=== PATIENT | male | born 1970 | race Caucasian/White ===

== ENCOUNTER 2018-04-15 13:49 | Inpatient (IN) | payer MEDICAID ==
[~2018-04-15] VITALS: Ht 175.3 cm; Wt 86.2 kg
[~2018-04-15 13:49] MED LIST: GABA-529 PO; INSU100I26 SQ; INSU100V9 SUBCUT; INSU10VI4 SUBCUT; PRAV20TA PO
[2018-04-15 14:13] VITALS: BP_SYST 142
[2018-04-15 14:40] LABS: BASOPHILS # (AUTO) 0.1 K/uL (0.0-0.2); BASOPHILS % (AUTO) 1.3 % (0.0-2.0); EOSINOPHILS # (AUTO) 0.1 K/uL (0.0-0.4); HEMATOCRIT 42.9 % (36-54); HEMOGLOBIN 13.9 g/dL (14.0-18.0); LYMPHOCYTES # (AUTO) 2.3 K/uL (1.0-5.5); LYMPHOCYTES % (AUTO) 26.6 % (20.5-51.5); MEAN CORPUSCULAR HEMOGLOBIN 29 pg (27-31); MEAN CORPUSCULAR HGB CONC 33 % (32-36); MEAN CORPUSCULAR VOLUME 88 fL (79.0-98.0); MONOCYTES # (AUTO) 0.3 K/uL (0.0-1.0); NEUTROPHILS # (AUTO) 5.7 K/uL (1.8-7.7); NEUTROPHILS % (AUTO) 67.1 % (40.0-70.0); PLATELET COUNT (AUTO) 313 K/uL (130-430); RED BLOOD CELL COUNT(AUTO) 4.88 MIL/uL (4.2-6.2); RED CELL DISTRIBUTION WIDTH 12.2 % (9.0-15.0); WHITE BLOOD COUNT (AUTO) 8.5 K/uL (4.8-10.8)
[2018-04-15 14:57] LABS: CALCIUM 9.1 mg/dL (8.4-11.0); CREATININE 0.86 mg/dL (0.55-1.30); POTASSIUM 4.9 mmol/L (3.5-5.1)
[2018-04-15 15:00] LABS: ALBUMIN 3.1 g/dL (3.4-4.8); TOTAL BILIRUBIN 0.2 mg/dL (0.0-1.0)
--- NOTE | 2018-04-15 15:17 | NUR ---
Patient to ER bed 07 to gown for evaluation. Side rails up. Report received from BASSEM Mauricio
--- NOTE | 2018-04-15 15:20 | NUR ---
Patient brought in by self complaining of wound to the bottom of right foot. 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 Denies any other pain. Will continue to monitor.
--- NOTE | 2018-04-15 15:21 | NUR ---
DELANEY Gustafson examining patient.
--- NOTE | 2018-04-15 15:25 | NUR ---
Patient states he is a full code
[2018-04-15] MEDS ORDERED: INSU100I26 SQ (15:26)
--- NOTE | 2018-04-15 15:26 | NUR ---
Medication reconciliation completed with information provided by Patient. Any prior medication reconciliation on file was reviewed and corrected.
[2018-04-15] MEDS ORDERED: VANCOMYCIN HCL 1,000 MG in NS 250 ML IV ONE (15:30)
[2018-04-15] MEDS ORDERED: INSULIN REGULAR, HUMAN 10 UNITS/0.1 ML INJ IVP ONE ×2 (15:30→16:30)
[2018-04-15] MEDS ORDERED: NACL 0.9% 1,000 ML IV ONE (16:15)
[2018-04-15] MEDS ORDERED: VANCOMYCIN HCL 1000 MG/VIAL IV ONE (16:17)
--- NOTE | 2018-04-15 17:20 | NUR ---
Spoke with Jaylyn LUEVANO with preferred [facility] who states that it is ok to admit authorization to admit [id number]. Jaylyn requests that clinical information be faxed to .
--- NOTE | 2018-04-15 17:27 | NUR ---
Pt A&Ox4, respirations even and unlabored.
--- NOTE | 2018-04-15 18:45 | NUR ---
Pt ambulated to bathroom , pt on stable condition, afebrile.
--- NOTE | 2018-04-15 19:10 | NUR ---
Patient will be admitted to care of Dr Mcmillan. Admitted to Medsurg unit. Will go to room 127B. Belongings list completed. Summary report printed. Report will be given at bedside.
--- NOTE | 2018-04-15 19:20 | NUR ---
Admission Note Received patient from ER with diagnosis of Diabetic right foot ulcer and possible osteomyelitis. Initial Plan of Care discussed-patient verbalized understanding. Family at bedside. Oriented to room, call light, pain management and safety.
[2018-04-15 20:02] VITALS: BP_SYST 128
--- NOTE | 2018-04-15 20:15 | NUR ---
Unable to obtain Aerobic culture Wound assessment and photo documentation done. Unable to obtain aerobic culture at this time since the wound has no drainage.
[2018-04-15] MEDS: INSULIN ASPART 100 UNITS/ML, 10 ML VIAL (NovoLOG) SUBCUT PRN (20:22)
--- NOTE | 2018-04-15 20:30 | NUR ---
BASSEM rounds Blood sugar 181. Gave 2 units of insulin. Patient tolerated well. No signs of allergic reaction. No other needs at this moment. Safety precautions are in place.
[2018-04-15] MEDS ORDERED: ZOLPIDEM TARTRATE 5 MG TABLET PO PRN (21:15)
[2018-04-15] MEDS ORDERED: HYDROcodone/ACETAMIN 5-325 MG TAB (NORCO/ VICODIN) PO PRN (21:15)
[2018-04-15] MEDS ORDERED: ACETAMINOPHEN 325 MG TABLET PO PRN (21:15)
[2018-04-15] MEDS ORDERED: ONDANSETRON HCL 4 MG/2 ML VIAL IVP PRN (21:15)
[2018-04-15] MEDS ORDERED: AMPICILLIN SODIUM/SULBACTAM NA 3 GM VIAL ONE (22:29)
[2018-04-15] MEDS: AMPICILLIN SODIUM/SULBACTAM NA 3 GM in NS 100 ML IV SCH (22:38)
--- NOTE | 2018-04-15 22:50 | NUR ---
RN rounds Patient ambulated to restroom with assist, steady gait noted. Patient ambulated back into bed. No signs of distress noted. Breathing is even and unlabored. No needs at this moment. Safety precautions are in place.
--- NOTE | 2018-04-16 01:00 | NUR ---
RN rounds Patient is asleep in bed. No signs of distress noted. Breathing is even and unlabored. No needs at this moment. Safety precautions are in place.
--- NOTE | 2018-04-16 03:10 | NUR ---
RN rounds Patient is asleep in bed. No signs of distress noted. Breathing is even and unlabored. Safety precautions are in place.
[2018-04-16] MEDS: AMPICILLIN SODIUM/SULBACTAM NA 3 GM in NS 100 ML IV SCH ×2 (04:15→10:12)
--- NOTE | 2018-04-16 05:24 | NUR ---
Consults Spoke with Dr. Mcmillan for order clarification. Dr Mcmillan ordered a consult for Dr Andino, who is not in our records. Dr Mcmillan informed us that she ordered the wrong doctor, and would like to consult to Dr Pichardo.
--- NOTE | 2018-04-16 05:28 | NUR ---
CONSULT CONSULT CALLED FOR DR. MONK I SPOKE WITH RIVKA SIMPSON REASON FOR CONSULT: DIABETIC FOOT ULCER REQUESTING CONSULT: DR. SALCIDO POPULATION HEALTH COACH PHONE NUMBER: [phone]
[2018-04-16] MEDS: INSULIN ASPART 100 UNITS/ML, 10 ML VIAL (NovoLOG) SUBCUT PRN ×4 (06:29→21:49)
[2018-04-16 06:52] LABS: BASOPHILS # (AUTO) 0.2 K/uL (0.0-0.2); BASOPHILS % (AUTO) 2.3 % (0.0-2.0); EOSINOPHILS # (AUTO) 0.2 K/uL (0.0-0.4); EOSINOPHILS % (AUTO) 2.1 % (0.0-4.0); HEMATOCRIT 41.5 % (36-54); HEMOGLOBIN 13.5 g/dL (14.0-18.0); LYMPHOCYTES # (AUTO) 2.8 K/uL (1.0-5.5); LYMPHOCYTES % (AUTO) 38.2 % (20.5-51.5); MEAN CORPUSCULAR HEMOGLOBIN 29 pg (27-31); MEAN CORPUSCULAR HGB CONC 33 % (32-36); MEAN CORPUSCULAR VOLUME 89 fL (79.0-98.0); MONOCYTES # (AUTO) 0.4 K/uL (0.0-1.0); MONOCYTES % (AUTO) 5.8 % (1.7-9.3); NEUTROPHILS # (AUTO) 3.7 K/uL (1.8-7.7); NEUTROPHILS % (AUTO) 51.6 % (40.0-70.0); PLATELET COUNT (AUTO) 285 K/uL (130-430); RED BLOOD CELL COUNT(AUTO) 4.69 MIL/uL (4.2-6.2); RED CELL DISTRIBUTION WIDTH 11.9 % (9.0-15.0); WHITE BLOOD COUNT (AUTO) 7.3 K/uL (4.8-10.8)
[2018-04-16 07:20] LABS: CALCIUM 8.5 mg/dL (8.4-11.0); CREATININE 0.69 mg/dL (0.55-1.30); POTASSIUM 3.4 mmol/L (3.5-5.1); THYROID STIMULATING HORMONE 0.71 uIu/mL (0.34-4.82)
--- NOTE | 2018-04-16 07:52 | NUR ---
Closing notes Patient is asleep in bed. No signs of distress noted. Breathing is even and unlabored on room air. IV is intact, saline locked. Fall and safety precautions maintained. All needs have been met during this shift. Endorsement given to oncoming day shift nurse.
--- NOTE | 2018-04-16 08:10 | NUR ---
Opening note patient received resting in bed, patient is A&Ox4, patient denies any pain or distress at this time, IVF infusing well with no signs of infiltration, breathing is even and unlabored, educated patient on plan of care and call light system, will continue to monitor, safety precautions in place, call light within reach.
[2018-04-16 08:17] VITALS: BP_SYST 140
[2018-04-16] MEDS ORDERED: POTASSIUM CHLORIDE 10 MEQ TAB.PRT.SR PO ONE (09:15)
[2018-04-16] MEDS: GABAPENTIN 100 MG CAPSULE PO SCH ×2 (09:37→21:43)
[2018-04-16] MEDS: FAMOTIDINE 20 MG TABLET PO SCH (09:37)
--- NOTE | 2018-04-16 10:20 | NUR ---
NOTES PATIENT RESTING IN BED, NO ACUTE DISTRESS NOTED, PATIENT DENIES ANY PAIN AT THIS TIME, BREATHING IS EVEN AND UNLABORED, IVF INFUSING WELL WITH NO SIGNS OF INFILTRATION, WILL CONTINUE TO MONITOR, SAFETY PRECAUTIONS IN PLACE, CALL LIGHT WITHIN REACH.
--- NOTE | 2018-04-16 10:30 | NUR ---
Nutrition Update Juan Scale 17 noted. Pt admitted for diabetic R foot ulcer, possible osteomyelitis. Diet: [facility] BMI: 28.1 kg/m2 RD to follow per nutrition care standards.
--- NOTE | 2018-04-16 11:50 | NUR ---
NOTES / BLOOD SUGAR PATIENT IS RESTING IN BED, BLOOD SUGAR IS 201, 4 UNITS OF INSULIN GIVEN PER SLIDING SCALE, PATIENT DENIES ANY PAIN OR ACUTE DISTRESS AT THIS TIME, BREATHING IS EVEN AND UNLABORED, WILL CONTINUE TO MONITOR, SAFETY PRECAUTIONS IN PLACE CALL LIGHT WITHIN REACH.
[2018-04-16 12:37] VITALS: BP_SYST 148
--- NOTE | 2018-04-16 14:12 | NUR ---
Surgical consult called: for Dr. Conroy, regarding diabetic foot ulcer/debridement, ordered by Dr. Mcmillan, spoke with Deirdre.
[2018-04-16] MEDS: PIPERACILLIN/TAZO 4.5GM/DEX-IS 100 ML IV SCH ×2 (14:13→21:43)
[2018-04-16] MEDS ORDERED: LISINOPRIL 10 MG TABLET (PRINIVIL) PO ONE (14:15)
--- NOTE | 2018-04-16 14:37 | NUR ---
Notes patient is resting in bed, IVF infusing well with no signs of infiltration, patient denies any pain or distress at this time, breathing is even and unlabored, will continue to monitor, safety precautions in place, call light within reach.
[2018-04-16] MEDS: VANCOMYCIN HCL 1,000 MG in NS 250 ML IV SCH ×2 (15:03→23:29)
--- NOTE | 2018-04-16 16:00 | NUR ---
Patient off floor for CT. Addendum: 04/16/18 at 1820 by Calli Stanley RN wrong patient, disregard note.
[2018-04-16 16:25] VITALS: BP_SYST 150
--- NOTE | 2018-04-16 16:30 | NUR ---
NOTES PATIENT IS RESTING IN BED, IVF INFUSING WELL WITH NO SIGNS OF INFILTRATION, PATIENT DENIES ANY ACUTE DISTRESS OR PAIN AT THIS TIME, WILL CONTINUE TO MONITOR, SAFETY PRECAUTIONS IN PLACE, CALL LIGHT WITHIN REACH.
--- NOTE | 2018-04-16 16:30 | NUR ---
Patient back from CT resting in bed, IVF infusing well, breathing even and unlabored, will continue to monitor, safety precautions in place, call light within reach. Addendum: 04/16/18 at 1818 by Calli Stanley RN wrong patient
--- NOTE | 2018-04-16 18:41 | NUR ---
CLOSING NOTE PATIENT IS RESTING IN BED, A&OX4, PATIENT DENIES ANY ACUTE DISTRESS OR PAIN AT THIS TIME, BREATHING IS EVEN AND UNLABORED, IVF INFUSING WELL WITH NO SIGNS OF INFILTRATION, WILL ENDORSE REPORT TO ONCOMING NURSE, ALL NEEDS WERE MET THROUGHOUT SHIFT, SAFETY PRECAUTIONS IN PLACE, CALL LIGHT WITHIN REACH.
--- NOTE | 2018-04-16 19:54 | NUR ---
Initial notes Received handoff report from offgoing nurse at the bedside. Patient is awake and alert, resting comfortably in bed. No SOB, no acute distress, no complaints of pain at this time. Bed is locked, in the lowest position, 2x side rails up, bed alarm is on. Call light is within reach. Explained plan of care to the patient. Patient verbalized understanding. Will continue with plan of care. Spouse is at the bedside.
[2018-04-16 20:00] VITALS: BP_SYST 131
--- NOTE | 2018-04-16 21:30 | NUR ---
Patient is resting comfortably in bed. NO SOB, no acute distress, no complaints of pain at this time. Bed is locked, in the lowest position, 2x side rails up. Call light within reach. Patient does not want his wound dressed at this time, he stated "its fine. it's not draining or anything."
--- NOTE | 2018-04-16 23:51 | NUR ---
Patient is resting comfortably in bed, awake and alert. No SOB, no acute distress, no complaints of pain at this time. Call light is within reach. Encouraged patient to call for assistance.
[2018-04-17] VITALS: BP_SYST 145
--- NOTE | 2018-04-17 00:21 | NUR ---
SHANNON GARCIA / Dr MCMILLAN Paged Dr Mcmillan regarding patient's HS accucheck per Dr Mcmillan's order. Spoke with exchange, and transferred directly to Dr Mcmillan. Informed Dr Mcmillan that the patient's last blood sugar is 363, and that 10 units of NovoLog has been given per the sliding scale. Dr Mcmillan ordered for 15 units Levemir ONE time dose.
--- NOTE | 2018-04-17 02:00 | NUR ---
Informed ANESTHESIOLOGY MEDICAL DOCTOR regarding patient's midnight vital signs not being done yet. ANESTHESIOLOGY MEDICAL DOCTOR stated she will take the vital signs after coming back from break. Addendum: 04/17/18 at 0316 by Deirdre Aguilar RN ERROR* wrong time
--- NOTE | 2018-04-17 02:15 | NUR ---
Informed CHEMICAL ETCHING PROCESSOR regarding patient's midnight vital signs not being done yet. CHEMICAL ETCHING PROCESSOR stated she will take the vital signs after coming back from break.
--- NOTE | 2018-04-17 02:36 | NUR ---
Patient is resting comfortably in bed sleeping. No SOB, no acute distress, no signs of pain or facial grimacing. Breathing is even and unlabored with visible chest rise and fall noted. Call light within reach.
--- NOTE | 2018-04-17 04:00 | NUR ---
Patient is resting comfortably in bed with eyes closed. No SOB, no acute distress, no signs of pain or facial grimacing noted. Breathing is even and unlabored with visible chest rise and fall noted. Stable. Call light within reach.
[2018-04-17] MEDS: PIPERACILLIN/TAZO 4.5GM/DEX-IS 100 ML IV SCH ×3 (05:03→22:20)
--- NOTE | 2018-04-17 05:15 | NUR ---
MRI questionnaire has been completed by the patient and placed in the charts.
[2018-04-17] MEDS: VANCOMYCIN HCL 1,000 MG in NS 250 ML IV SCH (06:22)
[2018-04-17] MEDS: INSULIN ASPART 100 UNITS/ML, 10 ML VIAL (NovoLOG) SUBCUT PRN ×3 (06:30→17:28)
--- NOTE | 2018-04-17 07:42 | NUR ---
Closing notes Patient is awake and alert, resting comfortably in bed. No SOB, no acute distress, no complaints of pain at this time. Bed is locked, in the lowest position, 2x side rails up. Call light is within reach. Fall and safety precautions maintained. All needs have been met during this shift. Handoff report given to oncoming dayshift nurse at the bedside.
[2018-04-17 07:43] LABS: CALCIUM 8.8 mg/dL (8.4-11.0); CREATININE 0.9 mg/dL (0.55-1.30); POTASSIUM 4.1 mmol/L (3.5-5.1)
[2018-04-17 08:00] VITALS: BP_SYST 143
--- NOTE | 2018-04-17 08:00 | NUR ---
Note Pt sitting up in bed eating his breakfast. No SOB/resp distress or pain/discomfort noted at this time. IV in left forearm intact and patent at this time. Pt ambulates in room and restroom with steady gait. No weakness or dizziness noted at this time. No needs noted. Call light within reach.
[2018-04-17] MEDS: GABAPENTIN 100 MG CAPSULE PO SCH ×2 (08:48→22:17)
[2018-04-17] MEDS: FAMOTIDINE 20 MG TABLET PO SCH (08:48)
[2018-04-17] MEDS: LISINOPRIL 10 MG TABLET (PRINIVIL) PO SCH (08:49)
--- NOTE | 2018-04-17 11:30 | NUR ---
Note Pt resting in bed. Denies any needs at this time. Call light within reach.
--- NOTE | 2018-04-17 11:55 | NUR ---
Note Pt off the floor via wheelchair to Radiology for MRI of lower extremity. Dr Mcmillan on the floor doing rounds and assessment completed.
--- NOTE | 2018-04-17 12:05 | NUR ---
Note Dr Conroy on the floor - was informed that pt is in Radiology for MRI at this time.
[2018-04-17 12:10] VITALS: BP_SYST 137
--- NOTE | 2018-04-17 14:20 | NUR ---
Note Pt has been back to room from MRI of lower extremity. Dr Conroy came back to see pt and consent pt for surgery. Dr Conroy saw the results of the MRI of lower extremity at this time. Pt has his IVPB antibiotic running at this time. No needs noted. Call light within reach.
--- NOTE | 2018-04-17 14:55 | NUR ---
Note Pt off the floor via wheelchair to Radiology dept for 2 view CXR at this time.
[2018-04-17] MEDS: VANCOMYCIN HCL 1,250 MG in NS 250 ML IV SCH ×2 (15:29→23:56)
[2018-04-17 17:33] VITALS: BP_SYST 153
--- NOTE | 2018-04-17 17:45 | NUR ---
NOTE Pt resting in bed. Pt's girlfriend and son are at bedside at this time. Pt denies any needs. Pt signed consent for surgery tomorrow and blood consent. Pt was instructed that he will be NPO after midnight for surgery tomorrow. Pt verbalize understanding. No needs noted. Call light within reach.
--- NOTE | 2018-04-17 18:25 | NUR ---
Note Pt sitting up in bed eating his dinner with his girlfriend and son at bedside at this time. No needs noted. Left forearm IV intact and patent at this time. No SOB/resp distress or pain/discomfort noted all shift. Pt was checked on q1' and PRN all shift. Call light within reach.
[2018-04-17 18:48] LABS: BILIRUBIN,URINE NEGATIVE (NEGATIVE); BLOOD, URINE 1+ (NEGATIVE); CLARITY/URINE CLEAR (CLEAR); COLOR,URINE YELLOW (YELLOW); GLUCOSE,URINE 2+ (NEGATIVE); KETONES,URINE NEGATIVE (NEGATIVE); LEUKOCYTE ESTERASE ,URINE NEGATIVE (NEGATIVE); NITRITE, URINE NEGATIVE (NEGATIVE); PROTEIN URINE 2+ (NEGATIVE); UROBILINOGEN,URINE 0.2 (0.2-1.0)
[2018-04-17 18:53] LABS: BACTERIA,URINE RARE /HPF (None Seen); RBC,URINE 0-3 /HPF (0-3); WBC,URINE 0-3 /HPF (0-3)
--- NOTE | 2018-04-17 19:31 | NUR ---
OPENING NOTE Received patient AAOx4, resting in bed in no sign of distress. VSS and denies pain at this time. 22G IV to LFA. Instructed on use of call light. Bed locked to lowest position and call light w/in reach.
[2018-04-17 20:00] VITALS: BP_SYST 102
--- NOTE | 2018-04-17 22:35 | NUR ---
S/W Dr. Mcmillan Spoke with Dr. Mcmillan to notify accucheck result was 350; patient will be NPO at midnight and he is not on fluids. She provided order to go ahead and administer insulin novolog as ordered per sliding scale and provided an order for levemir insulin to change to 8units this time instead of 15. She did not provided an order for fluids.
--- NOTE | 2018-04-18 | NUR ---
ROUNDS Patient was administered insulin per Dr. Mcmillan's ordere. Patient was provided with a half sandwich just before midnight and was instructed and reminded that he was not going to have any food or drink after midnight. He verbalized understanding. The water pitcher was removed from the bedside table and the NPO cone was place. Bed is locked to lowest position and call light w/in reach. will monitor.
[2018-04-18] MEDS: INSULIN ASPART 100 UNITS/ML, 10 ML VIAL (NovoLOG) SUBCUT PRN ×4 (00:02→22:53)
[2018-04-18 00:24] VITALS: BP_SYST 131
[2018-04-18] MEDS: VANCOMYCIN HCL 1,250 MG in NS 250 ML IV SCH ×3 (00:25→17:36)
--- NOTE | 2018-04-18 02:40 | NUR ---
ROUNDS Patient sleeping, symmetrical rise and fall of chest. Patient no further needs at this time. Safety precautions in place and call light near. Will monitor.
--- NOTE | 2018-04-18 05:10 | NUR ---
ROUNDS Patient resting w/ eyes closed. No sign of distress noted. IV antibiotic was administered as ordered and patient was educated on side effects and he verbalized understanding. Will monitor.
[2018-04-18] MEDS: PIPERACILLIN/TAZO 4.5GM/DEX-IS 100 ML IV SCH ×3 (05:34→22:51)
--- NOTE | 2018-04-18 06:55 | NUR ---
CLOSING NOTE Patient resting in bed, awake and denies pain. Patient remains NPO. Needs met throughout shift. Saftey precautions in place and call light near. Will administer next due antibiotic and endorse care to oncoming nurse.
[2018-04-18 07:22] LABS: INR 0.9 (0.80-1.20); PROTHROMBIN TIME 9.5 SECS (9.5-12.5)
[2018-04-18 08:00] VITALS: BP_SYST 134
--- NOTE | 2018-04-18 08:00 | NUR ---
initial notes rec patient awake alert with hob slightly elevated. resp easy and unlabored. no acute distress noted. bed to the lowest position and side rails up and locked. call light within reached and knows when to call for assistance. npo maintained for sx at [address] su who was at the bedside. will continue to monitor patient.
[2018-04-18] MEDS: GABAPENTIN 100 MG CAPSULE PO SCH ×2 (09:00→22:15)
[2018-04-18] MEDS: FAMOTIDINE 20 MG TABLET PO SCH (09:00)
[2018-04-18] MEDS: LISINOPRIL 10 MG TABLET (PRINIVIL) PO SCH (09:00)
--- NOTE | 2018-04-18 10:00 | NUR ---
rounds watching tv. denies pain. no sob noted. call light within reached.
--- NOTE | 2018-04-18 12:38 | NUR ---
rounds npo maintianed sx . no hypo hyperglycemic reaction noted. call light within reached.
[2018-04-18 12:40] VITALS: BP_SYST 134
[2018-04-18] MEDS ORDERED: ONDANSETRON HCL 4 MG/2 ML VIAL IVP PRN (13:15)
[2018-04-18] MEDS ORDERED: fentaNYL CITRATE/PF 100 MCG/2 ML AMP IVP PRN ×2 (13:15)
--- NOTE | 2018-04-18 13:15 | NUR ---
rounds was picked up for sx via bed. no sob noted.
[2018-04-18] MEDS ORDERED: BUPIVACAINE /PF 0.75% 10 ML VIAL INJ ONE (14:35)
[2018-04-18] MEDS ORDERED: MIDAZOLAM HCL 5 MG/ML VIAL (VERSED) IV ONE (14:35)
[2018-04-18] MEDS ORDERED: NS IRRIG SOLN 1000 ML IR ONE (14:35)
[2018-04-18] MEDS ORDERED: NS 1000 ML IV.SOLN IV ONE (14:35)
--- NOTE | 2018-04-18 15:20 | NUR ---
rounds pt back from sx with debridement of the rt foot ulcer. with ac bandage dressing wrapped on the rt foot and elevated in a pillow. pt stated no sensationon the rt foot when touched. denies pain at this time.
[2018-04-18 16:45] VITALS: BP_SYST 128
--- NOTE | 2018-04-18 20:00 | NUR ---
Opening note: Received handoff report from dayshift RN. Patient watching TV, no acute distress noted. IV antibiotics infusing to left forearm, no infiltration noted. Safety, fall precautions in place. Call light with patient. Will continue monitoring.
[2018-04-18 20:10] VITALS: BP_SYST 131
--- NOTE | 2018-04-18 22:00 | NUR ---
Rounds: Patient resting in bed, no acute distress noted. Call light is with patient. Will continue monitoring.
[2018-04-19 00:23] VITALS: BP_SYST 132
[2018-04-19] MEDS: VANCOMYCIN HCL 1,250 MG in NS 250 ML IV SCH ×4 (00:25→23:43)
--- NOTE | 2018-04-19 02:00 | NUR ---
Rounds: Patient is asleep, no signs or symptoms of acute distress noted. Call light is with patient. Will continue to monitor.
[2018-04-19] MEDS: PIPERACILLIN/TAZO 4.5GM/DEX-IS 100 ML IV SCH ×3 (05:37→21:20)
[2018-04-19 06:06] LABS: BASOPHILS % (AUTO) 0.4 % (0.0-2.0); EOSINOPHILS # (AUTO) 0.2 K/uL (0.0-0.4); EOSINOPHILS % (AUTO) 2.5 % (0.0-4.0); HEMATOCRIT 39.7 % (36-54); HEMOGLOBIN 13.6 g/dL (14.0-18.0); LYMPHOCYTES # (AUTO) 2.1 K/uL (1.0-5.5); LYMPHOCYTES % (AUTO) 30.6 % (20.5-51.5); MEAN CORPUSCULAR HEMOGLOBIN 30 pg (27-31); MEAN CORPUSCULAR HGB CONC 34 % (32-36); MEAN CORPUSCULAR VOLUME 87 fL (79.0-98.0); MONOCYTES # (AUTO) 0.5 K/uL (0.0-1.0); MONOCYTES % (AUTO) 6.8 % (1.7-9.3); NEUTROPHILS # (AUTO) 4.1 K/uL (1.8-7.7); NEUTROPHILS % (AUTO) 59.7 % (40.0-70.0); PLATELET COUNT (AUTO) 285 K/uL (130-430); RED BLOOD CELL COUNT(AUTO) 4.55 MIL/uL (4.2-6.2); RED CELL DISTRIBUTION WIDTH 12.4 % (9.0-15.0); WHITE BLOOD COUNT (AUTO) 6.9 K/uL (4.8-10.8)
--- NOTE | 2018-04-19 06:30 | NUR ---
Closing note: Patient is watching TV, no acute distress noted. Most recent blood sugar 263, 6 units of novolog provided per sliding scale. All needs met and attended to. Will endorse care to dayshift RN.
[2018-04-19 06:43] LABS: CALCIUM 8.7 mg/dL (8.4-11.0); CREATININE 0.88 mg/dL (0.55-1.30); POTASSIUM 3.5 mmol/L (3.5-5.1)
[2018-04-19] MEDS: INSULIN ASPART 100 UNITS/ML, 10 ML VIAL (NovoLOG) SUBCUT PRN ×4 (06:46→21:19)
[2018-04-19 08:00] VITALS: BP_SYST 138
--- NOTE | 2018-04-19 08:00 | NUR ---
initial notes rec patient awake alert with ivl on the l forearm intact. no infiltration noted. dressing on the rt foot intact. no bleeding noted. denies pain. resp easy and unlabored. no acute distress noted. bed to the lowest position and side rails up and locked. call light within reached and knows when to call for assistance.
[2018-04-19] MEDS: FAMOTIDINE 20 MG TABLET PO SCH (09:30)
[2018-04-19] MEDS: GABAPENTIN 100 MG CAPSULE PO SCH ×2 (09:31→21:10)
[2018-04-19] MEDS: LISINOPRIL 10 MG TABLET (PRINIVIL) PO SCH (09:31)
--- NOTE | 2018-04-19 10:00 | NUR ---
rounds seen by dr su , due meds given and mynor well. denies pain.
--- NOTE | 2018-04-19 12:00 | NUR ---
rounds no hypo/ hyperglycemic reaction noted. no sob noted.
[2018-04-19 15:00] VITALS: BP_SYST 120
--- NOTE | 2018-04-19 16:00 | NUR ---
rounds pt was moved to the west side. spoke with ani the family preservation caseworker re home health follow up when d/c.
--- NOTE | 2018-04-19 17:34 | NUR ---
Case mgt: I s/w Dr. Mcmillan re: orders for home IV abx orders and PICC line order-ie I need orders to fax to home health-she indicated she would enter orders..Orders not received..Per , pt has had home health nurse Jozef at [phone] in the past--I called that number and left message to call us back with name of Home Health agency. Nurse Kim aware I did not receive orders yet from Dr. Mcmillan. FRITZ RN
--- NOTE | 2018-04-19 18:40 | NUR ---
closing notes in bed with hob elevated. at bedside. no hypo hyperglycemic reaction noted. call light wihtn reached and no sob noted. home health inquiry from [facility] but told them that no order for dr taylor is written at this time.
[2018-04-19 19:05] VITALS: BP_SYST 124
--- NOTE | 2018-04-19 19:05 | NUR ---
Initial Notes Received patient in bed resting in bed with at bedside. Patient is awake alert oriented x4. No c/o pain and no s/s of any distress noted. IV noted to L f/a g 22 no infiltrate and with good blood return. Dressing noted to L foot, no bleeding noted. All extremities are strong ambulate with assist. Discuss plan of care with patient and verbalize understanding. Call light in reach, will cont to monitor.
--- NOTE | 2018-04-19 21:05 | NUR ---
Rounds Patient is resting in bed with at bedside . No c/o pain and no s/s of any distress noted. Call light in reach, will cont to monitor.
--- NOTE | 2018-04-19 23:05 | NUR ---
Rounds Patient is comfortably resting with eyes close at this time. No s/s of any distress noted. Call light in reach, will cont to monitor.
[2018-04-20 00:18] VITALS: BP_SYST 117
--- NOTE | 2018-04-20 01:05 | NUR ---
Rounds Patient is comfortably resting in bed . No c/o pain and no s/s of any distress noted. Call light in reach, will cont to monitor.
--- NOTE | 2018-04-20 03:05 | NUR ---
Rounds Patient is comfortably resting at this time .No c/o pain and no s/s of any distress noted. Denies any assistance at this time. Call light in reach, will cont to monitor.
[2018-04-20] MEDS: PIPERACILLIN/TAZO 4.5GM/DEX-IS 100 ML IV SCH ×2 (05:42→14:14)
[2018-04-20] MEDS: VANCOMYCIN HCL 1,250 MG in NS 250 ML IV SCH (05:43)
[2018-04-20] MEDS: INSULIN ASPART 100 UNITS/ML, 10 ML VIAL (NovoLOG) SUBCUT PRN ×2 (06:02→12:18)
--- NOTE | 2018-04-20 06:57 | NUR ---
End of shift notes Patient is awake on his cell phone at this time. No s/s of any distress noted. All needs met and anticipated by noc nurses. Will endorse care to incoming nurse.
[2018-04-20 07:20] VITALS: BP_SYST 118
--- NOTE | 2018-04-20 07:30 | NUR ---
RN OPENING NOTE SBAR REPORT RECEIVED BY ENDORSING RN AT BEDSIDE. PT AMBULATORY W/O ASSIST AND IS NOT ON FALL PRECAUTIONS. EDUCATED ON UNIT SAFETY AND USE OF CALL LIGHT, BED IN LOWEST POSITION AND CALL LIGHT IS WITHIN REACH OF PT. SEE VS FLOW SHEET
[2018-04-20] MEDS: FAMOTIDINE 20 MG TABLET PO SCH (09:12)
[2018-04-20] MEDS: GABAPENTIN 100 MG CAPSULE PO SCH (09:13)
[2018-04-20] MEDS: LISINOPRIL 10 MG TABLET (PRINIVIL) PO SCH (09:13)
--- NOTE | 2018-04-20 10:25 | NUR ---
ENDORSEMENT REPORT ENDORSED TO RECEIVING RN AT BEDSIDE.
--- NOTE | 2018-04-20 10:30 | NUR ---
Transfer of care: Received patient from BASSEM Vargas. Patient not in the room, went for a walk with family. Dr. Conroy came and missed to see the patient.
--- NOTE | 2018-04-20 12:57 | NUR ---
Dietitian Recommendations *Recommend [facility] diet w/ Edy BID. Oral supplement will provide additional 160 kcal and 5 gm protein daily. *Provide snacks BID. Please see Nutritional Assessment for details. AD, RD
[2018-04-20] MEDS ORDERED: NEOMY SULF/BACITRAC ZN/POLY 28 GM OINT..GM. TP SCH (13:00)
--- NOTE | 2018-04-20 13:00 | NUR ---
Sheree ROUNDS: Seen by Dr. Conroy. Changed the dressing. Wound dry and clean. No active bleeding. Applied antibiotic ointment, foam dressing and wrap with kerlex.
--- NOTE | 2018-04-20 15:28 | NUR ---
Education: Educational provided on wound care dressing and to take antibiotic for 6 weeks per M.D. order. To follow up Primary Care Provider tomorrow.
[2018-04-20 15:43] VITALS: BP_SYST 132
[2018-04-20] MEDS ORDERED: DOXY100T2 PO (15:48)
[2018-04-20 15:54] VITALS: BP_SYST 132
--- NOTE | 2018-04-20 15:59 | NUR ---
DC Planning: per dr. Mcmillan, pt. is to dc home with PO abx per dr. Moreno and to f/u with PCP /surgeon for wound management.
--- NOTE | 2018-04-20 16:51 | NUR ---
D/C Patient Patient given medication reconciliation form and D/C instructions. Exit Care provided. Patient verbalized understanding. MD discussed with patient the results and treatment provided. Ambulatory with steady gait for discharge to home. Patient in stable condition, ID band removed. IV catheter removed, intact and dressing applied, no active bleeding. Rx of Doxycycline given. Patient educated on pain management. All belongings sent with patient.
[2018-04-20] MEDS ORDERED: VANCOMYCIN HCL 1,000 MG in NS 250 ML IV SCH (22:00)
== END 2018-04-20 16:40 | disposition home or self-care (01) | DRG 344 ==
LOC: SED 13:49 → SMU 17:34
PROVIDERS: ADMIT Internal Medicine; ATTEND Internal Medicine
PROC: 0JBQ0ZZ Excision of Right Foot Subcutaneous Tissue and Fascia, Open Approach (ICD-10-PCS; principal; 2018-04-18 13:30)
DX: E11.621 Type 2 diabetes mellitus with foot ulcer (principal); M86.9 Osteomyelitis, unspecified; I96 Gangrene, not elsewhere classified; E11.40 Type 2 diabetes mellitus with diabetic neuropathy, unspecified; E11.65 Type 2 diabetes mellitus with hyperglycemia; E11.51 Type 2 diabetes mellitus with diabetic peripheral angiopathy without gangrene; L03.115 Cellulitis of right lower limb; E11.69 Type 2 diabetes mellitus with other specified complication; L97.519 Non-pressure chronic ulcer of other part of right foot with unspecified severity; R03.0 Elevated blood-pressure reading, without diagnosis of hypertension; E78.5 Hyperlipidemia, unspecified; Z79.4 Long term (current) use of insulin; Z87.891 Personal history of nicotine dependence; Z89.411 Acquired absence of right great toe; Z89.421 Acquired absence of other right toe(s); Z87.81 Personal history of (healed) traumatic fracture
CPT/HCPCS: 36415; 71046-TC; 73721; 80048; 80053; 80202-TC; 81000-TC; 82962; 83605; 83735-TC; 84443-TC; 85025; 85610-TC; 85651-TC; 85730-TC; 86140; 87040-TC; 87070; 87070-TC; 87075-TC; 87081; 88304; 93005; 93923; 94010; 96365; 96366; 96375; 99285; J0295; J1815; J2250; J2543; J3370; J3490; J7030; J7050

== ENCOUNTER 2018-08-16 14:44 | Inpatient (IN) | payer MEDICAID ==
[~2018-08-16] VITALS: Ht 175.3 cm; Wt 90.7 kg
[~2018-08-16 14:44] MED LIST changes: +DOXY100T2 PO; -GABA-529 PO; -INSU100V9 SUBCUT; -INSU10VI4 SUBCUT; -PRAV20TA PO
[2018-08-16 14:56] VITALS: BP_SYST 144
[2018-08-16] MEDS ORDERED: NACL 0.9% 1,000 ML IV ONE (15:06)
[2018-08-16] MEDS ORDERED: MORPHINE 4 MG/ML INJ. SYRINGE IVP ONE ×2 (15:15→15:30)
[2018-08-16] MEDS ORDERED: AMPICILLIN SODIUM/SULBACTAM NA 3 GM in NS 100 ML IV ONE (15:30)
[2018-08-16] MEDS ORDERED: AMPICILLIN SODIUM/SULBACTAM NA 3 GM VIAL ONE (15:39)
[2018-08-16 16:00] LABS: HEMOGLOBIN 12.7 g/dL (14.0-18.0); MEAN CORPUSCULAR HEMOGLOBIN 29 pg (27-31); MEAN CORPUSCULAR VOLUME 88 fL (79.0-98.0); RED BLOOD CELL COUNT(AUTO) 4.32 MIL/uL (4.2-6.2); WHITE BLOOD COUNT (AUTO) 8.8 K/uL (4.8-10.8)
[2018-08-16 16:01] LABS: BASOPHILS % (AUTO) 0.6 % (0.0-2.0); EOSINOPHILS # (AUTO) 0.2 K/uL (0.0-0.4); EOSINOPHILS % (AUTO) 2.2 % (0.0-4.0); LYMPHOCYTES # (AUTO) 1.5 K/uL (1.0-5.5); LYMPHOCYTES % (AUTO) 16.9 % (20.5-51.5); MEAN CORPUSCULAR HGB CONC 33 % (32-36); NEUTROPHILS # (AUTO) 6.1 K/uL (1.8-7.7); NEUTROPHILS % (AUTO) 69.3 % (40.0-70.0); PLATELET COUNT (AUTO) 291 K/uL (130-430); RED CELL DISTRIBUTION WIDTH 12.9 % (9.0-15.0)
[2018-08-16 16:06] LABS: INR 0.9 (0.80-1.20); PROTHROMBIN TIME 9.5 SECS (9.5-12.5)
[2018-08-16 16:11] LABS: ALBUMIN 2.2 g/dL (3.4-4.8); CALCIUM 8.5 mg/dL (8.4-11.0); CREATININE 1.2 mg/dL (0.55-1.30); POTASSIUM 3.7 mmol/L (3.5-5.1); TOTAL BILIRUBIN 0.5 mg/dL (0.0-1.0)
[2018-08-16] MEDS ORDERED: PROPOFOL 200MG/ 20ML VIAL (DIPRIVAN) IV ONE (16:15)
[2018-08-16] MEDS ORDERED: MIDAZOLAM HCL 5 MG/5 ML VIAL IVP ONE (16:15)
[2018-08-16] MEDS ORDERED: NS IRRIG SOLN 1000 ML IR ONE (16:15)
[2018-08-16] MEDS ORDERED: LR 1,000 ML IV.SOLN IV ONE (16:15)
[2018-08-16] MEDS ORDERED: fentaNYL CITRATE/PF 100 MCG/2 ML AMP IVP ONE (16:15)
[2018-08-16] MEDS ORDERED: SEVOFLURANE 15 MIN GAS INH ONE (16:15)
[2018-08-16] MEDS ORDERED: INSULIN REGULAR, HUMAN 10 UNITS/0.1 ML INJ IVP ONE (16:30)
[2018-08-16 17:13] LABS: BILIRUBIN,URINE NEGATIVE (NEGATIVE); BLOOD, URINE 1+ (NEGATIVE); CLARITY/URINE CLEAR (CLEAR); COLOR,URINE YELLOW (YELLOW); GLUCOSE,URINE 3+ (NEGATIVE); KETONES,URINE NEGATIVE (NEGATIVE); LEUKOCYTE ESTERASE ,URINE NEGATIVE (NEGATIVE); NITRITE, URINE NEGATIVE (NEGATIVE); PROTEIN URINE 1+ (NEGATIVE); UROBILINOGEN,URINE 0.2 (0.2-1.0)
[2018-08-16 17:22] LABS: BACTERIA,URINE FEW /HPF (None Seen); WBC,URINE 0-3 /HPF (0-3)
[2018-08-16] MEDS ORDERED: D5/0.45 NS 1,000 ML IV SCH (17:35)
[2018-08-16] MEDS ORDERED: D5W 1,000 ML IV PRN (17:35)
[2018-08-16] MEDS ORDERED: GLUCOSE 15 GM GEL (in 37.5 GM TUBE) PO PRN (17:45)
[2018-08-16] MEDS ORDERED: ONDANSETRON HCL 4 MG/2 ML VIAL IVP PRN (17:45)
[2018-08-16] MEDS ORDERED: MAGNESIUM SULFATE 50 ML IV PRN (17:45)
[2018-08-16] MEDS ORDERED: DEXTROSE 50% JECT 50 ML DISP.SYRIN IVP PRN (17:45)
[2018-08-16] MEDS ORDERED: DOCUSATE SODIUM 100 MG CAPSULE PO PRN (17:45)
[2018-08-16] MEDS ORDERED: MUPIROCIN 2% TOPICAL OINTMENT 22 GM NS PRN (17:45)
[2018-08-16 19:41] VITALS: BP_SYST 157
[2018-08-16] MEDS ORDERED: PIPERACILLIN/TAZOBACTAM 3.375 GM/VIAL (ZOSYN) IV ONE (20:45)
[2018-08-16] MEDS: PIPERACILLIN/TAZO 3.375/DEX-IS 50 ML IV SCH (20:55)
[2018-08-16] MEDS: GABAPENTIN 100 MG CAPSULE PO SCH (22:05)
[2018-08-16] MEDS: LOPERAMIDE HCL 2 MG CAPSULE PO PRN (22:05)
[2018-08-16] MEDS: MORPHINE 4 MG/ML INJ. SYRINGE IVP PRN (22:06)
[2018-08-16] MEDS: INSULIN REGULAR, HUMAN 100 UNITS/ML, 10 ML VIAL (novoLIN R) SUBCUT PRN (22:08)
[2018-08-17 00:54] VITALS: BP_SYST 142
[2018-08-17] MEDS: PIPERACILLIN/TAZO 3.375/DEX-IS 50 ML IV SCH ×5 (02:04→23:50)
[2018-08-17 02:19] VITALS: BP_SYST 135
[2018-08-17] MEDS: INSULIN REGULAR, HUMAN 100 UNITS/ML, 10 ML VIAL (novoLIN R) SUBCUT PRN ×3 (05:59→21:00)
[2018-08-17] MEDS: NACL 0.9% 1,000 ML IV SCH (06:06)
[2018-08-17 07:08] LABS: HEMATOCRIT 33.3 % (36-54); HEMOGLOBIN 11.4 g/dL (14.0-18.0); MEAN CORPUSCULAR HEMOGLOBIN 30 pg (27-31); MEAN CORPUSCULAR VOLUME 87 fL (79.0-98.0); RED BLOOD CELL COUNT(AUTO) 3.84 MIL/uL (4.2-6.2); WHITE BLOOD COUNT (AUTO) 7.9 K/uL (4.8-10.8)
[2018-08-17 07:09] LABS: EOSINOPHILS # (AUTO) 0.3 K/uL (0.0-0.4); LYMPHOCYTES # (AUTO) 1.9 K/uL (1.0-5.5); MEAN CORPUSCULAR HGB CONC 34 % (32-36); MONOCYTES # (AUTO) 0.8 K/uL (0.0-1.0); NEUTROPHILS # (AUTO) 4.8 K/uL (1.8-7.7); PLATELET COUNT (AUTO) 303 K/uL (130-430); RED CELL DISTRIBUTION WIDTH 12.7 % (9.0-15.0)
[2018-08-17 07:10] LABS: BASOPHILS % (AUTO) 0.5 % (0.0-2.0); CALCIUM 8.4 mg/dL (8.4-11.0); CREATININE 0.84 mg/dL (0.55-1.30); EOSINOPHILS % (AUTO) 3.9 % (0.0-4.0); LYMPHOCYTES % (AUTO) 24.6 % (20.5-51.5); MONOCYTES % (AUTO) 9.7 % (1.7-9.3); NEUTROPHILS % (AUTO) 61.3 % (40.0-70.0); POTASSIUM 3.4 mmol/L (3.5-5.1)
[2018-08-17 08:00] VITALS: BP_SYST 133
[2018-08-17] MEDS: GABAPENTIN 100 MG CAPSULE PO SCH ×2 (08:36→20:56)
[2018-08-17] MEDS: LISINOPRIL 5 MG TABLET PO SCH (08:37)
[2018-08-17] MEDS: MORPHINE 4 MG/ML INJ. SYRINGE IVP PRN ×3 (08:41→21:02)
[2018-08-17] MEDS: HEPARIN SODIUM,PORCINE 5000 UNITS/ML VIAL SUBCUT SCH ×2 (08:47→20:59)
[2018-08-17] MEDS: INSULIN GLARGINE 100 UNITS/ML 10 ML VIAL SUBCUT SCH ×2 (08:50→21:00)
[2018-08-17] MEDS ORDERED: INSU100I26 SQ (11:07)
[2018-08-17] MEDS ORDERED: GABA-529 PO (11:07)
[2018-08-17] MEDS: LOPERAMIDE HCL 2 MG CAPSULE PO PRN ×2 (11:20→19:59)
[2018-08-17] MEDS: POTASSIUM CHLORIDE 20 MEQ TAB.PRT.SR PO PRN (11:26)
[2018-08-17 11:29] VITALS: BP_SYST 128
[2018-08-17 15:11] VITALS: BP_SYST 134
[2018-08-17] MEDS: ACETAMINOPHEN 325 MG TABLET PO PRN (19:59)
[2018-08-17 20:00] VITALS: BP_SYST 126; BP_SYST 148
[2018-08-18 00:51] VITALS: BP_SYST 130
[2018-08-18] MEDS: LOPERAMIDE HCL 2 MG CAPSULE PO PRN (04:03)
[2018-08-18] MEDS: NACL 0.9% 1,000 ML IV SCH ×2 (05:57→18:04)
[2018-08-18] MEDS: PIPERACILLIN/TAZO 3.375/DEX-IS 50 ML IV SCH (06:10)
[2018-08-18] MEDS: INSULIN REGULAR, HUMAN 100 UNITS/ML, 10 ML VIAL (novoLIN R) SUBCUT PRN ×4 (06:14→21:25)
[2018-08-18 07:26] LABS: CALCIUM 8.8 mg/dL (8.4-11.0); CREATININE 0.74 mg/dL (0.55-1.30); POTASSIUM 3.5 mmol/L (3.5-5.1)
[2018-08-18 08:00] VITALS: BP_SYST 144
[2018-08-18 09:27] LABS: HEMATOCRIT 33.8 % (36-54); HEMOGLOBIN 11.8 g/dL (14.0-18.0); LYMPHOCYTES % (AUTO) 25.4 % (20.5-51.5); MEAN CORPUSCULAR HEMOGLOBIN 30 pg (27-31); MEAN CORPUSCULAR HGB CONC 35 % (32-36); MEAN CORPUSCULAR VOLUME 86 fL (79.0-98.0); NEUTROPHILS % (AUTO) 59.5 % (40.0-70.0); PLATELET COUNT (AUTO) 331 K/uL (130-430); RED BLOOD CELL COUNT(AUTO) 3.94 MIL/uL (4.2-6.2); RED CELL DISTRIBUTION WIDTH 12.7 % (9.0-15.0); WHITE BLOOD COUNT (AUTO) 7.1 K/uL (4.8-10.8)
[2018-08-18 09:28] LABS: BASOPHILS % (AUTO) 0.2 % (0.0-2.0); EOSINOPHILS # (AUTO) 0.4 K/uL (0.0-0.4); EOSINOPHILS % (AUTO) 5.4 % (0.0-4.0); LYMPHOCYTES # (AUTO) 1.8 K/uL (1.0-5.5); MONOCYTES # (AUTO) 0.7 K/uL (0.0-1.0); MONOCYTES % (AUTO) 9.5 % (1.7-9.3); NEUTROPHILS # (AUTO) 4.2 K/uL (1.8-7.7)
[2018-08-18] MEDS: LISINOPRIL 5 MG TABLET PO SCH (09:41)
[2018-08-18] MEDS: GABAPENTIN 100 MG CAPSULE PO SCH ×2 (09:42→21:20)
[2018-08-18] MEDS: INSULIN GLARGINE 100 UNITS/ML 10 ML VIAL SUBCUT SCH ×2 (09:44→21:23)
[2018-08-18] MEDS: HYDROcodone/ACETAMIN 5-325 MG TAB (NORCO/ VICODIN) PO PRN (11:34)
[2018-08-18 12:30] VITALS: BP_SYST 136
[2018-08-18] MEDS ORDERED: VANCOMYCIN HCL 1,750 MG in NS 250 ML IV SCH (13:00)
[2018-08-18] MEDS: VANCOMYCIN HCL 1,750 MG in NS 500 ML IV SCH (14:06)
[2018-08-18] MEDS: HEPARIN SODIUM,PORCINE 5000 UNITS/ML VIAL SUBCUT SCH ×2 (14:07→21:23)
[2018-08-18] MEDS: MORPHINE 4 MG/ML INJ. SYRINGE IVP PRN (16:41)
[2018-08-18 16:46] VITALS: BP_SYST 128
[2018-08-18 20:14] VITALS: BP_SYST 147
[2018-08-18] MEDS: CEFEPIME 1 GM in D5W 50 ML IV SCH (21:22)
[2018-08-19 01:09] VITALS: BP_SYST 143
[2018-08-19] MEDS: VANCOMYCIN HCL 1,750 MG in NS 500 ML IV SCH ×2 (01:21→12:09)
[2018-08-19] MEDS: NACL 0.9% 1,000 ML IV SCH ×2 (03:39→14:35)
[2018-08-19] MEDS: HEPARIN SODIUM,PORCINE 5000 UNITS/ML VIAL SUBCUT SCH ×3 (06:32→21:07)
[2018-08-19 06:41] LABS: CALCIUM 8.6 mg/dL (8.4-11.0); CREATININE 0.77 mg/dL (0.55-1.30); POTASSIUM 3.5 mmol/L (3.5-5.1)
[2018-08-19 06:49] LABS: BASOPHILS % (AUTO) 0.6 % (0.0-2.0); EOSINOPHILS # (AUTO) 0.5 K/uL (0.0-0.4); EOSINOPHILS % (AUTO) 6.2 % (0.0-4.0); HEMOGLOBIN 12.1 g/dL (14.0-18.0); LYMPHOCYTES # (AUTO) 2.4 K/uL (1.0-5.5); LYMPHOCYTES % (AUTO) 31.5 % (20.5-51.5); MEAN CORPUSCULAR HEMOGLOBIN 29 pg (27-31); MEAN CORPUSCULAR HGB CONC 34 % (32-36); MEAN CORPUSCULAR VOLUME 88 fL (79.0-98.0); MONOCYTES # (AUTO) 0.7 K/uL (0.0-1.0); MONOCYTES % (AUTO) 8.5 % (1.7-9.3); NEUTROPHILS # (AUTO) 4.1 K/uL (1.8-7.7); NEUTROPHILS % (AUTO) 53.2 % (40.0-70.0); PLATELET COUNT (AUTO) 385 K/uL (130-430); RED BLOOD CELL COUNT(AUTO) 4.11 MIL/uL (4.2-6.2); RED CELL DISTRIBUTION WIDTH 12.8 % (9.0-15.0); WHITE BLOOD COUNT (AUTO) 7.8 K/uL (4.8-10.8)
[2018-08-19 07:45] VITALS: BP_SYST 154
[2018-08-19] MEDS: GABAPENTIN 100 MG CAPSULE PO SCH ×2 (08:54→20:16)
[2018-08-19] MEDS: LISINOPRIL 5 MG TABLET PO SCH (08:55)
[2018-08-19] MEDS: INSULIN GLARGINE 100 UNITS/ML 10 ML VIAL SUBCUT SCH ×2 (08:58→20:20)
[2018-08-19] MEDS: CEFEPIME 1 GM in D5W 50 ML IV SCH ×2 (09:00→20:18)
[2018-08-19] MEDS: LOPERAMIDE HCL 2 MG CAPSULE PO PRN ×2 (09:02→20:30)
[2018-08-19] MEDS ORDERED: METOCLOPRAMIDE HCL 10 MG/2 ML VIAL IVP ONE (09:30)
[2018-08-19 12:02] VITALS: BP_SYST 141
[2018-08-19 16:03] VITALS: BP_SYST 135
[2018-08-19] MEDS ORDERED: KETOROLAC TROMETHAMINE 30 MG VIAL IVP PRN (16:45)
[2018-08-19] MEDS ORDERED: fentaNYL CITRATE/PF 100 MCG/2 ML AMP IVP PRN ×2 (16:45)
[2018-08-19] MEDS ORDERED: ONDANSETRON HCL 4 MG/2 ML VIAL IVP PRN (16:45)
[2018-08-19] MEDS ORDERED: POLYMYXIN 500,000/BACIT.10,000 UNITS in NS IRR 1 L IR ONE (17:05)
[2018-08-19 20:00] VITALS: BP_SYST 154
[2018-08-19] MEDS: INSULIN REGULAR, HUMAN 100 UNITS/ML, 10 ML VIAL (novoLIN R) SUBCUT PRN (20:29)
[2018-08-19] MEDS: HYDROcodone/ACETAMIN 5-325 MG TAB (NORCO/ VICODIN) PO PRN (20:30)
[2018-08-19] MEDS: D5NS 1,000 ML IV SCH (21:06)
[2018-08-19 23:38] VITALS: BP_SYST 140
[2018-08-20] MEDS: VANCOMYCIN HCL 1,750 MG in NS 500 ML IV SCH ×2 (00:01→15:54)
[2018-08-20] MEDS: HEPARIN SODIUM,PORCINE 5000 UNITS/ML VIAL SUBCUT SCH ×3 (05:07→21:36)
[2018-08-20] MEDS: D5NS 1,000 ML IV SCH ×2 (05:08→16:24)
[2018-08-20] MEDS: INSULIN REGULAR, HUMAN 100 UNITS/ML, 10 ML VIAL (novoLIN R) SUBCUT PRN ×2 (06:06→21:39)
[2018-08-20 06:52] LABS: CALCIUM 8.1 mg/dL (8.4-11.0); CREATININE 0.85 mg/dL (0.55-1.30); POTASSIUM 3.4 mmol/L (3.5-5.1)
[2018-08-20 07:06] LABS: BASOPHILS # (AUTO) 0.1 K/uL (0.0-0.2); BASOPHILS % (AUTO) 0.7 % (0.0-2.0); EOSINOPHILS # (AUTO) 0.4 K/uL (0.0-0.4); EOSINOPHILS % (AUTO) 4.3 % (0.0-4.0); HEMATOCRIT 33.6 % (36-54); HEMOGLOBIN 11.4 g/dL (14.0-18.0); LYMPHOCYTES # (AUTO) 2.1 K/uL (1.0-5.5); LYMPHOCYTES % (AUTO) 21.6 % (20.5-51.5); MEAN CORPUSCULAR HEMOGLOBIN 29 pg (27-31); MEAN CORPUSCULAR HGB CONC 34 % (32-36); MEAN CORPUSCULAR VOLUME 87 fL (79.0-98.0); MONOCYTES # (AUTO) 0.6 K/uL (0.0-1.0); MONOCYTES % (AUTO) 6.1 % (1.7-9.3); NEUTROPHILS # (AUTO) 6.5 K/uL (1.8-7.7); NEUTROPHILS % (AUTO) 67.3 % (40.0-70.0); PLATELET COUNT (AUTO) 395 K/uL (130-430); RED BLOOD CELL COUNT(AUTO) 3.87 MIL/uL (4.2-6.2); RED CELL DISTRIBUTION WIDTH 12.9 % (9.0-15.0); WHITE BLOOD COUNT (AUTO) 9.7 K/uL (4.8-10.8)
[2018-08-20 07:57] VITALS: BP_SYST 160
[2018-08-20] MEDS: LOPERAMIDE HCL 2 MG CAPSULE PO PRN ×2 (08:22→21:31)
[2018-08-20] MEDS: GABAPENTIN 100 MG CAPSULE PO SCH ×2 (08:22→21:31)
[2018-08-20] MEDS: LISINOPRIL 5 MG TABLET PO SCH (08:22)
[2018-08-20] MEDS: MORPHINE 4 MG/ML INJ. SYRINGE IVP PRN ×2 (08:24→16:20)
[2018-08-20] MEDS: CEFEPIME 1 GM in D5W 50 ML IV SCH ×2 (08:24→21:32)
[2018-08-20] MEDS: INSULIN GLARGINE 100 UNITS/ML 10 ML VIAL SUBCUT SCH ×2 (09:00→21:38)
[2018-08-20 11:58] LABS: INR 0.9 (0.80-1.20); PROTHROMBIN TIME 9.6 SECS (9.5-12.5)
[2018-08-20 12:00] VITALS: BP_SYST 138
[2018-08-20 17:19] VITALS: BP_SYST 155
[2018-08-21 00:54] VITALS: BP_SYST 153
[2018-08-21] MEDS: VANCOMYCIN HCL 1,750 MG in NS 500 ML IV SCH (01:25)
[2018-08-21] MEDS: D5NS 1,000 ML IV SCH ×2 (01:28→12:49)
[2018-08-21] MEDS: HEPARIN SODIUM,PORCINE 5000 UNITS/ML VIAL SUBCUT SCH ×2 (05:41→21:42)
[2018-08-21] MEDS: LOPERAMIDE HCL 2 MG CAPSULE PO PRN ×2 (05:44→17:39)
[2018-08-21] MEDS: MORPHINE 4 MG/ML INJ. SYRINGE IVP PRN ×2 (05:45→09:51)
[2018-08-21 06:53] LABS: CREATININE 0.8 mg/dL (0.55-1.30); POTASSIUM 3.6 mmol/L (3.5-5.1)
[2018-08-21 07:05] LABS: BASOPHILS # (AUTO) 0.1 K/uL (0.0-0.2); BASOPHILS % (AUTO) 0.8 % (0.0-2.0); EOSINOPHILS # (AUTO) 0.4 K/uL (0.0-0.4); EOSINOPHILS % (AUTO) 4.2 % (0.0-4.0); HEMATOCRIT 37.8 % (36-54); HEMOGLOBIN 12.8 g/dL (14.0-18.0); LYMPHOCYTES # (AUTO) 2.5 K/uL (1.0-5.5); LYMPHOCYTES % (AUTO) 25.8 % (20.5-51.5); MEAN CORPUSCULAR HEMOGLOBIN 30 pg (27-31); MEAN CORPUSCULAR HGB CONC 34 % (32-36); MEAN CORPUSCULAR VOLUME 87 fL (79.0-98.0); MONOCYTES # (AUTO) 0.6 K/uL (0.0-1.0); MONOCYTES % (AUTO) 6.5 % (1.7-9.3); NEUTROPHILS # (AUTO) 6.1 K/uL (1.8-7.7); NEUTROPHILS % (AUTO) 62.7 % (40.0-70.0); PLATELET COUNT (AUTO) 486 K/uL (130-430); RED BLOOD CELL COUNT(AUTO) 4.34 MIL/uL (4.2-6.2); WHITE BLOOD COUNT (AUTO) 9.8 K/uL (4.8-10.8)
[2018-08-21 07:16] VITALS: BP_SYST 158
[2018-08-21] MEDS: LISINOPRIL 5 MG TABLET PO SCH (08:54)
[2018-08-21] MEDS: GABAPENTIN 100 MG CAPSULE PO SCH ×2 (08:55→21:42)
[2018-08-21] MEDS: CEFEPIME 1 GM in D5W 50 ML IV SCH (09:49)
[2018-08-21] MEDS: POTASSIUM CHLORIDE 20 MEQ TAB.PRT.SR PO PRN (09:50)
[2018-08-21] MEDS: INSULIN GLARGINE 100 UNITS/ML 10 ML VIAL SUBCUT SCH ×2 (09:53→21:38)
[2018-08-21 11:39] VITALS: BP_SYST 151
[2018-08-21] MEDS: INSULIN REGULAR, HUMAN 100 UNITS/ML, 10 ML VIAL (novoLIN R) SUBCUT PRN (21:39)
[2018-08-22 00:03] VITALS: BP_SYST 152
[2018-08-22] MEDS: D5NS 1,000 ML IV SCH ×3 (05:36→15:30)
[2018-08-22] MEDS: HEPARIN SODIUM,PORCINE 5000 UNITS/ML VIAL SUBCUT SCH ×3 (05:37→21:48)
[2018-08-22 08:00] VITALS: BP_SYST 146
[2018-08-22] MEDS: LISINOPRIL 5 MG TABLET PO SCH (08:55)
[2018-08-22] MEDS: GABAPENTIN 100 MG CAPSULE PO SCH ×2 (08:56→21:04)
[2018-08-22] MEDS: INSULIN GLARGINE 100 UNITS/ML 10 ML VIAL SUBCUT SCH ×2 (08:58→21:07)
[2018-08-22] MEDS: LOPERAMIDE HCL 2 MG CAPSULE PO PRN ×2 (09:02→17:31)
[2018-08-22] MEDS: HYDROcodone/ACETAMIN 5-325 MG TAB (NORCO/ VICODIN) PO PRN (09:03)
[2018-08-22] MEDS: INSULIN REGULAR, HUMAN 100 UNITS/ML, 10 ML VIAL (novoLIN R) SUBCUT PRN ×2 (11:13→21:49)
[2018-08-22 12:42] VITALS: BP_SYST 157
[2018-08-22] MEDS: MORPHINE 4 MG/ML INJ. SYRINGE IVP PRN ×2 (14:01→21:12)
[2018-08-22] MEDS: MINERAL OIL/PETROLATUM,WHITE 113 GM CREAM.GM. TP SCH (15:30)
[2018-08-22 16:19] VITALS: BP_SYST 158
[2018-08-22 20:00] VITALS: BP_SYST 148
[2018-08-23 00:10] VITALS: BP_SYST 149
[2018-08-23] MEDS: D5NS 1,000 ML IV SCH ×3 (02:13→23:18)
[2018-08-23] MEDS: LOPERAMIDE HCL 2 MG CAPSULE PO PRN ×3 (02:17→23:21)
[2018-08-23] MEDS: ACETAMINOPHEN 325 MG TABLET PO PRN (02:18)
[2018-08-23] MEDS: HEPARIN SODIUM,PORCINE 5000 UNITS/ML VIAL SUBCUT SCH ×3 (06:19→21:31)
[2018-08-23 08:50] VITALS: BP_SYST 141
[2018-08-23] MEDS: GABAPENTIN 100 MG CAPSULE PO SCH ×2 (09:11→21:23)
[2018-08-23] MEDS: LISINOPRIL 5 MG TABLET PO SCH (09:12)
[2018-08-23] MEDS: INSULIN GLARGINE 100 UNITS/ML 10 ML VIAL SUBCUT SCH ×2 (09:19→21:29)
[2018-08-23] MEDS: MINERAL OIL/PETROLATUM,WHITE 113 GM CREAM.GM. TP SCH (09:21)
[2018-08-23 12:05] VITALS: BP_SYST 141
[2018-08-23] MEDS: MORPHINE 4 MG/ML INJ. SYRINGE IVP PRN ×2 (15:54→21:24)
[2018-08-23 17:23] VITALS: BP_SYST 150
[2018-08-23 20:00] VITALS: BP_SYST 122
[2018-08-24] MEDS: HEPARIN SODIUM,PORCINE 5000 UNITS/ML VIAL SUBCUT SCH ×2 (06:17→21:20)
[2018-08-24] MEDS: GABAPENTIN 100 MG CAPSULE PO SCH ×2 (08:05→21:25)
[2018-08-24] MEDS: LISINOPRIL 5 MG TABLET PO SCH (08:05)
[2018-08-24] MEDS: MINERAL OIL/PETROLATUM,WHITE 113 GM CREAM.GM. TP SCH (08:12)
[2018-08-24] MEDS: LOPERAMIDE HCL 2 MG CAPSULE PO PRN ×2 (08:12→21:24)
[2018-08-24 08:14] VITALS: BP_SYST 148
[2018-08-24] MEDS: D5NS 1,000 ML IV SCH (08:30)
[2018-08-24] MEDS ORDERED: LISINOPRIL 10 MG TABLET (PRINIVIL) PO ONE (09:00)
[2018-08-24] MEDS: INSULIN GLARGINE 100 UNITS/ML 10 ML VIAL SUBCUT SCH ×2 (09:21→21:21)
[2018-08-24 11:47] VITALS: BP_SYST 152
[2018-08-24 16:30] VITALS: BP_SYST 148
[2018-08-24 19:45] VITALS: BP_SYST 150
[2018-08-24] MEDS: HYDROcodone/ACETAMIN 5-325 MG TAB (NORCO/ VICODIN) PO PRN (21:24)
[2018-08-25 00:19] VITALS: BP_SYST 158
[2018-08-25] MEDS: MORPHINE 4 MG/ML INJ. SYRINGE IVP PRN ×3 (01:12→23:46)
[2018-08-25] MEDS: LOPERAMIDE HCL 2 MG CAPSULE PO PRN ×3 (06:21→23:45)
[2018-08-25] MEDS: ACETAMINOPHEN 325 MG TABLET PO PRN (06:26)
[2018-08-25] MEDS: LISINOPRIL 20 MG TABLET PO SCH (08:46)
[2018-08-25] MEDS: GABAPENTIN 100 MG CAPSULE PO SCH ×2 (08:46→21:34)
[2018-08-25] MEDS: HEPARIN SODIUM,PORCINE 5000 UNITS/ML VIAL SUBCUT SCH ×2 (08:50→21:40)
[2018-08-25] MEDS: INSULIN GLARGINE 100 UNITS/ML 10 ML VIAL SUBCUT SCH ×2 (08:50→21:43)
[2018-08-25] MEDS: MINERAL OIL/PETROLATUM,WHITE 113 GM CREAM.GM. TP SCH (08:53)
[2018-08-25 09:21] VITALS: BP_SYST 156
[2018-08-25] MEDS ORDERED: VANCOMYCIN HCL 2,000 MG in NS 500 ML IV ONE (11:30)
[2018-08-25 11:54] LABS: CREATININE 0.79 mg/dL (0.55-1.30); POTASSIUM 4.1 mmol/L (3.5-5.1)
[2018-08-25 12:00] LABS: ALBUMIN 2.5 g/dL (3.4-4.8); TOTAL BILIRUBIN 0.1 mg/dL (0.0-1.0)
[2018-08-25 12:03] VITALS: BP_SYST 146
[2018-08-25 16:24] VITALS: BP_SYST 132
[2018-08-25 21:29] VITALS: BP_SYST 143
[2018-08-25] MEDS: VANCOMYCIN HCL 1.25 GM/NS 250 ML IV SCH (21:34)
[2018-08-26] VITALS: BP_SYST 125
[2018-08-26] MEDS: VANCOMYCIN HCL 1.25 GM/NS 250 ML IV SCH ×3 (06:30→22:05)
[2018-08-26 07:45] VITALS: BP_SYST 136
[2018-08-26] MEDS: GABAPENTIN 100 MG CAPSULE PO SCH ×2 (08:48→22:05)
[2018-08-26] MEDS: LISINOPRIL 20 MG TABLET PO SCH (08:49)
[2018-08-26] MEDS: HEPARIN SODIUM,PORCINE 5000 UNITS/ML VIAL SUBCUT SCH ×2 (08:54→22:15)
[2018-08-26] MEDS: INSULIN GLARGINE 100 UNITS/ML 10 ML VIAL SUBCUT SCH ×2 (08:55→22:13)
[2018-08-26] MEDS: LOPERAMIDE HCL 2 MG CAPSULE PO PRN (08:56)
[2018-08-26] MEDS: MINERAL OIL/PETROLATUM,WHITE 113 GM CREAM.GM. TP SCH (09:00)
[2018-08-26 11:42] VITALS: BP_SYST 154
[2018-08-26 16:39] VITALS: BP_SYST 146
[2018-08-26 20:00] VITALS: BP_SYST 130
[2018-08-26] MEDS: ACETAMINOPHEN 325 MG TABLET PO PRN (22:05)
[2018-08-26] MEDS: INSULIN REGULAR, HUMAN 100 UNITS/ML, 10 ML VIAL (novoLIN R) SUBCUT PRN (22:14)
[2018-08-26 23:53] VITALS: BP_SYST 116
[2018-08-27] MEDS: VANCOMYCIN HCL 1.25 GM/NS 250 ML IV SCH ×3 (05:58→21:35)
[2018-08-27 08:00] VITALS: BP_SYST 140
[2018-08-27] MEDS: HYDROcodone/ACETAMIN 5-325 MG TAB (NORCO/ VICODIN) PO PRN ×2 (09:10→17:33)
[2018-08-27] MEDS: GABAPENTIN 100 MG CAPSULE PO SCH ×2 (09:12→21:23)
[2018-08-27] MEDS: LISINOPRIL 20 MG TABLET PO SCH (09:12)
[2018-08-27] MEDS: LOPERAMIDE HCL 2 MG CAPSULE PO PRN ×2 (09:20→17:32)
[2018-08-27] MEDS: INSULIN GLARGINE 100 UNITS/ML 10 ML VIAL SUBCUT SCH ×2 (09:24→21:00)
[2018-08-27] MEDS: HEPARIN SODIUM,PORCINE 5000 UNITS/ML VIAL SUBCUT SCH ×2 (09:25→21:32)
[2018-08-27 10:55] VITALS: BP_SYST 137
[2018-08-27 16:11] VITALS: BP_SYST 145
[2018-08-27] MEDS: MINERAL OIL/PETROLATUM,WHITE 113 GM CREAM.GM. TP SCH (17:19)
[2018-08-27 20:00] VITALS: BP_SYST 131
[2018-08-28 00:12] VITALS: BP_SYST 124
[2018-08-28] MEDS: HYDROcodone/ACETAMIN 5-325 MG TAB (NORCO/ VICODIN) PO PRN ×3 (00:36→15:28)
[2018-08-28] MEDS: VANCOMYCIN HCL 1.25 GM/NS 250 ML IV SCH ×2 (06:19→15:13)
[2018-08-28 07:42] VITALS: BP_SYST 114
[2018-08-28] MEDS: GABAPENTIN 100 MG CAPSULE PO SCH (08:35)
[2018-08-28] MEDS: LISINOPRIL 20 MG TABLET PO SCH (08:36)
[2018-08-28] MEDS: MINERAL OIL/PETROLATUM,WHITE 113 GM CREAM.GM. TP SCH (08:38)
[2018-08-28] MEDS: HEPARIN SODIUM,PORCINE 5000 UNITS/ML VIAL SUBCUT SCH (08:45)
[2018-08-28] MEDS: LOPERAMIDE HCL 2 MG CAPSULE PO PRN ×2 (08:47→15:28)
[2018-08-28] MEDS: INSULIN GLARGINE 100 UNITS/ML 10 ML VIAL SUBCUT SCH (08:47)
[2018-08-28 12:02] VITALS: BP_SYST 161
[2018-08-28] MEDS ORDERED: AMOX-520 PO (15:11)
[2018-08-28 16:07] VITALS: BP_SYST 149
[2018-08-28 16:11] VITALS: BP_SYST 149
== END 2018-08-28 17:18 | disposition home health service (06) | DRG 344 ==
LOC: SED 14:44 → SMU 17:35
PROVIDERS: ADMIT Family Medicine; ATTEND Family Medicine
PROC: 0JBQ0ZZ Excision of Right Foot Subcutaneous Tissue and Fascia, Open Approach (ICD-10-PCS; principal; 2018-08-20)
PROC: 02HV33Z Insertion of Infusion Device into Superior Vena Cava, Percutaneous Approach (ICD-10-PCS; 2018-08-20)
PROC: B548ZZA Ultrasonography of Superior Vena Cava, Guidance (ICD-10-PCS; 2018-08-20)
DX: E11.69 Type 2 diabetes mellitus with other specified complication (principal); M86.8X6 Other osteomyelitis, lower leg; E43 Unspecified severe protein-calorie malnutrition; N17.9 Acute kidney failure, unspecified; E11.621 Type 2 diabetes mellitus with foot ulcer; E11.42 Type 2 diabetes mellitus with diabetic polyneuropathy; E66.01 Morbid (severe) obesity due to excess calories; L03.115 Cellulitis of right lower limb; E11.52 Type 2 diabetes mellitus with diabetic peripheral angiopathy with gangrene; B96.20 Unspecified Escherichia coli [E. coli] as the cause of diseases classified elsewhere; E87.1 Hypo-osmolality and hyponatremia; E11.65 Type 2 diabetes mellitus with hyperglycemia; E78.5 Hyperlipidemia, unspecified; E87.6 Hypokalemia; I10 Essential (primary) hypertension; J45.909 Unspecified asthma, uncomplicated; L02.611 Cutaneous abscess of right foot; L84 Corns and callosities; L97.519 Non-pressure chronic ulcer of other part of right foot with unspecified severity; Z60.2 Problems related to living alone; F17.210 Nicotine dependence, cigarettes, uncomplicated; D64.9 Anemia, unspecified; Z89.411 Acquired absence of right great toe; Z68.29 Body mass index [BMI] 29.0-29.9, adult; Z89.421 Acquired absence of other right toe(s)
CPT/HCPCS: 36415; 71045; 73720; 80048; 80053; 80202-TC; 81000-TC; 82150-TC; 82948; 82962; 83036; 83605; 83690-TC; 83735-TC; 85025; 85610-TC; 85730-TC; 87040-TC; 87070; 87070-TC; 87075-TC; 87081; 87186-TC; 88304; 93923; 96365; 96375; 97110-GP; 97116-GP; 97530-GP; 99285; C1751; J0295; J0692; J0696; J1644; J1815; J2250; J2270; J2543; J2704; J3010; J3370; J7030; J7040; J7042; J7050; J7060; J7120

== ENCOUNTER 2018-09-27 13:41 | Emergency (ER) | payer MEDICAID ==
[~2018-09-27] VITALS: Ht 175.3 cm; Wt 90.7 kg
[~2018-09-27 13:41] MED LIST changes: +AMOX-520 PO; -DOXY100T2 PO; +GABA-529 PO
[2018-09-27 13:54] VITALS: BP_SYST 112
[2018-09-27] MEDS ORDERED: GLU850 PO (14:16)
[2018-09-27] MEDS ORDERED: HYDR-4272 PO (14:16)
[2018-09-27] MEDS ORDERED: [UNRECOGNIZED DRUG - CODE] IV (14:16)
[2018-09-27 14:53] LABS: BASOPHILS # (AUTO) 0.1 K/uL (0.0-0.2); BASOPHILS % (AUTO) 0.9 % (0.0-2.0); EOSINOPHILS # (AUTO) 0.1 K/uL (0.0-0.4); EOSINOPHILS % (AUTO) 1.8 % (0.0-4.0); HEMATOCRIT 32.2 % (36-54); LYMPHOCYTES # (AUTO) 2.3 K/uL (1.0-5.5); LYMPHOCYTES % (AUTO) 28.1 % (20.5-51.5); MEAN CORPUSCULAR HEMOGLOBIN 29 pg (27-31); MEAN CORPUSCULAR HGB CONC 34 % (32-36); MEAN CORPUSCULAR VOLUME 86 fL (79.0-98.0); MONOCYTES # (AUTO) 0.4 K/uL (0.0-1.0); MONOCYTES % (AUTO) 5.1 % (1.7-9.3); NEUTROPHILS # (AUTO) 5.2 K/uL (1.8-7.7); NEUTROPHILS % (AUTO) 64.1 % (40.0-70.0); PLATELET COUNT (AUTO) 374 K/uL (130-430); RED BLOOD CELL COUNT(AUTO) 3.75 MIL/uL (4.2-6.2); RED CELL DISTRIBUTION WIDTH 13.8 % (9.0-15.0); WHITE BLOOD COUNT (AUTO) 8.1 K/uL (4.8-10.8)
[2018-09-27 15:00] LABS: CALCIUM 8.5 mg/dL (8.4-11.0); CREATININE 1.14 mg/dL (0.55-1.30); POTASSIUM 3.5 mmol/L (3.5-5.1)
[2018-09-27] MEDS ORDERED: HYDROcodone/ACETAMIN 10-325 MG TAB PO ONE (15:00)
[2018-09-27 15:04] LABS: ALBUMIN 2.7 g/dL (3.4-4.8); C-REACTIVE PROTEIN QUANT 0.4 mg/dL (0-0.5); TOTAL BILIRUBIN 0.2 mg/dL (0.0-1.0)
[2018-09-27 15:40] VITALS: BP_SYST 110
== END 2018-09-27 15:40 | disposition home or self-care (01) ==
LOC: SED 13:41
DX: E11.621 Type 2 diabetes mellitus with foot ulcer (principal); E78.5 Hyperlipidemia, unspecified; Z79.899 Other long term (current) drug therapy
CPT/HCPCS: 36415; 80053; 83605; 85025; 86140; 87040-TC; 99284

== ENCOUNTER 2018-11-13 14:37 | Emergency (ER) | payer MEDICAID ==
[~2018-11-13] VITALS: Ht 175.3 cm; Wt 86.2 kg
[~2018-11-13 14:37] MED LIST changes: -AMOX-520 PO; -GABA-529 PO; +GLU850 PO; +HYDR-4272 PO; +[UNRECOGNIZED DRUG - CODE] IV
[2018-11-13 14:49] VITALS: BP_SYST 134
--- NOTE | 2018-11-13 14:54 | NUR ---
Patient to ER bed 02 to gown for evaluation. Side rails up.
--- NOTE | 2018-11-13 14:56 | NUR ---
Patient is awake, alert, and oriented x4. Patient states he was working in the garage, PICC line got caught on something and pulled. Patient presents with uncovered PICC line and pain in right arm.
--- NOTE | 2018-11-13 15:00 | NUR ---
ER Dr. Muller at bedside examining patient.
--- NOTE | 2018-11-13 15:24 | NUR ---
PICC line dressing changed using sterile technique. Biopatch is in place. Patient tolerated well.
[2018-11-13] MEDS ORDERED: ACETAMINOPHEN 500 MG TABLET PO ONE (15:30)
[2018-11-13 15:34] VITALS: BP_SYST 128
--- NOTE | 2018-11-13 15:34 | NUR ---
Patient given written and verbal discharge instructions and verbalizes understanding. ER MD discussed with patient the results and treatment provided. Patient in stable condition. ID arm band removed.Patient educated on pain management and to follow up with PMD. Pain Scale []. Opportunity for questions provided and answered. Medication side effect fact sheet provided. Addendum: 11/13/18 at 1535 by [email or web address] Pain scale 8, Dr. Muller aware, patient medicated prior to discharge.
== END 2018-11-13 15:34 | disposition home or self-care (01) ==
LOC: SED 14:37
DX: M79.601 Pain in right arm (principal); E11.9 Type 2 diabetes mellitus without complications; I10 Essential (primary) hypertension; E78.5 Hyperlipidemia, unspecified; Z79.899 Other long term (current) drug therapy
CPT/HCPCS: 99283

== ENCOUNTER 2018-11-21 12:46 | Inpatient (IN) | payer MEDICAID ==
[~2018-11-21] VITALS: Ht 175.3 cm; Wt 84.8 kg
[2018-11-21 12:54] VITALS: BP_SYST 117
[2018-11-21] MEDS ORDERED: NACL 0.9% 1,000 ML IV ONE (13:15)
[2018-11-21 13:31] LABS: BASOPHILS % (AUTO) 0.5 % (0.0-2.0); EOSINOPHILS # (AUTO) 0.1 K/uL (0.0-0.4); EOSINOPHILS % (AUTO) 1.1 % (0.0-4.0); HEMATOCRIT 35.3 % (36-54); HEMOGLOBIN 11.9 g/dL (14.0-18.0); LYMPHOCYTES # (AUTO) 1.7 K/uL (1.0-5.5); LYMPHOCYTES % (AUTO) 17.7 % (20.5-51.5); MEAN CORPUSCULAR HEMOGLOBIN 28 pg (27-31); MEAN CORPUSCULAR HGB CONC 34 % (32-36); MEAN CORPUSCULAR VOLUME 85 fL (79.0-98.0); MONOCYTES # (AUTO) 0.6 K/uL (0.0-1.0); MONOCYTES % (AUTO) 6.2 % (1.7-9.3); NEUTROPHILS # (AUTO) 7.2 K/uL (1.8-7.7); NEUTROPHILS % (AUTO) 74.5 % (40.0-70.0); PLATELET COUNT (AUTO) 346 K/uL (130-430); RED BLOOD CELL COUNT(AUTO) 4.17 MIL/uL (4.2-6.2); RED CELL DISTRIBUTION WIDTH 13.8 % (9.0-15.0); WHITE BLOOD COUNT (AUTO) 9.6 K/uL (4.8-10.8)
[2018-11-21 13:55] LABS: CALCIUM 9.1 mg/dL (8.4-11.0); CREATININE 1.39 mg/dL (0.55-1.30); POTASSIUM 5.4 mmol/L (3.5-5.1)
[2018-11-21 13:57] LABS: PROTHROMBIN TIME 9.8 SECS (9.5-12.5)
[2018-11-21 14:11] LABS: TOTAL BILIRUBIN 0.3 mg/dL (0.0-1.0)
[2018-11-21 14:12] LABS: ALBUMIN 2.7 g/dL (3.4-4.8)
[2018-11-21] MEDS ORDERED: NACL 0.9% 2,000 ML IV ONE (14:15)
[2018-11-21] MEDS ORDERED: VANCOMYCIN HCL 1,000 MG in NS 250 ML IV ONE (14:15)
[2018-11-21 14:29] LABS: BILIRUBIN,URINE NEGATIVE (NEGATIVE); CLARITY/URINE CLEAR (CLEAR); COLOR,URINE YELLOW (YELLOW); GLUCOSE,URINE 3+ (NEGATIVE); KETONES,URINE NEGATIVE (NEGATIVE); LEUKOCYTE ESTERASE ,URINE NEGATIVE (NEGATIVE); NITRITE, URINE NEGATIVE (NEGATIVE); PROTEIN URINE TRACE (NEGATIVE); UROBILINOGEN,URINE 0.2 (0.2-1.0)
[2018-11-21] MEDS ORDERED: INSULIN REGULAR, HUMAN 10 UNITS/0.1 ML INJ IVP ONE (14:30)
[2018-11-21] MEDS ORDERED: MORPHINE 4 MG/ML INJ. SYRINGE IVP ONE (14:30)
[2018-11-21] MEDS ORDERED: SODIUM POLYSTYRENE SULFONATE 15 GM/60 ML UDBTL PO ONE (14:30)
[2018-11-21 14:32] LABS: BLOOD, URINE TRACE (NEGATIVE)
[2018-11-21] MEDS ORDERED: VANCOMYCIN HCL 1000 MG/VIAL IV ONE (14:34)
[2018-11-21 14:52] LABS: BACTERIA,URINE FEW /HPF (None Seen); WBC,URINE 0-3 /HPF (0-3)
[2018-11-21] MEDS ORDERED: ACET-73 PO (15:10)
[2018-11-21] MEDS ORDERED: LISI-600 PO (15:10)
[2018-11-21] MEDS ORDERED: INSU100I26 SQ (15:10)
[2018-11-21] MEDS ORDERED: MAGNESIUM SULFATE 50 ML IV PRN (16:15)
[2018-11-21] MEDS ORDERED: LORazepam 2 MG/ML VIAL IVP PRN (16:15)
[2018-11-21] MEDS ORDERED: MORPHINE 2 MG/ML INJ. SYRINGE IVP PRN (16:15)
[2018-11-21] MEDS ORDERED: ONDANSETRON HCL 4 MG/2 ML VIAL IVP PRN (16:15)
[2018-11-21] MEDS ORDERED: ACETAMINOPHEN 325 MG TABLET PO PRN (16:15)
[2018-11-21] MEDS ORDERED: MUPIROCIN 2% TOPICAL OINTMENT 22 GM NS PRN (16:15)
[2018-11-21] MEDS ORDERED: DOCUSATE SODIUM 100 MG CAPSULE PO PRN (16:15)
[2018-11-21] MEDS ORDERED: ZOLPIDEM TARTRATE 5 MG TABLET PO PRN (16:15)
[2018-11-21] MEDS ORDERED: POTASSIUM CHLORIDE 20 MEQ TAB.PRT.SR PO PRN (16:15)
[2018-11-21 16:38] VITALS: BP_SYST 131
[2018-11-21] MEDS: BALSAM PERU/CASTOR OIL 60 GM OINT...G. TP SCH (17:00)
[2018-11-21] MEDS: INSULIN LISPRO SLIDING SCALE 100 UNITS/ML VIAL (humaLOG) SUBCUT PRN (18:04)
[2018-11-21 18:34] LABS: CALCIUM 8.5 mg/dL (8.4-11.0); CREATININE 0.93 mg/dL (0.55-1.30); POTASSIUM 3.8 mmol/L (3.5-5.1)
[2018-11-21 20:00] VITALS: BP_SYST 131
[2018-11-21] MEDS: NACL 0.9% 1,000 ML IV SCH (21:01)
[2018-11-21] MEDS: HEPARIN SODIUM,PORCINE 5000 UNITS/ML VIAL SUBCUT SCH (21:02)
[2018-11-21] MEDS: MORPHINE 2 MG/ML INJ. SYRINGE IVP PRN (22:28)
[2018-11-21 23:30] VITALS: BP_SYST 106
[2018-11-22] MEDS: NACL 0.9% 1,000 ML IV SCH ×2 (01:11→11:09)
[2018-11-22] MEDS: VANCOMYCIN HCL 1,000 MG in NS 250 ML IV SCH ×2 (01:42→14:31)
[2018-11-22 06:04] LABS: BASOPHILS % (AUTO) 0.5 % (0.0-2.0); EOSINOPHILS # (AUTO) 0.2 K/uL (0.0-0.4); EOSINOPHILS % (AUTO) 2.8 % (0.0-4.0); HEMATOCRIT 31.5 % (36-54); HEMOGLOBIN 10.8 g/dL (14.0-18.0); LYMPHOCYTES # (AUTO) 3.3 K/uL (1.0-5.5); MEAN CORPUSCULAR HEMOGLOBIN 29 pg (27-31); MEAN CORPUSCULAR HGB CONC 34 % (32-36); MEAN CORPUSCULAR VOLUME 84 fL (79.0-98.0); MONOCYTES # (AUTO) 0.5 K/uL (0.0-1.0); MONOCYTES % (AUTO) 6.4 % (1.7-9.3); NEUTROPHILS # (AUTO) 3.9 K/uL (1.8-7.7); NEUTROPHILS % (AUTO) 49.3 % (40.0-70.0); PLATELET COUNT (AUTO) 350 K/uL (130-430); RED BLOOD CELL COUNT(AUTO) 3.77 MIL/uL (4.2-6.2); RED CELL DISTRIBUTION WIDTH 13.9 % (9.0-15.0)
[2018-11-22 06:19] LABS: CALCIUM 8.6 mg/dL (8.4-11.0); CREATININE 0.68 mg/dL (0.55-1.30); POTASSIUM 3.2 mmol/L (3.5-5.1)
[2018-11-22] MEDS: BALSAM PERU/CASTOR OIL 60 GM OINT...G. TP SCH (08:53)
[2018-11-22] MEDS: LISINOPRIL 20 MG TABLET PO SCH (08:53)
[2018-11-22] MEDS: HEPARIN SODIUM,PORCINE 5000 UNITS/ML VIAL SUBCUT SCH ×2 (08:54→21:21)
[2018-11-22] MEDS: MORPHINE 2 MG/ML INJ. SYRINGE IVP PRN ×2 (09:26→16:17)
[2018-11-22 12:15] VITALS: BP_SYST 144
[2018-11-22] MEDS: LOPERAMIDE HCL 2 MG CAPSULE PO PRN (14:31)
[2018-11-22 16:56] VITALS: BP_SYST 149
[2018-11-22] MEDS: INSULIN LISPRO SLIDING SCALE 100 UNITS/ML VIAL (humaLOG) SUBCUT PRN (16:56)
[2018-11-22 19:54] VITALS: BP_SYST 150
[2018-11-22 23:53] VITALS: BP_SYST 135
[2018-11-23] MEDS: NACL 0.9% 1,000 ML IV SCH ×3 (00:11→17:11)
[2018-11-23] MEDS: VANCOMYCIN HCL 1,000 MG in NS 250 ML IV SCH ×3 (01:33→21:13)
[2018-11-23] MEDS: MORPHINE 2 MG/ML INJ. SYRINGE IVP PRN ×3 (01:38→20:58)
[2018-11-23] MEDS: INSULIN LISPRO SLIDING SCALE 100 UNITS/ML VIAL (humaLOG) SUBCUT PRN ×2 (06:04→21:09)
[2018-11-23 07:31] LABS: BASOPHILS % (AUTO) 0.9 % (0.0-2.0); EOSINOPHILS # (AUTO) 0.2 K/uL (0.0-0.4); EOSINOPHILS % (AUTO) 3.6 % (0.0-4.0); HEMATOCRIT 34.7 % (36-54); HEMOGLOBIN 11.9 g/dL (14.0-18.0); LYMPHOCYTES # (AUTO) 2.1 K/uL (1.0-5.5); LYMPHOCYTES % (AUTO) 38.6 % (20.5-51.5); MEAN CORPUSCULAR HEMOGLOBIN 29 pg (27-31); MEAN CORPUSCULAR HGB CONC 34 % (32-36); MEAN CORPUSCULAR VOLUME 85 fL (79.0-98.0); MONOCYTES # (AUTO) 0.3 K/uL (0.0-1.0); MONOCYTES % (AUTO) 5.4 % (1.7-9.3); NEUTROPHILS # (AUTO) 2.9 K/uL (1.8-7.7); NEUTROPHILS % (AUTO) 51.5 % (40.0-70.0); PLATELET COUNT (AUTO) 354 K/uL (130-430); RED CELL DISTRIBUTION WIDTH 13.7 % (9.0-15.0)
[2018-11-23 07:33] LABS: WHITE BLOOD COUNT (AUTO) 5.6 K/uL (4.8-10.8)
[2018-11-23 07:50] LABS: CALCIUM 8.9 mg/dL (8.4-11.0); CREATININE 0.91 mg/dL (0.55-1.30); POTASSIUM 4.3 mmol/L (3.5-5.1)
[2018-11-23 07:55] VITALS: BP_SYST 152
[2018-11-23] MEDS: LISINOPRIL 20 MG TABLET PO SCH (08:38)
[2018-11-23] MEDS: BALSAM PERU/CASTOR OIL 60 GM OINT...G. TP SCH (08:39)
[2018-11-23] MEDS: INSULIN GLARGINE 100 UNITS/ML 10 ML VIAL SUBCUT SCH (08:41)
[2018-11-23] MEDS: HEPARIN SODIUM,PORCINE 5000 UNITS/ML VIAL SUBCUT SCH ×2 (08:43→21:08)
[2018-11-23 14:57] VITALS: BP_SYST 166
[2018-11-23 17:12] VITALS: BP_SYST 157
[2018-11-23 19:00] VITALS: BP_SYST 156
[2018-11-23 20:00] VITALS: BP_SYST 156
[2018-11-23] MEDS: LOPERAMIDE HCL 2 MG CAPSULE PO PRN (20:56)
[2018-11-24] VITALS (7 sets, daily range): BP systolic 146–160
[2018-11-24] MEDS: NACL 0.9% 1,000 ML IV SCH ×3 (06:03→20:48)
[2018-11-24] MEDS: VANCOMYCIN HCL 1,000 MG in NS 250 ML IV SCH ×3 (06:05→22:42)
[2018-11-24] MEDS: LOPERAMIDE HCL 2 MG CAPSULE PO PRN ×3 (06:09→22:43)
[2018-11-24] MEDS: MORPHINE 2 MG/ML INJ. SYRINGE IVP PRN ×3 (06:11→22:47)
[2018-11-24 06:12] LABS: CREATININE 0.91 mg/dL (0.55-1.30); POTASSIUM 3.5 mmol/L (3.5-5.1)
[2018-11-24 06:17] LABS: BASOPHILS % (AUTO) 0.7 % (0.0-2.0); EOSINOPHILS # (AUTO) 0.3 K/uL (0.0-0.4); EOSINOPHILS % (AUTO) 4.1 % (0.0-4.0); HEMOGLOBIN 11.1 g/dL (14.0-18.0); LYMPHOCYTES # (AUTO) 3.1 K/uL (1.0-5.5); LYMPHOCYTES % (AUTO) 47.6 % (20.5-51.5); MEAN CORPUSCULAR HEMOGLOBIN 29 pg (27-31); MEAN CORPUSCULAR HGB CONC 35 % (32-36); MEAN CORPUSCULAR VOLUME 84 fL (79.0-98.0); MONOCYTES # (AUTO) 0.4 K/uL (0.0-1.0); MONOCYTES % (AUTO) 6.1 % (1.7-9.3); NEUTROPHILS # (AUTO) 2.7 K/uL (1.8-7.7); NEUTROPHILS % (AUTO) 41.5 % (40.0-70.0); PLATELET COUNT (AUTO) 367 K/uL (130-430); RED BLOOD CELL COUNT(AUTO) 3.81 MIL/uL (4.2-6.2); RED CELL DISTRIBUTION WIDTH 13.8 % (9.0-15.0); WHITE BLOOD COUNT (AUTO) 6.5 K/uL (4.8-10.8)
[2018-11-24] MEDS: INSULIN GLARGINE 100 UNITS/ML 10 ML VIAL SUBCUT SCH (08:31)
[2018-11-24] MEDS: HEPARIN SODIUM,PORCINE 5000 UNITS/ML VIAL SUBCUT SCH ×2 (08:32→20:52)
[2018-11-24] MEDS: LISINOPRIL 20 MG TABLET PO SCH (08:33)
[2018-11-24] MEDS: BALSAM PERU/CASTOR OIL 60 GM OINT...G. TP SCH (09:10)
[2018-11-24] MEDS ORDERED: CEFEPIME 1 GM in D5W 50 ML IV ONE (11:30)
[2018-11-24] MEDS: DEXTROSE 50% JECT 50 ML DISP.SYRIN IVP PRN (12:26)
[2018-11-24] MEDS: CEFEPIME 1 GM in D5W 50 ML IV SCH (20:54)
[2018-11-24] MEDS: INSULIN LISPRO SLIDING SCALE 100 UNITS/ML VIAL (humaLOG) SUBCUT PRN (20:55)
[2018-11-24] MEDS: METOPROLOL TARTRATE 50 MG TABLET PO SCH (23:23)
[2018-11-25] MEDS: VANCOMYCIN HCL 1,000 MG in NS 250 ML IV SCH ×3 (05:40→22:14)
[2018-11-25] MEDS: MORPHINE 2 MG/ML INJ. SYRINGE IVP PRN ×3 (05:42→22:14)
[2018-11-25] MEDS: LOPERAMIDE HCL 2 MG CAPSULE PO PRN ×3 (05:42→22:13)
[2018-11-25] MEDS: INSULIN LISPRO SLIDING SCALE 100 UNITS/ML VIAL (humaLOG) SUBCUT PRN ×2 (05:59→20:46)
[2018-11-25 07:27] LABS: CREATININE 0.79 mg/dL (0.55-1.30)
[2018-11-25 07:31] LABS: BASOPHILS % (AUTO) 0.5 % (0.0-2.0); EOSINOPHILS # (AUTO) 0.2 K/uL (0.0-0.4); EOSINOPHILS % (AUTO) 3.3 % (0.0-4.0); HEMATOCRIT 33.9 % (36-54); HEMOGLOBIN 11.5 g/dL (14.0-18.0); LYMPHOCYTES # (AUTO) 2.4 K/uL (1.0-5.5); LYMPHOCYTES % (AUTO) 37.4 % (20.5-51.5); MEAN CORPUSCULAR HEMOGLOBIN 29 pg (27-31); MEAN CORPUSCULAR HGB CONC 34 % (32-36); MEAN CORPUSCULAR VOLUME 84 fL (79.0-98.0); MONOCYTES # (AUTO) 0.4 K/uL (0.0-1.0); MONOCYTES % (AUTO) 6.3 % (1.7-9.3); NEUTROPHILS # (AUTO) 3.4 K/uL (1.8-7.7); NEUTROPHILS % (AUTO) 52.5 % (40.0-70.0); PLATELET COUNT (AUTO) 389 K/uL (130-430); RED BLOOD CELL COUNT(AUTO) 4.01 MIL/uL (4.2-6.2); RED CELL DISTRIBUTION WIDTH 13.7 % (9.0-15.0); WHITE BLOOD COUNT (AUTO) 6.5 K/uL (4.8-10.8)
[2018-11-25 08:06] VITALS: BP_SYST 130
[2018-11-25] MEDS: HEPARIN SODIUM,PORCINE 5000 UNITS/ML VIAL SUBCUT SCH ×2 (08:39→20:44)
[2018-11-25] MEDS: INSULIN GLARGINE 100 UNITS/ML 10 ML VIAL SUBCUT SCH (08:40)
[2018-11-25] MEDS: CEFEPIME 1 GM in D5W 50 ML IV SCH ×2 (08:41→20:41)
[2018-11-25] MEDS: METOPROLOL TARTRATE 50 MG TABLET PO SCH (08:43)
[2018-11-25] MEDS: LISINOPRIL 20 MG TABLET PO SCH (08:43)
[2018-11-25] MEDS: BALSAM PERU/CASTOR OIL 60 GM OINT...G. TP SCH (08:44)
[2018-11-25] MEDS: NACL 0.9% 1,000 ML IV SCH ×2 (09:11→20:47)
[2018-11-25 12:02] VITALS: BP_SYST 145
[2018-11-25] MEDS ORDERED: LIDOCAINE 2%, 20 ML MDV INJ ONE (15:15)
[2018-11-25] MEDS ORDERED: LIDOCAINE 2%, 20 ML MDV ONE (15:19)
[2018-11-25 16:05] VITALS: BP_SYST 149
[2018-11-25 20:00] VITALS: BP_SYST 159
[2018-11-26 00:51] VITALS: BP_SYST 133
[2018-11-26 06:04] LABS: BASOPHILS # (AUTO) 0.1 K/uL (0.0-0.2); BASOPHILS % (AUTO) 0.8 % (0.0-2.0); EOSINOPHILS # (AUTO) 0.3 K/uL (0.0-0.4); EOSINOPHILS % (AUTO) 4.6 % (0.0-4.0); HEMATOCRIT 32.6 % (36-54); HEMOGLOBIN 11.1 g/dL (14.0-18.0); LYMPHOCYTES % (AUTO) 28.5 % (20.5-51.5); MEAN CORPUSCULAR HEMOGLOBIN 29 pg (27-31); MEAN CORPUSCULAR HGB CONC 34 % (32-36); MEAN CORPUSCULAR VOLUME 85 fL (79.0-98.0); MONOCYTES # (AUTO) 0.5 K/uL (0.0-1.0); MONOCYTES % (AUTO) 7.4 % (1.7-9.3); NEUTROPHILS # (AUTO) 4.2 K/uL (1.8-7.7); NEUTROPHILS % (AUTO) 58.7 % (40.0-70.0); PLATELET COUNT (AUTO) 363 K/uL (130-430); RED BLOOD CELL COUNT(AUTO) 3.86 MIL/uL (4.2-6.2); RED CELL DISTRIBUTION WIDTH 13.6 % (9.0-15.0); WHITE BLOOD COUNT (AUTO) 7.2 K/uL (4.8-10.8)
[2018-11-26] MEDS: INSULIN LISPRO SLIDING SCALE 100 UNITS/ML VIAL (humaLOG) SUBCUT PRN ×3 (06:05→20:31)
[2018-11-26] MEDS: VANCOMYCIN HCL 1,000 MG in NS 250 ML IV SCH ×3 (06:06→22:03)
[2018-11-26] MEDS: MORPHINE 2 MG/ML INJ. SYRINGE IVP PRN ×2 (06:07→22:04)
[2018-11-26] MEDS: LOPERAMIDE HCL 2 MG CAPSULE PO PRN ×2 (06:11→22:03)
[2018-11-26] MEDS: NACL 0.9% 1,000 ML IV SCH ×2 (06:15→17:48)
[2018-11-26 06:31] LABS: CALCIUM 8.7 mg/dL (8.4-11.0); CREATININE 0.9 mg/dL (0.55-1.30); POTASSIUM 3.9 mmol/L (3.5-5.1)
[2018-11-26 08:00] VITALS: BP_SYST 115
[2018-11-26] MEDS: CEFEPIME 1 GM in D5W 50 ML IV SCH ×2 (09:22→20:30)
[2018-11-26] MEDS: METOPROLOL TARTRATE 50 MG TABLET PO SCH (09:22)
[2018-11-26] MEDS: LISINOPRIL 20 MG TABLET PO SCH (09:23)
[2018-11-26] MEDS: HEPARIN SODIUM,PORCINE 5000 UNITS/ML VIAL SUBCUT SCH ×2 (09:24→20:30)
[2018-11-26] MEDS: INSULIN GLARGINE 100 UNITS/ML 10 ML VIAL SUBCUT SCH (09:25)
[2018-11-26] MEDS: BALSAM PERU/CASTOR OIL 60 GM OINT...G. TP SCH (09:37)
[2018-11-26 20:00] VITALS: BP_SYST 148
[2018-11-27] VITALS: BP_SYST 123
[2018-11-27] MEDS: VANCOMYCIN HCL 1,000 MG in NS 250 ML IV SCH ×3 (06:26→22:55)
[2018-11-27] MEDS: LOPERAMIDE HCL 2 MG CAPSULE PO PRN ×3 (06:26→22:56)
[2018-11-27] MEDS: MORPHINE 2 MG/ML INJ. SYRINGE IVP PRN ×3 (06:27→22:57)
[2018-11-27] MEDS: INSULIN LISPRO SLIDING SCALE 100 UNITS/ML VIAL (humaLOG) SUBCUT PRN ×2 (06:28→21:44)
[2018-11-27] MEDS: NACL 0.9% 1,000 ML IV SCH ×2 (06:33→21:34)
[2018-11-27 08:00] VITALS: BP_SYST 130
[2018-11-27] MEDS: HEPARIN SODIUM,PORCINE 5000 UNITS/ML VIAL SUBCUT SCH ×2 (09:59→21:41)
[2018-11-27] MEDS: INSULIN GLARGINE 100 UNITS/ML 10 ML VIAL SUBCUT SCH (10:00)
[2018-11-27] MEDS: METOPROLOL TARTRATE 50 MG TABLET PO SCH (10:02)
[2018-11-27] MEDS: CEFEPIME 1 GM in D5W 50 ML IV SCH ×2 (10:02→21:36)
[2018-11-27] MEDS: LISINOPRIL 20 MG TABLET PO SCH (10:03)
[2018-11-27] MEDS: BALSAM PERU/CASTOR OIL 60 GM OINT...G. TP SCH (10:03)
[2018-11-27] MEDS: DEXTROSE 50% JECT 50 ML DISP.SYRIN IVP PRN (17:22)
[2018-11-27 20:20] VITALS: BP_SYST 141
[2018-11-28 01:25] VITALS: BP_SYST 128
[2018-11-28] MEDS: VANCOMYCIN HCL 1,000 MG in NS 250 ML IV SCH ×2 (06:23→13:47)
[2018-11-28] MEDS: NACL 0.9% 1,000 ML IV SCH (06:28)
[2018-11-28] MEDS: LOPERAMIDE HCL 2 MG CAPSULE PO PRN (07:45)
[2018-11-28] MEDS: METOPROLOL TARTRATE 50 MG TABLET PO SCH (07:46)
[2018-11-28] MEDS: MORPHINE 2 MG/ML INJ. SYRINGE IVP PRN (07:47)
[2018-11-28] MEDS: HEPARIN SODIUM,PORCINE 5000 UNITS/ML VIAL SUBCUT SCH (07:53)
[2018-11-28 08:00] VITALS: BP_SYST 114
[2018-11-28] MEDS: BALSAM PERU/CASTOR OIL 60 GM OINT...G. TP SCH (09:00)
[2018-11-28] MEDS: CEFEPIME 1 GM in D5W 50 ML IV SCH (09:47)
[2018-11-28] MEDS: INSULIN GLARGINE 100 UNITS/ML 10 ML VIAL SUBCUT SCH (10:30)
[2018-11-28] MEDS: INSULIN LISPRO SLIDING SCALE 100 UNITS/ML VIAL (humaLOG) SUBCUT PRN (11:53)
[2018-11-28] MEDS: LISINOPRIL 20 MG TABLET PO SCH (11:54)
[2018-11-28 12:30] VITALS: BP_SYST 144
[2018-11-28 14:40] VITALS: BP_SYST 132
== END 2018-11-28 17:10 | disposition home health service (06) | DRG 720 ==
LOC: SED 12:46 → SMU 15:11
PROVIDERS: ADMIT General Practice; ATTEND General Practice
PROC: 0HBMXZZ Excision of Right Foot Skin, External Approach (ICD-10-PCS; principal; 2018-11-25)
DX: A41.9 Sepsis, unspecified organism (principal); E11.00 Type 2 diabetes mellitus with hyperosmolarity without nonketotic hyperglycemic-hyperosmolar coma (NKHHC); N17.0 Acute kidney failure with tubular necrosis; E43 Unspecified severe protein-calorie malnutrition; E11.621 Type 2 diabetes mellitus with foot ulcer; M86.9 Osteomyelitis, unspecified; E87.0 Hyperosmolality and hypernatremia; I10 Essential (primary) hypertension; E78.00 Pure hypercholesterolemia, unspecified; E78.5 Hyperlipidemia, unspecified; E11.52 Type 2 diabetes mellitus with diabetic peripheral angiopathy with gangrene; E87.1 Hypo-osmolality and hyponatremia; E87.5 Hyperkalemia; L97.519 Non-pressure chronic ulcer of other part of right foot with unspecified severity; E11.69 Type 2 diabetes mellitus with other specified complication; E11.21 Type 2 diabetes mellitus with diabetic nephropathy; Z79.899 Other long term (current) drug therapy; Z87.891 Personal history of nicotine dependence; Z83.3 Family history of diabetes mellitus; Z68.27 Body mass index [BMI] 27.0-27.9, adult; Z89.421 Acquired absence of other right toe(s)
CPT/HCPCS: 36415; 71045; 73720; 80048; 80053; 80202-TC; 81000-TC; 82962; 83036; 83605; 83735-TC; 84484; 85025; 85610-TC; 85730-TC; 87040-TC; 87070-TC; 87086; 87186-TC; 93005; 93923; 96361; 96365; 96366; 96375; 99285; J0692; J1644; J1815; J2001; J2060; J2270; J3370; J3475; J7030; J7050; J7060

== ENCOUNTER 2019-02-05 11:30 | Emergency (ER) | payer MEDICAID ==
[~2019-02-05] VITALS: Ht 175.3 cm; Wt 86.2 kg
[2019-02-05 11:30] VITALS: BP_SYST 152
[~2019-02-05 11:30] MED LIST changes: +ACET-73 PO; +LISI-600 PO; -[UNRECOGNIZED DRUG - CODE] IV
[2019-02-05 12:14] VITALS: BP_SYST 146
== END 2019-02-05 12:13 | disposition home or self-care (01) ==
LOC: SED 11:30
DX: E11.621 Type 2 diabetes mellitus with foot ulcer (principal); I10 Essential (primary) hypertension; E78.5 Hyperlipidemia, unspecified; Z79.899 Other long term (current) drug therapy
CPT/HCPCS: 99283; J7030

== ENCOUNTER 2019-04-13 17:17 | Inpatient (IN) | payer MEDICAID ==
[~2019-04-13] VITALS: Ht 154.3 cm; Wt 85.7 kg
[2019-04-13 18:11] VITALS: BP_SYST 116
[2019-04-13 19:42] LABS: BASOPHILS # (AUTO) 0.1 K/uL (0.0-0.2); BASOPHILS % (AUTO) 0.6 % (0.0-2.0); EOSINOPHILS # (AUTO) 0.1 K/uL (0.0-0.4); EOSINOPHILS % (AUTO) 0.9 % (0.0-4.0); HEMATOCRIT 31.6 % (36-54); HEMOGLOBIN 11.2 g/dL (14.0-18.0); LYMPHOCYTES # (AUTO) 1.9 K/uL (1.0-5.5); LYMPHOCYTES % (AUTO) 18.3 % (20.5-51.5); MEAN CORPUSCULAR HEMOGLOBIN 30 pg (27-31); MEAN CORPUSCULAR HGB CONC 36 % (32-36); MEAN CORPUSCULAR VOLUME 85 fL (79.0-98.0); MONOCYTES # (AUTO) 0.6 K/uL (0.0-1.0); MONOCYTES % (AUTO) 5.8 % (1.7-9.3); NEUTROPHILS # (AUTO) 7.8 K/uL (1.8-7.7); NEUTROPHILS % (AUTO) 74.4 % (40.0-70.0); PLATELET COUNT (AUTO) 458 K/uL (130-430); RED BLOOD CELL COUNT(AUTO) 3.73 MIL/uL (4.2-6.2); RED CELL DISTRIBUTION WIDTH 13.4 % (9.0-15.0); WHITE BLOOD COUNT (AUTO) 10.5 K/uL (4.8-10.8)
[2019-04-13 20:43] LABS: CALCIUM 8.9 mg/dL (8.4-11.0); POTASSIUM 4.6 mmol/L (3.5-5.1); TOTAL BILIRUBIN 0.4 mg/dL (0.0-1.0)
[2019-04-13 20:57] LABS: ALBUMIN 2.8 g/dL (3.4-4.8); CREATININE 1.11 mg/dL (0.55-1.30)
[2019-04-13] MEDS ORDERED: VANCOMYCIN HCL 1,000 MG in NS 250 ML IV ONE (21:00)
[2019-04-13] MEDS ORDERED: KETOROLAC TROMETHAMINE 30 MG VIAL IVP ONE (21:00)
[2019-04-13] MEDS ORDERED: NACL 0.9% 1,000 ML IV ONE (21:00)
[2019-04-13] MEDS ORDERED: VANCOMYCIN HCL 1000 MG/VIAL IV ONE (21:14)
[2019-04-13] MEDS ORDERED: LOPERAMIDE HCL 2 MG CAPSULE PO ONE (21:30)
[2019-04-13] MEDS ORDERED: TYC3 PO ×2 (21:36)
[2019-04-13] MEDS ORDERED: HYDROmorphone 2 MG/ML VIAL IVP PRN (23:00)
[2019-04-14 00:50] VITALS: BP_SYST 98
[2019-04-14] MEDS ORDERED: PIPERACILLIN/TAZOBACTAM 3.375 GM/VIAL (ZOSYN) IV ONE (01:38)
[2019-04-14] MEDS ORDERED: KCL 20 mEq in NS 1000 mL 1,000 ML IV ONE (01:38)
[2019-04-14] MEDS: KCL 20 mEq in NS 1000 mL 1,000 ML IV SCH ×3 (01:59→21:28)
[2019-04-14] MEDS: PIPERACILLIN/TAZO 3.375 GM in NS 50 ML IV SCH ×4 (02:00→18:13)
[2019-04-14 08:05] VITALS: BP_SYST 152
[2019-04-14] MEDS: INSULIN REGULAR, HUMAN 100 UNITS/ML, 10 ML VIAL (humuLIN R) SUBCUT PRN ×3 (11:48→22:07)
[2019-04-14 12:05] VITALS: BP_SYST 140
[2019-04-14] MEDS: LOPERAMIDE HCL 2 MG CAPSULE PO PRN (12:24)
[2019-04-14] MEDS: VANCOMYCIN HCL 750 MG in NS 250 ML IV SCH (14:08)
[2019-04-14] MEDS ORDERED: LOSARTAN POTASSIUM 50 MG TABLET (COZAAR) PO ONE (14:15)
[2019-04-14 16:10] VITALS: BP_SYST 118
[2019-04-14] MEDS: ACETAMINOPHEN/CODEINE 300 MG-30 MG TABLET PO PRN (22:06)
[2019-04-15] VITALS: BP_SYST 115
[2019-04-15] MEDS: VANCOMYCIN HCL 750 MG in NS 250 ML IV SCH ×2 (01:00→14:07)
[2019-04-15] MEDS: PIPERACILLIN/TAZO 3.375 GM in NS 50 ML IV SCH ×6 (07:05→22:56)
[2019-04-15 07:45] VITALS: BP_SYST 121
[2019-04-15 07:53] LABS: BASOPHILS % (AUTO) 0.6 % (0.0-2.0); EOSINOPHILS # (AUTO) 0.2 K/uL (0.0-0.4); EOSINOPHILS % (AUTO) 3.5 % (0.0-4.0); HEMATOCRIT 29.8 % (36-54); HEMOGLOBIN 10.1 g/dL (14.0-18.0); LYMPHOCYTES # (AUTO) 1.9 K/uL (1.0-5.5); LYMPHOCYTES % (AUTO) 33.1 % (20.5-51.5); MEAN CORPUSCULAR HEMOGLOBIN 29 pg (27-31); MEAN CORPUSCULAR HGB CONC 34 % (32-36); MEAN CORPUSCULAR VOLUME 86 fL (79.0-98.0); MONOCYTES # (AUTO) 0.3 K/uL (0.0-1.0); MONOCYTES % (AUTO) 5.9 % (1.7-9.3); NEUTROPHILS # (AUTO) 3.3 K/uL (1.8-7.7); NEUTROPHILS % (AUTO) 56.9 % (40.0-70.0); PLATELET COUNT (AUTO) 443 K/uL (130-430); RED BLOOD CELL COUNT(AUTO) 3.44 MIL/uL (4.2-6.2); RED CELL DISTRIBUTION WIDTH 13.2 % (9.0-15.0); WHITE BLOOD COUNT (AUTO) 5.8 K/uL (4.8-10.8)
[2019-04-15 08:08] LABS: CALCIUM 8.1 mg/dL (8.4-11.0); CREATININE 0.84 mg/dL (0.55-1.30); POTASSIUM 4.5 mmol/L (3.5-5.1)
[2019-04-15] MEDS: ACETAMINOPHEN/CODEINE 300 MG-30 MG TABLET PO PRN (08:39)
[2019-04-15] MEDS: LOPERAMIDE HCL 2 MG CAPSULE PO PRN ×2 (08:39→22:35)
[2019-04-15] MEDS: LOSARTAN POTASSIUM 50 MG TABLET (COZAAR) PO SCH (08:40)
[2019-04-15] MEDS: INSULIN GLARGINE 100 UNITS/ML 10 ML VIAL SUBCUT SCH (08:44)
[2019-04-15 12:04] VITALS: BP_SYST 129
[2019-04-15] MEDS: INSULIN REGULAR, HUMAN 100 UNITS/ML, 10 ML VIAL (humuLIN R) SUBCUT PRN ×2 (12:05→22:47)
[2019-04-15] MEDS: KCL 20 mEq in NS 1000 mL 1,000 ML IV SCH (12:40)
[2019-04-15 16:36] VITALS: BP_SYST 129
[2019-04-15 20:00] VITALS: BP_SYST 115
[2019-04-16] MEDS: VANCOMYCIN HCL 750 MG in NS 250 ML IV SCH (00:53)
[2019-04-17] MEDS ORDERED: NS IRRIG SOLN 1000 ML IR ONE (10:15)
[2019-04-17] MEDS ORDERED: ONDANSETRON HCL 4 MG/2 ML VIAL IVP ONE (10:15)
[2019-04-17] MEDS ORDERED: fentaNYL CITRATE/PF 100 MCG/2 ML AMP IVP ONE (10:15)
[2019-04-17] MEDS ORDERED: MIDAZOLAM HCL 5 MG/5 ML VIAL IVP ONE (10:15)
[2019-04-17] MEDS ORDERED: PROPOFOL 200MG/ 20ML VIAL (DIPRIVAN) IV ONE (10:15)
[2019-04-17] MEDS ORDERED: SEVOFLURANE 15 MIN GAS INH ONE (10:15)
[2019-04-17] MEDS ORDERED: LR 1,000 ML IV.SOLN IV ONE (10:15)
[2019-04-18 02:18] VITALS: BP_SYST 135
[2019-04-18] MEDS: PIPERACILLIN/TAZO 3.375 GM in NS 50 ML IV SCH ×2 (06:45→12:47)
[2019-04-18] MEDS: INSULIN REGULAR, HUMAN 100 UNITS/ML, 10 ML VIAL (humuLIN R) SUBCUT PRN ×2 (07:33→18:00)
[2019-04-18] MEDS: LOPERAMIDE HCL 2 MG CAPSULE PO PRN ×2 (07:34→12:51)
[2019-04-18] MEDS: LOSARTAN POTASSIUM 50 MG TABLET (COZAAR) PO SCH (09:17)
[2019-04-18] MEDS: INSULIN GLARGINE 100 UNITS/ML 10 ML VIAL SUBCUT SCH (09:21)
[2019-04-18 11:59] VITALS: BP_SYST 143
[2019-04-18] MEDS: VANCOMYCIN HCL 1,000 MG in NS 250 ML IV SCH (14:54)
[2019-04-18 17:23] VITALS: BP_SYST 141
[2019-04-18 20:00] VITALS: BP_SYST 141
[2019-04-19] MEDS: LOPERAMIDE HCL 2 MG CAPSULE PO PRN ×3 (00:47→15:06)
[2019-04-19] MEDS: ACETAMINOPHEN/CODEINE 300 MG-30 MG TABLET PO PRN ×2 (00:48→15:03)
[2019-04-19] MEDS: VANCOMYCIN HCL 1,000 MG in NS 250 ML IV SCH ×2 (01:00→15:06)
[2019-04-19 06:17] LABS: BASOPHILS # (AUTO) 0.1 K/uL (0.0-0.2); BASOPHILS % (AUTO) 0.7 % (0.0-2.0); EOSINOPHILS # (AUTO) 0.2 K/uL (0.0-0.4); EOSINOPHILS % (AUTO) 2.9 % (0.0-4.0); HEMATOCRIT 31.6 % (36-54); HEMOGLOBIN 10.9 g/dL (14.0-18.0); LYMPHOCYTES # (AUTO) 2.8 K/uL (1.0-5.5); LYMPHOCYTES % (AUTO) 39.1 % (20.5-51.5); MEAN CORPUSCULAR HEMOGLOBIN 30 pg (27-31); MEAN CORPUSCULAR HGB CONC 35 % (32-36); MEAN CORPUSCULAR VOLUME 87 fL (79.0-98.0); MONOCYTES # (AUTO) 0.4 K/uL (0.0-1.0); MONOCYTES % (AUTO) 5.2 % (1.7-9.3); NEUTROPHILS # (AUTO) 3.7 K/uL (1.8-7.7); NEUTROPHILS % (AUTO) 52.1 % (40.0-70.0); PLATELET COUNT (AUTO) 556 K/uL (130-430); RED BLOOD CELL COUNT(AUTO) 3.64 MIL/uL (4.2-6.2); RED CELL DISTRIBUTION WIDTH 13.3 % (9.0-15.0); WHITE BLOOD COUNT (AUTO) 7.2 K/uL (4.8-10.8)
[2019-04-19 06:29] LABS: CALCIUM 8.6 mg/dL (8.4-11.0); CREATININE 0.72 mg/dL (0.55-1.30)
[2019-04-19 08:00] VITALS: BP_SYST 143
[2019-04-19] MEDS: LOSARTAN POTASSIUM 50 MG TABLET (COZAAR) PO SCH (08:27)
[2019-04-19] MEDS: INSULIN GLARGINE 100 UNITS/ML 10 ML VIAL SUBCUT SCH (08:30)
[2019-04-19] MEDS: KCL 20 mEq in NS 1000 mL 1,000 ML IV SCH ×2 (08:59→14:20)
[2019-04-19] MEDS: INSULIN REGULAR, HUMAN 100 UNITS/ML, 10 ML VIAL (humuLIN R) SUBCUT PRN ×2 (11:26→18:22)
[2019-04-19 12:00] VITALS: BP_SYST 135
[2019-04-19 16:00] VITALS: BP_SYST 130
[2019-04-19 20:00] VITALS: BP_SYST 135
[2019-04-20] MEDS: VANCOMYCIN HCL 1,000 MG in NS 250 ML IV SCH ×2 (01:23→15:01)
[2019-04-20] MEDS: ACETAMINOPHEN/CODEINE 300 MG-30 MG TABLET PO PRN ×2 (01:49→08:11)
[2019-04-20] MEDS: LOPERAMIDE HCL 2 MG CAPSULE PO PRN ×3 (01:50→15:06)
[2019-04-20] MEDS: KCL 20 mEq in NS 1000 mL 1,000 ML IV SCH ×2 (06:00→18:27)
[2019-04-20] MEDS: INSULIN REGULAR, HUMAN 100 UNITS/ML, 10 ML VIAL (humuLIN R) SUBCUT PRN ×2 (06:40→23:33)
[2019-04-20 08:00] VITALS: BP_SYST 144
[2019-04-20] MEDS: LOSARTAN POTASSIUM 50 MG TABLET (COZAAR) PO SCH (08:12)
[2019-04-20] MEDS: INSULIN GLARGINE 100 UNITS/ML 10 ML VIAL SUBCUT SCH (08:18)
[2019-04-20 12:07] VITALS: BP_SYST 134
[2019-04-20 16:06] VITALS: BP_SYST 123
[2019-04-20 20:00] VITALS: BP_SYST 123
[2019-04-21] MEDS: VANCOMYCIN HCL 1,000 MG in NS 250 ML IV SCH ×2 (01:20→12:48)
[2019-04-21] MEDS: ACETAMINOPHEN/CODEINE 300 MG-30 MG TABLET PO PRN ×5 (01:24→09:58)
[2019-04-21] MEDS: LOPERAMIDE HCL 2 MG CAPSULE PO PRN ×3 (01:25→10:10)
[2019-04-21] MEDS: KCL 20 mEq in NS 1000 mL 1,000 ML IV SCH (06:40)
[2019-04-21 08:00] VITALS: BP_SYST 130
[2019-04-21] MEDS: LOSARTAN POTASSIUM 50 MG TABLET (COZAAR) PO SCH (09:59)
[2019-04-21] MEDS: INSULIN GLARGINE 100 UNITS/ML 10 ML VIAL SUBCUT SCH (10:03)
[2019-04-21] MEDS: INSULIN REGULAR, HUMAN 100 UNITS/ML, 10 ML VIAL (humuLIN R) SUBCUT PRN (12:55)
[2019-04-21 13:32] VITALS: BP_SYST 130
== END 2019-04-21 16:00 | disposition home health service (06) | DRG 349 ==
LOC: SED 17:17 → SMU 22:51
PROVIDERS: ADMIT Family Medicine; ATTEND Family Medicine
PROC: 0JBQ0ZZ Excision of Right Foot Subcutaneous Tissue and Fascia, Open Approach (ICD-10-PCS; 2019-04-17)
PROC: 02HV33Z Insertion of Infusion Device into Superior Vena Cava, Percutaneous Approach (ICD-10-PCS; principal; 2019-04-19)
PROC: B548ZZA Ultrasonography of Superior Vena Cava, Guidance (ICD-10-PCS; 2019-04-19)
DX: T87.89 Other complications of amputation stump (principal); E11.40 Type 2 diabetes mellitus with diabetic neuropathy, unspecified; E11.51 Type 2 diabetes mellitus with diabetic peripheral angiopathy without gangrene; M86.171 Other acute osteomyelitis, right ankle and foot; L03.115 Cellulitis of right lower limb; E87.1 Hypo-osmolality and hyponatremia; M86.671 Other chronic osteomyelitis, right ankle and foot; E11.69 Type 2 diabetes mellitus with other specified complication; E11.621 Type 2 diabetes mellitus with foot ulcer; Y83.8 Other surgical procedures as the cause of abnormal reaction of the patient, or of later complication, without mention of misadventure at the time of the procedure; E78.5 Hyperlipidemia, unspecified; Y92.89 Other specified places as the place of occurrence of the external cause; L97.519 Non-pressure chronic ulcer of other part of right foot with unspecified severity; I10 Essential (primary) hypertension; L02.611 Cutaneous abscess of right foot; Z79.4 Long term (current) use of insulin; Z89.411 Acquired absence of right great toe; Z89.421 Acquired absence of other right toe(s); E11.52 Type 2 diabetes mellitus with diabetic peripheral angiopathy with gangrene
CPT/HCPCS: 36415; 71045; 73721; 80048; 80053; 80202-TC; 82962; 83605; 85025; 85610-TC; 85651-TC; 85730-TC; 87040-TC; 87070; 87070-TC; 87086; 87186-TC; 88304; 96361; 96365; 96375; 99285; C1751; J1170; J1815; J1885; J2250; J2405; J2543; J2704; J3010; J3370; J3480; J7030; J7050; J7120

== ENCOUNTER 2019-06-07 11:30 | Emergency (ER) | payer MEDICAID ==
[~2019-06-07] VITALS: Ht 175.3 cm; Wt 81.6 kg
[~2019-06-07 11:30] MED LIST changes: -ACET-73 PO; -HYDR-4272 PO; -LISI-600 PO; +TYC3 PO
[2019-06-07 11:42] VITALS: BP_SYST 116
--- NOTE | 2019-06-07 11:55 | NUR ---
Patient to ER bed 08 for evaluation. Side rails up.
[2019-06-07 12:08] VITALS: BP_SYST 116
--- NOTE | 2019-06-07 12:36 | NUR ---
Patient AAO x 4 ambulates to ER bed 08 with a referral from PCP to come to the ER for [facility]. Reports completing course of IV vancomycin s/p surgical debridement followed by PICC line placement x 5 months ago. PICC dressing is slightly displaced. Very minimal edema and redness noted immediately surrounding insertion site. Patient reports 3/10 pain to E. He is prescribed PO Tylenol for pain management and reports last dose to be 0300 this AM. Even chest rise and fall with respirations. Will continue to monitor.
--- NOTE | 2019-06-07 13:05 | NUR ---
ER Dr. Pringle at bedside examining patient.
--- NOTE | 2019-06-07 13:07 | NUR ---
Confirmed with MD Pringle, patients PICC to be removed. No need for collection of PICC line tip for culture. Patients HR 124. MD aware. States he is here because it needs to be removed after completing ABX therapy.
--- NOTE | 2019-06-07 13:08 | NUR ---
Patient given written and verbal discharge instructions and verbalizes understanding. ER MD discussed with patient the results and treatment provided. Patient in stable condition. ID arm band removed. IV catheter removed intact and dressing applied, no active bleeding. Rx not given. Patient educated on pain management and to follow up with PMD. Pain Scale 0/10. Bleeding from PICC line site is controlled. Gauze and tape are applied for further control until patient gets home. Opportunity for questions provided and answered. Medication side effect fact sheet provided. Patient discharged by Dr. Pringle. PICC line removal performed by Dr. Pringle.
== END 2019-06-07 12:08 | disposition home or self-care (01) ==
LOC: SED 11:30
DX: Z45.2 Encounter for adjustment and management of vascular access device (principal); E11.9 Type 2 diabetes mellitus without complications; I10 Essential (primary) hypertension; Z79.84 Long term (current) use of oral hypoglycemic drugs; Z79.899 Other long term (current) drug therapy
CPT/HCPCS: 99281

== ENCOUNTER 2019-07-02 13:48 | Emergency (ER) | payer MEDICAID ==
[~2019-07-02] VITALS: Ht 175.3 cm; Wt 81.6 kg
[2019-07-02 14:08] VITALS: BP_SYST 120
--- NOTE | 2019-07-02 14:10 | NUR ---
PT CAME TO ER AFTER R TOE AMPUTATION ONE MONTH AGO. HE RECEIVED VANCOMYCIN BUT HAS BEEN EXPERIENCING REDNESS AND SWELLING X1WEEK. AWAITING MD.
--- NOTE | 2019-07-02 14:10 | NUR ---
Patient to ER bed 8 to gown for evaluation. Side rails up.
--- NOTE | 2019-07-02 14:15 | NUR ---
ER at bedside examining patient.
--- NOTE | 2019-07-02 15:40 | NUR ---
Patient given written and verbal discharge instructions and verbalizes understanding. ER MD discussed with patient the results and treatment provided. Patient in stable condition. ID arm band removed. Patient educated on pain management and to follow up with PMD. Pain Scale 3. Opportunity for questions provided and answered. Medication side effect fact sheet provided.
[2019-07-02 15:43] VITALS: BP_SYST 120
== END 2019-07-02 15:40 | disposition home or self-care (01) ==
LOC: SED 13:48
DX: M79.671 Pain in right foot (principal); E78.5 Hyperlipidemia, unspecified; E11.9 Type 2 diabetes mellitus without complications; I10 Essential (primary) hypertension
CPT/HCPCS: 93971; 99284

== ENCOUNTER 2019-07-14 13:04 | Emergency (ER) | payer MEDICAID ==
[~2019-07-14] VITALS: Ht 175.3 cm; Wt 81.6 kg
[2019-07-14 13:33] VITALS: BP_SYST 129
--- NOTE | 2019-07-14 16:17 | NUR ---
Called from waiting room, no answer
[2019-07-15] MEDS ORDERED: LISI20TA PO (09:33)
== END 2019-07-14 16:17 | disposition left against medical advice (07) ==
LOC: SED 13:04
DX: M79.674 Pain in right toe(s) (principal); Z53.21 Procedure and treatment not carried out due to patient leaving prior to being seen by health care provider

== ENCOUNTER 2019-07-15 09:04 | Emergency (ER) | payer MEDICAID ==
[~2019-07-15] VITALS: Ht 175.3 cm; Wt 81.6 kg
--- NOTE | 2019-07-15 09:08 | NUR ---
Patient to ER bed 5 to gown for evaluation. Side rails up.
--- NOTE | 2019-07-15 09:11 | NUR ---
pt arrives from home w/ c/o right fourth toe pain and swelling. No other c/o at the moment.
--- NOTE | 2019-07-15 09:18 | NUR ---
ER at bedside examining patient.
--- NOTE | 2019-07-15 09:22 | NUR ---
Patient given written and verbal discharge instructions and verbalizes understanding. ER MD discussed with patient the results and treatment provided. Patient in stable condition. ID arm band removed. Rx of Keflex given. Patient educated on pain management and to follow up with PMD. Pain Scale 0/10. Opportunity for questions provided and answered. Medication side effect fact sheet provided.
--- NOTE | 2019-07-15 09:23 | NUR ---
dressing applied to the right fourth toe. Pt tolerated well
[2019-07-15] MEDS ORDERED: LISI20TA PO (09:33)
[2019-07-15 09:34] VITALS: BP_SYST 156
== END 2019-07-15 09:22 | disposition home or self-care (01) ==
LOC: SED 09:04
DX: E11.621 Type 2 diabetes mellitus with foot ulcer (principal); L97.519 Non-pressure chronic ulcer of other part of right foot with unspecified severity; I10 Essential (primary) hypertension; E11.9 Type 2 diabetes mellitus without complications; Z79.84 Long term (current) use of oral hypoglycemic drugs
CPT/HCPCS: 99283

== ENCOUNTER 2020-04-28 01:51 | Emergency (ER) | payer MEDICAID ==
[~2020-04-28] VITALS: Ht 175.3 cm; Wt 81.6 kg
[~2020-04-28 01:51] MED LIST changes: +LISI20TA PO
[2020-04-28 03:18] VITALS: BP_SYST 155
[2020-04-28 04:13] LABS: CALCIUM 7.9 mg/dL (8.4-11.0); CREATININE 1.17 mg/dL (0.55-1.30); POTASSIUM 4.1 mmol/L (3.5-5.1)
[2020-04-28 04:17] LABS: BASOPHILS # (AUTO) 0.2 K/uL (0.0-0.2); BASOPHILS % (AUTO) 3.1 % (0.0-2.0); EOSINOPHILS # (AUTO) 0.2 K/uL (0.0-0.4); EOSINOPHILS % (AUTO) 3.1 % (0.0-4.0); HEMATOCRIT 39.4 % (36-54); HEMOGLOBIN 13.4 g/dL (14.0-18.0); LYMPHOCYTES # (AUTO) 2.2 K/uL (1.0-5.5); LYMPHOCYTES % (AUTO) 27.6 % (20.5-51.5); MEAN CORPUSCULAR HEMOGLOBIN 30 pg (27-31); MEAN CORPUSCULAR HGB CONC 34 % (32-36); MEAN CORPUSCULAR VOLUME 88 fL (79.0-98.0); MONOCYTES # (AUTO) 0.4 K/uL (0.0-1.0); MONOCYTES % (AUTO) 5.2 % (1.7-9.3); NEUTROPHILS # (AUTO) 4.8 K/uL (1.8-7.7); PLATELET COUNT (AUTO) 208 K/uL (130-430); RED BLOOD CELL COUNT(AUTO) 4.49 MIL/uL (4.2-6.2); RED CELL DISTRIBUTION WIDTH 14.3 % (9.0-15.0); WHITE BLOOD COUNT (AUTO) 7.9 K/uL (4.8-10.8)
[2020-04-28 04:19] LABS: TOTAL BILIRUBIN 0.2 mg/dL (0.0-1.0)
[2020-04-28 05:27] LABS: ERYTHROCYTE SEDIMENTATION RATE 13 MM/HR (0-15)
[2020-04-28 05:56] VITALS: BP_SYST 136
== END 2020-04-28 05:56 | disposition home or self-care (01) ==
LOC: SED 01:51
DX: S90.32XA Contusion of left foot, initial encounter (principal); S90.31XA Contusion of right foot, initial encounter; I10 Essential (primary) hypertension; E11.9 Type 2 diabetes mellitus without complications; E78.5 Hyperlipidemia, unspecified; Z79.899 Other long term (current) drug therapy; X58.XXXA Exposure to other specified factors, initial encounter; Y93.89 Activity, other specified; Y92.89 Other specified places as the place of occurrence of the external cause; Y99.8 Other external cause status
CPT/HCPCS: 36415; 80053; 82962; 85025; 85651-TC; 99284

== ENCOUNTER 2020-05-20 11:54 | Emergency (ER) | payer MEDICAID ==
[~2020-05-20] VITALS: Ht 172.7 cm; Wt 59.9 kg
[2020-05-20 12:01] VITALS: BP_SYST 104
--- NOTE | 2020-05-20 12:01 | NUR ---
Patient triaged and placed in waiting room. VSS and patient appears in no acute distress at this time. Accompanied by self, awaiting available bed, and MD notified of need for MSE.
--- NOTE | 2020-05-20 12:02 | NUR ---
Pt brought by self, A&Ox4, pt presents to ER with one episode of low blood sugar, pt states he ate something, skin pink and warm, cap refill <3, VSS.
--- NOTE | 2020-05-20 12:25 | NUR ---
Pt's BS 197
--- NOTE | 2020-05-20 12:45 | NUR ---
Dr Ruiz evaluating patient in the tent
--- NOTE | 2020-05-20 13:36 | NUR ---
Patient given written and verbal discharge instructions and verbalizes understanding. ER MD discussed with patient the results and treatment provided. Patient in stable condition. ID arm band removed. No Rx given. Patient educated on pain management and to follow up with PMD. Pain Scale 0/10. Opportunity for questions provided and answered. Medication side effect fact sheet provided.
[2020-05-20 13:37] VITALS: BP_SYST 104
== END 2020-05-20 13:36 | disposition home or self-care (01) ==
LOC: SED 11:54
DX: E11.65 Type 2 diabetes mellitus with hyperglycemia (principal); E78.5 Hyperlipidemia, unspecified; I10 Essential (primary) hypertension; Z79.899 Other long term (current) drug therapy
CPT/HCPCS: 82962; 99282

== ENCOUNTER 2020-12-30 08:08 | Emergency (ER) | payer MEDICAID ==
[~2020-12-30] VITALS: Ht 175.3 cm; Wt 86.2 kg
[2020-12-30 08:08] VITALS: BP_SYST 147
[~2020-12-30 08:08] MED LIST changes: +AMOX-423 PO; +IBUP-1971 PO; +LOSA25TA3 PO
[2020-12-30] MEDS ORDERED: NACL 0.9% 1,000 ML IV ONE (08:15)
[2020-12-30 08:49] LABS: BASOPHILS % (AUTO) 0.2 % (0.0-2.0); EOSINOPHILS % (AUTO) 8.6 % (0.0-4.0); HEMATOCRIT 34.9 % (36-54); HEMOGLOBIN 11.8 g/dL (14.0-18.0); LYMPHOCYTES # (AUTO) 2.2 K/uL (1.0-5.5); LYMPHOCYTES % (AUTO) 19.5 % (20.5-51.5); MEAN CORPUSCULAR HEMOGLOBIN 29 pg (27-31); MEAN CORPUSCULAR HGB CONC 34 % (32-36); MEAN CORPUSCULAR VOLUME 86 fL (79.0-98.0); MONOCYTES # (AUTO) 0.8 K/uL (0.0-1.0); MONOCYTES % (AUTO) 7.3 % (1.7-9.3); NEUTROPHILS # (AUTO) 7.2 K/uL (1.8-7.7); NEUTROPHILS % (AUTO) 64.4 % (40.0-70.0); PLATELET COUNT (AUTO) 329 K/uL (130-430); RED BLOOD CELL COUNT(AUTO) 4.05 MIL/uL (4.2-6.2); RED CELL DISTRIBUTION WIDTH 14.5 % (9.0-15.0); WHITE BLOOD COUNT (AUTO) 11.1 K/uL (4.8-10.8)
[2020-12-30 09:07] LABS: CALCIUM 8.2 mg/dL (8.4-11.0); CREATININE 0.92 mg/dL (0.55-1.30); POTASSIUM 3.6 mmol/L (3.5-5.1)
[2020-12-30 09:12] LABS: ALBUMIN 2.5 g/dL (3.4-4.8)
[2020-12-30 09:27] LABS: TOTAL BILIRUBIN 0.2 mg/dL (0.0-1.0)
[2020-12-30 11:01] LABS: BILIRUBIN,URINE NEGATIVE (NEGATIVE); BLOOD, URINE NEGATIVE (NEGATIVE); CLARITY/URINE CLEAR (CLEAR); COLOR,URINE YELLOW (YELLOW); GLUCOSE,URINE NEGATIVE (NEGATIVE); KETONES,URINE NEGATIVE (NEGATIVE); LEUKOCYTE ESTERASE ,URINE NEGATIVE (NEGATIVE); NITRITE, URINE NEGATIVE (NEGATIVE); PH,URINE 5.5 (5.0-8.0); PROTEIN URINE 2+ (NEGATIVE); UROBILINOGEN,URINE 0.2 (0.2-1.0)
[2020-12-30 11:21] VITALS: BP_SYST 147
== END 2020-12-30 11:20 | disposition home or self-care (01) ==
LOC: SED 08:08
DX: K52.9 Noninfective gastroenteritis and colitis, unspecified (principal); I10 Essential (primary) hypertension; E11.9 Type 2 diabetes mellitus without complications; Z79.899 Other long term (current) drug therapy; Z79.84 Long term (current) use of oral hypoglycemic drugs; Z20.822 Contact with and (suspected) exposure to COVID-19
CPT/HCPCS: 36415; 74177; 76376; 80053; 81003; 83605; 83690; 83735; 85025; 87040; 87426; 96360; 99284; J7030; Q9967

== ENCOUNTER 2021-01-14 05:53 | Emergency (ER) | payer MEDICAID ==
[~2021-01-14] VITALS: Ht 175.3 cm; Wt 83.9 kg
[2021-01-14 05:53] VITALS: BP_SYST 126
--- NOTE | 2021-01-14 06:00 | NUR ---
Patient to ER bed 7 to gown for evaluation. Side rails up. Report given to Justine.
--- NOTE | 2021-01-14 06:01 | NUR ---
Came in ER ambulatory from home this 50 year old male, AAOX4, breathing spontaneously at room air, not in distress noted. 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 Vital signs stable, bilateral DM foot noted.
--- NOTE | 2021-01-14 06:08 | NUR ---
bg 96
--- NOTE | 2021-01-14 06:25 | NUR ---
Seen and examined by Dr. Posey
[2021-01-14] MEDS ORDERED: VANCOMYCIN HCL 1,000 MG in D5W 250 ML IV ONE (06:45)
[2021-01-14] MEDS ORDERED: PIPERACILLIN/TAZO 3.38 GM in D5W 50 ML IV ONE (06:45)
--- NOTE | 2021-01-14 06:50 | NUR ---
# 20 gauge angiocath placed to LEFT FOREARM. Use of asceptic technique. Opsite placed over site. Blood return noted. Blood for lab drawn from site. Flushed with 10 cc of normal saline. No evidence of infiltration noted. Patient tolerated well.
[2021-01-14] MEDS ORDERED: OXYCODONE/ACETAMINOPHEN 5-325 TABLET PO ONE (07:00)
[2021-01-14] MEDS ORDERED: IBUPROFEN 600 MG TABLET PO ONE (07:00)
--- NOTE | 2021-01-14 07:00 | NUR ---
mEDICATIONS GIVEN ORDERED, HEALTH TEACHING PROVIDED AND VERBALIZED UNDERSTANDING
[2021-01-14] MEDS ORDERED: PIPERACILLIN/TAZOBACTAM 3.375 GM/VIAL (ZOSYN) IV ONE (07:02)
[2021-01-14] MEDS ORDERED: IBUPROFEN 600 MG TABLET ONE (07:04)
--- NOTE | 2021-01-14 07:10 | NUR ---
Endorsed to day shift RN in stable condition for continuity of care.
[2021-01-14 07:26] LABS: BASOPHILS # (AUTO) 0.1 K/uL (0.0-0.2); BASOPHILS % (AUTO) 0.4 % (0.0-2.0); EOSINOPHILS # (AUTO) 0.7 K/uL (0.0-0.4); EOSINOPHILS % (AUTO) 5.4 % (0.0-4.0); HEMATOCRIT 31.7 % (36-54); HEMOGLOBIN 10.6 g/dL (14.0-18.0); LYMPHOCYTES # (AUTO) 1.7 K/uL (1.0-5.5); LYMPHOCYTES % (AUTO) 13.9 % (20.5-51.5); MEAN CORPUSCULAR HEMOGLOBIN 28 pg (27-31); MEAN CORPUSCULAR HGB CONC 34 % (32-36); MEAN CORPUSCULAR VOLUME 85 fL (79.0-98.0); MONOCYTES # (AUTO) 0.8 K/uL (0.0-1.0); MONOCYTES % (AUTO) 6.4 % (1.7-9.3); NEUTROPHILS % (AUTO) 73.9 % (40.0-70.0); PLATELET COUNT (AUTO) 451 K/uL (130-430); RED BLOOD CELL COUNT(AUTO) 3.74 MIL/uL (4.2-6.2); WHITE BLOOD COUNT (AUTO) 12.2 K/uL (4.8-10.8)
--- NOTE | 2021-01-14 07:26 | NUR ---
REPORT RECEIVED, PT LAYING IN BED, IN NAD. RESP EVEN AND UNLABORED, ON RA @99%. REPORTS MILD RELIEF FROM PAIN AFTER TAKING MOTRIN PAIN 6 AT THIS TIME, UNDERSTANDS HE CAN'T TAKE PERCOCET BECAUSE HE IS DRIVING HOME. ALSO REFUSING ADMISSION. LEFT FOOT RED, SWOLLEN, TENDER TO TOUCH. ZOSYN NOTED TO BE INFUSED, VANCO UNAVAILABLE IN ER PYXIS, PHARM WAS CALLED TO [facility]. VSS, AFEBRILE. PT IN GOOD SPIRITS, STATES HE CAN'T STAY BECAUSE HE HAS HIS SON TO TAKE CARE OF. WILL CONT TO MONITOR.
[2021-01-14 07:39] LABS: INR 0.9 (0.80-1.20); PROTHROMBIN TIME 10.1 SECS (9.5-12.5)
[2021-01-14] MEDS ORDERED: LEVO750T45 PO (07:44)
[2021-01-14] MEDS ORDERED: IBUP-1969 PO (07:44)
[2021-01-14 08:11] LABS: ERYTHROCYTE SEDIMENTATION RATE 99 MM/HR (0-15)
[2021-01-14 08:32] LABS: CALCIUM 8.1 mg/dL (8.4-11.0); CREATININE 0.8 mg/dL (0.55-1.30); POTASSIUM 3.8 mmol/L (3.5-5.1)
[2021-01-14 08:38] LABS: ALBUMIN 2.1 g/dL (3.4-4.8); TOTAL BILIRUBIN 0.4 mg/dL (0.0-1.0)
[2021-01-14 08:48] LABS: C-REACTIVE PROTEIN QUANT 17.3 mg/dL (0-0.5)
--- NOTE | 2021-01-14 09:13 | NUR ---
VANCO INFUSING WELL VIA PUMP, WILL CONT TO MONITOR. VSS.
--- NOTE | 2021-01-14 10:29 | NUR ---
WET TO DRY DRESSING DONE ON LEFT FOOT, IV HL DC'D, PT DECIDING TO GO AMA DUE TO PERSONAL SITUATION, WILL RETURN ON SATURDAY WHEN HIS AFFAIRS ARE IN PLACE. PT INSTRUCTED ON POSSIBLE SEPSIS, . PT ADVISED TO MOITOR TEMPERTURE AND TAKE MEDS PRESCRIBED. VSS, PT REPORTS MILD PULSATING PAIN ONLY WITH MOVEMENT. IN NAD, SKIN W/D/I. CN INFORMED.
[2021-01-14 10:51] VITALS: BP_SYST 159
== END 2021-01-14 10:31 | disposition left against medical advice (07) ==
LOC: SED 05:53
DX: L03.032 Cellulitis of left toe (principal); I10 Essential (primary) hypertension; E11.9 Type 2 diabetes mellitus without complications; I73.9 Peripheral vascular disease, unspecified; Z79.84 Long term (current) use of oral hypoglycemic drugs
CPT/HCPCS: 36415; 73620; 80053; 82962; 83605; 85025; 85610; 85651; 85730; 86140; 87040; 87070; 96365; 96367; 99284; J2543; J3370; J7060; 87186-TC

== ENCOUNTER 2021-01-28 02:15 | Inpatient (IN) | payer MEDICAID, SELFPAY ==
[~2021-01-28] VITALS: Ht 175.3 cm; Wt 86.2 kg
[~2021-01-28 02:15] MED LIST changes: +IBUP-1969 PO; +LEVO750T45 PO
[2021-01-28 02:25] VITALS: BP_SYST 145
[2021-01-28] MEDS ORDERED: VANCOMYCIN HCL 1,000 MG in NS 250 ML IV ONE (03:15)
[2021-01-28] MEDS ORDERED: MORPHINE 4 MG INJ. 4 MG/ML VIAL IVP ONE ×2 (03:15→05:15)
[2021-01-28] MEDS ORDERED: PIPERACILLIN/TAZO 3.375 GM in NS 50 ML IV ONE (03:15)
[2021-01-28] MEDS ORDERED: ONDANSETRON HCL 4 MG/2 ML VIAL IVP ONE (03:15)
[2021-01-28] MEDS ORDERED: PIPERACILLIN/TAZOBACTAM 3.375 GM/VIAL (ZOSYN) IV ONE (03:37)
[2021-01-28 03:58] LABS: BASOPHILS # (AUTO) 0.1 K/uL (0.0-0.2); EOSINOPHILS % (AUTO) 0.1 % (0.0-4.0)
[2021-01-28 04:05] LABS: BASOPHILS % (AUTO) 0.3 % (0.0-2.0); HEMATOCRIT 27.9 % (36-54); HEMOGLOBIN 9.2 g/dL (14.0-18.0); LYMPHOCYTES # (AUTO) 1.3 K/uL (1.0-5.5); LYMPHOCYTES % (AUTO) 7.2 % (20.5-51.5); MEAN CORPUSCULAR HEMOGLOBIN 28 pg (27-31); MEAN CORPUSCULAR HGB CONC 33 % (32-36); MEAN CORPUSCULAR VOLUME 84 fL (79.0-98.0); MONOCYTES # (AUTO) 0.6 K/uL (0.0-1.0); MONOCYTES % (AUTO) 3.3 % (1.7-9.3); NEUTROPHILS # (AUTO) 16.8 K/uL (1.8-7.7); NEUTROPHILS % (AUTO) 89.1 % (40.0-70.0); PLATELET COUNT (AUTO) 529 K/uL (130-430); RED BLOOD CELL COUNT(AUTO) 3.34 MIL/uL (4.2-6.2); RED CELL DISTRIBUTION WIDTH 14.5 % (9.0-15.0); WHITE BLOOD COUNT (AUTO) 18.8 K/uL (4.8-10.8)
[2021-01-28 04:08] LABS: ALBUMIN 1.9 g/dL (3.4-4.8); CALCIUM 7.8 mg/dL (8.4-11.0); CREATININE 1.61 mg/dL (0.55-1.30); POTASSIUM 3.9 mmol/L (3.5-5.1); TOTAL BILIRUBIN 0.2 mg/dL (0.0-1.0)
[2021-01-28] MEDS ORDERED: VANCOMYCIN HCL 1000 MG/VIAL IV ONE (04:22)
[2021-01-28] MEDS ORDERED: POTASSIUM CHLORIDE 20 MEQ TAB.PRT.SR PO ONE (04:30)
[2021-01-28] MEDS ORDERED: INSULIN REGULAR, HUMAN 10 UNITS/0.1 ML INJ IVP ONE (04:30)
[2021-01-28] MEDS ORDERED: NACL 0.9% 2,000 ML IV ONE (04:30)
[2021-01-28] MEDS ORDERED: NACL 0.9% 1,000 ML IV ONE (04:30)
[2021-01-28] MEDS ORDERED: INSU100I26 SQ ×2 (04:49)
[2021-01-28] MEDS ORDERED: MORPHINE 4 MG INJ. 4 MG/ML VIAL ONE (05:13)
[2021-01-28] MEDS: NACL 0.9% 1,000 ML IV SCH ×3 (06:25→20:35)
[2021-01-28] MEDS ORDERED: INSULIN REGULAR, HUMAN 100 UNITS/ML, 10 ML VIAL (humuLIN R) SUBCUT PRN (07:00)
[2021-01-28] MEDS ORDERED: ONDANSETRON HCL 4 MG/2 ML VIAL IVP PRN (08:15)
[2021-01-28] MEDS ORDERED: PROMETHAZINE HCL/CODEINE 6.25-10 mg/5 mL UDC PO PRN (08:15)
[2021-01-28] MEDS ORDERED: DOCUSATE SODIUM 100 MG/10 ML UDC PO PRN (08:15)
[2021-01-28] MEDS ORDERED: ZOLPIDEM TARTRATE 5 MG TABLET PO PRN (08:15)
[2021-01-28] MEDS ORDERED: NALOXONE HCL 0.4 MG/ML AMP (NARCAN) IVP PRN (08:15)
[2021-01-28] MEDS: LOSARTAN POTASSIUM 25 MG TABLET PO SCH (09:00)
[2021-01-28] MEDS ORDERED: PIPERACILLIN/TAZO 3.375/DEX-IS 50 ML IV SCH (09:00)
[2021-01-28] MEDS: PANTOPRAZOLE SODIUM 40 MG TAB PO SCH (09:17)
[2021-01-28 09:26] LABS: BASOPHILS # (AUTO) 0.1 K/uL (0.0-0.2); BASOPHILS % (AUTO) 0.3 % (0.0-2.0); EOSINOPHILS # (AUTO) 0.5 K/uL (0.0-0.4); EOSINOPHILS % (AUTO) 2.7 % (0.0-4.0); HEMATOCRIT 24.5 % (36-54); HEMOGLOBIN 8.3 g/dL (14.0-18.0); LYMPHOCYTES # (AUTO) 2.3 K/uL (1.0-5.5); LYMPHOCYTES % (AUTO) 11.6 % (20.5-51.5); MEAN CORPUSCULAR HEMOGLOBIN 28 pg (27-31); MEAN CORPUSCULAR HGB CONC 34 % (32-36); MEAN CORPUSCULAR VOLUME 83 fL (79.0-98.0); MONOCYTES # (AUTO) 1.2 K/uL (0.0-1.0); MONOCYTES % (AUTO) 6.2 % (1.7-9.3); NEUTROPHILS # (AUTO) 15.9 K/uL (1.8-7.7); NEUTROPHILS % (AUTO) 79.2 % (40.0-70.0); PLATELET COUNT (AUTO) 533 K/uL (130-430); RED BLOOD CELL COUNT(AUTO) 2.97 MIL/uL (4.2-6.2); RED CELL DISTRIBUTION WIDTH 14.7 % (9.0-15.0)
[2021-01-28 09:47] LABS: INR 1.1 (0.80-1.20); PROTHROMBIN TIME 11.4 SECS (9.5-12.5)
[2021-01-28] MEDS: INSULIN GLARGINE 100 UNITS/ML 10 ML VIAL SUBCUT SCH (10:05)
[2021-01-28 10:14] LABS: CREATININE 1.3 mg/dL (0.55-1.30); FREE T4 (FREE THYROXINE) 1.5 ng/dl (0.8-1.5); PHOSPHORUS 3.2 mg/dL (2.7-4.5); POTASSIUM 3.7 mmol/L (3.5-5.1); THYROID STIMULATING HORMONE 1.77 uIu/mL (0.36-3.74)
[2021-01-28] MEDS: AMPICILLIN SODIUM/SULBACTAM NA 1.5 GM in NS 50 ML IV SCH ×3 (13:59→23:42)
[2021-01-28 14:06] VITALS: BP_SYST 137
[2021-01-28 16:38] VITALS: BP_SYST 141
[2021-01-28] MEDS: VANCOMYCIN HCL 1,000 MG in NS 250 ML IV SCH (17:40)
[2021-01-28] MEDS: MORPHINE 2 MG/ML INJ. SYRINGE IVP PRN ×2 (17:47→22:03)
[2021-01-28 20:00] VITALS: BP_SYST 133
[2021-01-28 20:06] LABS: BILIRUBIN,URINE NEGATIVE (NEGATIVE); BLOOD, URINE 1+ (NEGATIVE); CLARITY/URINE CLEAR (CLEAR); COLOR,URINE YELLOW (YELLOW); GLUCOSE,URINE 2+ (NEGATIVE); KETONES,URINE NEGATIVE (NEGATIVE); LEUKOCYTE ESTERASE ,URINE NEGATIVE (NEGATIVE); NITRITE, URINE NEGATIVE (NEGATIVE); PH,URINE 5.5 (5.0-8.0); PROTEIN URINE 1+ (NEGATIVE); UROBILINOGEN,URINE 0.2 (0.2-1.0)
[2021-01-28 20:22] LABS: BACTERIA,URINE None Seen /HPF (None Seen); BARBITURATE, URINE NEGATIVE (NEG <=200); BENZODIAZEPINE, URINE NEGATIVE (NEG <=150); METHAMPHETAMINES SCREEN,URINE NEGATIVE (NEG <=500); MUCUS,URINE None Seen /LPF (None Seen); RBC,URINE 0-3 /HPF (0-3); URINE AMPHETAMINE NEGATIVE (NEG <=500); URINE METHADONE NEGATIVE (NEG <=200); WBC,URINE NONE SEEN /HPF (0-3)
[2021-01-28 20:23] LABS: CANNABINOID, URINE NEGATIVE (NEG <=50); COCAINE, URINE POSITIVE (NEG <=150); OPIATE, URINE POSITIVE (NEG <=100); PHENCYCLIDINE SCREEN,URINE NEGATIVE (NEG <=25); UR TRICYCLIC ANTIDEPRESSANTS NEGATIVE (NEG <=300); URINE OXYCODONE SCREEN NEGATIVE (NEG <=100); URINE PROPOXYPHENE SCREEN NEGATIVE (NEG <=300)
[2021-01-28] MEDS: LOPERAMIDE HCL 2 MG CAPSULE PO PRN (22:03)
[2021-01-29] VITALS: BP_SYST 131
[2021-01-29] MEDS: VANCOMYCIN HCL 1,000 MG in NS 250 ML IV SCH ×2 (04:30→17:02)
[2021-01-29] MEDS: NACL 0.9% 1,000 ML IV SCH ×3 (04:30→21:26)
[2021-01-29] MEDS: HYDROcodone/ACETAMIN 7.5-325 MG TAB PO PRN ×4 (04:47→21:26)
[2021-01-29 06:44] LABS: BASOPHILS % (AUTO) 0.3 % (0.0-2.0); EOSINOPHILS # (AUTO) 0.1 K/uL (0.0-0.4); EOSINOPHILS % (AUTO) 0.8 % (0.0-4.0); HEMATOCRIT 25.4 % (36-54); HEMOGLOBIN 8.6 g/dL (14.0-18.0); LYMPHOCYTES # (AUTO) 1.6 K/uL (1.0-5.5); LYMPHOCYTES % (AUTO) 10.4 % (20.5-51.5); MEAN CORPUSCULAR HEMOGLOBIN 28 pg (27-31); MEAN CORPUSCULAR HGB CONC 34 % (32-36); MEAN CORPUSCULAR VOLUME 83 fL (79.0-98.0); MONOCYTES % (AUTO) 6.6 % (1.7-9.3); NEUTROPHILS # (AUTO) 12.7 K/uL (1.8-7.7); NEUTROPHILS % (AUTO) 81.9 % (40.0-70.0); PLATELET COUNT (AUTO) 497 K/uL (130-430); RED BLOOD CELL COUNT(AUTO) 3.06 MIL/uL (4.2-6.2); RED CELL DISTRIBUTION WIDTH 14.6 % (9.0-15.0); WHITE BLOOD COUNT (AUTO) 15.5 K/uL (4.8-10.8)
[2021-01-29 06:52] LABS: CALCIUM 7.5 mg/dL (8.4-11.0); CREATININE 0.81 mg/dL (0.55-1.30); POTASSIUM 3.8 mmol/L (3.5-5.1)
[2021-01-29] MEDS: AMPICILLIN SODIUM/SULBACTAM NA 1.5 GM in NS 50 ML IV SCH ×4 (07:04→23:19)
[2021-01-29 08:00] VITALS: BP_SYST 145
[2021-01-29] MEDS: PANTOPRAZOLE SODIUM 40 MG TAB PO SCH (08:09)
[2021-01-29] MEDS: LOSARTAN POTASSIUM 25 MG TABLET PO SCH (08:10)
[2021-01-29] MEDS: INSULIN GLARGINE 100 UNITS/ML 10 ML VIAL SUBCUT SCH (08:12)
[2021-01-29] MEDS ORDERED: POTASSIUM CHLORIDE 20 MEQ TAB.PRT.SR PO PRN (09:00)
[2021-01-29] MEDS: LOPERAMIDE HCL 2 MG CAPSULE PO PRN ×3 (11:40→21:26)
[2021-01-29] MEDS: ACETAMINOPHEN 500 MG TABLET PO PRN (14:57)
[2021-01-29 16:00] VITALS: BP_SYST 143
[2021-01-29 20:00] VITALS: BP_SYST 128
[2021-01-30] VITALS: BP_SYST 133
[2021-01-30] MEDS: AMPICILLIN SODIUM/SULBACTAM NA 1.5 GM in NS 50 ML IV SCH ×4 (05:06→23:47)
[2021-01-30] MEDS: NACL 0.9% 1,000 ML IV SCH ×2 (05:06→16:48)
[2021-01-30 06:22] LABS: BASOPHILS # (AUTO) 0.1 K/uL (0.0-0.2); BASOPHILS % (AUTO) 0.5 % (0.0-2.0); EOSINOPHILS # (AUTO) 0.3 K/uL (0.0-0.4); HEMATOCRIT 23.7 % (36-54); HEMOGLOBIN 8.1 g/dL (14.0-18.0); LYMPHOCYTES # (AUTO) 2.3 K/uL (1.0-5.5); LYMPHOCYTES % (AUTO) 16.9 % (20.5-51.5); MEAN CORPUSCULAR HEMOGLOBIN 28 pg (27-31); MEAN CORPUSCULAR HGB CONC 34 % (32-36); MEAN CORPUSCULAR VOLUME 82 fL (79.0-98.0); MONOCYTES # (AUTO) 1.1 K/uL (0.0-1.0); MONOCYTES % (AUTO) 8.2 % (1.7-9.3); NEUTROPHILS # (AUTO) 9.9 K/uL (1.8-7.7); NEUTROPHILS % (AUTO) 72.4 % (40.0-70.0); PLATELET COUNT (AUTO) 491 K/uL (130-430); RED BLOOD CELL COUNT(AUTO) 2.89 MIL/uL (4.2-6.2); RED CELL DISTRIBUTION WIDTH 14.5 % (9.0-15.0); WHITE BLOOD COUNT (AUTO) 13.7 K/uL (4.8-10.8)
[2021-01-30] MEDS: VANCOMYCIN HCL 1,000 MG in NS 250 ML IV SCH ×2 (06:39→16:48)
[2021-01-30 06:41] LABS: CALCIUM 7.7 mg/dL (8.4-11.0); CREATININE 0.78 mg/dL (0.55-1.30); POTASSIUM 3.3 mmol/L (3.5-5.1)
[2021-01-30] MEDS: ACETAMINOPHEN 500 MG TABLET PO PRN ×2 (06:48→16:47)
[2021-01-30 08:00] VITALS: BP_SYST 129
[2021-01-30] MEDS: PANTOPRAZOLE SODIUM 40 MG TAB PO SCH (08:35)
[2021-01-30] MEDS: LOSARTAN POTASSIUM 25 MG TABLET PO SCH (08:36)
[2021-01-30] MEDS: LOPERAMIDE HCL 2 MG CAPSULE PO PRN ×3 (08:36→21:07)
[2021-01-30 10:36] LABS: TPROTEIN U,24HR 2730.5 mg/24HR (0-130)
[2021-01-30] MEDS: INSULIN GLARGINE 100 UNITS/ML 10 ML VIAL SUBCUT SCH (10:36)
[2021-01-30 12:00] VITALS: BP_SYST 142
[2021-01-30] MEDS: HYDROcodone/ACETAMIN 7.5-325 MG TAB PO PRN ×2 (12:42→21:07)
[2021-01-30 16:00] VITALS: BP_SYST 151
[2021-01-30] MEDS: VANCOMYCIN HCL 1,250 MG in NS 250 ML IV SCH (17:34)
[2021-01-30 20:00] VITALS: BP_SYST 145
[2021-01-30] MEDS: D5NS 1,000 ML IV SCH (23:47)
[2021-01-31] VITALS (8 sets, daily range): BP systolic 139–162
[2021-01-31] MEDS: VANCOMYCIN HCL 1,250 MG in NS 250 ML IV SCH ×2 (04:14→18:25)
[2021-01-31] MEDS: AMPICILLIN SODIUM/SULBACTAM NA 1.5 GM in NS 50 ML IV SCH ×3 (05:58→21:57)
[2021-01-31] MEDS: MORPHINE 2 MG/ML INJ. SYRINGE IVP PRN (06:01)
[2021-01-31] MEDS: NACL 0.9% 1,000 ML IV SCH ×2 (06:02→21:56)
[2021-01-31 06:37] LABS: BASOPHILS # (AUTO) 0.1 K/uL (0.0-0.2); BASOPHILS % (AUTO) 0.5 % (0.0-2.0); EOSINOPHILS # (AUTO) 0.5 K/uL (0.0-0.4); EOSINOPHILS % (AUTO) 3.9 % (0.0-4.0); HEMOGLOBIN 7.9 g/dL (14.0-18.0); LYMPHOCYTES # (AUTO) 2.3 K/uL (1.0-5.5); LYMPHOCYTES % (AUTO) 19.8 % (20.5-51.5); MEAN CORPUSCULAR HEMOGLOBIN 28 pg (27-31); MEAN CORPUSCULAR HGB CONC 34 % (32-36); MEAN CORPUSCULAR VOLUME 82 fL (79.0-98.0); MONOCYTES # (AUTO) 0.8 K/uL (0.0-1.0); MONOCYTES % (AUTO) 6.9 % (1.7-9.3); NEUTROPHILS % (AUTO) 68.9 % (40.0-70.0); PLATELET COUNT (AUTO) 484 K/uL (130-430); RED CELL DISTRIBUTION WIDTH 14.7 % (9.0-15.0); WHITE BLOOD COUNT (AUTO) 11.7 K/uL (4.8-10.8)
[2021-01-31 06:43] LABS: CALCIUM 7.8 mg/dL (8.4-11.0); CREATININE 0.81 mg/dL (0.55-1.30); POTASSIUM 3.7 mmol/L (3.5-5.1)
[2021-01-31] MEDS: PANTOPRAZOLE SODIUM 40 MG TAB PO SCH (08:17)
[2021-01-31] MEDS: LOSARTAN POTASSIUM 25 MG TABLET PO SCH (08:17)
[2021-01-31] MEDS: INSULIN GLARGINE 100 UNITS/ML 10 ML VIAL SUBCUT SCH (08:51)
[2021-01-31] MEDS ORDERED: KETOROLAC TROMETHAMINE 15 MG VIAL IVP PRN (09:00)
[2021-01-31] MEDS ORDERED: NEOSTIGMINE METHYLSULFATE 1 MG/ML, 10 ML VIAL IVP ONE (15:43)
[2021-01-31] MEDS ORDERED: BUPIVACAINE /PF 0.5% 30 ML VIAL INJ ONE (15:43)
[2021-01-31] MEDS ORDERED: fentaNYL CITRATE/PF 100 MCG/2 ML AMP IVP ONE (15:43)
[2021-01-31] MEDS ORDERED: SEVOFLURANE 15 MIN GAS INH ONE (15:43)
[2021-01-31] MEDS ORDERED: D5NS 1,000 ML IV.SOLN IV ONE (15:43)
[2021-01-31] MEDS ORDERED: MIDAZOLAM HCL 5 MG/5 ML VIAL IVP ONE (15:43)
[2021-01-31] MEDS ORDERED: CEFAZOLIN 2 GM IVPB PREMIX 50 ML IV ONE (15:43)
[2021-01-31] MEDS ORDERED: GLYCOPYRROLATE 0.2 MG/ML VIAL IJ ONE (15:43)
[2021-01-31] MEDS ORDERED: PROPOFOL 200MG/ 20ML VIAL (DIPRIVAN) IV ONE (15:43)
[2021-01-31] MEDS ORDERED: ONDANSETRON HCL 4 MG/2 ML VIAL IVP ONE (15:43)
[2021-01-31] MEDS ORDERED: LIDOCAINE 1% 10 MG/ML, 20 ML MDV INJ ONE (15:43)
[2021-01-31] MEDS ORDERED: METOCLOPRAMIDE HCL 10 MG/2 ML VIAL IVP ONE (15:43)
[2021-01-31] MEDS ORDERED: POLYMYXIN 500,000/BACIT.10,000 UNITS in NS IRR 1 L IR ONE (16:12)
[2021-01-31] MEDS ORDERED: KETOROLAC TROMETHAMINE 30 MG VIAL IVP PRN ×2 (16:45→20:30)
[2021-01-31] MEDS ORDERED: MORPHINE 4 MG INJ. 4 MG/ML VIAL IVP PRN (16:45)
[2021-01-31] MEDS ORDERED: HYDROmorphone 1 MG/ML INJ. CARTRIDGE IVP PRN ×2 (16:45)
[2021-01-31] MEDS ORDERED: ONDANSETRON HCL 4 MG/2 ML VIAL IVP PRN (16:45)
[2021-01-31] MEDS ORDERED: NACL 0.9% 1,000 ML IV SCH (16:45)
[2021-01-31] MEDS ORDERED: HYDROcodone/ACETAMIN 7.5-325 MG TAB PO PRN (16:45)
[2021-01-31] MEDS ORDERED: HYDROmorphone 2 MG/ML VIAL IVP PRN ×2 (16:45)
[2021-01-31] MEDS: D5NS 1,000 ML IV SCH (18:31)
[2021-01-31] MEDS ORDERED: cloNIDine HCL 0.2 MG TABLET PO ONE (20:30)
[2021-01-31] MEDS: LOPERAMIDE HCL 2 MG CAPSULE PO PRN (21:57)
[2021-01-31] MEDS: INSULIN REGULAR, HUMAN 100 UNITS/ML, 10 ML VIAL (humuLIN R) SUBCUT PRN (22:04)
[2021-02-01] VITALS: BP_SYST 140
[2021-02-01] MEDS: AMPICILLIN SODIUM/SULBACTAM NA 1.5 GM in NS 50 ML IV SCH ×4 (00:38→20:36)
[2021-02-01] MEDS: VANCOMYCIN HCL 1,250 MG in NS 250 ML IV SCH ×3 (04:31→17:36)
[2021-02-01] MEDS: HYDROcodone/ACETAMIN 7.5-325 MG TAB PO PRN (04:33)
[2021-02-01] MEDS: INSULIN REGULAR, HUMAN 100 UNITS/ML, 10 ML VIAL (humuLIN R) SUBCUT PRN ×2 (06:02→12:45)
[2021-02-01 06:05] LABS: CALCIUM 7.8 mg/dL (8.4-11.0); CREATININE 0.79 mg/dL (0.55-1.30); POTASSIUM 4.2 mmol/L (3.5-5.1)
[2021-02-01 06:28] LABS: BASOPHILS # (AUTO) 0.1 K/uL (0.0-0.2); BASOPHILS % (AUTO) 0.4 % (0.0-2.0); EOSINOPHILS # (AUTO) 0.3 K/uL (0.0-0.4); EOSINOPHILS % (AUTO) 2.3 % (0.0-4.0); HEMATOCRIT 23.4 % (36-54); LYMPHOCYTES # (AUTO) 1.8 K/uL (1.0-5.5); LYMPHOCYTES % (AUTO) 14.9 % (20.5-51.5); MEAN CORPUSCULAR HEMOGLOBIN 28 pg (27-31); MEAN CORPUSCULAR HGB CONC 34 % (32-36); MEAN CORPUSCULAR VOLUME 82 fL (79.0-98.0); MONOCYTES # (AUTO) 0.9 K/uL (0.0-1.0); MONOCYTES % (AUTO) 7.1 % (1.7-9.3); NEUTROPHILS # (AUTO) 9.3 K/uL (1.8-7.7); NEUTROPHILS % (AUTO) 75.3 % (40.0-70.0); PLATELET COUNT (AUTO) 502 K/uL (130-430); RED BLOOD CELL COUNT(AUTO) 2.84 MIL/uL (4.2-6.2); RED CELL DISTRIBUTION WIDTH 14.5 % (9.0-15.0); WHITE BLOOD COUNT (AUTO) 12.3 K/uL (4.8-10.8)
[2021-02-01 07:46] VITALS: BP_SYST 154
[2021-02-01] MEDS: INSULIN GLARGINE 100 UNITS/ML 10 ML VIAL SUBCUT SCH (08:44)
[2021-02-01] MEDS: PANTOPRAZOLE SODIUM 40 MG TAB PO SCH (08:45)
[2021-02-01] MEDS ORDERED: LOSARTAN POTASSIUM 25 MG TABLET PO ONE (09:00)
[2021-02-01 10:21] LABS: TOTAL IRON BIND. CAPACITY 134 ug/dL (250-450)
[2021-02-01 12:35] VITALS: BP_SYST 150
[2021-02-01] MEDS: NACL 0.9% 1,000 ML IV SCH (14:10)
[2021-02-01 16:12] VITALS: BP_SYST 148
[2021-02-01] MEDS: LOPERAMIDE HCL 2 MG CAPSULE PO PRN (16:42)
[2021-02-01 20:00] VITALS: BP_SYST 146
[2021-02-01] MEDS: ACETAMINOPHEN 500 MG TABLET PO PRN (20:37)
[2021-02-02 00:20] VITALS: BP_SYST 147
[2021-02-02] MEDS: LOPERAMIDE HCL 2 MG CAPSULE PO PRN (00:21)
[2021-02-02] MEDS: HYDROcodone/ACETAMIN 7.5-325 MG TAB PO PRN ×3 (00:22→12:06)
[2021-02-02] MEDS: AMPICILLIN SODIUM/SULBACTAM NA 1.5 GM in NS 50 ML IV SCH ×3 (01:58→11:10)
[2021-02-02 05:08] LABS: FERRITIN 182 ng/mL (30-400)
[2021-02-02 06:24] LABS: CREATININE 0.87 mg/dL (0.55-1.30); POTASSIUM 4.1 mmol/L (3.5-5.1)
[2021-02-02 06:32] LABS: BASOPHILS # (AUTO) 0.1 K/uL (0.0-0.2); BASOPHILS % (AUTO) 0.6 % (0.0-2.0); EOSINOPHILS # (AUTO) 0.5 K/uL (0.0-0.4); EOSINOPHILS % (AUTO) 5.5 % (0.0-4.0); HEMATOCRIT 22.9 % (36-54); HEMOGLOBIN 7.7 g/dL (14.0-18.0); LYMPHOCYTES # (AUTO) 2.2 K/uL (1.0-5.5); LYMPHOCYTES % (AUTO) 22.3 % (20.5-51.5); MEAN CORPUSCULAR HEMOGLOBIN 28 pg (27-31); MEAN CORPUSCULAR HGB CONC 34 % (32-36); MEAN CORPUSCULAR VOLUME 83 fL (79.0-98.0); MONOCYTES # (AUTO) 0.8 K/uL (0.0-1.0); MONOCYTES % (AUTO) 7.5 % (1.7-9.3); NEUTROPHILS # (AUTO) 6.4 K/uL (1.8-7.7); NEUTROPHILS % (AUTO) 64.1 % (40.0-70.0); PLATELET COUNT (AUTO) 503 K/uL (130-430); RED BLOOD CELL COUNT(AUTO) 2.77 MIL/uL (4.2-6.2); RED CELL DISTRIBUTION WIDTH 14.5 % (9.0-15.0)
[2021-02-02] MEDS: NACL 0.9% 1,000 ML IV SCH (06:45)
[2021-02-02] MEDS: VANCOMYCIN HCL 1,750 MG in NS 500 ML IV SCH ×2 (07:00→16:36)
[2021-02-02 08:00] VITALS: BP_SYST 167
[2021-02-02] MEDS: PANTOPRAZOLE SODIUM 40 MG TAB PO SCH (08:09)
[2021-02-02] MEDS: INSULIN GLARGINE 100 UNITS/ML 10 ML VIAL SUBCUT SCH (08:12)
[2021-02-02] MEDS ORDERED: LOSA50TA3 PO ×2 (08:34)
[2021-02-02] MEDS ORDERED: DOXY100T2 PO (08:34)
[2021-02-02] MEDS ORDERED: TRAM50TA2 PO (08:34)
[2021-02-02] MEDS ORDERED: LACT1CAP62 PO (08:47)
[2021-02-02] MEDS ORDERED: LOSA100T3 PO (08:47)
[2021-02-02] MEDS ORDERED: LOSARTAN POTASSIUM 25 MG TABLET PO SCH (09:00)
[2021-02-02 09:50] LABS: PROTHROMBIN TIME 10.8 SECS (9.5-12.5)
[2021-02-02] MEDS: INSULIN REGULAR, HUMAN 100 UNITS/ML, 10 ML VIAL (humuLIN R) SUBCUT PRN (11:07)
[2021-02-02 12:19] VITALS: BP_SYST 151
[2021-02-02 16:00] VITALS: BP_SYST 145
[2021-02-02 16:40] VITALS: BP_SYST 145
== END 2021-02-02 18:30 | disposition home health service (06) | DRG 710 ==
LOC: SED 02:15 → STU 05:40
PROVIDERS: ADMIT Family Medicine; ATTEND Family Medicine
PROC: 0QBN0ZZ Excision of Right Metatarsal, Open Approach (ICD-10-PCS; 2021-01-31)
PROC: 0Y6N0Z9 Detachment at Left Foot, Partial 1st Ray, Open Approach (ICD-10-PCS; principal; 2021-01-31 13:45)
DX: A41.9 Sepsis, unspecified organism (principal); N17.0 Acute kidney failure with tubular necrosis; M72.6 Necrotizing fasciitis; G93.41 Metabolic encephalopathy; E43 Unspecified severe protein-calorie malnutrition; E87.1 Hypo-osmolality and hyponatremia; D63.8 Anemia in other chronic diseases classified elsewhere; M86.172 Other acute osteomyelitis, left ankle and foot; L97.519 Non-pressure chronic ulcer of other part of right foot with unspecified severity; E78.5 Hyperlipidemia, unspecified; F17.200 Nicotine dependence, unspecified, uncomplicated; E11.621 Type 2 diabetes mellitus with foot ulcer; E11.42 Type 2 diabetes mellitus with diabetic polyneuropathy; Z20.822 Contact with and (suspected) exposure to COVID-19; I12.9 Hypertensive chronic kidney disease with stage 1 through stage 4 chronic kidney disease, or unspecified chronic kidney disease; E11.22 Type 2 diabetes mellitus with diabetic chronic kidney disease; N18.9 Chronic kidney disease, unspecified; E11.69 Type 2 diabetes mellitus with other specified complication; M86.672 Other chronic osteomyelitis, left ankle and foot; I49.3 Ventricular premature depolarization; L84 Corns and callosities; L97.529 Non-pressure chronic ulcer of other part of left foot with unspecified severity; Z91.19 Patient's noncompliance with other medical treatment and regimen; Z79.4 Long term (current) use of insulin; Z83.3 Family history of diabetes mellitus; Z89.421 Acquired absence of other right toe(s)
CPT/HCPCS: 36415; 71045; 76770; 80048; 80053; 80061; 80202; 80307; 81000; 82150; 82607; 82728; 82962; 83036; 83540; 83550; 83605; 83690; 83735; 83880; 84100; 84156; 84439; 84443; 84484; 85025; 85610-TC; 85730-TC; 86886; 86900; 86901; 86920; 87040-TC; 87070-TC; 87075-TC; 87081; 87086; 87186-TC; 88305; 88311; 93005; 93923; 93970; 94010; 94760; 96365; 96367; 96375; 99285; G0378; J0295; J0690; J1170; J1815; J1885; J2001; J2250; J2270; J2405; J2543; J2704; J2710; J2765; J3010; J3370; J3490; J7040; J7042; J7050

== ENCOUNTER 2021-03-07 11:30 | Inpatient (IN) | payer MEDICAID, SELFPAY ==
[~2021-03-07] VITALS: Ht 175.3 cm; Wt 79.8 kg
[~2021-03-07 11:30] MED LIST changes: -AMOX-423 PO; +DOXY100T2 PO; -GLU850 PO; -IBUP-1971 PO; +LACT1CAP62 PO; -LEVO750T45 PO; -LISI20TA PO; +LOSA100T3 PO; -LOSA25TA3 PO; +TRAM50TA2 PO; -TYC3 PO
[2021-03-07 14:20] VITALS: BP_SYST 160
[2021-03-07 16:01] LABS: HEMATOCRIT 27.4 % (36-54); MEAN CORPUSCULAR HEMOGLOBIN 27 pg (27-31); MEAN CORPUSCULAR HGB CONC 33 % (32-36); MEAN CORPUSCULAR VOLUME 81 fL (79.0-98.0); PLATELET COUNT (AUTO) 580 K/uL (130-430); RED BLOOD CELL COUNT(AUTO) 3.38 MIL/uL (4.2-6.2); WHITE BLOOD COUNT (AUTO) 18.2 K/uL (4.8-10.8)
[2021-03-07 16:35] LABS: CALCIUM 8.2 mg/dL (8.4-11.0); CREATININE 0.99 mg/dL (0.55-1.30); POTASSIUM 3.5 mmol/L (3.5-5.1)
[2021-03-07 16:37] LABS: INR 1.1 (0.80-1.20); PROTHROMBIN TIME 11.6 SECS (9.5-12.5)
[2021-03-07 16:46] LABS: ALBUMIN 2.1 g/dL (3.4-4.8); TOTAL BILIRUBIN 0.4 mg/dL (0.0-1.0)
[2021-03-07 17:04] LABS: ERYTHROCYTE SEDIMENTATION RATE 111 MM/HR (0-15)
[2021-03-07] MEDS ORDERED: VANCOMYCIN HCL 1,000 MG in NS 250 ML IV ONE (17:45)
[2021-03-07 17:59] LABS: BAND % (MANUAL) 1 % (0-6); BASOPHILS % (MANUAL) 0 % (0-2); EOSINOPHILS % (MANUAL) 0 % (0-7); LYMPHOCYTES % (MANUAL) 8 % (20-46); MONOCYTES % (MANUAL) 5 % (0-11)
[2021-03-07] MEDS ORDERED: HYDROcodone/ACETAMIN 10-325 MG TAB PO ONE (18:15)
[2021-03-07] MEDS ORDERED: VANCOMYCIN HCL 1000 MG/VIAL IV ONE (18:18)
[2021-03-07 18:33] LABS: C-REACTIVE PROTEIN QUANT 16.7 mg/dL (0-0.5)
[2021-03-08] VITALS: BP_SYST 147
[2021-03-08] MEDS ORDERED: PIPERACILLIN/TAZOBACTAM 3.375 GM/VIAL (ZOSYN) IV ONE (00:57)
[2021-03-08] MEDS: LOSARTAN POTASSIUM 50 MG TABLET (COZAAR) PO SCH ×2 (01:18→08:16)
[2021-03-08] MEDS: traMADol HCL HCL 50 MG TABLET (ULTRAM) PO PRN (01:19)
[2021-03-08] MEDS: PIPERACILLIN/TAZO 3.375/DEX-IS 50 ML IV SCH ×5 (01:20→23:54)
[2021-03-08 01:35] VITALS: BP_SYST 147
[2021-03-08] MEDS ORDERED: VANCOMYCIN HCL 1,250 MG in NS 250 ML IV SCH (06:00)
[2021-03-08 07:46] LABS: BASOPHILS # (AUTO) 0.1 K/uL (0.0-0.2); BASOPHILS % (AUTO) 0.5 % (0.0-2.0); EOSINOPHILS # (AUTO) 0.1 K/uL (0.0-0.4); EOSINOPHILS % (AUTO) 0.7 % (0.0-4.0); HEMATOCRIT 24.5 % (36-54); LYMPHOCYTES # (AUTO) 1.1 K/uL (1.0-5.5); MEAN CORPUSCULAR HEMOGLOBIN 26 pg (27-31); MEAN CORPUSCULAR HGB CONC 33 % (32-36); MEAN CORPUSCULAR VOLUME 81 fL (79.0-98.0); MONOCYTES # (AUTO) 0.5 K/uL (0.0-1.0); NEUTROPHILS # (AUTO) 11.5 K/uL (1.8-7.7); NEUTROPHILS % (AUTO) 86.8 % (40.0-70.0); PLATELET COUNT (AUTO) 534 K/uL (130-430); RED BLOOD CELL COUNT(AUTO) 3.04 MIL/uL (4.2-6.2); RED CELL DISTRIBUTION WIDTH 18.1 % (9.0-15.0); WHITE BLOOD COUNT (AUTO) 13.3 K/uL (4.8-10.8)
[2021-03-08 08:00] VITALS: BP_SYST 153
[2021-03-08 08:26] LABS: CREATININE 0.83 mg/dL (0.55-1.30); POTASSIUM 3.3 mmol/L (3.5-5.1)
[2021-03-08] MEDS ORDERED: LACTOBACILLUS RHAMNOSUS GG 1 CAP CAPSULE PO ONE (09:30)
[2021-03-08] MEDS: LINEZOLID 300 ML IV SCH ×2 (11:02→22:03)
[2021-03-08] MEDS ORDERED: POTASSIUM CHLORIDE 20 MEQ TAB.PRT.SR PO ONE (19:45)
[2021-03-08 22:00] VITALS: BP_SYST 138
[2021-03-08] MEDS: ENOXAPARIN SODIUM 40 MG/0.4 ML SYRINGE SUBCUT SCH (22:01)
[2021-03-08 22:36] LABS: INR 1.1 (0.80-1.20); PROTHROMBIN TIME 11.4 SECS (9.5-12.5)
[2021-03-09] VITALS: BP_SYST 138; BP_SYST 139
[2021-03-09] MEDS: PIPERACILLIN/TAZO 3.375/DEX-IS 50 ML IV SCH (06:17)
[2021-03-09] MEDS: INSULIN REGULAR, HUMAN 100 UNITS/ML, 10 ML VIAL (humuLIN R) SUBCUT PRN ×3 (06:24→17:15)
[2021-03-09 07:45] VITALS: BP_SYST 145
[2021-03-09] MEDS: LACTOBACILLUS RHAMNOSUS GG 1 CAP CAPSULE PO SCH (08:14)
[2021-03-09] MEDS: LOSARTAN POTASSIUM 50 MG TABLET (COZAAR) PO SCH (08:14)
[2021-03-09] MEDS: LINEZOLID 300 ML IV SCH (08:15)
[2021-03-09] MEDS ORDERED: GADOTERATE MEGLUMINE 7.5 MMOL/15 ML VIAL IV ONE (10:44)
[2021-03-09] MEDS: traMADol HCL HCL 50 MG TABLET (ULTRAM) PO PRN (10:47)
[2021-03-09 13:02] VITALS: BP_SYST 142
[2021-03-09 16:43] VITALS: BP_SYST 144
[2021-03-09] MEDS: INSULIN GLARGINE 100 UNITS/ML 10 ML VIAL SUBCUT SCH (17:14)
[2021-03-09 20:00] VITALS: BP_SYST 138
[2021-03-09] MEDS: ENOXAPARIN SODIUM 40 MG/0.4 ML SYRINGE SUBCUT SCH (22:43)
[2021-03-09] MEDS: CEFTAROLINE FOSAMIL ACETATE 600 MG in NS 250 ML IV SCH (22:45)
[2021-03-10] VITALS: BP_SYST 139
[2021-03-10 08:01] VITALS: BP_SYST 112
[2021-03-10] MEDS: BALSAM PERU/CASTOR OIL 60 GM OINT...G. TP SCH (09:00)
[2021-03-10] MEDS: LACTOBACILLUS RHAMNOSUS GG 1 CAP CAPSULE PO SCH (11:12)
[2021-03-10] MEDS: traMADol HCL HCL 50 MG TABLET (ULTRAM) PO PRN ×2 (11:13→17:56)
[2021-03-10] MEDS: LOSARTAN POTASSIUM 50 MG TABLET (COZAAR) PO SCH (11:13)
[2021-03-10] MEDS: CEFTAROLINE FOSAMIL ACETATE 600 MG in NS 250 ML IV SCH ×2 (11:14→22:46)
[2021-03-10] MEDS: INSULIN GLARGINE 100 UNITS/ML 10 ML VIAL SUBCUT SCH ×2 (11:17→17:45)
[2021-03-10 11:28] VITALS: BP_SYST 117
[2021-03-10 16:00] VITALS: BP_SYST 122
[2021-03-10 20:00] VITALS: BP_SYST 128
[2021-03-10] MEDS: ENOXAPARIN SODIUM 40 MG/0.4 ML SYRINGE SUBCUT SCH (22:59)
[2021-03-11] VITALS: BP_SYST 111
[2021-03-11 08:00] VITALS: BP_SYST 133
[2021-03-11] MEDS: LACTOBACILLUS RHAMNOSUS GG 1 CAP CAPSULE PO SCH (09:14)
[2021-03-11] MEDS: BALSAM PERU/CASTOR OIL 60 GM OINT...G. TP SCH (09:16)
[2021-03-11] MEDS: INSULIN GLARGINE 100 UNITS/ML 10 ML VIAL SUBCUT SCH ×2 (09:20→18:00)
[2021-03-11] MEDS: traMADol HCL HCL 50 MG TABLET (ULTRAM) PO PRN (09:25)
[2021-03-11] MEDS: LOSARTAN POTASSIUM 50 MG TABLET (COZAAR) PO SCH (09:49)
[2021-03-11] MEDS: CEFTAROLINE FOSAMIL ACETATE 600 MG in NS 250 ML IV SCH ×2 (09:50→21:45)
[2021-03-11 12:00] VITALS: BP_SYST 135
[2021-03-11] MEDS: INSULIN REGULAR, HUMAN 100 UNITS/ML, 10 ML VIAL (humuLIN R) SUBCUT PRN ×2 (12:22→21:51)
[2021-03-11] MEDS: AMIKACIN SULFATE 1,000 MG in D5W 100 ML IV SCH (14:22)
[2021-03-11 16:00] VITALS: BP_SYST 125
[2021-03-11 20:35] VITALS: BP_SYST 116
[2021-03-11] MEDS: ENOXAPARIN SODIUM 40 MG/0.4 ML SYRINGE SUBCUT SCH (21:45)
[2021-03-11 23:35] VITALS: BP_SYST 111
[2021-03-12] MEDS: INSULIN GLARGINE 100 UNITS/ML 10 ML VIAL SUBCUT SCH ×2 (07:36→18:00)
[2021-03-12 08:00] VITALS: BP_SYST 118
[2021-03-12] MEDS: LOSARTAN POTASSIUM 50 MG TABLET (COZAAR) PO SCH (08:00)
[2021-03-12] MEDS: LACTOBACILLUS RHAMNOSUS GG 1 CAP CAPSULE PO SCH (08:00)
[2021-03-12] MEDS: CEFTAROLINE FOSAMIL ACETATE 600 MG in NS 250 ML IV SCH ×2 (08:01→21:35)
[2021-03-12] MEDS: BALSAM PERU/CASTOR OIL 60 GM OINT...G. TP SCH (08:01)
[2021-03-12] MEDS: AMIKACIN SULFATE 1,000 MG in D5W 100 ML IV SCH (12:32)
[2021-03-12] MEDS: INSULIN REGULAR, HUMAN 100 UNITS/ML, 10 ML VIAL (humuLIN R) SUBCUT PRN ×2 (12:32→17:57)
[2021-03-12] MEDS: traMADol HCL HCL 50 MG TABLET (ULTRAM) PO PRN ×2 (14:47→23:46)
[2021-03-12 15:00] VITALS: BP_SYST 110
[2021-03-12 19:25] VITALS: BP_SYST 111
[2021-03-12] MEDS: ENOXAPARIN SODIUM 40 MG/0.4 ML SYRINGE SUBCUT SCH (21:48)
[2021-03-13] VITALS: BP_SYST 109
[2021-03-13] MEDS: traMADol HCL HCL 50 MG TABLET (ULTRAM) PO PRN (06:22)
[2021-03-13 08:00] VITALS: BP_SYST 102
[2021-03-13] MEDS: LACTOBACILLUS RHAMNOSUS GG 1 CAP CAPSULE PO SCH (08:42)
[2021-03-13] MEDS: LOSARTAN POTASSIUM 50 MG TABLET (COZAAR) PO SCH (08:42)
[2021-03-13] MEDS: CEFTAROLINE FOSAMIL ACETATE 600 MG in NS 250 ML IV SCH ×2 (08:43→20:58)
[2021-03-13] MEDS: BALSAM PERU/CASTOR OIL 60 GM OINT...G. TP SCH (08:44)
[2021-03-13] MEDS: INSULIN GLARGINE 100 UNITS/ML 10 ML VIAL SUBCUT SCH ×2 (08:46→17:32)
[2021-03-13] MEDS: INSULIN REGULAR, HUMAN 100 UNITS/ML, 10 ML VIAL (humuLIN R) SUBCUT PRN (11:52)
[2021-03-13] MEDS: AMIKACIN SULFATE 1,000 MG in D5W 100 ML IV SCH (12:16)
[2021-03-13 12:30] VITALS: BP_SYST 112
[2021-03-13 16:50] VITALS: BP_SYST 104
[2021-03-13 20:00] VITALS: BP_SYST 118
[2021-03-13] MEDS: ENOXAPARIN SODIUM 40 MG/0.4 ML SYRINGE SUBCUT SCH (21:00)
[2021-03-14] VITALS: BP_SYST 108
[2021-03-14 01:15] LABS: BILIRUBIN,URINE NEGATIVE (NEGATIVE); BLOOD, URINE NEGATIVE (NEGATIVE); CLARITY/URINE CLEAR (CLEAR); COLOR,URINE YELLOW (YELLOW); GLUCOSE,URINE NEGATIVE (NEGATIVE); KETONES,URINE NEGATIVE (NEGATIVE); LEUKOCYTE ESTERASE ,URINE NEGATIVE (NEGATIVE); NITRITE, URINE NEGATIVE (NEGATIVE); PROTEIN URINE 1+ (NEGATIVE); UROBILINOGEN,URINE 0.2 (0.2-1.0)
[2021-03-14 02:13] LABS: BACTERIA,URINE FEW /HPF (None Seen); RBC,URINE 0-3 /HPF (0-3); WBC,URINE 0-3 /HPF (0-3)
[2021-03-14 06:27] LABS: BASOPHILS # (AUTO) 0.1 K/uL (0.0-0.2); BASOPHILS % (AUTO) 0.7 % (0.0-2.0); EOSINOPHILS # (AUTO) 0.5 K/uL (0.0-0.4); EOSINOPHILS % (AUTO) 6.2 % (0.0-4.0); HEMATOCRIT 29.1 % (36-54); HEMOGLOBIN 9.8 g/dL (14.0-18.0); LYMPHOCYTES # (AUTO) 1.5 K/uL (1.0-5.5); LYMPHOCYTES % (AUTO) 17.5 % (20.5-51.5); MEAN CORPUSCULAR HEMOGLOBIN 27 pg (27-31); MEAN CORPUSCULAR HGB CONC 34 % (32-36); MEAN CORPUSCULAR VOLUME 80 fL (79.0-98.0); MONOCYTES # (AUTO) 0.8 K/uL (0.0-1.0); MONOCYTES % (AUTO) 9.5 % (1.7-9.3); NEUTROPHILS # (AUTO) 5.5 K/uL (1.8-7.7); NEUTROPHILS % (AUTO) 66.1 % (40.0-70.0); PLATELET COUNT (AUTO) 668 K/uL (130-430); RED BLOOD CELL COUNT(AUTO) 3.62 MIL/uL (4.2-6.2); RED CELL DISTRIBUTION WIDTH 18.2 % (9.0-15.0); WHITE BLOOD COUNT (AUTO) 8.3 K/uL (4.8-10.8)
[2021-03-14] MEDS ORDERED: GLUCOSE (DEXTROSE) ORAL GEL -Adults PO PRN (06:30)
[2021-03-14] MEDS ORDERED: DEXTROSE 50% JECT 50 ML DISP.SYRIN ONE (06:30)
[2021-03-14] MEDS: DEXTROSE 50% JECT 50 ML DISP.SYRIN IVP PRN (06:37)
[2021-03-14 07:30] VITALS: BP_SYST 130
[2021-03-14 07:47] LABS: CALCIUM 8.6 mg/dL (8.4-11.0); CREATININE 1.24 mg/dL (0.55-1.30); POTASSIUM 4.3 mmol/L (3.5-5.1); TOTAL BILIRUBIN 0.1 mg/dL (0.0-1.0)
[2021-03-14 08:07] LABS: PROTHROMBIN TIME 10.8 SECS (9.5-12.5)
[2021-03-14] MEDS: CEFTAROLINE FOSAMIL ACETATE 600 MG in NS 250 ML IV SCH ×2 (08:25→21:00)
[2021-03-14] MEDS: D5/0.45 NS 1,000 ML IV SCH ×2 (08:30→21:50)
[2021-03-14] MEDS: LOSARTAN POTASSIUM 50 MG TABLET (COZAAR) PO SCH (09:00)
[2021-03-14] MEDS: LACTOBACILLUS RHAMNOSUS GG 1 CAP CAPSULE PO SCH (09:00)
[2021-03-14] MEDS: BALSAM PERU/CASTOR OIL 60 GM OINT...G. TP SCH (09:00)
[2021-03-14] MEDS: INSULIN GLARGINE 100 UNITS/ML 10 ML VIAL SUBCUT SCH ×2 (09:00→17:45)
[2021-03-14] MEDS ORDERED: POLYMYXIN 500,000/BACIT.10,000 UNITS in NS IRR 1 L IR ONE (09:36)
[2021-03-14] MEDS ORDERED: HYDROmorphone 1 MG/ML INJ. CARTRIDGE IVP PRN (10:15)
[2021-03-14] MEDS ORDERED: NACL 0.9% 1,000 ML IV SCH (10:15)
[2021-03-14] MEDS ORDERED: ONDANSETRON HCL 4 MG/2 ML VIAL IVP PRN (10:15)
[2021-03-14] MEDS ORDERED: MEPERIDINE HCL/PF 25 MG/ML DISP.SYRIN IVP PRN (10:15)
[2021-03-14] MEDS ORDERED: METOCLOPRAMIDE HCL 10 MG/2 ML VIAL IVP PRN (10:15)
[2021-03-14] MEDS ORDERED: ONDANSETRON HCL 4 MG/2 ML VIAL ONE ×2 (11:25)
[2021-03-14] MEDS ORDERED: NS IRRIG SOLN 1000 ML IR ONE ×2 (11:25)
[2021-03-14] MEDS ORDERED: DEXAMETHASONE SOD PHOSPHATE 4 MG/ML VIAL ONE ×2 (11:25)
[2021-03-14] MEDS ORDERED: fentaNYL CITRATE/PF 100 MCG/2 ML AMP ONE ×2 (11:25)
[2021-03-14] MEDS ORDERED: NS 1000 ML IV.SOLN IV ONE ×2 (11:25)
[2021-03-14] MEDS ORDERED: PROPOFOL 200MG/ 20ML VIAL (DIPRIVAN) IV ONE ×2 (11:25)
[2021-03-14] MEDS ORDERED: BUPIVACAINE /PF 0.5% 30 ML VIAL ONE ×2 (11:25)
[2021-03-14] MEDS ORDERED: MIDAZOLAM HCL 5 MG/ML VIAL (VERSED) IV ONE ×2 (11:25)
[2021-03-14] MEDS ORDERED: SEVOFLURANE 15 MIN GAS INH ONE ×2 (11:25)
[2021-03-14] MEDS: AMIKACIN SULFATE 1,000 MG in D5W 100 ML IV SCH (13:33)
[2021-03-14 16:45] VITALS: BP_SYST 130
[2021-03-14] MEDS: INSULIN REGULAR, HUMAN 100 UNITS/ML, 10 ML VIAL (humuLIN R) SUBCUT PRN ×2 (17:04→23:18)
[2021-03-14] MEDS: traMADol HCL HCL 50 MG TABLET (ULTRAM) PO PRN (17:07)
[2021-03-14] MEDS: ENOXAPARIN SODIUM 40 MG/0.4 ML SYRINGE SUBCUT SCH (21:00)
[2021-03-15 02:38] VITALS: BP_SYST 129
[2021-03-15 07:06] LABS: BASOPHILS # (AUTO) 0.1 K/uL (0.0-0.2); BASOPHILS % (AUTO) 0.7 % (0.0-2.0); EOSINOPHILS # (AUTO) 0.1 K/uL (0.0-0.4); EOSINOPHILS % (AUTO) 1.4 % (0.0-4.0); HEMATOCRIT 26.1 % (36-54); HEMOGLOBIN 8.7 g/dL (14.0-18.0); LYMPHOCYTES # (AUTO) 1.4 K/uL (1.0-5.5); LYMPHOCYTES % (AUTO) 13.7 % (20.5-51.5); MEAN CORPUSCULAR HEMOGLOBIN 27 pg (27-31); MEAN CORPUSCULAR HGB CONC 33 % (32-36); MEAN CORPUSCULAR VOLUME 80 fL (79.0-98.0); MONOCYTES # (AUTO) 0.8 K/uL (0.0-1.0); MONOCYTES % (AUTO) 7.5 % (1.7-9.3); NEUTROPHILS # (AUTO) 8.1 K/uL (1.8-7.7); NEUTROPHILS % (AUTO) 76.7 % (40.0-70.0); PLATELET COUNT (AUTO) 555 K/uL (130-430); RED BLOOD CELL COUNT(AUTO) 3.28 MIL/uL (4.2-6.2); RED CELL DISTRIBUTION WIDTH 18.2 % (9.0-15.0); WHITE BLOOD COUNT (AUTO) 10.5 K/uL (4.8-10.8)
[2021-03-15] MEDS: INSULIN REGULAR, HUMAN 100 UNITS/ML, 10 ML VIAL (humuLIN R) SUBCUT PRN ×3 (07:19→23:16)
[2021-03-15 07:30] VITALS: BP_SYST 135
[2021-03-15 08:00] VITALS: BP_SYST 139
[2021-03-15 08:31] LABS: CALCIUM 7.8 mg/dL (8.4-11.0); CREATININE 1.1 mg/dL (0.55-1.30); POTASSIUM 3.8 mmol/L (3.5-5.1)
[2021-03-15] MEDS: CEFTAROLINE FOSAMIL ACETATE 600 MG in NS 250 ML IV SCH ×2 (08:59→21:00)
[2021-03-15] MEDS: LOSARTAN POTASSIUM 50 MG TABLET (COZAAR) PO SCH (09:03)
[2021-03-15] MEDS: LACTOBACILLUS RHAMNOSUS GG 1 CAP CAPSULE PO SCH (09:04)
[2021-03-15] MEDS: INSULIN GLARGINE 100 UNITS/ML 10 ML VIAL SUBCUT SCH ×2 (09:05→18:06)
[2021-03-15] MEDS: BALSAM PERU/CASTOR OIL 60 GM OINT...G. TP SCH (09:06)
[2021-03-15] MEDS: D5/0.45 NS 1,000 ML IV SCH (09:38)
[2021-03-15] MEDS: traMADol HCL HCL 50 MG TABLET (ULTRAM) PO PRN (09:38)
[2021-03-15] MEDS: AMIKACIN SULFATE 1,000 MG in D5W 100 ML IV SCH (12:30)
[2021-03-15 12:40] VITALS: BP_SYST 138
[2021-03-15 16:00] VITALS: BP_SYST 121
[2021-03-15] MEDS: ENOXAPARIN SODIUM 40 MG/0.4 ML SYRINGE SUBCUT SCH (21:00)
[2021-03-15 21:13] VITALS: BP_SYST 124
[2021-03-16 01:29] VITALS: BP_SYST 114
[2021-03-16 04:20] VITALS: BP_SYST 124
[2021-03-16 08:00] VITALS: BP_SYST 132
[2021-03-16] MEDS: BALSAM PERU/CASTOR OIL 60 GM OINT...G. TP SCH (09:00)
[2021-03-16] MEDS: INSULIN GLARGINE 100 UNITS/ML 10 ML VIAL SUBCUT SCH ×2 (09:00→18:00)
[2021-03-16] MEDS: LOSARTAN POTASSIUM 50 MG TABLET (COZAAR) PO SCH (11:51)
[2021-03-16] MEDS: LACTOBACILLUS RHAMNOSUS GG 1 CAP CAPSULE PO SCH (11:52)
[2021-03-16 12:00] VITALS: BP_SYST 158
[2021-03-16] MEDS: traMADol HCL HCL 50 MG TABLET (ULTRAM) PO PRN ×2 (13:56→21:04)
[2021-03-16] MEDS: PIPERACILLIN/TAZO 4.5GM/DEX-IS 100 ML IV SCH ×2 (14:00→21:04)
[2021-03-16 16:00] VITALS: BP_SYST 156
[2021-03-16] MEDS: AMIKACIN SULFATE 1,000 MG in D5W 100 ML IV SCH (17:27)
[2021-03-16 20:00] VITALS: BP_SYST 119
[2021-03-16] MEDS: ENOXAPARIN SODIUM 40 MG/0.4 ML SYRINGE SUBCUT SCH (21:01)
[2021-03-16] MEDS: INSULIN REGULAR, HUMAN 100 UNITS/ML, 10 ML VIAL (humuLIN R) SUBCUT PRN (21:27)
[2021-03-17] VITALS: BP_SYST 131
[2021-03-17 04:00] VITALS: BP_SYST 116
[2021-03-17] MEDS: PIPERACILLIN/TAZO 4.5GM/DEX-IS 100 ML IV SCH ×3 (06:24→22:37)
[2021-03-17 08:36] VITALS: BP_SYST 142
[2021-03-17] MEDS: D5/0.45 NS 1,000 ML IV SCH (08:39)
[2021-03-17] MEDS: traMADol HCL HCL 50 MG TABLET (ULTRAM) PO PRN ×2 (08:44→18:53)
[2021-03-17 08:59] LABS: PROTHROMBIN TIME 10.4 SECS (9.5-12.5)
[2021-03-17] MEDS: INSULIN GLARGINE 100 UNITS/ML 10 ML VIAL SUBCUT SCH ×2 (09:00→18:52)
[2021-03-17] MEDS: LACTOBACILLUS RHAMNOSUS GG 1 CAP CAPSULE PO SCH (09:00)
[2021-03-17] MEDS: LOSARTAN POTASSIUM 50 MG TABLET (COZAAR) PO SCH (09:00)
[2021-03-17] MEDS: BALSAM PERU/CASTOR OIL 60 GM OINT...G. TP SCH (09:00)
[2021-03-17] MEDS ORDERED: fentaNYL CITRATE/PF 100 MCG/2 ML AMP IVP ONE (11:01)
[2021-03-17] MEDS ORDERED: PROPOFOL 200MG/ 20ML VIAL (DIPRIVAN) IV ONE (11:01)
[2021-03-17] MEDS ORDERED: NS IRRIG SOLN 1000 ML IR ONE (11:01)
[2021-03-17] MEDS ORDERED: NS 1000 ML IV.SOLN IV ONE (11:01)
[2021-03-17] MEDS ORDERED: ONDANSETRON HCL 4 MG/2 ML VIAL IVP ONE (11:01)
[2021-03-17] MEDS ORDERED: DEXAMETHASONE SOD PHOSPHATE 4 MG/ML VIAL IVP ONE (11:01)
[2021-03-17] MEDS ORDERED: SEVOFLURANE 15 MIN GAS INH ONE (11:01)
[2021-03-17] MEDS ORDERED: CEFAZOLIN 1 GM IVPB PREMIX 50 ML IV ONE (11:01)
[2021-03-17] MEDS ORDERED: BUPIVACAINE /PF 0.5% 30 ML VIAL INJ ONE (11:01)
[2021-03-17] MEDS ORDERED: METOCLOPRAMIDE HCL 10 MG/2 ML VIAL IVP ONE (11:01)
[2021-03-17] MEDS ORDERED: MIDAZOLAM HCL 5 MG/5 ML VIAL IVP ONE (11:01)
[2021-03-17] MEDS ORDERED: MEPERIDINE HCL/PF 25 MG/ML DISP.SYRIN IVP PRN (12:45)
[2021-03-17] MEDS ORDERED: NALOXONE HCL 0.4 MG/ML AMP (NARCAN) IVP PRN (12:45)
[2021-03-17] MEDS ORDERED: HYDROmorphone 1 MG/ML INJ. CARTRIDGE IVP PRN (12:45)
[2021-03-17] MEDS ORDERED: KETOROLAC TROMETHAMINE 30 MG VIAL IVP PRN (12:45)
[2021-03-17] MEDS ORDERED: NACL 0.9% 1,000 ML IV SCH (12:45)
[2021-03-17] MEDS: AMIKACIN SULFATE 1,000 MG in D5W 100 ML IV SCH (14:05)
[2021-03-17 16:55] VITALS: BP_SYST 124
[2021-03-17] MEDS: INSULIN REGULAR, HUMAN 100 UNITS/ML, 10 ML VIAL (humuLIN R) SUBCUT PRN ×2 (17:28→20:18)
[2021-03-17 20:00] VITALS: BP_SYST 120
[2021-03-17] MEDS: ENOXAPARIN SODIUM 40 MG/0.4 ML SYRINGE SUBCUT SCH (20:34)
[2021-03-18] VITALS: BP_SYST 119
[2021-03-18 04:00] VITALS: BP_SYST 130
[2021-03-18] MEDS: D5/0.45 NS 1,000 ML IV SCH ×3 (04:32→22:37)
[2021-03-18] MEDS: PIPERACILLIN/TAZO 4.5GM/DEX-IS 100 ML IV SCH ×3 (06:50→22:36)
[2021-03-18] MEDS: INSULIN REGULAR, HUMAN 100 UNITS/ML, 10 ML VIAL (humuLIN R) SUBCUT PRN ×2 (07:00→22:42)
[2021-03-18 07:25] LABS: BASOPHILS # (AUTO) 0.1 K/uL (0.0-0.2); BASOPHILS % (AUTO) 0.7 % (0.0-2.0); EOSINOPHILS # (AUTO) 0.2 K/uL (0.0-0.4); EOSINOPHILS % (AUTO) 1.8 % (0.0-4.0); HEMATOCRIT 24.9 % (36-54); HEMOGLOBIN 8.5 g/dL (14.0-18.0); LYMPHOCYTES # (AUTO) 2.3 K/uL (1.0-5.5); LYMPHOCYTES % (AUTO) 28.4 % (20.5-51.5); MEAN CORPUSCULAR HEMOGLOBIN 27 pg (27-31); MEAN CORPUSCULAR HGB CONC 34 % (32-36); MEAN CORPUSCULAR VOLUME 79 fL (79.0-98.0); MONOCYTES # (AUTO) 0.5 K/uL (0.0-1.0); MONOCYTES % (AUTO) 5.7 % (1.7-9.3); NEUTROPHILS # (AUTO) 5.2 K/uL (1.8-7.7); NEUTROPHILS % (AUTO) 63.4 % (40.0-70.0); PLATELET COUNT (AUTO) 555 K/uL (130-430); RED BLOOD CELL COUNT(AUTO) 3.15 MIL/uL (4.2-6.2); RED CELL DISTRIBUTION WIDTH 18.2 % (9.0-15.0); WHITE BLOOD COUNT (AUTO) 8.2 K/uL (4.8-10.8)
[2021-03-18] MEDS: LOSARTAN POTASSIUM 50 MG TABLET (COZAAR) PO SCH (08:41)
[2021-03-18] MEDS: INSULIN GLARGINE 100 UNITS/ML 10 ML VIAL SUBCUT SCH ×2 (08:43→18:28)
[2021-03-18] MEDS: LACTOBACILLUS RHAMNOSUS GG 1 CAP CAPSULE PO SCH (08:43)
[2021-03-18] MEDS: BALSAM PERU/CASTOR OIL 60 GM OINT...G. TP SCH (08:47)
[2021-03-18 08:58] VITALS: BP_SYST 134
[2021-03-18] MEDS ORDERED: ENOXAPARIN SODIUM 40 MG/0.4 ML SYRINGE SUBCUT SCH (09:00)
[2021-03-18 09:39] LABS: CALCIUM 8.2 mg/dL (8.4-11.0); CREATININE 1.02 mg/dL (0.55-1.30); POTASSIUM 3.7 mmol/L (3.5-5.1); TOTAL BILIRUBIN 0.1 mg/dL (0.0-1.0)
[2021-03-18] MEDS: DEXTROSE 50% JECT 50 ML DISP.SYRIN IVP PRN (11:47)
[2021-03-18 12:00] VITALS: BP_SYST 160
[2021-03-18] MEDS: AMIKACIN SULFATE 1,000 MG in D5W 100 ML IV SCH (15:38)
[2021-03-18 15:47] VITALS: BP_SYST 114
[2021-03-18 20:00] VITALS: BP_SYST 139
[2021-03-18] MEDS: ENOXAPARIN SODIUM 40 MG/0.4 ML SYRINGE SUBCUT SCH (22:40)
[2021-03-18] MEDS: traMADol HCL HCL 50 MG TABLET (ULTRAM) PO PRN (22:49)
[2021-03-19 01:00] VITALS: BP_SYST 141
[2021-03-19] MEDS: PIPERACILLIN/TAZO 4.5GM/DEX-IS 100 ML IV SCH ×3 (05:16→22:28)
[2021-03-19 08:00] VITALS: BP_SYST 138
[2021-03-19] MEDS: LACTOBACILLUS RHAMNOSUS GG 1 CAP CAPSULE PO SCH (08:54)
[2021-03-19] MEDS: LOSARTAN POTASSIUM 50 MG TABLET (COZAAR) PO SCH (08:56)
[2021-03-19] MEDS: D5/0.45 NS 1,000 ML IV SCH ×2 (08:57→22:28)
[2021-03-19] MEDS: INSULIN GLARGINE 100 UNITS/ML 10 ML VIAL SUBCUT SCH ×2 (08:58→17:16)
[2021-03-19] MEDS: BALSAM PERU/CASTOR OIL 60 GM OINT...G. TP SCH (08:59)
[2021-03-19 11:27] VITALS: BP_SYST 138
[2021-03-19] MEDS: AMIKACIN SULFATE 1,000 MG in D5W 100 ML IV SCH (11:51)
[2021-03-19] MEDS: INSULIN REGULAR, HUMAN 100 UNITS/ML, 10 ML VIAL (humuLIN R) SUBCUT PRN ×2 (11:53→22:30)
[2021-03-19 16:00] VITALS: BP_SYST 133
[2021-03-19 21:00] VITALS: BP_SYST 141
[2021-03-19] MEDS: traMADol HCL HCL 50 MG TABLET (ULTRAM) PO PRN (22:29)
[2021-03-19] MEDS: ENOXAPARIN SODIUM 40 MG/0.4 ML SYRINGE SUBCUT SCH (22:29)
[2021-03-20 01:00] VITALS: BP_SYST 135
[2021-03-20 06:36] LABS: BASOPHILS # (AUTO) 0.1 K/uL (0.0-0.2); BASOPHILS % (AUTO) 1.6 % (0.0-2.0); EOSINOPHILS # (AUTO) 0.3 K/uL (0.0-0.4); EOSINOPHILS % (AUTO) 4.6 % (0.0-4.0); HEMATOCRIT 25.9 % (36-54); HEMOGLOBIN 8.4 g/dL (14.0-18.0); LYMPHOCYTES # (AUTO) 2.7 K/uL (1.0-5.5); LYMPHOCYTES % (AUTO) 36.3 % (20.5-51.5); MEAN CORPUSCULAR HEMOGLOBIN 26 pg (27-31); MEAN CORPUSCULAR HGB CONC 33 % (32-36); MEAN CORPUSCULAR VOLUME 81 fL (79.0-98.0); MONOCYTES # (AUTO) 0.5 K/uL (0.0-1.0); MONOCYTES % (AUTO) 6.8 % (1.7-9.3); NEUTROPHILS # (AUTO) 3.8 K/uL (1.8-7.7); NEUTROPHILS % (AUTO) 50.7 % (40.0-70.0); PLATELET COUNT (AUTO) 555 K/uL (130-430); RED CELL DISTRIBUTION WIDTH 18.4 % (9.0-15.0); WHITE BLOOD COUNT (AUTO) 7.5 K/uL (4.8-10.8)
[2021-03-20] MEDS: PIPERACILLIN/TAZO 4.5GM/DEX-IS 100 ML IV SCH ×3 (06:40→23:33)
[2021-03-20] MEDS: INSULIN REGULAR, HUMAN 100 UNITS/ML, 10 ML VIAL (humuLIN R) SUBCUT PRN (06:42)
[2021-03-20 06:58] LABS: CALCIUM 7.7 mg/dL (8.4-11.0); CREATININE 1.12 mg/dL (0.55-1.30); POTASSIUM 3.8 mmol/L (3.5-5.1)
[2021-03-20 08:00] VITALS: BP_SYST 127
[2021-03-20] MEDS: BALSAM PERU/CASTOR OIL 60 GM OINT...G. TP SCH (09:00)
[2021-03-20 12:00] VITALS: BP_SYST 126
[2021-03-20] MEDS: INSULIN GLARGINE 100 UNITS/ML 10 ML VIAL SUBCUT SCH (18:15)
[2021-03-20 21:30] VITALS: BP_SYST 104
[2021-03-20] MEDS: ENOXAPARIN SODIUM 40 MG/0.4 ML SYRINGE SUBCUT SCH (23:33)
[2021-03-20] MEDS: ACETAMINOPHEN 325 MG TABLET PO PRN (23:34)
[2021-03-21] MEDS: PIPERACILLIN/TAZO 4.5GM/DEX-IS 100 ML IV SCH ×3 (07:05→22:41)
[2021-03-21] MEDS: D5/0.45 NS 1,000 ML IV SCH ×3 (07:08→22:48)
[2021-03-21] MEDS: LOSARTAN POTASSIUM 50 MG TABLET (COZAAR) PO SCH ×2 (10:07→10:20)
[2021-03-21] MEDS: LACTOBACILLUS RHAMNOSUS GG 1 CAP CAPSULE PO SCH ×2 (10:07→10:20)
[2021-03-21] MEDS: INSULIN GLARGINE 100 UNITS/ML 10 ML VIAL SUBCUT SCH ×3 (10:14→17:02)
[2021-03-21] MEDS: BALSAM PERU/CASTOR OIL 60 GM OINT...G. TP SCH (10:20)
[2021-03-21 12:00] VITALS: BP_SYST 139
[2021-03-21] MEDS: AMIKACIN SULFATE 1,000 MG in D5W 100 ML IV SCH ×2 (12:09→13:07)
[2021-03-21 16:00] VITALS: BP_SYST 131
[2021-03-21] MEDS: INSULIN REGULAR, HUMAN 100 UNITS/ML, 10 ML VIAL (humuLIN R) SUBCUT PRN (17:03)
[2021-03-21 20:00] VITALS: BP_SYST 120
[2021-03-21] MEDS: ENOXAPARIN SODIUM 40 MG/0.4 ML SYRINGE SUBCUT SCH (22:52)
[2021-03-22] VITALS: BP_SYST 123
[2021-03-22] MEDS: D5/0.45 NS 1,000 ML IV SCH ×2 (03:10→17:56)
[2021-03-22] MEDS: PIPERACILLIN/TAZO 4.5GM/DEX-IS 100 ML IV SCH ×3 (06:22→21:26)
[2021-03-22] MEDS: INSULIN GLARGINE 100 UNITS/ML 10 ML VIAL SUBCUT SCH ×2 (09:00→18:54)
[2021-03-22] MEDS: LACTOBACILLUS RHAMNOSUS GG 1 CAP CAPSULE PO SCH (10:00)
[2021-03-22] MEDS: ACETAMINOPHEN 325 MG TABLET PO PRN (10:00)
[2021-03-22] MEDS: LOSARTAN POTASSIUM 50 MG TABLET (COZAAR) PO SCH (10:00)
[2021-03-22] MEDS: BALSAM PERU/CASTOR OIL 60 GM OINT...G. TP SCH (10:01)
[2021-03-22] MEDS: INSULIN REGULAR, HUMAN 100 UNITS/ML, 10 ML VIAL (humuLIN R) SUBCUT PRN ×2 (14:28→18:53)
[2021-03-22] MEDS: AMIKACIN SULFATE 1,000 MG in D5W 100 ML IV SCH (14:30)
[2021-03-22 16:03] VITALS: BP_SYST 127
[2021-03-22 20:00] VITALS: BP_SYST 104
[2021-03-22] MEDS: ENOXAPARIN SODIUM 40 MG/0.4 ML SYRINGE SUBCUT SCH (21:24)
[2021-03-23 00:30] VITALS: BP_SYST 104
[2021-03-23] MEDS: D5/0.45 NS 1,000 ML IV SCH (06:18)
[2021-03-23] MEDS: PIPERACILLIN/TAZO 4.5GM/DEX-IS 100 ML IV SCH (06:18)
[2021-03-23 06:29] LABS: CALCIUM 8.1 mg/dL (8.4-11.0); CREATININE 1.22 mg/dL (0.55-1.30); POTASSIUM 3.8 mmol/L (3.5-5.1)
[2021-03-23 06:37] LABS: BASOPHILS # (AUTO) 0.1 K/uL (0.0-0.2); BASOPHILS % (AUTO) 0.9 % (0.0-2.0); EOSINOPHILS # (AUTO) 0.3 K/uL (0.0-0.4); EOSINOPHILS % (AUTO) 2.9 % (0.0-4.0); HEMATOCRIT 25.8 % (36-54); HEMOGLOBIN 8.5 g/dL (14.0-18.0); LYMPHOCYTES # (AUTO) 2.7 K/uL (1.0-5.5); LYMPHOCYTES % (AUTO) 31.4 % (20.5-51.5); MEAN CORPUSCULAR HEMOGLOBIN 26 pg (27-31); MEAN CORPUSCULAR HGB CONC 33 % (32-36); MEAN CORPUSCULAR VOLUME 79 fL (79.0-98.0); MONOCYTES # (AUTO) 0.6 K/uL (0.0-1.0); MONOCYTES % (AUTO) 6.5 % (1.7-9.3); NEUTROPHILS # (AUTO) 5.1 K/uL (1.8-7.7); NEUTROPHILS % (AUTO) 58.3 % (40.0-70.0); PLATELET COUNT (AUTO) 547 K/uL (130-430); RED BLOOD CELL COUNT(AUTO) 3.25 MIL/uL (4.2-6.2); RED CELL DISTRIBUTION WIDTH 18.4 % (9.0-15.0); WHITE BLOOD COUNT (AUTO) 8.7 K/uL (4.8-10.8)
[2021-03-23] MEDS: BALSAM PERU/CASTOR OIL 60 GM OINT...G. TP SCH (09:00)
[2021-03-23] MEDS: INSULIN GLARGINE 100 UNITS/ML 10 ML VIAL SUBCUT SCH (09:00)
[2021-03-23] MEDS: LACTOBACILLUS RHAMNOSUS GG 1 CAP CAPSULE PO SCH (11:41)
[2021-03-23] MEDS: LOSARTAN POTASSIUM 50 MG TABLET (COZAAR) PO SCH (11:42)
[2021-03-23 11:51] VITALS: BP_SYST 137
[2021-03-23 16:23] VITALS: BP_SYST 130
== END 2021-03-23 17:06 | disposition left against medical advice (07) | DRG 711 ==
LOC: SED 11:30 → SMU 20:32
PROVIDERS: ADMIT Family Medicine; ATTEND Family Medicine
PROC: 02HV33Z Insertion of Infusion Device into Superior Vena Cava, Percutaneous Approach (ICD-10-PCS; principal; 2021-03-09)
PROC: B548ZZA Ultrasonography of Superior Vena Cava, Guidance (ICD-10-PCS; 2021-03-09)
PROC: 0Y6N0Z9 Detachment at Left Foot, Partial 1st Ray, Open Approach (ICD-10-PCS; 2021-03-14)
PROC: 02HV33Z Insertion of Infusion Device into Superior Vena Cava, Percutaneous Approach (ICD-10-PCS; 2021-03-16)
PROC: B548ZZA Ultrasonography of Superior Vena Cava, Guidance (ICD-10-PCS; 2021-03-16)
PROC: 0JBR0ZZ Excision of Left Foot Subcutaneous Tissue and Fascia, Open Approach (ICD-10-PCS; 2021-03-17)
DX: T81.41XA Infection following a procedure, superficial incisional surgical site, initial encounter (principal); E43 Unspecified severe protein-calorie malnutrition; E11.40 Type 2 diabetes mellitus with diabetic neuropathy, unspecified; R78.81 Bacteremia; M86.8X7 Other osteomyelitis, ankle and foot; B95.62 Methicillin resistant Staphylococcus aureus infection as the cause of diseases classified elsewhere; B95.1 Streptococcus, group B, as the cause of diseases classified elsewhere; E11.51 Type 2 diabetes mellitus with diabetic peripheral angiopathy without gangrene; B96.20 Unspecified Escherichia coli [E. coli] as the cause of diseases classified elsewhere; B96.5 Pseudomonas (aeruginosa) (mallei) (pseudomallei) as the cause of diseases classified elsewhere; Z16.12 Extended spectrum beta lactamase (ESBL) resistance; B96.4 Proteus (mirabilis) (morganii) as the cause of diseases classified elsewhere; Z20.822 Contact with and (suspected) exposure to COVID-19; D64.9 Anemia, unspecified; E78.5 Hyperlipidemia, unspecified; E11.65 Type 2 diabetes mellitus with hyperglycemia; I10 Essential (primary) hypertension; E11.69 Type 2 diabetes mellitus with other specified complication; Y83.5 Amputation of limb(s) as the cause of abnormal reaction of the patient, or of later complication, without mention of misadventure at the time of the procedure; Y92.89 Other specified places as the place of occurrence of the external cause; Z79.899 Other long term (current) drug therapy; Z79.4 Long term (current) use of insulin; Z68.26 Body mass index [BMI] 26.0-26.9, adult
CPT/HCPCS: 36415; 71045; 73721; 80048; 80053; 80150; 81000; 82962; 85007; 85025; 85027; 85610-TC; 85651-TC; 85730-TC; 86140; 86886; 86900; 86901; 87040-TC; 87070-TC; 87075-TC; 87081; 87186-TC; 88305; 88311; 93971; 96365; 96366; 99285; A9575; J0278; J0690; J0712; J1100; J1650; J1815; J2020; J2250; J2405; J2543; J2704; J2765; J3010; J3370; J3490; J7030; J7050; J7060

== ENCOUNTER 2021-09-20 10:16 | Observation (INO) | payer MEDICAID ==
[~2021-09-20] VITALS: Ht 175.3 cm; Wt 83.9 kg
[2021-09-20 10:20] VITALS: BP_SYST 174
--- NOTE | 2021-09-20 10:20 | NUR ---
Patient to ER bed 4 for evaluation. Side rails up. Report given to Jimbo.
--- NOTE | 2021-09-20 10:25 | NUR ---
ED MD GUZMAN AT BEDSIDE
[2021-09-20] MEDS ORDERED: NACL 0.9% 1,000 ML IV ONE ×2 (10:30→11:00)
--- NOTE | 2021-09-20 10:30 | NUR ---
RECEIVED PT IN BED #4, NAD, VSS, AAOx4, BIBA FROM [facility] FOR CC OF PICC LINE REPLACEMENT. PT HAD RECENT TOES AMPUTATED AND HAS BEEN ON IV MEDICATIONS. PT TO BE FURTHER ASSESSED BY ED MD FOR PLAN OF CARE WITH DISPOSITION.
--- NOTE | 2021-09-20 11:00 | NUR ---
Admit bed requested Patient will be admitted to care of . Admitted to MED/SURG unit. Diagnosis PICC LINE REPLACEMENT Inpatient (Yes or No) Y Observation (Yes or No) N Orientation concerns or request close to nursing station (Yes or No) N Covid Status On vent or bipap N Isolation requirements N Needs a sitter N From Home (Yes or if No enter name of facility) NO. [facility] Requires Dialysis (Yes or No) N Med Rec Completed (Yes of No) Y
[2021-09-20 11:08] LABS: BASOPHILS # (AUTO) 0.1 K/uL (0.0-0.2); BASOPHILS % (AUTO) 1.3 % (0.0-2.0); EOSINOPHILS # (AUTO) 0.2 K/uL (0.0-0.4); EOSINOPHILS % (AUTO) 2.9 % (0.0-4.0); HEMATOCRIT 35.8 % (36-54); HEMOGLOBIN 11.7 g/dL (14.0-18.0); LYMPHOCYTES % (AUTO) 29.2 % (20.5-51.5); MEAN CORPUSCULAR HEMOGLOBIN 26 pg (27-31); MEAN CORPUSCULAR HGB CONC 33 % (32-36); MEAN CORPUSCULAR VOLUME 80 fL (79.0-98.0); MONOCYTES # (AUTO) 0.4 K/uL (0.0-1.0); MONOCYTES % (AUTO) 5.5 % (1.7-9.3); NEUTROPHILS # (AUTO) 4.1 K/uL (1.8-7.7); NEUTROPHILS % (AUTO) 61.1 % (40.0-70.0); PLATELET COUNT (AUTO) 333 K/uL (130-430); RED CELL DISTRIBUTION WIDTH 18.1 % (9.0-15.0); WHITE BLOOD COUNT (AUTO) 6.7 K/uL (4.8-10.8)
[2021-09-20 11:12] LABS: ANION GAP 4 (5-15); CALCIUM 9.1 mg/dL (8.4-11.0); CHLORIDE 99 mmol/L (98-107); CREATININE 1.13 mg/dL (0.55-1.30); GLUCOSE 356 mg/dL (70-99); POTASSIUM 4.5 mmol/L (3.5-5.1); SODIUM SERUM 129 mmol/L (136-145); UREA NITROGEN, BLOOD 20 mg/dL (8-21)
[2021-09-20 11:18] LABS: ALANINE AMINOTRANSFERASE 25 U/L (12-78); ALBUMIN 3.2 g/dL (3.4-4.8); ASPARTATE AMINOTRANSFERASE 16 U/L (10-37); TOTAL BILIRUBIN < 0.1 mg/dL (0.0-1.0)
[2021-09-20 11:22] LABS: GFR AFRICAN AMERICAN 88 mL/min (>90)
[2021-09-20] MEDS ORDERED: INSU100I68 SQ (11:22)
[2021-09-20] MEDS ORDERED: LOVI40 SQ (11:22)
[2021-09-20] MEDS ORDERED: COLL30OI2 TP (11:22)
[2021-09-20] MEDS ORDERED: MULT-1117 PO (11:22)
[2021-09-20] MEDS ORDERED: LISI20TA30 PO (11:22)
[2021-09-20] MEDS ORDERED: VANC125C10 IV (11:22)
[2021-09-20] MEDS ORDERED: INSU100V7 SUBCUT (11:22)
[2021-09-20] MEDS ORDERED: TRAM50TA PO (11:22)
[2021-09-20] MEDS ORDERED: ASCO500T20 PO (11:22)
[2021-09-20] MEDS ORDERED: IBUP-1969 PO (11:22)
--- NOTE | 2021-09-20 11:23 | NUR ---
Specimen collection Nasal secretions collected and submitted to lab for MRSA and covid antigen testing. vss. pt aaox4. bed down rails up. Pt has no complaints at this time. Pt noted Carol (sons mom) is aware of presence at [facility].
--- NOTE | 2021-09-20 11:23 | NUR ---
Medication reconciliation completed with information provided by [facility]. Any prior medication reconciliation on file was reviewed and corrected.
--- NOTE | 2021-09-20 12:44 | NUR ---
Patient will be admitted to care of Dr. Venegas. Admitted to MED/SURG unit. Will go to room 110B. Belongings list completed. Complete and up to date summary report printed. SBAR report to be given at bedside with opportunity for questions.
--- NOTE | 2021-09-20 12:50 | NUR ---
REPORT GIVEN TO BASSEM ERAZO. PT IS STABLE, NAD, VSS, AAOx3, TO TRANSFER TO 110B WITH EMT.
[2021-09-20 12:52] LABS: BILIRUBIN,URINE NEGATIVE (NEGATIVE); BLOOD, URINE NEGATIVE (NEGATIVE); CLARITY/URINE CLEAR (CLEAR); COLOR,URINE YELLOW (YELLOW); GLUCOSE,URINE 3+ (NEGATIVE); KETONES,URINE NEGATIVE (NEGATIVE); LEUKOCYTE ESTERASE ,URINE NEGATIVE (NEGATIVE); NITRITE, URINE NEGATIVE (NEGATIVE); PH,URINE 5.5 (5.0-8.0); PROTEIN URINE 2+ (NEGATIVE); UROBILINOGEN,URINE 0.2 (0.2-1.0)
[2021-09-20] MEDS ORDERED: HYDR-3917 PO ×2 (13:17)
[2021-09-20] MEDS ORDERED: IBUPROFEN 600 MG TABLET PO PRN (13:30)
[2021-09-20] MEDS ORDERED: traMADol HCL HCL 50 MG TABLET (ULTRAM) PO PRN (13:30)
[2021-09-20 13:35] VITALS: BP_SYST 148
[2021-09-20 13:36] VITALS: BP_SYST 148
[2021-09-20 13:40] LABS: RBC,URINE 0-3 /HPF (0-3); WBC,URINE 0-3 /HPF (0-3)
[2021-09-20 13:41] LABS: BACTERIA,URINE RARE /HPF (None Seen); MUCUS,URINE 1+ /LPF (None Seen)
--- NOTE | 2021-09-20 13:42 | NUR ---
CONSULTATION PAGED REASON FOR CONSULTATION:OSTEOMYELITIS WAS CONSULT CALLED?Y PERSON WHO WAS NOTIFIED:IGLESIA CONSULTING PHYSICIAN:ANGELA RIBEIRO MOTOR AND GENERATOR BRUSH CUTTER SPECIALTY:INFECTIOUS DISEASE MOTOR AND GENERATOR BRUSH CUTTER PHONE NUMBER:[phone] REQUESTING PHYSICIAN:RUBI BROUSSARD FACESHEET FAXED OVER.
[2021-09-20] MEDS ORDERED: ASCORBIC ACID 500 MG TABLET PO ONE (14:00)
[2021-09-20 14:03] LABS: PROTHROMBIN TIME 9.7 SECS (9.5-12.5)
[2021-09-20] MEDS: VANCOMYCIN HCL 1,000 MG in NS 250 ML IV SCH (14:36)
[2021-09-20] MEDS: HYDROmorphone 1 MG/ML INJ. CARTRIDGE IVP PRN ×2 (15:15→19:49)
[2021-09-20 15:24] VITALS: BP_SYST 156
[2021-09-20] MEDS: INSULIN REGULAR, HUMAN 100 UNITS/ML, 10 ML VIAL SUBCUT SCH ×2 (17:39→20:33)
--- NOTE | 2021-09-20 20:37 | NUR ---
Glucose 85 mg/dl. Notified Dr. Venegas- scheduled regular insulin held this pm. Pt remains awake, alert, and coherent. Remains on IV antibiotic therapy. Pain managed with prn pain medications. Will continue to monitor.
[2021-09-20 20:40] VITALS: BP_SYST 157
[2021-09-20] MEDS ORDERED: VANCOMYCIN HCL Non-Formulary 125 MG CAPSULE PO SCH (21:00)
[2021-09-21] MEDS: BALSAM PERU/CASTOR OIL 56.7 GM OINT...G. TP SCH ×2 (00:04→08:54)
[2021-09-21] MEDS: HYDROmorphone 1 MG/ML INJ. CARTRIDGE IVP PRN ×4 (00:06→13:18)
[2021-09-21 00:25] VITALS: BP_SYST 152
[2021-09-21] MEDS: VANCOMYCIN HCL 1,000 MG in NS 250 ML IV SCH ×2 (02:53→15:22)
--- NOTE | 2021-09-21 06:42 | NUR ---
Patient continues to rest quietly. Respirations even et unlabored. No s/s acute distress noted. Pt has required frequent prn pain meds to manage pain. Dressing to left foot changed this shift. Wound with noted yellowish drainage noted. Addendum: 09/21/21 at 0648 by [employer] climatology professor Pt continues on IV Vancomycin as per ordered, Will continue to monitor.
[2021-09-21] MEDS: INSULIN REGULAR, HUMAN 100 UNITS/ML, 10 ML VIAL SUBCUT SCH ×2 (07:10→10:33)
[2021-09-21 08:09] VITALS: BP_SYST 139
[2021-09-21] MEDS ORDERED: MULTIVITAMINS TAB 1 TABLET PO SCH (09:00)
[2021-09-21] MEDS ORDERED: ASCORBIC ACID 500 MG TABLET PO SCH (09:00)
[2021-09-21] MEDS ORDERED: lisinopriL 20 MG TABLET PO SCH (09:00)
[2021-09-21] MEDS ORDERED: ENOXAPARIN SODIUM 40 MG/0.4 ML SYRINGE SQ SCH (09:00)
--- NOTE | 2021-09-21 11:59 | NUR ---
Discharge Planning: RIAN faxed pt referral to [facility] P#[phone] per [place] pt will go to Rm 10A, RIAN arranged transport with [facility] [phone] time request 2:00pm Wheelchair. RIAN made nurse aware, patient packet taken to nurse station.
[2021-09-21 12:08] VITALS: BP_SYST 139
--- NOTE | 2021-09-21 14:53 | NUR ---
CALLED [facility], [facility] ([facility]PATCH). INQUIRED REGARDING STATUS OF TRANSPORTATION. SHE STATED THEY ARE STILL WORKING ON IT AND TO GIVE THEM TIME.
[2021-09-21 15:40] VITALS: BP_SYST 135
--- NOTE | 2021-09-21 15:58 | NUR ---
PT DISCHARGED VIA LIFT SERVICE, PT IS GOING TO [facility]. PT IS A/A/O X4, NO DISTRESS NOTED. PT STILL WITH HIS PICC LINE AND SALINE LOCK, PATENT AND INTACT. REPORT GIVEN TO BASSEM HAILE. UPDATED THAT PT HAS NEW ORDER OF LEVAQUIN 500 MG IVPB DAILY AND THAT VANCOMYCIN WAS NOT INFUSED PRIOR TO DISCHARGE. SHE VERBALIZED UNDERSTANDING. ALL PT'S BELONGING TAKEN. PT PROVIDED WITH DISCHARGE INSTRUCTIONS. ALL QUESTIONS AND CONCERNS ADDRESSED.
--- NOTE | 2021-10-05 17:59 | NUR ---
Late Entry for 09/20/21 IV ADMINISTRATION END TIME (Observation Patients ONLY): IV infusion of Vancomycin started at 1436 on 09/20/21 and ended at 1636 on 09/20/21.
--- NOTE | 2021-10-05 18:02 | NUR ---
Late entry for 09/21/21 IV ADMINISTRATION END TIME (Observation Patients ONLY): IV infusion of Vancomycin started at 0253 on 09/21/21 and ended at 0453 on 09/21/21.
--- NOTE | 2021-10-05 18:03 | NUR ---
Late Entry for 09/21/21 IV ADMINISTRATION END TIME (Observation Patients ONLY): IV infusion of Levofloxacin started at 1510 on 09/21/21 and ended at 1610 on 09/21/21.
== END 2021-09-21 16:00 ==
LOC: SED 10:16 → INTOOBSV 10:58 → SMU 10:58
PROVIDERS: ADMIT Internal Medicine; ATTEND Internal Medicine
DX: M86.9 Osteomyelitis, unspecified (principal); Z20.822 Contact with and (suspected) exposure to COVID-19; E11.65 Type 2 diabetes mellitus with hyperglycemia; E87.1 Hypo-osmolality and hyponatremia; I10 Essential (primary) hypertension; Z89.432 Acquired absence of left foot; Z79.899 Other long term (current) drug therapy
CPT/HCPCS: 36415; 71045; 80053; 81000; 82962 ×2; 85025; 85610; 85730; 87081; 87426; 96361; 96365; 96366 ×2; 96367; 96372 ×2; 96375; 96376 ×2; 99285; G0378; J1170 ×2; J1650; J1815; J1956; J3370 ×2; J7050 ×2

== ENCOUNTER 2021-10-05 23:42 | Inpatient (IN) | payer MEDICAID ==
[~2021-10-05] VITALS: Ht 175.3 cm; Wt 88.0 kg
[~2021-10-05 23:42] MED LIST changes: +ASCO500T20 PO; +COLL30OI2 TP; -DOXY100T2 PO; -INSU100I26 SQ; +INSU100I68 SQ; +INSU100V7 SUBCUT; -LACT1CAP62 PO; +LISI20TA30 PO; -LOSA100T3 PO; +LOVI40 SQ; +MULT-1117 PO; +TRAM50TA PO; -TRAM50TA2 PO; +VANC125C10 IV
[2021-10-06] VITALS (9 sets, daily range): BP systolic 138–149
--- NOTE | 2021-10-06 | NUR ---
51 YR OLD AOX4, AMBULATORY PT WITH A COMPLAINT OF LEFT BIG TOE PAIN 8/10 AND PICC LINE REPLACEMENT. PERPT HIS SNF STAFF WERE UNABLE TO FLUSH THE PICC LINE LOCATED IN THE TOP LEFT SUBCLAVIMD JUANA AJ AT THE BEDSIDE. PT HAS HX OF DM, LEFT BIG TOE AMPUTATION.
[2021-10-06] MEDS ORDERED: HYDROmorphone 1 MG/ML INJ. CARTRIDGE IVP ONE (00:15)
[2021-10-06] MEDS ORDERED: VANCOMYCIN HCL 1,000 MG in NS 250 ML IV ONE (01:00)
--- NOTE | 2021-10-06 01:00 | NUR ---
DELANEY Almonte at bedside examining patient.
[2021-10-06 01:35] LABS: HEMATOCRIT 29.6 % (36-54); HEMOGLOBIN 9.7 g/dL (14.0-18.0); MEAN CORPUSCULAR HEMOGLOBIN 26 pg (27-31); MEAN CORPUSCULAR HGB CONC 33 % (32-36)
[2021-10-06 01:39] LABS: CALCIUM 8.4 mg/dL (8.4-11.0); CREATININE 1.17 mg/dL (0.55-1.30); POTASSIUM 3.7 mmol/L (3.5-5.1)
[2021-10-06 01:45] LABS: ALBUMIN 2.7 g/dL (3.4-4.8)
[2021-10-06 01:55] LABS: BASOPHILS # (AUTO) 0.1 K/uL (0.0-0.2); BASOPHILS % (AUTO) 0.9 % (0.0-2.0); EOSINOPHILS # (AUTO) 0.4 K/uL (0.0-0.4); EOSINOPHILS % (AUTO) 4.3 % (0.0-4.0); LYMPHOCYTES # (AUTO) 2.4 K/uL (1.0-5.5); MEAN CORPUSCULAR VOLUME 79 fL (79.0-98.0); MONOCYTES # (AUTO) 0.6 K/uL (0.0-1.0); MONOCYTES % (AUTO) 7.3 % (1.7-9.3); NEUTROPHILS # (AUTO) 5.1 K/uL (1.8-7.7); NEUTROPHILS % (AUTO) 59.5 % (40.0-70.0); PLATELET COUNT (AUTO) 332 K/uL (130-430); RED BLOOD CELL COUNT(AUTO) 3.74 MIL/uL (4.2-6.2); RED CELL DISTRIBUTION WIDTH 16.7 % (9.0-15.0); WHITE BLOOD COUNT (AUTO) 8.6 K/uL (4.8-10.8)
--- NOTE | 2021-10-06 02:02 | NUR ---
Admit bed requested Patient will be admitted to care of Admitted to MS unit. Diagnosis Chronic Osteomyelitis Inpatient (Yes or No) yes Observation (Yes or No) no Orientation concerns or request close to nursing station (Yes or No) no Covid Status negative On vent or bipap no Isolation requirements no Needs a sitter no From Home (Yes or if No enter name of facility) yes Requires Dialysis (Yes or No) no Med Rec Completed (Yes of No)
[2021-10-06] MEDS ORDERED: VANCOMYCIN HCL 1000 MG/VIAL IV ONE (02:03)
[2021-10-06 02:30] LABS: TOTAL BILIRUBIN 0.1 mg/dL (0.0-1.0)
--- NOTE | 2021-10-06 02:35 | NUR ---
# 20 gauge angiocath placed to Left AC. Use of asceptic technique. Opsite placed over site. Blood return noted. Blood for lab drawn from site. Flushed with 10 cc of normal saline. No evidence of infiltration noted. Patient tolerated well.
--- NOTE | 2021-10-06 03:00 | NUR ---
ADMIT NOTE Received pt from ER to the floor with a diagnosis of CHRONIC OSTEOMYELITIS. Admission process initiated. patient oriented to pain management, safety and call light-teach back done.
--- NOTE | 2021-10-06 03:05 | NUR ---
Patient will be admitted to [address] Belongings list completed. Complete and up to date summary report printed. SBAR report to be given at bedside with opportunity for questions.
--- NOTE | 2021-10-06 03:45 | NUR ---
Patient refused picture of his left big toe amputation. He said he just wanted to rest. Explained the risks and benefits. Verbalized understanding.
--- NOTE | 2021-10-06 04:30 | NUR ---
HIGH ALERT NOTE: Called Dr. Venegas back at [phone] identified within the medical roster to verify physician authenticity.
[2021-10-06] MEDS: HYDROmorphone 1 MG/ML INJ. CARTRIDGE IVP PRN ×4 (04:49→18:49)
--- NOTE | 2021-10-06 05:17 | NUR ---
CONSULTATION PAGED/CALLED Reason for Consultation: [OPEN WOUND LEFT FOOT] Person Who was Notified: [GLORY] Consulting Physician: [DR. RAMIREZ] Gas Flow Regulator Specialty: [ID] Ordering Physician: [DR. PRABHAKAR]
--- NOTE | 2021-10-06 06:00 | NUR ---
Patient asleep at this time. Was admitted at around 3AM. Patient is stable. No distress. AAOx4. Dressing to left foot intact and clean. Received 1 dose of Dilauded IVP for pain. Slept well after that. No distress noted. Kept warm and comfortable. Monitored closely. Spoke to Dr. Venegas with new orders noted and carried. All needs attended. Call light placed within reach. Monitored closely.
--- NOTE | 2021-10-06 08:00 | NUR ---
OPENING NOTES: PATIENT RESTING IN BED. BREATHING EVEN AND NON LABORED TO RA. FALL AND SAFETY MEASURES REINFORCED. CALL LIGHT WITHIN REACH.
--- NOTE | 2021-10-06 15:18 | NUR ---
CM: [facility] P#[phone] per Khadijah pt will go to Rm # [id number]. CM arranged wheelchair /non medical transport with [facility] tel # [phone] , reservation # [phone] , roll picker time at 9 pm. BASSEM Cueto made aware. The pt is discharged after PICC placement. If unable to discharge pt tonight please cancel the transportation accordingly, [facility] tel # [phone]. Addendum: 10/06/21 at 1531 by Rubin Gracia RN Per [facility], the assigned transportation planning technician will be calling nursing unit with the arrival time around 9pm. __ BASSEM Cueto made aware, dc package placed in nursing unit.
--- NOTE | 2021-10-06 15:35 | NUR ---
Wound Evaluation Attempted: Wound Evaluation attempted but patient refused secondary to complaint of pain. Will try again at another time.
--- NOTE | 2021-10-06 17:00 | NUR ---
WOUND DRESSING AND PHOTO TAKEN: WOUND DRESSING DONE AND PHOTO TAKEN.
--- NOTE | 2021-10-06 17:54 | NUR ---
PT GOING BACK TO [facility]: AMBULANCE ---WITH [facility]; REF # [id number] (TO FOLLOW UP TRANSPORT , DIAL [phone], OPTION 4, THEN OPTION 20) hot die picker time is 2100 tonite. Spoke to Jennifer from [facility] [employer] [facility].
--- NOTE | 2021-10-06 18:15 | NUR ---
PICC LINE AND XRAY DONE: OKAY TO USE PICC LINE. BLOOD RETURN NOTED. PICC LINE PATENT.
--- NOTE | 2021-10-06 19:03 | NUR ---
SPOKE TO BASSEM VELÁSQUEZ [facility]: REPORT GIVEN TO BASSEM VELÁSQUEZ OF [facility].
--- NOTE | 2021-10-06 19:30 | NUR ---
CLOSING NOTES: PATIENT RESTING IN BED. NO S/S OF ACUTE DISTRESS NOTED. DISCHARGE PACKET DONE. PATIENT WILL BE PICKED UP AT 2300. ENDORSED TO SUPERVISOR FABRICATION RN.
--- NOTE | 2021-10-06 22:35 | NUR ---
PT D/C TO [facility], PIV LINE D/C'D , ALL BELONGINGS AND VALUABLE WENT WITH PATIENT, PICC IN PLACE FOR CONTINUOUS ANTIBIOTICS, PT LEFT THE FACILITY IN STABLE CONDITION.
== END 2021-10-06 22:30 | DRG 721 ==
LOC: SED 23:42 → SMU 10-06 01:58
PROVIDERS: ADMIT Internal Medicine; ATTEND Internal Medicine
PROC: 05PY33Z Removal of Infusion Device from Upper Vein, Percutaneous Approach (ICD-10-PCS; principal; 2021-10-06)
PROC: 05HY33Z Insertion of Infusion Device into Upper Vein, Percutaneous Approach (ICD-10-PCS; 2021-10-06)
PROC: 3E03329 Introduction of Other Anti-infective into Peripheral Vein, Percutaneous Approach (ICD-10-PCS; 2021-10-06)
DX: T80.211A Bloodstream infection due to central venous catheter, initial encounter (principal); E43 Unspecified severe protein-calorie malnutrition; E11.51 Type 2 diabetes mellitus with diabetic peripheral angiopathy without gangrene; E78.5 Hyperlipidemia, unspecified; I10 Essential (primary) hypertension; Z20.822 Contact with and (suspected) exposure to COVID-19; Y83.8 Other surgical procedures as the cause of abnormal reaction of the patient, or of later complication, without mention of misadventure at the time of the procedure; Y92.89 Other specified places as the place of occurrence of the external cause; E87.1 Hypo-osmolality and hyponatremia
CPT/HCPCS: 36415; 71045; 80053; 83605; 85025; 85610-TC; 85651-TC; 85730-TC; 86140; 87040; 87081; 96365; 96366; 96375; 99285; J1170; J3370

== ENCOUNTER 2022-06-17 11:22 | Inpatient (IN) | payer MEDICAID ==
[~2022-06-17] VITALS: Ht 175.3 cm; Wt 89.4 kg
[2022-06-17 11:32] VITALS: BP_SYST 146
--- NOTE | 2022-06-17 12:00 | NUR ---
Pt presents to the ER from home. Chief complaint bilateral foot ulcers. Pt has toe amputation and dark brown thick leathery tissue at the plantar and lateral sides of feet with odiferous smell. Pt states history of HTN, Hyperlipidemia, type 1 diabetes. Pain is 10/10 with pulsating sharpness. Pt states has suffered for 2 weeks with self care and no relief.
--- NOTE | 2022-06-17 12:02 | NUR ---
ER at bedside examining patient.
[2022-06-17] MEDS ORDERED: PIPERACILLIN/TAZO 4.5GM/DEX-IS 100 ML IV SCH (12:15)
[2022-06-17] MEDS ORDERED: VANCOMYCIN HCL 1,000 MG in NS 250 ML IV ONE (12:15)
--- NOTE | 2022-06-17 12:15 | NUR ---
# 20 gauge angiocath placed to RAC. Use of asceptic technique. Opsite placed over site. Blood return noted. Blood for lab drawn from site. Flushed with 10 cc of normal saline. No evidence of infiltration noted. Patient tolerated well.
[2022-06-17] MEDS ORDERED: MORPHINE 4 MG INJ. 4 MG/ML VIAL IVP ONE (12:45)
--- NOTE | 2022-06-17 12:45 | NUR ---
COVID AND MRSA SWABS COLLECTED AND SENT TO LAB.
[2022-06-17 12:58] LABS: BASOPHILS % (AUTO) 0.2 % (0.0-2.0); EOSINOPHILS # (AUTO) 0.1 K/uL (0.0-0.4); EOSINOPHILS % (AUTO) 0.4 % (0.0-4.0); HEMATOCRIT 25.5 % (36-54); HEMOGLOBIN 8.4 g/dL (14.0-18.0); LYMPHOCYTES # (AUTO) 1.6 K/uL (1.0-5.5); LYMPHOCYTES % (AUTO) 8.9 % (20.5-51.5); MEAN CORPUSCULAR HEMOGLOBIN 26 pg (27-31); MEAN CORPUSCULAR HGB CONC 33 % (32-36); MEAN CORPUSCULAR VOLUME 79 fL (79.0-98.0); MONOCYTES # (AUTO) 0.6 K/uL (0.0-1.0); MONOCYTES % (AUTO) 3.4 % (1.7-9.3); NEUTROPHILS # (AUTO) 15.8 K/uL (1.8-7.7); NEUTROPHILS % (AUTO) 87.1 % (40.0-70.0); PLATELET COUNT (AUTO) 559 K/uL (130-430); RED BLOOD CELL COUNT(AUTO) 3.24 MIL/uL (4.2-6.2); RED CELL DISTRIBUTION WIDTH 16.2 % (9.0-15.0); WHITE BLOOD COUNT (AUTO) 18.1 K/uL (4.8-10.8)
[2022-06-17 13:15] LABS: INR 1.1 (0.80-1.20); PROTHROMBIN TIME 11.1 SECS (9.5-12.5)
[2022-06-17 13:20] LABS: CALCIUM 7.8 mg/dL (8.4-11.0); CREATININE 0.88 mg/dL (0.55-1.30)
--- NOTE | 2022-06-17 13:31 | NUR ---
accucheck blood sugar 171 per EMT
[2022-06-17 13:35] LABS: ALBUMIN 1.7 g/dL (3.4-4.8); C-REACTIVE PROTEIN QUANT 11.1 mg/dL (0-0.5); TOTAL BILIRUBIN 0.3 mg/dL (0.0-1.0)
--- NOTE | 2022-06-17 15:00 | NUR ---
Admit bed requested Patient will be admitted to care of . Admitted to MS unit. Diagnosis CELLULITIS Inpatient (Yes or No) YES Observation (Yes or No) NO Orientation concerns or request close to nursing station (Yes or No) NO Covid Status NEGATIVE On vent or bipap NO Isolation requirements NO Needs a sitter NO From Home (Yes or if No enter name of facility) HOME Requires Dialysis (Yes or No) NO Med Rec Completed (Yes of No) YES
--- NOTE | 2022-06-17 18:18 | NUR ---
[facility] DINNER TRAY PROVIDED TO PT
[2022-06-17] MEDS: PIPERACILLIN/TAZO 3.375 GM in NS 50 ML IV SCH (18:25)
--- NOTE | 2022-06-17 19:25 | NUR ---
Pt stable. Report given to BASSEM Sainz.
--- NOTE | 2022-06-17 20:19 | NUR ---
PATIENT USED THE BEDSIDE COMMODE
--- NOTE | 2022-06-17 20:54 | NUR ---
Patient will be admitted to care of Dr. Montesinos. Admitted to Med Surg unit. Will go to room 114A. Belongings list completed. Complete and up to date summary report printed. SBAR report to be given at bedside with opportunity for questions.
[2022-06-17] MEDS: VANCOMYCIN HCL 750 MG in NS 250 ML IV SCH (21:19)
[2022-06-17 21:25] VITALS: BP_SYST 142
[2022-06-17] MEDS: HYDROcodone/ACETAMIN 5-325 MG TAB (NORCO/ VICODIN) PO PRN (22:21)
[2022-06-17] MEDS ORDERED: VANCOMYCIN HCL ORAL SOLUTION 125 MG/5 ML, 150 ML PO SCH (23:15)
[2022-06-17] MEDS ORDERED: PIPERACILLIN/TAZOBACTAM 3.375 GM/VIAL (ZOSYN) IV ONE (23:31)
[2022-06-18] MEDS: PIPERACILLIN/TAZO 3.375 GM in NS 50 ML IV SCH ×3 (00:22→13:40)
[2022-06-18] MEDS ORDERED: VANCOMYCIN HCL 500 MG/VIAL IV ONE (04:49)
[2022-06-18] MEDS: VANCOMYCIN HCL 750 MG in NS 250 ML IV SCH ×3 (05:09→19:54)
[2022-06-18] MEDS: INSULIN REGULAR, HUMAN 100 UNITS/ML, 3 ML VIAL (humuLIN R) SUBCUT PRN ×2 (05:33→17:26)
[2022-06-18] MEDS ORDERED: VANCOMYCIN HCL ORAL SOLUTION 125 MG/5 ML, 150 ML PO SCH (06:58)
[2022-06-18 07:02] LABS: BASOPHILS % (AUTO) 0.3 % (0.0-2.0); EOSINOPHILS # (AUTO) 0.3 K/uL (0.0-0.4); EOSINOPHILS % (AUTO) 3.2 % (0.0-4.0); HEMOGLOBIN 7.3 g/dL (14.0-18.0); MEAN CORPUSCULAR HEMOGLOBIN 27 pg (27-31); MEAN CORPUSCULAR HGB CONC 34 % (32-36); MEAN CORPUSCULAR VOLUME 78 fL (79.0-98.0); MONOCYTES # (AUTO) 0.6 K/uL (0.0-1.0); MONOCYTES % (AUTO) 6.1 % (1.7-9.3); NEUTROPHILS # (AUTO) 6.9 K/uL (1.8-7.7); NEUTROPHILS % (AUTO) 70.4 % (40.0-70.0); PLATELET COUNT (AUTO) 507 K/uL (130-430); RED BLOOD CELL COUNT(AUTO) 2.72 MIL/uL (4.2-6.2); WHITE BLOOD COUNT (AUTO) 9.8 K/uL (4.8-10.8)
[2022-06-18 07:31] LABS: HEMATOCRIT 21.2 % (36-54)
--- NOTE | 2022-06-18 07:33 | NUR ---
CRITICAL LAB: HEMATCRIT 21.2 REPORTED AT 7:31AM 06/18/22. CALLING DR WILCOX NOW TO REPORT. LEFT A MESSAGE ON ANSWERING SERVICE. Addendum: 06/18/22 at 0814 by Susy Barr LVN PAGED DR WILCOX AT 7:46AM AND AT 8:13AM TO REPORT CRITICAL LAB.
[2022-06-18 07:37] LABS: ALBUMIN 1.4 g/dL (3.4-4.8); CALCIUM 7.8 mg/dL (8.4-11.0); CREATININE 0.91 mg/dL (0.55-1.30); TOTAL BILIRUBIN 0.2 mg/dL (0.0-1.0); TOTAL IRON BIND. CAPACITY 169 ug/dL (250-450)
[2022-06-18 08:00] VITALS: BP_SYST 148
--- NOTE | 2022-06-18 08:15 | NUR ---
OPENING NOTES: PT IN BED A/O X4 EATING BREAKFAST. NO S/S OF DISTRESS. PAIN REPORTED. BREATHING IS EVEN AND UNLABORED ON RA. ALL NEEDS MET AT THIS TIME, SAFETY CHECKS MADE AND CALL LIGHT WITHIN REACH.
--- NOTE | 2022-06-18 08:20 | NUR ---
: DR WILCOX CALLED BACK. UPDATED HIM ON CRITICAL LAB OF 21.2 FOR HEMATCRIT AND 7.3 FOR HEMOGLOBIN. ORDERED 2 UNITS PRB.
[2022-06-18] MEDS ORDERED: COLLAGENASE 30 GM OINT Non-Formulary 30 GM OINT..GM. TP SCH (09:00)
[2022-06-18] MEDS ORDERED: INSULIN GLARGINE 100 UNITS/ML, 10 ML VIAL SUBCUT SCH (09:00)
[2022-06-18] MEDS: ENOXAPARIN SODIUM 40 MG/0.4 ML SYRINGE SQ SCH (10:20)
[2022-06-18] MEDS: VANCOMYCIN HCL ORAL SOLUTION 125 MG/5 ML, 150 ML PO SCH ×2 (10:21→19:55)
[2022-06-18] MEDS: MULTIVITAMINS TAB 1 TABLET PO SCH (10:21)
[2022-06-18] MEDS: ASCORBIC ACID 500 MG TABLET PO SCH (10:21)
[2022-06-18] MEDS: lisinopriL 20 MG TABLET PO SCH (10:22)
[2022-06-18] MEDS: HYDROcodone/ACETAMIN 5-325 MG TAB (NORCO/ VICODIN) PO PRN ×2 (10:23→20:13)
[2022-06-18 12:00] VITALS: BP_SYST 142
--- NOTE | 2022-06-18 13:06 | NUR ---
: NOTIFIED DR. WILCOX OF THE PT'S BLLOD SUGAR BEING 23. I TRIPLED CHECKED IT AND GOT 20 AND 17 RESULTS FOR HIS BLOOD SUGAR. DR WILCOX SAID TO GIVE HIM OJ WHICH I DID. DR WILCOX IS BEDSIDE NOW.RECHECKED WITH JOSÉ AT BEDSIDE. ORDERED D50 STAT. Addendum: 06/18/22 at 1329 by Susy Barr LVN WITH DR WILCOX AT BEDSIDE RECHECKED BLOOD SUGAR FOR THE 5TH TIME AND IT IS NOW 139. ORDER TO HOLD SHELLIE
[2022-06-18] MEDS ORDERED: DEXTROSE 50% JECT 50 ML DISP.SYRIN ONE (13:18)
[2022-06-18] MEDS: BALSAM PERU/CASTOR OIL 56.7 GM OINT...G. TP SCH ×2 (14:12→21:14)
--- NOTE | 2022-06-18 14:50 | NUR ---
WOUND EVALUATION: Wound Consult received from Dr. Montesinos. Thank you, Dr. Montesinos, for the consult. Patient received in a [place] Bed with an Isoflex JOAN mattress, awake, alert, and oriented. Patient is able to turn in bed and ambulate independently. Juan Score is a 17. Past Medical History: Hypertension, Insulin-Dependent Diabetes Mellitus, Peripheral Vascular Disease of the lower extremities, Peripheral Arterial Disease, Diabetic Neuropathy of lower extremities, Osteomyelitis of the left foot, status post Left Great Toe amputation in March,, recurrent infection of the right foot, Hyperlipidemia, Right Third Toe Amputation in May,, recent Right Great Toe amputation, debridement of the right foot in April,, and excisional debridement of right foot ulcer and abscess on 08/19/18, Diabetic wound on the left lower extremity, cocaine abuse, history of poorly controlled Diabetes Mellitus with Vasculopathy, and Anemia. Recent Labs: WBC 9.8, RBC 2.72, hemoglobin 7.3, hematocrit 21.2, potassium 3.4, glucose 192, calcium 7.8, iron 20, TIBC 169, percent saturation 11, albumin 1.4. Microbiology: Blood culture results x 2 in progress. MRSA screen results in progress. Intrinsic factors that delay wound healing: Insulin Dependent Diabetes Mellitus, Diabetic Neuropathy, Diabetic Peripheral Vascular Disease of lower extremities, Hypoalbuminemia. Extrinsic factors that delay wound healing: Decreased mobility. Patient was supposed to receive a PODUS boot from last admission, but it was not apparently received (patient said that his feet were getting worse from his current foot wear. Encouraged patient to get diabetic shoes and he said he has to get these wounds taken care of first). Recommend future application of total contact casts to offload wounds and facilitate wound healing. Wound Assessment: 1. Left Plantar Lateral Foot (from Metatarsal Head to Arch): Diabetic/Neuropathic ulcer, present on admission. Wound has 15% black slough, 30% pink tissue, 55% yellow slough. Foul odor, scant yellow drainage. Anna-wound intact, callused. Foot has Charcot changes. Moderate edema present on foot and extremity. Extremity has calor. Wound measures 12.3 cm x 6.0 cm x 0.3 cm. 2. Left Foot, Fourth Toe: Diabetic/Neuropathic ulcer, present on admission. Toe has black gangrene, loose, and does not appear to move with AROM of toes. Wound bed at base of toe has 100% yellow slough, and extends medially to third toe and laterally to fifth toe. Foul odor, scant yellow drainage. Periwound intact. Wound measures 5.0 cm x 3.5 cm x 3.1 cm. Recommend: Cleanse wounds with normal saline. Apply Sureprep to periwounds. Apply Venelex ointment to wound beds. [place] gangrene sites with Betadine. Allow Betadine to air dry. Cover site with nonadhesive foam dressings. Wrap with Amy wrap and secure with tape. Perform wound care daily, and as needed for dressing soiling or dislodgment. 3. Right Plantar near Fourth Metatarsal Head: Diabetic/Neuropathic ulcer, present on admission. Wound has 10% pink tissue, 90% yellow slough. Foul odor, scant yellow drainage. Anna-wound intact, callused. Foot has Charcot changes. Moderate edema present on foot and extremity. Extremity is cool to touch. Wound measures 1.2 cm x 1.9 cm x 0.3 cm. 4. Right Fifth Toe, Dorsal Lateral aspect: Diabetic/Neuropathic ulcer, present on admission. Wound has 70% pink tissue, 30% yellow slough. Foul odor, scant yellow drainage. Anna-wound intact. Foot has Charcot changes. Moderate edema present on foot and extremity. Extremity is cool to touch. Wound measures 1.4 cm x 1.9 cm x 0.2 cm. Recommend: Cleanse wound with normal saline. Apply Sureprep to periwound. Apply Venelex ointment to wound bed. Cover site with 4x4 foam dressing. Wrap sites with Amy wrap and secure with tape. Perform wound care daily, and as needed for dressing soiling or dislodgment. 5. Right Dorsal Second Toe, Proximal to Toenail bed: Diabetic/Neuropathic ulcer, present on admission. Wound has 100% black eschar. No odor, no drainage. Anna-wound intact. Dry, stable. Foot has Charcot changes. Moderate edema present on foot and extremity. Extremity is cool to touch. Wound measures 0.8 cm x 1.0 cm. 6. Right Medial First Metatarsal Head: Diabetic/Neuropathic ulcer, present on admission. Wound has 100% black eschar. No odor, no drainage. Anna-wound intact. Dry, stable. Foot has Charcot changes. Moderate edema present on foot and extremity. Extremity has calor. Wound measures 3.5 cm x 2.0 cm. Recommend: [place] eschar with Betadine. Allow Betadine to air dry. Cover sites with 4x4 foam dressings. Wrap sites with Amy wrap and secure with tape. Perform wound care daily, and as needed for dressing soiling or dislodgment. Also recommend: Encourage and assist patient as needed with repositioning every 2 hours with pillow support, and off-load pressure areas with pillows for pressure re-distribution. Offload, elevate and float bilateral heels with pillows, elevate lower extremities every shift as tolerated. Perform skin care and monitor skin integrity Q shift. Recommend surgical consult.
--- NOTE | 2022-06-18 14:52 | NUR ---
ROUNDS: RECHECKED BLOOD SUGAR. IT IS 197. PT IS AWAKE AND ALERT IN BED. SPINNING SUPERVISOR JEWELL IS AT BEDSIDE. MEASURED AND REDRESSED PT'S WOUNDS. NO S/S OF DISTRESS OR PAIN REPORTED. BREATHING BIS EVEN AND UNLABORED ON RA. ALL NEED MET AT THIS TIME ,SAFETY CHECKS MADE AND CALL LIGHT WITHIN REACH.
[2022-06-18 16:00] VITALS: BP_SYST 150
[2022-06-18] MEDS: SOD FERRIC GLUC COMPLEX/SUC 125 MG in NS 100 ML IV SCH (17:00)
--- NOTE | 2022-06-18 18:05 | NUR ---
NOTES: DID NOT HANG FELLECRIT DUE TO ONLY 1 IV ACCESS FOR ANTIBIOTICS AND WAITING FOR MIDLINE INSERTION. STARTING PRBC'S ON ONLY IV SITE NOW. RN IS HERE TO DO THE MIDLINE INSERTION.
--- NOTE | 2022-06-18 18:11 | NUR ---
CLOSING NOTES: PT IN BED EATING DINNER. NO S/S OF DISTRESS OR PAIN REPORTED. BREATHING IS EVEN AND UNLABORED ON RA. ALL NEEDS MET AT THIS TIME, SAFETY CHECKS MADE AND CALL LIGHT WITHIN REACH.
[2022-06-18 20:00] VITALS: BP_SYST 152
--- NOTE | 2022-06-18 21:41 | NUR ---
Patient in bed. No acute distress noted. C/O pain prn given. Will continue to monitor.
--- NOTE | 2022-06-18 23:02 | NUR ---
5525 First unit of blood complete. No reactions noted.
--- NOTE | 2022-06-18 23:46 | NUR ---
2335 Second unit of blood started.
[2022-06-19] VITALS: BP_SYST 116
[2022-06-19] MEDS: PIPERACILLIN/TAZO 3.375 GM in NS 50 ML IV SCH ×4 (00:02→21:36)
--- NOTE | 2022-06-19 02:30 | NUR ---
0225 Second unit of blood complete.
[2022-06-19] MEDS: VANCOMYCIN HCL 750 MG in NS 250 ML IV SCH ×3 (04:58→23:09)
[2022-06-19] MEDS ORDERED: DEXTROSE 50% JECT 50 ML DISP.SYRIN ONE (05:57)
[2022-06-19] MEDS ORDERED: D5W 1,000 ML IV PRN (06:00)
[2022-06-19] MEDS ORDERED: GLUCOSE (DEXTROSE) ORAL GEL -Adults PO PRN (06:00)
[2022-06-19] MEDS ORDERED: DEXTROSE 50% JECT 50 ML DISP.SYRIN IVP PRN (06:00)
--- NOTE | 2022-06-19 06:09 | NUR ---
Blood sugar 32. OJ and mohini adamson given. Patient alert. Recheck 67. Protocol started. D5 started at 30. Recheck 197.
[2022-06-19 06:45] LABS: BASOPHILS % (AUTO) 0.5 % (0.0-2.0); EOSINOPHILS # (AUTO) 0.2 K/uL (0.0-0.4); EOSINOPHILS % (AUTO) 2.8 % (0.0-4.0); HEMATOCRIT 26.8 % (36-54); HEMOGLOBIN 9.2 g/dL (14.0-18.0); LYMPHOCYTES # (AUTO) 1.4 K/uL (1.0-5.5); MEAN CORPUSCULAR HEMOGLOBIN 27 pg (27-31); MEAN CORPUSCULAR HGB CONC 34 % (32-36); MEAN CORPUSCULAR VOLUME 79 fL (79.0-98.0); MONOCYTES # (AUTO) 0.4 K/uL (0.0-1.0); MONOCYTES % (AUTO) 4.8 % (1.7-9.3); NEUTROPHILS % (AUTO) 74.9 % (40.0-70.0); PLATELET COUNT (AUTO) 532 K/uL (130-430); RED CELL DISTRIBUTION WIDTH 16.3 % (9.0-15.0)
[2022-06-19 06:51] LABS: CREATININE 0.77 mg/dL (0.55-1.30)
[2022-06-19 08:06] LABS: FOLATE (FOLIC ACID) 7.6 ng/mL (>3.0)
[2022-06-19] MEDS: MULTIVITAMINS TAB 1 TABLET PO SCH (09:53)
[2022-06-19] MEDS: lisinopriL 20 MG TABLET PO SCH (09:53)
[2022-06-19] MEDS: ASCORBIC ACID 500 MG TABLET PO SCH (09:53)
[2022-06-19] MEDS: ENOXAPARIN SODIUM 40 MG/0.4 ML SYRINGE SQ SCH (09:54)
[2022-06-19] MEDS: BALSAM PERU/CASTOR OIL 56.7 GM OINT...G. TP SCH ×2 (09:56→21:00)
[2022-06-19] MEDS: VANCOMYCIN HCL ORAL SOLUTION 125 MG/5 ML, 150 ML PO SCH ×2 (09:56→21:34)
[2022-06-19] MEDS: HYDROcodone/ACETAMIN 5-325 MG TAB (NORCO/ VICODIN) PO PRN ×3 (10:23→21:55)
[2022-06-19 12:00] VITALS: BP_SYST 160
[2022-06-19] MEDS: INSULIN REGULAR, HUMAN 100 UNITS/ML, 3 ML VIAL (humuLIN R) SUBCUT PRN ×3 (12:26→21:56)
[2022-06-19 16:00] VITALS: BP_SYST 149
[2022-06-19] MEDS: SOD FERRIC GLUC COMPLEX/SUC 125 MG in NS 100 ML IV SCH (17:33)
--- NOTE | 2022-06-19 18:29 | NUR ---
CHANGED PATIENT BILATERAL FOOT DRESSING PER ORDER.
[2022-06-19 20:00] VITALS: BP_SYST 138
--- NOTE | 2022-06-19 20:27 | NUR ---
RECEIVED PT AMBULATING TO BATHROOM, USING WALKER. AAOX4, O2 SAT 98% RA. DOUBLE LUMEN PICC TO LUE, PERIPHERAL TO RT AC SITES CDI DRSG TO BLE CDI. DENIES PAIN AT THIS TIME. Addendum: 06/20/22 at 0605 by [facility] [employer] [facility], BASSEM LUEVANO ZOSYN IS OFF SCHEDULE, THEREFORE DID NOT INFUSE 0600 DOSE. LAST DOSE WAS GIVEN AT 0345.
[2022-06-20 00:10] VITALS: BP_SYST 156
--- NOTE | 2022-06-20 00:18 | NUR ---
CONSULTATION CALLED FOR DR. WEBB FOR CONSULT OF FOOT INFECTION ORDER BY DR. DUARTEIUM SPOKE WITH RIVKA
[2022-06-20] MEDS: PIPERACILLIN/TAZO 3.375 GM in NS 50 ML IV SCH ×4 (03:45→17:28)
[2022-06-20] MEDS ORDERED: VANCOMYCIN HCL 1000 MG/VIAL IV ONE (03:50)
[2022-06-20] MEDS: INSULIN REGULAR, HUMAN 100 UNITS/ML, 3 ML VIAL (humuLIN R) SUBCUT PRN ×3 (06:08→17:33)
[2022-06-20] MEDS: VANCOMYCIN HCL 750 MG in NS 250 ML IV SCH ×3 (06:15→20:51)
--- NOTE | 2022-06-20 07:30 | NUR ---
RECEIVED REPORT, PT RESTING IN BED, AAO x4, NO COMPLAINTS AT THIS TIME. DRESSING TO BOTH FEET CDI. ALL NEEDS MET, CALL LIGHT IN REACH.
[2022-06-20] MEDS: BALSAM PERU/CASTOR OIL 56.7 GM OINT...G. TP SCH (09:00)
[2022-06-20] MEDS: MULTIVITAMINS TAB 1 TABLET PO SCH (10:48)
[2022-06-20] MEDS: ASCORBIC ACID 500 MG TABLET PO SCH (10:48)
[2022-06-20] MEDS: lisinopriL 20 MG TABLET PO SCH (10:53)
[2022-06-20] MEDS: VANCOMYCIN HCL ORAL SOLUTION 125 MG/5 ML, 150 ML PO SCH (10:53)
[2022-06-20] MEDS: ENOXAPARIN SODIUM 40 MG/0.4 ML SYRINGE SQ SCH (10:54)
[2022-06-20] MEDS: HYDROcodone/ACETAMIN 5-325 MG TAB (NORCO/ VICODIN) PO PRN ×2 (10:56→17:30)
[2022-06-20 11:14] VITALS: BP_SYST 145
--- NOTE | 2022-06-20 15:31 | NUR ---
Dietitian Recommendations * Continue [facility] diet * Ordered: double portions of PRO & veggies * Ordered: Edy BID Submitted for Sherrell Urias by Reema Mendenhall, MPH, RD Please see Nutrition Assessment for further details Addendum: 06/20/22 at [address] Amended: Links added.
[2022-06-20 16:05] VITALS: BP_SYST 148
[2022-06-20] MEDS: SOD FERRIC GLUC COMPLEX/SUC 125 MG in NS 100 ML IV SCH (17:19)
--- NOTE | 2022-06-20 18:50 | NUR ---
PATIENT RESTING IN BED, AAO x4, DENIES PAIN/DISCOMFORT. RESPIRATIONS EVEN AND UL ON RA. DRESSINGS TO FEET BILAT CDI. ALL NEEDS MET. BED IN LOW, SIDE RAILS x2, CALL LIGHT IN REACH. NO SIGNIFICANT CHANGES NOTED THROUGHOUT SHIFT.
[2022-06-20] MEDS: metroNIDAZOLE 500 MG TABLET PO SCH (21:12)
[2022-06-21] MEDS: PIPERACILLIN/TAZO 3.375 GM in NS 50 ML IV SCH ×5 (00:04→23:20)
[2022-06-21 00:17] VITALS: BP_SYST 154
[2022-06-21] MEDS: VANCOMYCIN HCL 750 MG in NS 250 ML IV SCH ×3 (04:26→21:04)
[2022-06-21] MEDS: metroNIDAZOLE 500 MG TABLET PO SCH ×3 (05:31→21:03)
[2022-06-21] MEDS: INSULIN REGULAR, HUMAN 100 UNITS/ML, 3 ML VIAL (humuLIN R) SUBCUT PRN ×3 (05:36→21:13)
[2022-06-21 08:00] VITALS: BP_SYST 163
[2022-06-21] MEDS: MULTIVITAMINS TAB 1 TABLET PO SCH (10:06)
[2022-06-21] MEDS: ASCORBIC ACID 500 MG TABLET PO SCH (10:07)
[2022-06-21] MEDS: ENOXAPARIN SODIUM 40 MG/0.4 ML SYRINGE SQ SCH (10:07)
[2022-06-21] MEDS: HYDROcodone/ACETAMIN 5-325 MG TAB (NORCO/ VICODIN) PO PRN ×2 (10:08→16:37)
[2022-06-21] MEDS: BALSAM PERU/CASTOR OIL 56.7 GM OINT...G. TP SCH (10:09)
[2022-06-21] MEDS: lisinopriL 20 MG TABLET PO SCH (10:14)
[2022-06-21 11:48] VITALS: BP_SYST 150
[2022-06-21 16:30] VITALS: BP_SYST 158
[2022-06-21] MEDS: SOD FERRIC GLUC COMPLEX/SUC 125 MG in NS 100 ML IV SCH (16:36)
--- NOTE | 2022-06-21 18:30 | NUR ---
PATIENT RESTING IN BED EATING DINNER, DENIES PAIN/DISCOMFORT, RESPIRATIONS EVEN AND UL ON RA. DRESSINGS TO FEEL BILAT CDI. NO SIGNIFICANT CHANGES NOTED THROUGHOUT SHIFT. ALL NEEDS MET. BED IN LOW, SIDE RAILS x2, CALL LIGHT IN REACH. WILL CONT TO MONITOR AND ENDORSE TO PM NURSE FOR CONTINUITY OF CARE.
[2022-06-22] VITALS: BP_SYST 140
[2022-06-22] MEDS: metroNIDAZOLE 500 MG TABLET PO SCH ×3 (06:04→21:36)
[2022-06-22] MEDS: PIPERACILLIN/TAZO 3.375 GM in NS 50 ML IV SCH ×3 (06:08→18:43)
[2022-06-22] MEDS: VANCOMYCIN HCL 750 MG in NS 250 ML IV SCH ×3 (06:24→21:58)
--- NOTE | 2022-06-22 07:30 | NUR ---
RN OPENING NOTE REPORT WAS ENDORSED BY NIGHT NURSE. PATIENT IS AWAKE AND ALERT NO COMPLAINTS AT THIS TIME. CALL LIGHT IS WITH HIM EDUCATED TO USE FOR ASSISTANCE. NO OTHER NEEDS AT THIS TIME.
[2022-06-22 08:00] VITALS: BP_SYST 145
[2022-06-22] MEDS: MULTIVITAMINS TAB 1 TABLET PO SCH (09:45)
[2022-06-22] MEDS: lisinopriL 20 MG TABLET PO SCH (09:46)
[2022-06-22] MEDS: ENOXAPARIN SODIUM 40 MG/0.4 ML SYRINGE SQ SCH (09:46)
[2022-06-22] MEDS: ASCORBIC ACID 500 MG TABLET PO SCH (09:46)
[2022-06-22] MEDS: BALSAM PERU/CASTOR OIL 56.7 GM OINT...G. TP SCH ×2 (09:48→21:59)
[2022-06-22] MEDS: HYDROcodone/ACETAMIN 5-325 MG TAB (NORCO/ VICODIN) PO PRN (09:56)
--- NOTE | 2022-06-22 09:57 | NUR ---
medication/ pain patients scheduled medication given per order. patient also complains of ramey medicated per order. patient provided with jello as requested. patient has no other needs at this time.urinal emptied. patient is close to nurses station. educated to use call light for assistance. call light is with him.
[2022-06-22] MEDS: INSULIN REGULAR, HUMAN 100 UNITS/ML, 3 ML VIAL (humuLIN R) SUBCUT PRN ×3 (11:54→21:40)
[2022-06-22 12:00] VITALS: BP_SYST 150
--- NOTE | 2022-06-22 13:51 | NUR ---
MEDICATION PATIENTS SCHEDULED MEDICATION GIVEN PER ORDER. PATIENT PROVIDED WITH A SNACK REQUESTED ALONG WITH A CUP OF ICE. PATIENT EDUCATED HYDRAULIC BLOCKER LIGHT FOR ASSISTANCE. CALL LIGHT IS WITH HIM. NO OTHER NEEDS AT THIS TIME.
[2022-06-22 15:39] VITALS: BP_SYST 149
--- NOTE | 2022-06-22 16:08 | NUR ---
ORTHO Colin CUEVAS DR IS N CALL FOR DR SUE CARVAJAL . CONSULT IS REGARDING GANGRENE ON THE LEFT FOOT. SPOKE TO JANIYA.
[2022-06-22] MEDS: SOD FERRIC GLUC COMPLEX/SUC 125 MG in NS 100 ML IV SCH (16:29)
--- NOTE | 2022-06-22 16:39 | NUR ---
PATIENTS ACCU CHECK DONE COVERAGE GIVEN PER ORDER. PATIENT IS CURRENTLY EATING FOOD THAT THE FAMILY BROUGHT IN. PATIENTS SCHEDULED MEDICATION ALSO GIVEN PER ORDER. PATIENT IS VISITING WITH FAMILY. PATIENT HAS NO OTHER NEEDS AT THIS TIME. CALL LIGHT IS WITH HIM . EDUCATED TO USE FOR ASSISTANCE.
--- NOTE | 2022-06-22 18:48 | NUR ---
RN CLOSING NOTE PATIENTS MEDICATION GIVEN PER ORDER. PATIENTS URINAL EMPTIED. PATIENT HAS NO COMPLAINTS AT THIS TIME. CALL LIGHT IS WITH HIM EDUCATED TO USE CALL LIGHT FOR ASSISTANCE. PATIENT ALREADY HAS EATEN ALL HIS DINNER. NO OTHER NEEDS AT THIS TIME.
[2022-06-22 22:00] VITALS: BP_SYST 140
[2022-06-23] MEDS: PIPERACILLIN/TAZO 3.375 GM in NS 50 ML IV SCH ×4 (00:08→19:23)
[2022-06-23 00:59] VITALS: BP_SYST 158
--- NOTE | 2022-06-23 04:22 | NUR ---
PT RESTING IN BED, BS AT 2100 [id number], Dr Masters notified, 15 units of insulin R administered. IV antibiotics infusing as ordered
[2022-06-23 04:41] VITALS: BP_SYST 140
[2022-06-23] MEDS: VANCOMYCIN HCL 750 MG in NS 250 ML IV SCH ×3 (05:13→20:14)
[2022-06-23] MEDS: metroNIDAZOLE 500 MG TABLET PO SCH ×3 (06:21→21:46)
[2022-06-23] MEDS: INSULIN REGULAR, HUMAN 100 UNITS/ML, 3 ML VIAL (humuLIN R) SUBCUT PRN ×4 (06:37→21:48)
[2022-06-23 07:20] LABS: CALCIUM 8.5 mg/dL (8.4-11.0); CREATININE 0.86 mg/dL (0.55-1.30)
--- NOTE | 2022-06-23 07:45 | NUR ---
OPENING NOTE Patient resting in bed. A/O x 4, Lithuanian speaking. Patient Breathing even and unlabored on RA saturations at 98%. NO pain, no distress, no SOB. Patient on CCHO Diet. Patient has Midline, patent. Bed is locked in lowest position. Call light within reach, all needs met, will continue to monitor.
[2022-06-23 08:00] VITALS: BP_SYST 160
[2022-06-23] MEDS: ASCORBIC ACID 500 MG TABLET PO SCH (09:30)
[2022-06-23] MEDS: lisinopriL 20 MG TABLET PO SCH (09:31)
[2022-06-23] MEDS: MULTIVITAMINS TAB 1 TABLET PO SCH (09:31)
[2022-06-23] MEDS: HYDROcodone/ACETAMIN 5-325 MG TAB (NORCO/ VICODIN) PO PRN ×2 (09:32→17:00)
[2022-06-23] MEDS: BALSAM PERU/CASTOR OIL 56.7 GM OINT...G. TP SCH ×2 (09:32→21:00)
[2022-06-23] MEDS: ENOXAPARIN SODIUM 40 MG/0.4 ML SYRINGE SQ SCH (09:33)
--- NOTE | 2022-06-23 09:48 | NUR ---
MD Gerald Duarte ordered STAT Bilateral feet xray. Orders carried out.
[2022-06-23 12:15] VITALS: BP_SYST 159
--- NOTE | 2022-06-23 12:15 | NUR ---
ROUNDS: Patient resting in bed. Patient Breathing even and unlabored on RA saturations at 98%. NO pain, no distress, no SOB. Bed is locked in lowest position. Call light within reach, all needs met, will continue to monitor.
[2022-06-23 16:15] VITALS: BP_SYST 146
--- NOTE | 2022-06-23 16:15 | NUR ---
ROUNDS: Patient resting in bed. Patient Breathing even and unlabored on RA saturations at 98%. NO pain, no distress, no SOB. Wound Care done to bilateral feet and MD Duarte evaluated prior to wound care. Bed is locked in lowest position. Call light within reach, all needs met, will continue to monitor.
--- NOTE | 2022-06-23 19:05 | NUR ---
CLOSING NOTE Patient resting in bed. A/O x 4, Croatian speaking. Patient Breathing even and unlabored on RA saturations at 98%. NO pain, no distress, no SOB. Patient on CCHO Diet. Patient has Midline, patent. Bed is locked in lowest position. Call light within reach, all needs met, will endorse to nightshift nurse.
[2022-06-23] MEDS: SOD FERRIC GLUC COMPLEX/SUC 125 MG in NS 100 ML IV SCH (19:23)
[2022-06-23 20:11] VITALS: BP_SYST 118
[2022-06-24 00:51] VITALS: BP_SYST 140
[2022-06-24] MEDS: VANCOMYCIN HCL 750 MG in NS 250 ML IV SCH ×3 (03:40→21:48)
[2022-06-24] MEDS: BALSAM PERU/CASTOR OIL 56.7 GM OINT...G. TP SCH ×3 (03:45→21:50)
--- NOTE | 2022-06-24 04:55 | NUR ---
pt resting in bed, no acute distress noted. pt had one episode of loose brown stool.
[2022-06-24] MEDS: PIPERACILLIN/TAZO 3.375 GM in NS 50 ML IV SCH ×7 (06:06→23:29)
[2022-06-24] MEDS: metroNIDAZOLE 500 MG TABLET PO SCH ×3 (06:07→21:46)
[2022-06-24] MEDS: INSULIN REGULAR, HUMAN 100 UNITS/ML, 3 ML VIAL (humuLIN R) SUBCUT PRN ×4 (06:14→21:49)
[2022-06-24 06:51] LABS: BASOPHILS # (AUTO) 0.1 K/uL (0.0-0.2); BASOPHILS % (AUTO) 0.8 % (0.0-2.0); EOSINOPHILS # (AUTO) 0.3 K/uL (0.0-0.4); HEMATOCRIT 31.1 % (36-54); HEMOGLOBIN 10.6 g/dL (14.0-18.0); LYMPHOCYTES # (AUTO) 1.4 K/uL (1.0-5.5); LYMPHOCYTES % (AUTO) 21.5 % (20.5-51.5); MEAN CORPUSCULAR HEMOGLOBIN 27 pg (27-31); MEAN CORPUSCULAR HGB CONC 34 % (32-36); MEAN CORPUSCULAR VOLUME 80 fL (79.0-98.0); MONOCYTES # (AUTO) 0.5 K/uL (0.0-1.0); MONOCYTES % (AUTO) 7.4 % (1.7-9.3); NEUTROPHILS # (AUTO) 4.3 K/uL (1.8-7.7); NEUTROPHILS % (AUTO) 66.3 % (40.0-70.0); PLATELET COUNT (AUTO) 561 K/uL (130-430); RED BLOOD CELL COUNT(AUTO) 3.89 MIL/uL (4.2-6.2); RED CELL DISTRIBUTION WIDTH 16.3 % (9.0-15.0); WHITE BLOOD COUNT (AUTO) 6.5 K/uL (4.8-10.8)
[2022-06-24 07:30] LABS: ALBUMIN 1.9 g/dL (3.4-4.8); CALCIUM 8.6 mg/dL (8.4-11.0); CREATININE 0.84 mg/dL (0.55-1.30); TOTAL BILIRUBIN 0.2 mg/dL (0.0-1.0)
--- NOTE | 2022-06-24 07:54 | NUR ---
no acute distress overnight endorse care to am nurse
[2022-06-24] MEDS: ENOXAPARIN SODIUM 40 MG/0.4 ML SYRINGE SQ SCH (09:05)
[2022-06-24] MEDS: lisinopriL 20 MG TABLET PO SCH (09:05)
[2022-06-24] MEDS: ASCORBIC ACID 500 MG TABLET PO SCH (09:06)
[2022-06-24] MEDS: MULTIVITAMINS TAB 1 TABLET PO SCH (09:06)
[2022-06-24] MEDS: HYDROcodone/ACETAMIN 5-325 MG TAB (NORCO/ VICODIN) PO PRN ×2 (09:13→17:55)
[2022-06-24 12:00] VITALS: BP_SYST 142
[2022-06-24 16:37] VITALS: BP_SYST 141
[2022-06-24] MEDS: SOD FERRIC GLUC COMPLEX/SUC 125 MG in NS 100 ML IV SCH (17:43)
--- NOTE | 2022-06-24 19:20 | NUR ---
Handoff has been given to Chris
[2022-06-24 20:00] VITALS: BP_SYST 138
--- NOTE | 2022-06-24 22:30 | NUR ---
2229- Assumed care of patient at this time from BASSEM Perez. Patient asleep but easily arousable. Respirations even and unlabored. No SOB noted. Patient denies pain at this time. No acute distress noted. Will continue to monitor for safety. Shanthi Hartmann RN.
[2022-06-25] VITALS: BP_SYST 136
[2022-06-25 04:00] VITALS: BP_SYST 134
[2022-06-25] MEDS: VANCOMYCIN HCL 750 MG in NS 250 ML IV SCH ×3 (04:33→20:49)
[2022-06-25] MEDS: PIPERACILLIN/TAZO 3.375 GM in NS 50 ML IV SCH (06:00)
[2022-06-25] MEDS: metroNIDAZOLE 500 MG TABLET PO SCH ×3 (06:00→21:33)
[2022-06-25] MEDS: INSULIN REGULAR, HUMAN 100 UNITS/ML, 3 ML VIAL (humuLIN R) SUBCUT PRN ×4 (06:31→20:35)
[2022-06-25] MEDS: ASCORBIC ACID 500 MG TABLET PO SCH (08:53)
[2022-06-25] MEDS: ENOXAPARIN SODIUM 40 MG/0.4 ML SYRINGE SQ SCH (08:54)
[2022-06-25] MEDS: lisinopriL 20 MG TABLET PO SCH (08:54)
[2022-06-25] MEDS: MULTIVITAMINS TAB 1 TABLET PO SCH (08:54)
[2022-06-25] MEDS: BALSAM PERU/CASTOR OIL 56.7 GM OINT...G. TP SCH ×2 (08:55→20:49)
[2022-06-25] MEDS: HYDROcodone/ACETAMIN 5-325 MG TAB (NORCO/ VICODIN) PO PRN (09:00)
[2022-06-25] MEDS ORDERED: HYDROmorphone 1 MG/ML INJ. CARTRIDGE IVP PRN ×3 (11:00)
[2022-06-25] MEDS ORDERED: LORATADINE 10 MG TABLET PO PRN (11:00)
[2022-06-25] MEDS ORDERED: traMADol HCL HCL 50 MG TABLET (ULTRAM) PO PRN (11:00)
[2022-06-25] MEDS ORDERED: oxyCODONE HCL 5 MG TABLET PO PRN ×2 (11:00)
[2022-06-25] MEDS ORDERED: ceFAZolin SODIUM 2 GM in D5W 50 ML IV SCH (11:15)
[2022-06-25] MEDS ORDERED: NALOXONE HCL 0.4 MG/ML AMP (NARCAN) IVP PRN ×2 (11:30)
[2022-06-25] MEDS ORDERED: BISACODYL 10 MG/SUPPOSITORY RC PRN (11:30)
[2022-06-25] MEDS ORDERED: LACTULOSE 20 GM/30 ML UDC PO PRN (11:30)
[2022-06-25] MEDS ORDERED: DIPHENHYDRAMINE HCL 25 MG CAPSULE PO PRN (11:30)
[2022-06-25] MEDS ORDERED: METOCLOPRAMIDE HCL 10 MG/2 ML VIAL IVP PRN (11:30)
--- NOTE | 2022-06-25 11:31 | NUR ---
CONSULT ORTHO FOOT INFECTION DR BROWNLEE [phone] DR LOMBARDO SPOKE TO DR BROWNLEE HE IS AWARE OF CONSULT
[2022-06-25 11:37] VITALS: BP_SYST 145
[2022-06-25] MEDS ORDERED: ONDANSETRON HCL 4 MG/2 ML VIAL IVP PRN (11:45)
[2022-06-25] MEDS ORDERED: CLINDAMYCIN 600 MG in D5W 50 ML IV SCH (12:00)
[2022-06-25] MEDS: CLINDAMYCIN 600 mg/50mL D5W 50 ML IV SCH ×2 (12:23→18:56)
--- NOTE | 2022-06-25 12:44 | NUR ---
CONSULTATION: REASON FOR CONSULT: L FOOT INFECTION CONSULTING PHYSICIAN: NICHELLE DELUNA ORDERED BY: ZENA SPOKE WITH CHAYITO [phone]
[2022-06-25] MEDS ORDERED: ACETAMINOPHEN 500 MG TABLET PO SCH (14:00)
[2022-06-25] MEDS ORDERED: KETOROLAC TROMETHAMINE 10 MG TABLET (TORADOL) PO SCH (14:00)
--- NOTE | 2022-06-25 15:49 | NUR ---
CM: faxed HH/PT/wound care and iv meds referral to [facility] wilbert Bennett tel # [phone] fax # [phone]
[2022-06-25 16:12] VITALS: BP_SYST 152
--- NOTE | 2022-06-25 16:56 | NUR ---
P.T. NOTES P.T. EVAL COMPLETED; REFER TO EVAL FOR DETAILS.
[2022-06-25] MEDS: SOD FERRIC GLUC COMPLEX/SUC 125 MG in NS 100 ML IV SCH (17:48)
[2022-06-25 20:00] VITALS: BP_SYST 156
[2022-06-25] MEDS ORDERED: SENNOSIDES/DOCUSATE SODIUM 1 TAB TABLET(SENOKOT-S) PO SCH (21:00)
[2022-06-26] VITALS: BP_SYST 142
[2022-06-26] MEDS: CLINDAMYCIN 600 mg/50mL D5W 50 ML IV SCH ×4 (00:53→18:55)
[2022-06-26] MEDS: VANCOMYCIN HCL 750 MG in NS 250 ML IV SCH ×3 (04:19→23:00)
[2022-06-26] MEDS: metroNIDAZOLE 500 MG TABLET PO SCH ×2 (06:36→17:16)
[2022-06-26] MEDS: INSULIN REGULAR, HUMAN 100 UNITS/ML, 3 ML VIAL (humuLIN R) SUBCUT PRN ×2 (06:36→12:14)
[2022-06-26 08:00] VITALS: BP_SYST 151
[2022-06-26] MEDS ORDERED: ASPIRIN 81 MG TAB.CHEW PO SCH (09:00)
[2022-06-26] MEDS ORDERED: DECADRON 4 MG TABLET PO SCH (09:00)
[2022-06-26] MEDS: ENOXAPARIN SODIUM 40 MG/0.4 ML SYRINGE SQ SCH (09:00)
[2022-06-26 09:16] LABS: CALCIUM 8.7 mg/dL (8.4-11.0); CREATININE 1.06 mg/dL (0.55-1.30); TOTAL BILIRUBIN 0.2 mg/dL (0.0-1.0)
[2022-06-26 10:03] LABS: BASOPHILS # (AUTO) 0.1 K/uL (0.0-0.2); EOSINOPHILS # (AUTO) 0.2 K/uL (0.0-0.4); EOSINOPHILS % (AUTO) 2.8 % (0.0-4.0); HEMATOCRIT 33.3 % (36-54); HEMOGLOBIN 10.9 g/dL (14.0-18.0); LYMPHOCYTES # (AUTO) 1.2 K/uL (1.0-5.5); LYMPHOCYTES % (AUTO) 18.8 % (20.5-51.5); MEAN CORPUSCULAR HEMOGLOBIN 27 pg (27-31); MEAN CORPUSCULAR HGB CONC 33 % (32-36); MEAN CORPUSCULAR VOLUME 81 fL (79.0-98.0); MONOCYTES # (AUTO) 0.4 K/uL (0.0-1.0); MONOCYTES % (AUTO) 5.5 % (1.7-9.3); NEUTROPHILS # (AUTO) 4.7 K/uL (1.8-7.7); NEUTROPHILS % (AUTO) 71.9 % (40.0-70.0); PLATELET COUNT (AUTO) 521 K/uL (130-430); RED CELL DISTRIBUTION WIDTH 17.2 % (9.0-15.0); WHITE BLOOD COUNT (AUTO) 6.6 K/uL (4.8-10.8)
[2022-06-26] MEDS: BALSAM PERU/CASTOR OIL 56.7 GM OINT...G. TP SCH ×2 (10:44→23:00)
[2022-06-26] MEDS ORDERED: CELECOXIB 200 MG CAPSULE PO SCH (11:00)
[2022-06-26 12:00] VITALS: BP_SYST 164
[2022-06-26] MEDS: ASCORBIC ACID 500 MG TABLET PO SCH (17:16)
[2022-06-26] MEDS: MULTIVITAMINS TAB 1 TABLET PO SCH (17:16)
[2022-06-26] MEDS: lisinopriL 20 MG TABLET PO SCH (17:17)
--- NOTE | 2022-06-26 17:45 | NUR ---
A/Ox4,vss,ambulatory with walker,wounds in both feet with dressing on dry and intact surgery postponed today because pt had breakfast this am,will keep pt NPO after midnight as per dr order.give IV antibiotics due,no adverse reactions noted.needs attended,call light & personal items within pt reach,safety maintained.continue to monitor pt.
[2022-06-26 20:00] VITALS: BP_SYST 168
[2022-06-27] MEDS: metroNIDAZOLE 500 MG TABLET PO SCH ×4 (00:09→21:37)
[2022-06-27] MEDS: INSULIN REGULAR, HUMAN 100 UNITS/ML, 3 ML VIAL (humuLIN R) SUBCUT PRN ×5 (01:07→21:47)
[2022-06-27 01:12] VITALS: BP_SYST 143
[2022-06-27] MEDS: CLINDAMYCIN 600 mg/50mL D5W 50 ML IV SCH ×4 (07:45→19:14)
[2022-06-27] MEDS: VANCOMYCIN HCL 750 MG in NS 250 ML IV SCH ×3 (07:46→21:37)
[2022-06-27 08:00] VITALS: BP_SYST 152
[2022-06-27] MEDS: BALSAM PERU/CASTOR OIL 56.7 GM OINT...G. TP SCH ×2 (09:00→21:48)
[2022-06-27] MEDS: lisinopriL 20 MG TABLET PO SCH (09:05)
[2022-06-27 10:02] LABS: INR 1.1 (0.80-1.20); PROTHROMBIN TIME 11.4 SECS (9.5-12.5)
--- NOTE | 2022-06-27 12:08 | NUR ---
RN MEDICALLY CLEARED PATIENT FOR PT, HOWEVER PATIENT REFUSED TREATMENT. PATIENT REPORTS FEELING REALLY TIRED TODAY.
[2022-06-27 12:23] VITALS: BP_SYST 134
[2022-06-27] MEDS ORDERED: PROPOFOL 200MG/ 20ML VIAL (DIPRIVAN) IV ONE (12:40)
[2022-06-27] MEDS ORDERED: NS 1000 ML IV.SOLN IV ONE (12:40)
[2022-06-27] MEDS ORDERED: fentaNYL CITRATE/PF 100 MCG/2 ML AMP ONE (12:40)
[2022-06-27] MEDS ORDERED: SEVOFLURANE 15 MIN GAS INH ONE (12:40)
[2022-06-27] MEDS ORDERED: NS IRRIG SOLN 1000 ML IR ONE (12:40)
[2022-06-27 12:46] LABS: BILIRUBIN,URINE NEGATIVE (NEGATIVE); BLOOD, URINE NEGATIVE (NEGATIVE); CLARITY/URINE CLEAR (CLEAR); COLOR,URINE YELLOW (YELLOW); GLUCOSE,URINE 2+ (NEGATIVE); KETONES,URINE NEGATIVE (NEGATIVE); LEUKOCYTE ESTERASE ,URINE NEGATIVE (NEGATIVE); NITRITE, URINE NEGATIVE (NEGATIVE); PROTEIN URINE 2+ (NEGATIVE); UROBILINOGEN,URINE 0.2 (0.2-1.0)
[2022-06-27 13:32] LABS: BACTERIA,URINE RARE /HPF (None Seen); MUCUS,URINE 1+ /LPF (None Seen); RBC,URINE 0-3 /HPF (0-3); WBC,URINE 0-3 /HPF (0-3)
--- NOTE | 2022-06-27 14:18 | NUR ---
CM: upon discharge please sent the IV abx order to Sabrina at [facility] fax # [phone], tel # [phone]. Home health is being arranged by Sabrina : [facility] ( associated with [facility]) Sabrina will call back with the accepting agency.
[2022-06-27] MEDS: ASCORBIC ACID 500 MG TABLET PO SCH (17:01)
[2022-06-27] MEDS: MULTIVITAMINS TAB 1 TABLET PO SCH (17:01)
[2022-06-27] MEDS: HYDROcodone/ACETAMIN 5-325 MG TAB (NORCO/ VICODIN) PO PRN (17:01)
[2022-06-27] MEDS: ENOXAPARIN SODIUM 40 MG/0.4 ML SYRINGE SQ SCH (17:06)
[2022-06-27 17:15] VITALS: BP_SYST 159
--- NOTE | 2022-06-27 18:09 | NUR ---
P.T. NOTES P.T. RE EVAL COMPLETED; REFER TO EVAL FOR DETAILS.
--- NOTE | 2022-06-27 18:20 | NUR ---
pt A/Ox4,S/P left foot I & D,dressing in left foot clean,dry and intact,BP elevated to 159/97 c/o pain in left foot.give norco 1 tab po as prn order for pain,continue IV antibiotic as per order,midline in left upper arm patent and intact.resumed diet per order.pt tolerated well no n/v.needs attended,call light & personal items within pt reach,safety maintained continue to monitor pt.
[2022-06-27 20:00] VITALS: BP_SYST 142
[2022-06-28] MEDS: CLINDAMYCIN 600 mg/50mL D5W 50 ML IV SCH ×4 (00:50→19:00)
[2022-06-28] MEDS: VANCOMYCIN HCL 750 MG in NS 250 ML IV SCH ×3 (05:46→21:10)
[2022-06-28] MEDS: metroNIDAZOLE 500 MG TABLET PO SCH ×3 (06:02→22:36)
[2022-06-28] MEDS: INSULIN REGULAR, HUMAN 100 UNITS/ML, 3 ML VIAL (humuLIN R) SUBCUT PRN ×4 (06:09→21:23)
[2022-06-28 08:03] LABS: BASOPHILS # (AUTO) 0.1 K/uL (0.0-0.2); BASOPHILS % (AUTO) 1.2 % (0.0-2.0); EOSINOPHILS # (AUTO) 0.3 K/uL (0.0-0.4); EOSINOPHILS % (AUTO) 4.8 % (0.0-4.0); HEMATOCRIT 31.8 % (36-54); HEMOGLOBIN 10.8 g/dL (14.0-18.0); LYMPHOCYTES # (AUTO) 1.6 K/uL (1.0-5.5); LYMPHOCYTES % (AUTO) 22.8 % (20.5-51.5); MEAN CORPUSCULAR HEMOGLOBIN 27 pg (27-31); MEAN CORPUSCULAR HGB CONC 34 % (32-36); MEAN CORPUSCULAR VOLUME 80 fL (79.0-98.0); MONOCYTES # (AUTO) 0.5 K/uL (0.0-1.0); MONOCYTES % (AUTO) 6.6 % (1.7-9.3); NEUTROPHILS # (AUTO) 4.4 K/uL (1.8-7.7); NEUTROPHILS % (AUTO) 64.6 % (40.0-70.0); PLATELET COUNT (AUTO) 488 K/uL (130-430); RED BLOOD CELL COUNT(AUTO) 3.97 MIL/uL (4.2-6.2); WHITE BLOOD COUNT (AUTO) 6.9 K/uL (4.8-10.8)
[2022-06-28 08:33] LABS: CALCIUM 8.6 mg/dL (8.4-11.0); CREATININE 1.01 mg/dL (0.55-1.30)
[2022-06-28] MEDS: ASCORBIC ACID 500 MG TABLET PO SCH (09:43)
[2022-06-28] MEDS: lisinopriL 20 MG TABLET PO SCH (09:47)
[2022-06-28] MEDS: ENOXAPARIN SODIUM 40 MG/0.4 ML SYRINGE SQ SCH (09:47)
[2022-06-28] MEDS: MULTIVITAMINS TAB 1 TABLET PO SCH (09:47)
[2022-06-28] MEDS: BALSAM PERU/CASTOR OIL 56.7 GM OINT...G. TP SCH ×2 (09:47→21:00)
[2022-06-28 10:57] VITALS: BP_SYST 142
[2022-06-28 11:23] VITALS: BP_SYST 148
[2022-06-28 16:37] VITALS: BP_SYST 165
[2022-06-28 20:00] VITALS: BP_SYST 117
[2022-06-28] MEDS ORDERED: INSULIN GLARGINE 100 UNITS/ML, 10 ML VIAL SUBCUT SCH (21:00)
[2022-06-29] VITALS: BP_SYST 121
[2022-06-29] MEDS ORDERED: CLINDAMYCIN 600 mg/50mL D5W 100 ML IV ONE (01:58)
[2022-06-29] MEDS: CLINDAMYCIN 600 mg/50mL D5W 50 ML IV SCH ×3 (02:08→13:00)
[2022-06-29 04:00] VITALS: BP_SYST 119
[2022-06-29] MEDS: VANCOMYCIN HCL 750 MG in NS 250 ML IV SCH (05:48)
[2022-06-29] MEDS: metroNIDAZOLE 500 MG TABLET PO SCH ×3 (05:48→21:11)
[2022-06-29 08:00] VITALS: BP_SYST 155
[2022-06-29] MEDS: lisinopriL 20 MG TABLET PO SCH (08:39)
[2022-06-29] MEDS: MULTIVITAMINS TAB 1 TABLET PO SCH (08:39)
[2022-06-29] MEDS: BALSAM PERU/CASTOR OIL 56.7 GM OINT...G. TP SCH ×2 (08:40→21:11)
[2022-06-29] MEDS: ENOXAPARIN SODIUM 40 MG/0.4 ML SYRINGE SQ SCH (08:40)
[2022-06-29] MEDS: ASCORBIC ACID 500 MG TABLET PO SCH (08:40)
[2022-06-29 11:30] VITALS: BP_SYST 146
[2022-06-29] MEDS ORDERED: LIDOCAINE JECT 2% PF 100 MG/5ML SYRINGE ONE (12:20)
[2022-06-29] MEDS ORDERED: fentaNYL CITRATE/PF 100 MCG/2 ML AMP ONE (12:20)
[2022-06-29] MEDS ORDERED: ONDANSETRON HCL 4 MG/2 ML VIAL ONE (12:20)
[2022-06-29] MEDS ORDERED: SEVOFLURANE 15 MIN GAS INH ONE (12:20)
[2022-06-29] MEDS ORDERED: PROPOFOL 200MG/ 20ML VIAL (DIPRIVAN) IV ONE (12:20)
[2022-06-29] MEDS ORDERED: NS 1000 ML IV.SOLN IV ONE (12:20)
[2022-06-29] MEDS ORDERED: MIDAZOLAM HCL 5 MG/5 ML VIAL ONE (12:20)
[2022-06-29] MEDS ORDERED: NS IRRIG SOLN 1000 ML IR ONE (12:20)
[2022-06-29] MEDS ORDERED: ACETAMINOPHEN I.V. 1000 MG 100 ML IV ONE (13:06)
[2022-06-29] MEDS ORDERED: hydrALAZINE HCL 20 MG/ML VIAL IVP PRN (13:15)
[2022-06-29] MEDS ORDERED: LABETALOL 100 MG/ 20ML VIAL IVP PRN (13:15)
[2022-06-29] MEDS ORDERED: NACL 0.9% 1,000 ML IV SCH (13:15)
[2022-06-29] MEDS ORDERED: MEPERIDINE HCL/PF 25 MG/ML DISP.SYRIN IVP PRN (13:15)
[2022-06-29] MEDS ORDERED: METOCLOPRAMIDE HCL 10 MG/2 ML VIAL IVP PRN (13:15)
[2022-06-29] MEDS ORDERED: HYDROmorphone 1 MG/ML INJ. CARTRIDGE IVP PRN ×2 (13:15)
[2022-06-29 14:36] VITALS: BP_SYST 140
[2022-06-29] MEDS: INSULIN REGULAR, HUMAN 100 UNITS/ML, 3 ML VIAL (humuLIN R) SUBCUT PRN ×2 (17:15→20:35)
[2022-06-29] MEDS: ERTAPENEM SODIUM 1 GM in NS 50 ML IV SCH (17:42)
[2022-06-29 19:00] VITALS: BP_SYST 140
--- NOTE | 2022-06-29 20:00 | NUR ---
PATIENT IS ALERT AND VERBALLY RESPONSIVE. A&O X4 ABLE TO MAKE NEEDS KNOWN. ADMITTED WITH DX:BILATERAL FOOT CELLULITIS (ESBL PROTEUS) AND RIGHT FOOT OSTEOMYELITIS. PATIENT HAS HX:DM 2, PVD, CHARAT FOOT, AMPUTATION OF BOTH BIG TOES, AND HTN. PATIENT IS STABLE AND AFEBRILE. S/P I&D L FOOT ULCER- WOUND DEBRIDEMENT AND GRAFT PLACEMENT PERFORMED BY DR. BROWNLEE. PATIENT LEFT FOOT CURRENTLY BANDAGED WITH KERLEX AND ZAINA WRAP. PATIENT CURRENTLY DENIES PAIN. PATIENT CONTINUED ON IV ATB ORDERED. NO ADVERSE REACTIONS NOTED. PATIENT BS CONTINUED TO BE MONITORED ORDERED. PATIENT HAS HX NON COMPLIANCE WITH DIABETIC DIET. DM DIET TEACHING PROVIDED. PATIENT VERBALIZED UNDERSTANDING. PATIENT ASSISTED WITH TOILETING. IV SITE CLEAN DRY AND INTACT. IV DRSG CLEAN, DRY,AND INTACT. BREATHING EVEN AND NON LABORED. NO SOB/DYSPNEA. NO S/S RESPIRATORY DISTRESS. PATIENT WITH GENERALIZED WEAKNESS ABLE TO MOVE EXTREMITIES. ALL NEEDS MET. CALL LIGHT IN REACH. SAFETY MEASURES OBSERVED. BED LOCKED IN LOWEST POSITION. VS WNL. CONTINUE PLAN OF CARE.
[2022-06-29] MEDS: INSULIN GLARGINE 100 UNITS/ML, 10 ML VIAL SUBCUT SCH (20:30)
[2022-06-29] MEDS: VANCOMYCIN HCL 1,000 MG in NS 250 ML IV SCH (22:06)
--- NOTE | 2022-06-29 22:29 | NUR ---
PATIENT NOTED WITH BMG FOR BG CHECK 2100 BEDTIME. PATIENT STATED REASON IS DUE TO POST MEAL. PATIENT HAS HISTORY OF NON COMPLIANCE WITH DIET. MD NOTIFIED AND INSULIN PER SLIDING SCALE WAS ADMINISTERED 12 UNITS FOR BEDTIME PER SLIDING SCALE. MD STATED TO CONTINUE TO MONITOR BG AND NOTIFY AGAIN IF STILL ABOVE 400. BG WAS JUST RECHECKED AND CURRENTLY 297mg/dl. PATIENT ASYMPTOMATIC AT THIS TIME. DENIES POLYURIA, POLYDYSPIA, AND POLYPHAGIA. PATIENT EDUCATED IMPORTANCE OF MAINTAINING CCHO DIET. PATIENT VERBALIZED UNDERSTANDING. PATIENT IN BED RESTING STABLE AND COMFORTABLE. ALL NEEDS MET. DENIES PAIN. CONTINUE PLAN OF CARE. CALL LIGHT IN REACH.
[2022-06-30 00:17] VITALS: BP_SYST 148
[2022-06-30 04:00] VITALS: BP_SYST 136
[2022-06-30] MEDS: metroNIDAZOLE 500 MG TABLET PO SCH ×3 (06:21→20:40)
[2022-06-30] MEDS: INSULIN REGULAR, HUMAN 100 UNITS/ML, 3 ML VIAL (humuLIN R) SUBCUT PRN ×4 (06:22→22:00)
[2022-06-30] MEDS: VANCOMYCIN HCL 1,000 MG in NS 250 ML IV SCH ×2 (09:00→20:35)
[2022-06-30] MEDS: ASCORBIC ACID 500 MG TABLET PO SCH (09:46)
[2022-06-30] MEDS: MULTIVITAMINS TAB 1 TABLET PO SCH (09:46)
[2022-06-30] MEDS: ENOXAPARIN SODIUM 40 MG/0.4 ML SYRINGE SQ SCH (09:47)
[2022-06-30] MEDS: lisinopriL 20 MG TABLET PO SCH (09:47)
[2022-06-30] MEDS: INSULIN GLARGINE 100 UNITS/ML, 10 ML VIAL SUBCUT SCH ×2 (09:50→21:57)
[2022-06-30] MEDS: BALSAM PERU/CASTOR OIL 56.7 GM OINT...G. TP SCH ×2 (09:52→21:00)
[2022-06-30 11:38] VITALS: BP_SYST 157
--- NOTE | 2022-06-30 13:12 | NUR ---
PAGED DR GARRISON TO NOTIFY WOUND CULTURE REPORT. WAITING FOR CALL BACK
--- NOTE | 2022-06-30 15:21 | NUR ---
CALLED REGARDING PATIENTS CONTACT ISOLATION STATUS. ESBL IN WOUND POSITIVE. PENDING CALL BACK.
[2022-06-30] MEDS: ERTAPENEM SODIUM 1 GM in NS 50 ML IV SCH (16:31)
[2022-06-30 16:50] VITALS: BP_SYST 158
[2022-06-30 20:00] VITALS: BP_SYST 149
--- NOTE | 2022-06-30 23:44 | NUR ---
Patient in bed. No acute distress noted No complaint of pain or discomfort. Will continue to monitor.
[2022-07-01 00:46] VITALS: BP_SYST 174
[2022-07-01] MEDS: metroNIDAZOLE 500 MG TABLET PO SCH ×3 (04:45→22:11)
[2022-07-01] MEDS: INSULIN REGULAR, HUMAN 100 UNITS/ML, 3 ML VIAL (humuLIN R) SUBCUT PRN ×4 (05:21→21:27)
[2022-07-01] MEDS: BALSAM PERU/CASTOR OIL 56.7 GM OINT...G. TP SCH ×2 (09:00→21:00)
--- NOTE | 2022-07-01 09:15 | NUR ---
INITIAL ROUNDS Received pt AAOx4, pt on contact isolation precautions for ESBL of the wound, no s/s resp distress, c/o pain 10/20 to left foot-pt declined any pain medication at this time, stated it "was tolerable". Pt's left foot with dressing clean, dry and intact-noted small area of dry drainage on bottom of foot. Bilat heels off-loaded. Noted dressing to bottom of right foot clean, dry and intact. Plan of care for the day reviewed with pt-pt verbalized his understanding. pain management, disease process, skin and safety discussed-teach back done. Side rails up x3, bed alarm on and room close to nursing station for safety. Call light within reach.
[2022-07-01 09:20] VITALS: BP_SYST 158
[2022-07-01] MEDS: ASCORBIC ACID 500 MG TABLET PO SCH (09:53)
[2022-07-01] MEDS: lisinopriL 20 MG TABLET PO SCH (09:54)
[2022-07-01] MEDS: MULTIVITAMINS TAB 1 TABLET PO SCH (09:54)
[2022-07-01] MEDS: ENOXAPARIN SODIUM 40 MG/0.4 ML SYRINGE SQ SCH (09:55)
[2022-07-01] MEDS: INSULIN GLARGINE 100 UNITS/ML, 10 ML VIAL SUBCUT SCH ×2 (09:57→21:26)
[2022-07-01 11:51] VITALS: BP_SYST 149
[2022-07-01] MEDS: VANCOMYCIN HCL 1,000 MG in NS 250 ML IV SCH ×2 (12:37→21:15)
[2022-07-01 17:22] VITALS: BP_SYST 134
[2022-07-01] MEDS: ERTAPENEM SODIUM 1 GM in NS 50 ML IV SCH (18:03)
--- NOTE | 2022-07-01 19:30 | NUR ---
OPENING NOTES Patient resting in bed - no s/s pain or distress noted. Respirations even and unlabored - head of bed elevated. IV site patent - no s/s redness, infection, or infiltration. Bed locked and in lowest position. Call light within reach.
[2022-07-01 20:00] VITALS: BP_SYST 125
[2022-07-02 01:03] VITALS: BP_SYST 124
[2022-07-02] MEDS: metroNIDAZOLE 500 MG TABLET PO SCH ×3 (06:34→21:56)
[2022-07-02] MEDS: INSULIN REGULAR, HUMAN 100 UNITS/ML, 3 ML VIAL (humuLIN R) SUBCUT PRN ×4 (06:41→22:01)
[2022-07-02 07:00] VITALS: BP_SYST 128; BP_SYST 138
--- NOTE | 2022-07-02 07:48 | NUR ---
CLOSING NOTES Patient resting in bed - no s/s pain or distress noted. Respirations even and unlabored - head of bed elevated. IV site patent - no s/s redness, infection, or infiltration. Bed locked and in lowest position. Call light within reach. at approx 0630 patient blood sugar 473. a this time dr. thomas notified - orders lantus 15u BID - changed from lantus 10u BID.
[2022-07-02 08:00] VITALS: BP_SYST 128
[2022-07-02] MEDS: lisinopriL 20 MG TABLET PO SCH (08:23)
[2022-07-02] MEDS: HYDROcodone/ACETAMIN 5-325 MG TAB (NORCO/ VICODIN) PO PRN ×2 (08:23→15:29)
[2022-07-02] MEDS: VANCOMYCIN HCL 1,000 MG in NS 250 ML IV SCH ×2 (08:23→08:25)
[2022-07-02] MEDS: ENOXAPARIN SODIUM 40 MG/0.4 ML SYRINGE SQ SCH (08:24)
[2022-07-02] MEDS: ASCORBIC ACID 500 MG TABLET PO SCH (08:24)
[2022-07-02] MEDS: BALSAM PERU/CASTOR OIL 56.7 GM OINT...G. TP SCH ×2 (08:25→21:55)
[2022-07-02] MEDS: MULTIVITAMINS TAB 1 TABLET PO SCH (08:26)
[2022-07-02] MEDS: INSULIN GLARGINE 100 UNITS/ML, 10 ML VIAL SUBCUT SCH ×2 (08:34→21:59)
[2022-07-02] MEDS: LINEZOLID 300 ML IV SCH (12:07)
[2022-07-02 15:56] VITALS: BP_SYST 133
--- NOTE | 2022-07-02 16:05 | NUR ---
PHYSICAL THERAPY CO-SIGN The Physical Therapy Progress Notes documented by Full Charge Bookkeeper have been reviewed. Reviewed/Co-Signed by: David Salas Documentation Done by:DANAY AWAN Addendum: 07/02/22 at 1605 by David Salas PT Amended: Links added.
--- NOTE | 2022-07-02 17:14 | NUR ---
DR. WILCOX PAGED
[2022-07-02] MEDS: ERTAPENEM SODIUM 1 GM in NS 50 ML IV SCH (17:31)
[2022-07-02 20:00] VITALS: BP_SYST 141
[2022-07-03] VITALS: BP_SYST 132; BP_SYST 135
[2022-07-03] MEDS: LINEZOLID 300 ML IV SCH ×2 (00:16→12:07)
[2022-07-03] MEDS: metroNIDAZOLE 500 MG TABLET PO SCH ×3 (06:09→21:03)
[2022-07-03] MEDS: INSULIN REGULAR, HUMAN 100 UNITS/ML, 3 ML VIAL (humuLIN R) SUBCUT PRN ×4 (06:13→21:04)
[2022-07-03 08:00] VITALS: BP_SYST 155
[2022-07-03] MEDS: INSULIN GLARGINE 100 UNITS/ML, 10 ML VIAL SUBCUT SCH ×2 (08:28→21:06)
[2022-07-03] MEDS: MULTIVITAMINS TAB 1 TABLET PO SCH (08:31)
[2022-07-03] MEDS: ASCORBIC ACID 500 MG TABLET PO SCH (08:31)
[2022-07-03] MEDS: ENOXAPARIN SODIUM 40 MG/0.4 ML SYRINGE SQ SCH (08:32)
[2022-07-03] MEDS: lisinopriL 20 MG TABLET PO SCH (08:32)
[2022-07-03] MEDS: BALSAM PERU/CASTOR OIL 56.7 GM OINT...G. TP SCH ×2 (09:00→21:06)
[2022-07-03 12:00] VITALS: BP_SYST 148
--- NOTE | 2022-07-03 15:28 | NUR ---
PATIENT REFUSED PT TREATMENT TODAY STATING HE IS ALREADY WALKING AROUND HIS ROOM INDEPENDENTLY. RN NOTED.
[2022-07-03 16:00] VITALS: BP_SYST 145
[2022-07-03] MEDS: ERTAPENEM SODIUM 1 GM in NS 50 ML IV SCH (17:11)
[2022-07-03] MEDS: HYDROcodone/ACETAMIN 5-325 MG TAB (NORCO/ VICODIN) PO PRN (17:15)
--- NOTE | 2022-07-03 17:20 | NUR ---
pt a&o. vss. c/o mild pain but only one prn dose of pain meds requested at 1700. pt ambulatory, independent. spoke with dr. box - he will come to undress foot tomorrow 07/04. case management order placed for post op boot per md request. glucose levels remain elevated in 300s - insulin given as ordered.
--- NOTE | 2022-07-03 18:31 | NUR ---
Social Service Assessment: Met with patient at bedside to complete a social service, case management assessment. The patient is alert and oriented. per patient, he resides in a two-story home with his son and his son's mother. He states he was using no assistive devices prior to his admission here to the hospital. He was independent with his care needs and still able to drive. The patient does not have a Power of Spout Liner. His PCP is Dr. Betts in [place]. The patient states his biggest support is from his family. The discharge plan is to return home with family. The patient was advised that prior to discharge, he will be assessed for appropriate needs and services. The patient is in agreement to the discharge plan. At time of discharge, the patient states he will drive himself home. Prior to leaving the room, I inquired about the possible need for IV Antibiotics at home through home health for 6 wks. Per patient, he has had home health IV Antibiotics in the past, but is unsure of the agency that was providing him services. I inquired with the patient if he or someone in his household is able to be educated by the home health nurse on how to administer his IV Antibiotic on the days that the home health nurse is not out to the the home. Per patient, he is familiar with how to administer his antibiotics and can be taught, as he has had to do it in the past. As to DME, the patient indicated that he is in need of a specialized boot for his L foot and will possible need a FWW. I advised him that case management will work on appropriate and necessary equipment prior to discharge. Addendum: 07/03/22 at 1846 by Hayley TRINIDAD Amended: Links added.
[2022-07-03 20:00] VITALS: BP_SYST 140
--- NOTE | 2022-07-03 21:45 | NUR ---
pt bs 391. covered with insulin sliding scale and scheduled lantus. offered pt a snack. pt refused. will check pt bs in am as scheduled
[2022-07-04] VITALS: BP_SYST 143
[2022-07-04] MEDS: LINEZOLID 300 ML IV SCH ×2 (00:09→11:45)
[2022-07-04] MEDS: metroNIDAZOLE 500 MG TABLET PO SCH ×2 (06:04→13:51)
[2022-07-04] MEDS: INSULIN REGULAR, HUMAN 100 UNITS/ML, 3 ML VIAL (humuLIN R) SUBCUT PRN ×4 (06:06→22:04)
--- NOTE | 2022-07-04 06:19 | NUR ---
pt bs 265. covered with 6 units. pt denied wanting any food at this time
[2022-07-04 06:52] VITALS: BP_SYST 143
[2022-07-04 08:40] VITALS: BP_SYST 136
[2022-07-04] MEDS: MULTIVITAMINS TAB 1 TABLET PO SCH (10:30)
[2022-07-04] MEDS: lisinopriL 20 MG TABLET PO SCH (10:31)
[2022-07-04] MEDS: ENOXAPARIN SODIUM 40 MG/0.4 ML SYRINGE SQ SCH (10:31)
[2022-07-04] MEDS: ASCORBIC ACID 500 MG TABLET PO SCH (10:31)
[2022-07-04] MEDS: INSULIN GLARGINE 100 UNITS/ML, 10 ML VIAL SUBCUT SCH ×2 (10:35→22:04)
[2022-07-04] MEDS: HYDROcodone/ACETAMIN 5-325 MG TAB (NORCO/ VICODIN) PO PRN (10:36)
[2022-07-04] MEDS: BALSAM PERU/CASTOR OIL 56.7 GM OINT...G. TP SCH ×2 (10:36→22:08)
--- NOTE | 2022-07-04 11:21 | NUR ---
SPOKE TO DR BROWNLEE RE-CLEARANCE FOR DISCHARGE SPOKE TO DR BROWNLEE RE CLEARANCE FOR DISCHARGE, HE SAID HE WILL COME HERE TODAY TO DO THE DRESSING CHANGE ON HIS FOOT, DRESSING CHANGE NEEDS TO BE DONE BY DR BROWNLEE, SURGERY HAS GRAFT THAT NEEDS TO BE VERY CAREFUL TO DRESS THE SURGICAL WOUND.
--- NOTE | 2022-07-04 11:39 | NUR ---
RN MEDICALLY CLEARED PATIENT FOR PT, HOWEVER PATIENT CONTINUES TO REFUSE TREATMENT PATIENT REPORTS BEING INDEPENDENT.
[2022-07-04 12:24] VITALS: BP_SYST 138
--- NOTE | 2022-07-04 13:35 | NUR ---
Nutrition F/U RD reviewed pts current EMR including diet hx, physician notes, nursing notes, pertinent labs/meds/procedures, care trends and care activity. Short note d/t high workload Subjective Information Pt f/u late d/t info @ [facility] meetings saying pt would be DC daily. Pt visit deferred d/ to high workload. Per EMR review: pt eating very well, avg of 97%; abd soft, non-distended,w/ active bowel sounds; Juan: 20; no noted edema 07/04; Edy is being given and documented. Pt is meeting nutritional needs at this time. Current Diet Order/Nutrition Support Consistent CHO x 5 days % PO intake Good avg of 97% x 9 meals Last BM 07/03 x 1 Estimated Energy Expenditure (kcals/day) 9529-7534 kcal (20-25 kcal/kg CBW d/t BMI overwt) Estimated Protein Required (g/day) 107-134 g (1.2-1.5 g/kg d/t ft wounds in both feet) Estimated Fluid Required (l/day) 1.8L-2.2L (1 mL/kcal maintenance) Problem/Etiology/Signs/Symptoms * Increased protein needs R/T metabolic demands AEB wounds in both feet & est. needs for wound healing Expected Outcomes/Goals * Monitor BM regime, wounds in both feet, and Glucose levels. Dietitian Recommendations * [facility] * Contine Edy BID Follow up *Low risk: see pt in 7 days GS, MPH, RD
--- NOTE | 2022-07-04 13:36 | NUR ---
Dietitian Recommendations * Continue [facility] diet * Jayden INFANTE, MPH, RD Please refer to Nutrition F/U for further details. Thanks!
[2022-07-04] MEDS: ERTAPENEM SODIUM 1 GM in NS 50 ML IV SCH (16:53)
[2022-07-04 17:01] VITALS: BP_SYST 137
[2022-07-04 20:00] VITALS: BP_SYST 125
--- NOTE | 2022-07-04 20:00 | NUR ---
Opening note- pt awake and oriented. ambulatory. Left foot and Rt foot dressing intact. No s/sx of bleeding. Denied any pain.
[2022-07-05] MEDS: LINEZOLID 300 ML IV SCH ×3 (00:46→23:32)
[2022-07-05 00:56] VITALS: BP_SYST 101
[2022-07-05 06:52] LABS: EOSINOPHILS # (AUTO) 0.3 K/uL (0.0-0.4); EOSINOPHILS % (AUTO) 5.2 % (0.0-4.0); HEMATOCRIT 35.9 % (36-54); HEMOGLOBIN 12.2 g/dL (14.0-18.0); LYMPHOCYTES # (AUTO) 2.2 K/uL (1.0-5.5); MEAN CORPUSCULAR HEMOGLOBIN 28 pg (27-31); MEAN CORPUSCULAR HGB CONC 34 % (32-36); MEAN CORPUSCULAR VOLUME 82 fL (79.0-98.0); MONOCYTES # (AUTO) 0.6 K/uL (0.0-1.0); MONOCYTES % (AUTO) 8.5 % (1.7-9.3); PLATELET COUNT (AUTO) 482 K/uL (130-430); RED BLOOD CELL COUNT(AUTO) 4.37 MIL/uL (4.2-6.2); RED CELL DISTRIBUTION WIDTH 19.7 % (9.0-15.0); WHITE BLOOD COUNT (AUTO) 6.5 K/uL (4.8-10.8)
[2022-07-05 07:37] LABS: CREATININE 1.39 mg/dL (0.55-1.30)
[2022-07-05 07:49] LABS: BASOPHILS % (AUTO) 0.4 % (0.0-2.0); NEUTROPHILS # (AUTO) 3.4 K/uL (1.8-7.7); NEUTROPHILS % (AUTO) 51.9 % (40.0-70.0)
[2022-07-05 08:00] VITALS: BP_SYST 100
--- NOTE | 2022-07-05 08:00 | NUR ---
OPENING NOTES ALERT AND ORIENTED. DENIES ANY PAIN OR SHORTNESS OF BREATH ON ROOM AIR. MIDLINE ON LEFT ARM INTACT. SAFETY CHECKS DONE. CALL LIGHT WITHIN REACH.
[2022-07-05] MEDS: INSULIN REGULAR, HUMAN 100 UNITS/ML, 3 ML VIAL (humuLIN R) SUBCUT PRN ×3 (08:01→17:27)
[2022-07-05] MEDS: ASCORBIC ACID 500 MG TABLET PO SCH (09:15)
[2022-07-05] MEDS: lisinopriL 20 MG TABLET PO SCH (09:15)
--- NOTE | 2022-07-05 09:15 | NUR ---
MED PASS ORAL MEDS GIVEN. VERBALIZED UNDERSTANDING ON USE OF LOVENOX. REPORTED PAIN ON LEFT FOOT. WILL PAGE DR. WILCOX.
[2022-07-05] MEDS: ENOXAPARIN SODIUM 40 MG/0.4 ML SYRINGE SQ SCH (09:16)
[2022-07-05] MEDS: MULTIVITAMINS TAB 1 TABLET PO SCH (09:16)
[2022-07-05] MEDS: INSULIN GLARGINE 100 UNITS/ML, 10 ML VIAL SUBCUT SCH ×2 (09:17→20:37)
[2022-07-05] MEDS: BALSAM PERU/CASTOR OIL 56.7 GM OINT...G. TP SCH ×2 (09:19→23:33)
[2022-07-05] MEDS: traMADol HCL HCL 50 MG TABLET (ULTRAM) PO PRN (10:36)
--- NOTE | 2022-07-05 11:35 | NUR ---
ROUNDS BLOOD SUGAR CHECKED; INSULIN ADMINISTERED ORDERED. IV ANTIBIOTIC GIVEN. SAFETY CHECKS DONE. CALL LIGHT WITHIN REACH.
[2022-07-05 11:48] VITALS: BP_SYST 121
--- NOTE | 2022-07-05 12:46 | NUR ---
PATIENT CONTINUES TO REFUSE PT TREATMENT. PATIENT REPORTS THAT HE DOESN'T NEED IT.
[2022-07-05] MEDS: 0.45% NACL 1,000 ML IV SCH (15:01)
[2022-07-05 15:52] VITALS: BP_SYST 139
[2022-07-05] MEDS: ERTAPENEM SODIUM 1 GM in NS 50 ML IV SCH (17:25)
[2022-07-06 00:40] VITALS: BP_SYST 117
[2022-07-06] MEDS: 0.45% NACL 1,000 ML IV SCH ×2 (05:03→17:02)
[2022-07-06] MEDS: INSULIN REGULAR, HUMAN 100 UNITS/ML, 3 ML VIAL (humuLIN R) SUBCUT PRN ×4 (05:59→20:53)
[2022-07-06] MEDS ORDERED: ERTAPENEM SODIUM 1 GM in NS 50 ML IV SCH (06:30)
[2022-07-06 07:51] VITALS: BP_SYST 127
[2022-07-06 08:11] LABS: CALCIUM 9.2 mg/dL (8.4-11.0); CREATININE 1.39 mg/dL (0.55-1.30)
[2022-07-06] MEDS: ASCORBIC ACID 500 MG TABLET PO SCH (10:20)
[2022-07-06] MEDS: MULTIVITAMINS TAB 1 TABLET PO SCH (10:20)
[2022-07-06] MEDS: lisinopriL 20 MG TABLET PO SCH (10:21)
[2022-07-06] MEDS: ENOXAPARIN SODIUM 40 MG/0.4 ML SYRINGE SQ SCH (10:21)
[2022-07-06] MEDS: BALSAM PERU/CASTOR OIL 56.7 GM OINT...G. TP SCH ×2 (10:21→20:58)
[2022-07-06] MEDS: LINEZOLID 300 ML IV SCH (11:48)
[2022-07-06 11:53] VITALS: BP_SYST 141
[2022-07-06] MEDS: INSULIN GLARGINE 100 UNITS/ML, 10 ML VIAL SUBCUT SCH ×2 (11:58→20:52)
--- NOTE | 2022-07-06 13:20 | NUR ---
PATIENT REFUSED PT TREATMENT AGAIN REPORTING THAT HE DOESN'T NEED IT BECAUSE HE AMBULATES BY HIMSELF.
[2022-07-06] MEDS: ERTAPENEM SODIUM 1 GM in NS 50 ML IV SCH (16:55)
[2022-07-06 17:17] VITALS: BP_SYST 135
[2022-07-06 20:00] VITALS: BP_SYST 139
--- NOTE | 2022-07-06 20:00 | NUR ---
Received patient awake alert, and oriented x4, able to follow commands and able to verbalize wishes and concerns. Vital signs taken and recorded all parameters are with normal limits. Bilateral foot wound dressing dry and intact, no bleeding or drainage noted. Acu-check taken and 2 insulins given. Bedside care completed. Physical assessment done and complete. Not in any acute distress or pain.
[2022-07-07] VITALS: BP_SYST 111
[2022-07-07] MEDS: LINEZOLID 300 ML IV SCH ×3 (00:21→23:37)
--- NOTE | 2022-07-07 00:30 | NUR ---
Patient awake on and off. Vitals signs was taken and all parameters were within normal limits. Will continue to monitor.
[2022-07-07] MEDS: INSULIN REGULAR, HUMAN 100 UNITS/ML, 3 ML VIAL (humuLIN R) SUBCUT PRN ×4 (06:15→21:09)
[2022-07-07 08:04] VITALS: BP_SYST 134
[2022-07-07 08:27] VITALS: BP_SYST 134
[2022-07-07] MEDS: ASCORBIC ACID 500 MG TABLET PO SCH (08:38)
[2022-07-07] MEDS: lisinopriL 20 MG TABLET PO SCH (08:38)
[2022-07-07] MEDS: MULTIVITAMINS TAB 1 TABLET PO SCH (08:39)
[2022-07-07] MEDS: ENOXAPARIN SODIUM 40 MG/0.4 ML SYRINGE SQ SCH (08:39)
[2022-07-07] MEDS: INSULIN GLARGINE 100 UNITS/ML, 10 ML VIAL SUBCUT SCH ×2 (08:40→21:05)
[2022-07-07] MEDS: BALSAM PERU/CASTOR OIL 56.7 GM OINT...G. TP SCH ×2 (08:48→21:00)
--- NOTE | 2022-07-07 09:14 | NUR ---
RN MEDICALLY CLEARED PATIENT STATING PATIENT IS FULLY INDEPENDENT. PATIENT ALSO REFUSED TREATMENT AGAIN PATIENT IS INDEPENDENT.
[2022-07-07] MEDS: 0.45% NACL 1,000 ML IV SCH ×2 (09:39→16:58)
[2022-07-07] MEDS: traMADol HCL HCL 50 MG TABLET (ULTRAM) PO PRN ×2 (11:28→21:10)
[2022-07-07 11:29] VITALS: BP_SYST 127
--- NOTE | 2022-07-07 12:05 | NUR ---
ROUNDS: Patient resting in bed. Breathing even and unlabored on RA. NO pain, no distress, no SOB. Bed is locked in lowest position. Call light within reach, all needs met, will continue to monitor.
[2022-07-07 15:26] VITALS: BP_SYST 129
[2022-07-07] MEDS: ERTAPENEM SODIUM 1 GM in NS 50 ML IV SCH (16:19)
--- NOTE | 2022-07-07 18:15 | NUR ---
Note Pt sitting up in bed eating his dinner. No severe pain/discomfort ntoed. Dressings on Left and Right foot are CDI at this time. Left midline IV intact and patent infusing IVF's well. Bed in low position and side rails raised. Pt was maintained with isolation precautions all shift (ESBL in wound). Call light within reach. No needs noted.
[2022-07-07 20:00] VITALS: BP_SYST 129
--- NOTE | 2022-07-07 20:00 | NUR ---
Opening note- pt awake and oriented. No s/sx of any distress. Lt foot and Rt foot dressing intact. pt ambulated with walker inside room. V/s stable afebrile.
--- NOTE | 2022-07-08 06:00 | NUR ---
Closing note- pt denied any distress. Midline on left upper arm with 1/2 NS at 70 ml/hr. Ambulated with walker. Given Zyvox ivpb as ordered.
[2022-07-08] MEDS: INSULIN REGULAR, HUMAN 100 UNITS/ML, 3 ML VIAL (humuLIN R) SUBCUT PRN ×3 (06:24→22:48)
[2022-07-08 07:20] VITALS: BP_SYST 156
--- NOTE | 2022-07-08 07:20 | NUR ---
OPENING NOTE Patient resting in bed. A/O x 4, Occitan speaking. Patient Breathing even and unlabored on RA saturations at 99%. NO pain, no distress, no SOB. Patient on CCHO Diet. Patient has Midline, patent. Bed is locked in lowest position. Call light within reach, all needs met, will continue to monitor.
[2022-07-08] MEDS: lisinopriL 20 MG TABLET PO SCH (08:06)
[2022-07-08] MEDS: MULTIVITAMINS TAB 1 TABLET PO SCH (08:06)
[2022-07-08] MEDS: ASCORBIC ACID 500 MG TABLET PO SCH (08:06)
[2022-07-08] MEDS: ENOXAPARIN SODIUM 40 MG/0.4 ML SYRINGE SQ SCH (08:07)
[2022-07-08] MEDS: INSULIN GLARGINE 100 UNITS/ML, 10 ML VIAL SUBCUT SCH ×2 (08:09→21:00)
[2022-07-08] MEDS: BALSAM PERU/CASTOR OIL 56.7 GM OINT...G. TP SCH ×2 (08:10→21:00)
[2022-07-08] MEDS: traMADol HCL HCL 50 MG TABLET (ULTRAM) PO PRN (11:34)
--- NOTE | 2022-07-08 11:34 | NUR ---
PAIN Patient had pain to bilateral feet. Gave PRN pain medication.
[2022-07-08 12:35] VITALS: BP_SYST 146
--- NOTE | 2022-07-08 12:40 | NUR ---
ROUNDS: Patient resting in bed. Patient Breathing even and unlabored on RA saturations at 99%. NO pain, no distress, no SOB. Bed is locked in lowest position. Call light within reach, all needs met, will continue to monitor.
[2022-07-08] MEDS: 0.45% NACL 1,000 ML IV SCH (13:11)
[2022-07-08] MEDS: LINEZOLID 300 ML IV SCH (13:12)
[2022-07-08 16:00] VITALS: BP_SYST 150
[2022-07-08] MEDS: ERTAPENEM SODIUM 1 GM in NS 50 ML IV SCH (18:07)
--- NOTE | 2022-07-08 18:37 | NUR ---
CLOSING NOTE Patient resting in bed. A/O x 4, Bengali speaking. Patient Breathing even and unlabored on RA. No pain, no distress, no SOB. Patient on CCHO Diet. Patient has Midline, patent. Bed is locked in lowest position. Call light within reach, all needs met, will endorse to shift boss nurse.
[2022-07-08 20:00] VITALS: BP_SYST 112
[2022-07-09] MEDS: LINEZOLID 300 ML IV SCH ×3 (01:07→23:22)
[2022-07-09 03:35] VITALS: BP_SYST 130
[2022-07-09] MEDS: 0.45% NACL 1,000 ML IV SCH ×2 (04:33→16:28)
[2022-07-09 06:47] LABS: HEMATOCRIT 34.7 % (36-54); HEMOGLOBIN 11.8 g/dL (14.0-18.0); MEAN CORPUSCULAR HEMOGLOBIN 28 pg (27-31); MEAN CORPUSCULAR HGB CONC 34 % (32-36); MEAN CORPUSCULAR VOLUME 82 fL (79.0-98.0); PLATELET COUNT (AUTO) 441 K/uL (130-430); RED BLOOD CELL COUNT(AUTO) 4.22 MIL/uL (4.2-6.2); RED CELL DISTRIBUTION WIDTH 19.4 % (9.0-15.0); WHITE BLOOD COUNT (AUTO) 5.6 K/uL (4.8-10.8)
[2022-07-09] MEDS: INSULIN REGULAR, HUMAN 100 UNITS/ML, 3 ML VIAL (humuLIN R) SUBCUT PRN ×4 (06:59→21:11)
[2022-07-09 07:14] LABS: CALCIUM 8.7 mg/dL (8.4-11.0); CREATININE 1.24 mg/dL (0.55-1.30)
--- NOTE | 2022-07-09 08:05 | NUR ---
Patient is alert, oriented, no complaints of pain or discomfort, vitals are stable. IV fluid with 0.45%NS infusing at 70 ml/hr, good results. No s/s/ of hyper or hypoglycemia, dressing to feet remain intact, condition is stable.
[2022-07-09] MEDS: MULTIVITAMINS TAB 1 TABLET PO SCH (08:43)
[2022-07-09] MEDS: ENOXAPARIN SODIUM 40 MG/0.4 ML SYRINGE SQ SCH (08:44)
[2022-07-09] MEDS: lisinopriL 20 MG TABLET PO SCH (08:44)
[2022-07-09] MEDS: ASCORBIC ACID 500 MG TABLET PO SCH (08:44)
[2022-07-09] MEDS: INSULIN GLARGINE 100 UNITS/ML, 10 ML VIAL SUBCUT SCH ×2 (08:46→21:12)
[2022-07-09] MEDS: BALSAM PERU/CASTOR OIL 56.7 GM OINT...G. TP SCH ×2 (08:48→21:18)
[2022-07-09 11:39] LABS: BASOPHILS % (MANUAL) 0 % (0-2); EOSINOPHILS % (MANUAL) 12 % (0-7); LYMPHOCYTES % (MANUAL) 37 % (20-46); MONOCYTES % (MANUAL) 9 % (0-11)
[2022-07-09 12:00] VITALS: BP_SYST 158
--- NOTE | 2022-07-09 15:19 | NUR ---
RN MEDICALLY CLEARED PATIENT AND STATES PATIENT IS INDEPENDENT. PATIENT CONTINUES TO REFUSE PT TREATMENT.
--- NOTE | 2022-07-09 15:52 | NUR ---
Information for IV ABX sent to Sabrina at [facility] [phone]. She will call back when home IV ABX are in place.
--- NOTE | 2022-07-09 15:55 | NUR ---
Hospital admission letter on hospital letterhead provided to the patient at bedside, per his request.
--- NOTE | 2022-07-09 16:00 | NUR ---
wound care provided, patient tolerated well, mrsa swab obtained and taken to lab
[2022-07-09 16:27] VITALS: BP_SYST 145
[2022-07-09] MEDS: ERTAPENEM SODIUM 1 GM in NS 50 ML IV SCH (16:28)
[2022-07-09 20:00] VITALS: BP_SYST 124
[2022-07-10 00:59] VITALS: BP_SYST 117
--- NOTE | 2022-07-10 07:36 | NUR ---
Closing Notes Pt is alert, sleeping comfortably in bed, no s/s of any discomfort during shift, denies of any pain, encourage to use call light for assistance, bed at lowest position, safety bed alarm in place. call light within reach. endorse to incoming nurse.
[2022-07-10] MEDS: INSULIN GLARGINE 100 UNITS/ML, 10 ML VIAL SUBCUT SCH ×2 (09:28→21:30)
[2022-07-10] MEDS: ENOXAPARIN SODIUM 40 MG/0.4 ML SYRINGE SQ SCH (09:29)
[2022-07-10] MEDS: ASCORBIC ACID 500 MG TABLET PO SCH (09:29)
[2022-07-10] MEDS: lisinopriL 20 MG TABLET PO SCH (09:30)
[2022-07-10] MEDS: BALSAM PERU/CASTOR OIL 56.7 GM OINT...G. TP SCH ×2 (09:30→22:02)
[2022-07-10] MEDS: MULTIVITAMINS TAB 1 TABLET PO SCH (09:30)
[2022-07-10] MEDS: 0.45% NACL 1,000 ML IV SCH (09:30)
[2022-07-10 11:23] VITALS: BP_SYST 151
[2022-07-10] MEDS: LINEZOLID 300 ML IV SCH ×2 (11:40→23:30)
[2022-07-10] MEDS: INSULIN REGULAR, HUMAN 100 UNITS/ML, 3 ML VIAL (humuLIN R) SUBCUT PRN ×3 (11:51→21:29)
[2022-07-10 15:34] VITALS: BP_SYST 145
[2022-07-10] MEDS: ERTAPENEM SODIUM 1 GM in NS 50 ML IV SCH (17:37)
[2022-07-10 20:00] VITALS: BP_SYST 149
[2022-07-10] MEDS: traMADol HCL HCL 50 MG TABLET (ULTRAM) PO PRN (22:02)
[2022-07-11] VITALS: BP_SYST 138
[2022-07-11] MEDS: 0.45% NACL 1,000 ML IV SCH ×2 (05:15→11:55)
[2022-07-11] MEDS: INSULIN REGULAR, HUMAN 100 UNITS/ML, 3 ML VIAL (humuLIN R) SUBCUT PRN ×2 (06:03→17:38)
--- NOTE | 2022-07-11 06:51 | NUR ---
Closing Notes Pt is alert, sleeping comfortably in bed, no s/s of any discomfort during shift, wound care done at slot shift supervisor on right foot, tolerated well, encourage to use call light for assistance, bed at lowest position, bed safety alarm in place. call light within reach. will endorse to incoming nurse.
[2022-07-11 08:59] VITALS: BP_SYST 133
[2022-07-11] MEDS: lisinopriL 20 MG TABLET PO SCH (09:01)
[2022-07-11] MEDS: ASCORBIC ACID 500 MG TABLET PO SCH (09:02)
[2022-07-11] MEDS: MULTIVITAMINS TAB 1 TABLET PO SCH (09:02)
[2022-07-11] MEDS: ENOXAPARIN SODIUM 40 MG/0.4 ML SYRINGE SQ SCH (09:02)
[2022-07-11] MEDS: BALSAM PERU/CASTOR OIL 56.7 GM OINT...G. TP SCH ×2 (09:03→22:24)
[2022-07-11] MEDS: INSULIN GLARGINE 100 UNITS/ML, 10 ML VIAL SUBCUT SCH ×2 (09:09→22:33)
[2022-07-11] MEDS: LINEZOLID 300 ML IV SCH (11:55)
[2022-07-11] MEDS: traMADol HCL HCL 50 MG TABLET (ULTRAM) PO PRN (12:00)
[2022-07-11 12:39] VITALS: BP_SYST 143
[2022-07-11 16:32] VITALS: BP_SYST 154
--- NOTE | 2022-07-11 16:55 | NUR ---
Unable to find home health care for patient, the patient's DC is held until Home Health care can be found to provide care.
[2022-07-11] MEDS: ERTAPENEM SODIUM 1 GM in NS 50 ML IV SCH (17:31)
[2022-07-11 20:00] VITALS: BP_SYST 135
[2022-07-12] MEDS: LINEZOLID 300 ML IV SCH ×2 (01:02→11:34)
[2022-07-12 01:12] VITALS: BP_SYST 112
[2022-07-12] MEDS: 0.45% NACL 1,000 ML IV SCH ×2 (04:03→18:21)
[2022-07-12 05:59] VITALS: BP_SYST 114
[2022-07-12 08:00] VITALS: BP_SYST 120
--- NOTE | 2022-07-12 08:00 | NUR ---
Note Pt sitting up in bed eating his breakfast. No SOB/resp distress or chest pain/discomfort noted at this time. Pt's IV CHRISTIANO midline intact and patent infusing IVF's well. Call light within reach. Pt in isolation for ESBL in wound. No needs noted at this time.
[2022-07-12] MEDS: ASCORBIC ACID 500 MG TABLET PO SCH (08:59)
[2022-07-12] MEDS: MULTIVITAMINS TAB 1 TABLET PO SCH (08:59)
[2022-07-12] MEDS: lisinopriL 20 MG TABLET PO SCH (08:59)
[2022-07-12] MEDS: ENOXAPARIN SODIUM 40 MG/0.4 ML SYRINGE SQ SCH (09:00)
[2022-07-12] MEDS: INSULIN GLARGINE 100 UNITS/ML, 10 ML VIAL SUBCUT SCH ×2 (09:03→21:00)
[2022-07-12 11:17] VITALS: BP_SYST 130; BP_SYST 94
--- NOTE | 2022-07-12 15:15 | NUR ---
Note Pt stable, resting in bed with IVF's infusing well through CHRISTIANO midline. Call light within reach.
[2022-07-12 15:58] VITALS: BP_SYST 156
[2022-07-12] MEDS: ERTAPENEM SODIUM 1 GM in NS 50 ML IV SCH (16:09)
[2022-07-12] MEDS: BALSAM PERU/CASTOR OIL 56.7 GM OINT...G. TP SCH ×2 (16:10→21:00)
[2022-07-12] MEDS: INSULIN REGULAR, HUMAN 100 UNITS/ML, 3 ML VIAL (humuLIN R) SUBCUT PRN (16:26)
--- NOTE | 2022-07-12 19:00 | NUR ---
Note Pt resting in bed. Right foot dressing was cleaned and changed. Pt denies any needs and call light within reach. CHRISTIANO midline intact and patent infusing IVF's well. Pt maintained with isolation precautions all shift. Pt stable.
[2022-07-12 20:00] VITALS: BP_SYST 124
[2022-07-13] MEDS: 0.45% NACL 1,000 ML IV SCH (08:29)
[2022-07-13] MEDS: ASCORBIC ACID 500 MG TABLET PO SCH (08:30)
[2022-07-13] MEDS: MULTIVITAMINS TAB 1 TABLET PO SCH (08:31)
[2022-07-13] MEDS: lisinopriL 20 MG TABLET PO SCH (08:31)
[2022-07-13] MEDS: ENOXAPARIN SODIUM 40 MG/0.4 ML SYRINGE SQ SCH (08:31)
[2022-07-13] MEDS: INSULIN GLARGINE 100 UNITS/ML, 10 ML VIAL SUBCUT SCH ×2 (08:36→20:18)
[2022-07-13] MEDS: BALSAM PERU/CASTOR OIL 56.7 GM OINT...G. TP SCH ×2 (08:37→20:19)
[2022-07-13 11:21] VITALS: BP_SYST 112
[2022-07-13] MEDS: LINEZOLID 300 ML IV SCH ×2 (11:50)
[2022-07-13] MEDS: traMADol HCL HCL 50 MG TABLET (ULTRAM) PO PRN (11:57)
[2022-07-13 16:53] VITALS: BP_SYST 125
[2022-07-13] MEDS: ERTAPENEM SODIUM 1 GM in NS 50 ML IV SCH (17:59)
[2022-07-13] MEDS: INSULIN REGULAR, HUMAN 100 UNITS/ML, 3 ML VIAL (humuLIN R) SUBCUT PRN ×2 (18:00→20:17)
--- NOTE | 2022-07-13 18:59 | NUR ---
pt a&o, refused lantus in AM. insulin coverage given with dinner for a blood sugar of 262. dr. box at bedside - left food dressing removed - told to cover with lubricating jelly gauze and krillex. fall precautions in place. prn tramadol given for pain.
[2022-07-13 19:58] VITALS: BP_SYST 122
--- NOTE | 2022-07-13 20:00 | NUR ---
Report received from day shift RN for continuity of care. Patient in stable condition.
--- NOTE | 2022-07-13 20:06 | NUR ---
Report received from day shift RN for continuity of care. Patient stable. No distress noted.
[2022-07-14] VITALS: BP_SYST 134
[2022-07-14] MEDS: 0.45% NACL 1,000 ML IV SCH ×2 (02:19→13:15)
[2022-07-14] MEDS: LINEZOLID 300 ML IV SCH ×2 (02:20→12:07)
[2022-07-14 03:17] VITALS: BP_SYST 134
[2022-07-14] MEDS: traMADol HCL HCL 50 MG TABLET (ULTRAM) PO PRN ×2 (05:16→17:35)
--- NOTE | 2022-07-14 06:17 | NUR ---
Report given to day shift for continuity of care. Patient stable. Gave some snacks and drinks for patient. Blood sugar managed.
--- NOTE | 2022-07-14 06:17 | NUR ---
Patient stable throughoutthewholenight. No distress noted. Vital signs stable.
--- NOTE | 2022-07-14 08:06 | NUR ---
OPENING NOTES: RECEIVED BEDSIDE SBAR FROM SHIFT NURSE, PATIENT RESTING IN BED WITH EYES CLOSED, NO S/S OF ANY DISTRESS, BED AT LOW AND LOCKED POSITION CALL LIGHT IN REACH, ALL SAFETY CHECKS DONE AND WILL DO THOUGHT THE DAY. WILL MONITOR PATIENT PER ORDERS.
[2022-07-14] MEDS: ASCORBIC ACID 500 MG TABLET PO SCH (09:19)
[2022-07-14] MEDS: lisinopriL 20 MG TABLET PO SCH (09:19)
[2022-07-14] MEDS: MULTIVITAMINS TAB 1 TABLET PO SCH (09:19)
[2022-07-14] MEDS: ENOXAPARIN SODIUM 40 MG/0.4 ML SYRINGE SQ SCH (09:20)
[2022-07-14] MEDS: BALSAM PERU/CASTOR OIL 56.7 GM OINT...G. TP SCH ×2 (09:22→21:59)
[2022-07-14] MEDS: INSULIN GLARGINE 100 UNITS/ML, 10 ML VIAL SUBCUT SCH ×2 (09:31→21:00)
[2022-07-14] MEDS: INSULIN REGULAR, HUMAN 100 UNITS/ML, 3 ML VIAL (humuLIN R) SUBCUT PRN ×2 (12:21→17:39)
[2022-07-14 14:44] VITALS: BP_SYST 148
[2022-07-14] MEDS: ERTAPENEM SODIUM 1 GM in NS 50 ML IV SCH (17:24)
--- NOTE | 2022-07-14 18:24 | NUR ---
CLOSING NOTES: PATIENT REMAINED STABLE THOUGHT THE DAY, NO S/S OF ANY DISTRESS, ALL NEEDS MEET, SAFETY CHECKS DONE THOUGHT THE DAY, CALL LIGHT IN REACH, BED IN LOW POSITION. WILL GIVE PM SHIFT NURSE BEDSIDE SBAR.
[2022-07-15] MEDS: LINEZOLID 300 ML IV SCH ×3 (00:27→23:42)
[2022-07-15] MEDS: 0.45% NACL 1,000 ML IV SCH ×2 (00:37→17:24)
[2022-07-15 08:00] VITALS: BP_SYST 148
--- NOTE | 2022-07-15 08:03 | NUR ---
OPENING NOTES: RECEIVED BEDSIDE SBAR FROM PM SHIFT NURSE, PATIENT RESTING IN BED WITH EYES CLOSED NO S/S OF ANY DISTRESS, BED IN LOW AND LOCKED POSITION, CALL LIGHT IN REACH, ALL SAFETY CHECKS DONE AND WILL DO THOUGHT THE DAY. WILL MONITOR PATIENT THOUGHT THE DAY.
[2022-07-15] MEDS: MULTIVITAMINS TAB 1 TABLET PO SCH (09:22)
[2022-07-15] MEDS: ASCORBIC ACID 500 MG TABLET PO SCH (09:22)
[2022-07-15] MEDS: ENOXAPARIN SODIUM 40 MG/0.4 ML SYRINGE SQ SCH (09:27)
[2022-07-15] MEDS: lisinopriL 20 MG TABLET PO SCH (09:27)
[2022-07-15] MEDS: BALSAM PERU/CASTOR OIL 56.7 GM OINT...G. TP SCH ×2 (09:34→21:32)
[2022-07-15] MEDS: INSULIN GLARGINE 100 UNITS/ML, 10 ML VIAL SUBCUT SCH ×2 (09:35→21:34)
[2022-07-15] MEDS: INSULIN REGULAR, HUMAN 100 UNITS/ML, 3 ML VIAL (humuLIN R) SUBCUT PRN ×3 (11:56→21:36)
[2022-07-15] MEDS: ERTAPENEM SODIUM 1 GM in NS 50 ML IV SCH (16:43)
--- NOTE | 2022-07-15 20:00 | NUR ---
OPENING Patient resting in bed, no distress noted. AOx4. Dressings to bilateral feet clean/dry/intact. IV fluids infusing. Call light in reach, bd low and locked.
[2022-07-15 20:17] VITALS: BP_SYST 148
--- NOTE | 2022-07-15 20:55 | NUR ---
Patient reporting pain to both feet, left worse than right. Heart rate 120. Notified Dr. Montesinos of heart rate and report of pain. Received order for Tramadol PRN. Dr. Montesinos stated to give pain medication and recheck heart rate later.
[2022-07-15] MEDS: traMADol HCL HCL 50 MG TABLET (ULTRAM) PO PRN (21:28)
--- NOTE | 2022-07-15 23:00 | NUR ---
Patient reports pain improved after Tramadol. HR 100.
[2022-07-16] VITALS: BP_SYST 131
[2022-07-16 06:26] LABS: BASOPHILS # (AUTO) 0.1 K/uL (0.0-0.2); BASOPHILS % (AUTO) 1.1 % (0.0-2.0); EOSINOPHILS # (AUTO) 0.1 K/uL (0.0-0.4); EOSINOPHILS % (AUTO) 1.2 % (0.0-4.0); HEMATOCRIT 35.3 % (36-54); HEMOGLOBIN 11.8 g/dL (14.0-18.0); LYMPHOCYTES # (AUTO) 1.3 K/uL (1.0-5.5); LYMPHOCYTES % (AUTO) 17.9 % (20.5-51.5); MEAN CORPUSCULAR HEMOGLOBIN 27 pg (27-31); MEAN CORPUSCULAR HGB CONC 34 % (32-36); MEAN CORPUSCULAR VOLUME 81 fL (79.0-98.0); MONOCYTES # (AUTO) 0.7 K/uL (0.0-1.0); MONOCYTES % (AUTO) 10.4 % (1.7-9.3); NEUTROPHILS # (AUTO) 4.9 K/uL (1.8-7.7); NEUTROPHILS % (AUTO) 69.4 % (40.0-70.0); PLATELET COUNT (AUTO) 244 K/uL (130-430); RED BLOOD CELL COUNT(AUTO) 4.33 MIL/uL (4.2-6.2); WHITE BLOOD COUNT (AUTO) 7.1 K/uL (4.8-10.8)
[2022-07-16 06:44] LABS: CALCIUM 8.7 mg/dL (8.4-11.0); CREATININE 1.2 mg/dL (0.55-1.30)
[2022-07-16] MEDS: INSULIN REGULAR, HUMAN 100 UNITS/ML, 3 ML VIAL (humuLIN R) SUBCUT PRN ×3 (06:57→17:28)
[2022-07-16 08:12] VITALS: BP_SYST 136
--- NOTE | 2022-07-16 08:17 | NUR ---
CLOSING Patient resting in bed, unlabored breathing on room air. Stable through night. No complaint of pain currently. Dressings to bilateral feet clean/dry/intact. IV fluids infusing. Given 2 units insulin this morning per sliding scale. Safety precautions in place. Endorsed to oncoming nurse.
[2022-07-16] MEDS: lisinopriL 20 MG TABLET PO SCH (09:38)
[2022-07-16] MEDS: ENOXAPARIN SODIUM 40 MG/0.4 ML SYRINGE SQ SCH (09:39)
[2022-07-16] MEDS: MULTIVITAMINS TAB 1 TABLET PO SCH (09:39)
[2022-07-16] MEDS: ASCORBIC ACID 500 MG TABLET PO SCH (09:39)
[2022-07-16] MEDS: traMADol HCL HCL 50 MG TABLET (ULTRAM) PO PRN ×2 (09:40→17:25)
[2022-07-16] MEDS: INSULIN GLARGINE 100 UNITS/ML, 10 ML VIAL SUBCUT SCH ×2 (09:42→21:00)
[2022-07-16] MEDS: BALSAM PERU/CASTOR OIL 56.7 GM OINT...G. TP SCH ×2 (09:49→21:39)
[2022-07-16 12:00] VITALS: BP_SYST 135
[2022-07-16] MEDS: LINEZOLID 300 ML IV SCH (12:24)
[2022-07-16] MEDS: ERTAPENEM SODIUM 1 GM in NS 50 ML IV SCH (17:24)
--- NOTE | 2022-07-16 19:30 | NUR ---
OPENING NOTE Pt is awake lying in bed on his cellphone. No s/s of respiratory distress. Breathing even and unlabored on RA. CHRISTIANO midline intact and patent with fluids running at ordered rate. Fall and safety precautions in place with bed in lowest position, bed alarm on, and call light within reach
[2022-07-16] MEDS: 0.45% NACL 1,000 ML IV SCH (21:42)
--- NOTE | 2022-07-17 00:15 | NUR ---
ROUNDS Pt is awake lying in bed. No s/s of acute distress. Fall and safety checks in place
[2022-07-17 00:29] VITALS: BP_SYST 132
[2022-07-17] MEDS: LINEZOLID 300 ML IV SCH ×2 (00:40→12:26)
[2022-07-17] MEDS: INSULIN REGULAR, HUMAN 100 UNITS/ML, 3 ML VIAL (humuLIN R) SUBCUT PRN ×4 (07:14→22:36)
--- NOTE | 2022-07-17 07:31 | NUR ---
CLOSING NOTE Pt is awake lying in bed. No s/s of respiratory distress. Breathing even and unlabored on RA. CHRISTIANO midline intact and patent with fluids running at ordered rate. All needs met throughout shift. Fall and safety precautions in place with bed in lowest position, bed alarm on, and call light within reach
[2022-07-17 08:14] VITALS: BP_SYST 156
[2022-07-17] MEDS: ASCORBIC ACID 500 MG TABLET PO SCH (08:47)
[2022-07-17] MEDS: ENOXAPARIN SODIUM 40 MG/0.4 ML SYRINGE SQ SCH (08:48)
[2022-07-17] MEDS: MULTIVITAMINS TAB 1 TABLET PO SCH (08:48)
[2022-07-17] MEDS: lisinopriL 20 MG TABLET PO SCH (08:48)
[2022-07-17] MEDS: INSULIN GLARGINE 100 UNITS/ML, 10 ML VIAL SUBCUT SCH ×2 (08:49→22:37)
[2022-07-17 12:05] VITALS: BP_SYST 143
[2022-07-17] MEDS: BALSAM PERU/CASTOR OIL 56.7 GM OINT...G. TP SCH (12:22)
[2022-07-17] MEDS: 0.45% NACL 1,000 ML IV SCH (12:30)
[2022-07-17 16:01] VITALS: BP_SYST 149
[2022-07-17] MEDS: traMADol HCL HCL 50 MG TABLET (ULTRAM) PO PRN (16:58)
[2022-07-17] MEDS: ERTAPENEM SODIUM 1 GM in NS 50 ML IV SCH (17:01)
--- NOTE | 2022-07-17 19:50 | NUR ---
RECEIVED PT IN BED, AOX4, DENIED ANY ISSUES, WILL CONTINUE WITH POC
[2022-07-17 19:55] VITALS: BP_SYST 140
[2022-07-18] VITALS: BP_SYST 139
[2022-07-18] MEDS: LINEZOLID 300 ML IV SCH ×2 (00:41→12:12)
[2022-07-18] MEDS: 0.45% NACL 1,000 ML IV SCH ×2 (04:24→17:12)
[2022-07-18] MEDS: INSULIN REGULAR, HUMAN 100 UNITS/ML, 3 ML VIAL (humuLIN R) SUBCUT PRN ×4 (06:34→21:19)
--- NOTE | 2022-07-18 06:51 | NUR ---
PT IN BED, AOX4, DENIED ANY SOB, CP, OR PAIN, AMBULATORY TO RESTROOM, IVF 1/2NS AT 70CC INFUSING INTO CHRISTIANO MIDLINE, PATENT, VOIDED AND HAD BM DURING SHIFT, NO CHANGES, SAFETY PREC MAINTAINED, CALL LIGHT WITHIN REACH, LOW BED, CONTACT ISOLATION MAINTAINED, WILL ENDORSE TO INCOMING RN
[2022-07-18 09:22] VITALS: BP_SYST 148
[2022-07-18] MEDS: ASCORBIC ACID 500 MG TABLET PO SCH (09:31)
[2022-07-18] MEDS: traMADol HCL HCL 50 MG TABLET (ULTRAM) PO PRN ×3 (09:31→17:52)
[2022-07-18] MEDS: ENOXAPARIN SODIUM 40 MG/0.4 ML SYRINGE SQ SCH (09:32)
[2022-07-18] MEDS: lisinopriL 20 MG TABLET PO SCH (09:32)
[2022-07-18] MEDS: INSULIN GLARGINE 100 UNITS/ML, 10 ML VIAL SUBCUT SCH ×2 (09:38→21:18)
[2022-07-18] MEDS: MULTIVITAMINS TAB 1 TABLET PO SCH (09:39)
[2022-07-18 12:00] VITALS: BP_SYST 142
[2022-07-18 16:00] VITALS: BP_SYST 145
[2022-07-18] MEDS: ERTAPENEM SODIUM 1 GM in NS 50 ML IV SCH (17:09)
--- NOTE | 2022-07-18 19:50 | NUR ---
RECEIVED PT IN BED, AOX4, DENIED SOB, CP OR PAIN, WILL CONTINUE WITH POC
[2022-07-18 19:55] VITALS: BP_SYST 133
[2022-07-19 00:12] VITALS: BP_SYST 134
[2022-07-19] MEDS: LINEZOLID 300 ML IV SCH ×2 (00:30→12:19)
[2022-07-19 04:00] VITALS: BP_SYST 130
[2022-07-19] MEDS: 0.45% NACL 1,000 ML IV SCH ×2 (06:30→21:30)
--- NOTE | 2022-07-19 06:55 | NUR ---
PT IN BED, AOX4, DENIED ANY SOB, CP, OR PAIN, AMBULATORY TO RESTROOM, IVF 1/2NS AT 70CC INFUSING INTO CHRISTIANO MIDLINE, PATENT, VOIDED, NO CHANGES, SAFETY PREC MAINTAINED, CALL LIGHT WITHIN REACH, LOW BED, CONTACT ISOLATION MAINTAINED, WILL ENDORSE TO INCOMING RN
[2022-07-19 09:00] VITALS: BP_SYST 126
[2022-07-19] MEDS: ASCORBIC ACID 500 MG TABLET PO SCH (09:33)
[2022-07-19] MEDS: ENOXAPARIN SODIUM 40 MG/0.4 ML SYRINGE SQ SCH (09:33)
[2022-07-19] MEDS: lisinopriL 20 MG TABLET PO SCH (09:34)
[2022-07-19] MEDS: traMADol HCL HCL 50 MG TABLET (ULTRAM) PO PRN (09:35)
[2022-07-19] MEDS: MULTIVITAMINS TAB 1 TABLET PO SCH (09:37)
[2022-07-19] MEDS: INSULIN GLARGINE 100 UNITS/ML, 10 ML VIAL SUBCUT SCH ×2 (09:43→21:00)
[2022-07-19] MEDS: INSULIN REGULAR, HUMAN 100 UNITS/ML, 3 ML VIAL (humuLIN R) SUBCUT PRN (13:16)
[2022-07-19 14:38] VITALS: BP_SYST 132
[2022-07-19 16:00] VITALS: BP_SYST 135
[2022-07-19] MEDS: ERTAPENEM SODIUM 1 GM in NS 50 ML IV SCH (16:14)
[2022-07-19 20:05] VITALS: BP_SYST 133
[2022-07-20] MEDS: LINEZOLID 300 ML IV SCH ×3 (00:59→22:56)
[2022-07-20 01:05] VITALS: BP_SYST 127
[2022-07-20] MEDS: MULTIVITAMINS TAB 1 TABLET PO SCH (09:38)
[2022-07-20] MEDS: ASCORBIC ACID 500 MG TABLET PO SCH (09:38)
[2022-07-20] MEDS: lisinopriL 20 MG TABLET PO SCH (09:39)
[2022-07-20] MEDS: ENOXAPARIN SODIUM 40 MG/0.4 ML SYRINGE SQ SCH (09:39)
[2022-07-20] MEDS: INSULIN GLARGINE 100 UNITS/ML, 10 ML VIAL SUBCUT SCH ×2 (09:40→21:45)
[2022-07-20 11:22] VITALS: BP_SYST 92
[2022-07-20] MEDS: INSULIN REGULAR, HUMAN 100 UNITS/ML, 3 ML VIAL (humuLIN R) SUBCUT PRN ×2 (12:27→17:37)
[2022-07-20] MEDS: 0.45% NACL 1,000 ML IV SCH (12:35)
[2022-07-20] MEDS: traMADol HCL HCL 50 MG TABLET (ULTRAM) PO PRN (13:37)
[2022-07-20 16:50] VITALS: BP_SYST 97
[2022-07-20] MEDS: ERTAPENEM SODIUM 1 GM in NS 50 ML IV SCH (17:37)
[2022-07-21] VITALS: BP_SYST 121
[2022-07-21] MEDS: 0.45% NACL 1,000 ML IV SCH ×3 (02:02→23:30)
[2022-07-21 05:06] VITALS: BP_SYST 123
--- NOTE | 2022-07-21 05:18 | NUR ---
patient vitals are stable, denies sob or pain . scheduled medications were administered. bs 132, no insulin coverage provided. comfort measures are provided
[2022-07-21] MEDS: INSULIN GLARGINE 100 UNITS/ML, 10 ML VIAL SUBCUT SCH ×2 (09:10→21:00)
[2022-07-21] MEDS: MULTIVITAMINS TAB 1 TABLET PO SCH (09:11)
[2022-07-21] MEDS: ENOXAPARIN SODIUM 40 MG/0.4 ML SYRINGE SQ SCH (09:11)
[2022-07-21] MEDS: ASCORBIC ACID 500 MG TABLET PO SCH (09:12)
[2022-07-21] MEDS: lisinopriL 20 MG TABLET PO SCH (09:14)
[2022-07-21] MEDS: LINEZOLID 300 ML IV SCH (11:46)
[2022-07-21 12:18] VITALS: BP_SYST 149
[2022-07-21 16:48] VITALS: BP_SYST 153
[2022-07-21] MEDS: INSULIN REGULAR, HUMAN 100 UNITS/ML, 3 ML VIAL (humuLIN R) SUBCUT PRN (17:30)
[2022-07-21] MEDS: ERTAPENEM SODIUM 1 GM in NS 50 ML IV SCH (17:37)
[2022-07-21] MEDS: traMADol HCL HCL 50 MG TABLET (ULTRAM) PO PRN (17:38)
[2022-07-21 20:45] VITALS: BP_SYST 137
[2022-07-22] MEDS: LINEZOLID 300 ML IV SCH ×2 (00:29→11:28)
[2022-07-22 00:35] VITALS: BP_SYST 135
[2022-07-22] MEDS: MULTIVITAMINS TAB 1 TABLET PO SCH (11:15)
[2022-07-22] MEDS: ENOXAPARIN SODIUM 40 MG/0.4 ML SYRINGE SQ SCH (11:15)
[2022-07-22] MEDS: ASCORBIC ACID 500 MG TABLET PO SCH (11:15)
[2022-07-22] MEDS: INSULIN GLARGINE 100 UNITS/ML, 10 ML VIAL SUBCUT SCH ×2 (11:18→21:04)
[2022-07-22] MEDS: lisinopriL 20 MG TABLET PO SCH (11:22)
--- NOTE | 2022-07-22 11:29 | NUR ---
Nutrition F/U RD reviewed pts current EMR including diet hx, physician notes, nursing notes, pertinent labs/meds/procedures, care trends and care activity. Subjective Information Pt f/u late d/t info @ [facility] meetings saying pt would be DC. RD s/w pt RN about his condition. She attested to him having a good appetite and eating most of his foods. Per EMR review: pt eating very well, avg of 92%; abd soft, non-distended,w/ active bowel sounds; Juan: 19 w/ cellulitis on L/R feet; no noted edema 07/22; Edy is being given and documented. Pt is meeting nutritional needs at this time. Current Diet Order/Nutrition Support Consistent CHO x 23 days % PO intake Good avg of 92% x 9 meals Last BM 07/21 x 1 Estimated Energy Expenditure (kcals/day) 1591-6819 kcal (20-25 kcal/kg CBW d/t BMI overwt) Estimated Protein Required (g/day) 107-134 g (1.2-1.5 g/kg d/t ft wounds in both feet) Estimated Fluid Required (l/day) 1.8L-2.2L (1 mL/kcal maintenance) Problem/Etiology/Signs/Symptoms * Increased protein needs R/T metabolic demands AEB wounds in both feet & est. needs for wound healing Expected Outcomes/Goals * Monitor BM regime, wounds in both feet, and Glucose levels. Dietitian Recommendations * Continue CCHO diet * Continue Edy BID Follow up *Low risk: see pt in 7 days GS, MPH, RD
--- NOTE | 2022-07-22 11:30 | NUR ---
Dietitian Recommendations * [facility] diet * Continue Edy BID GS, MPH, RD Please refer to Nutrition F/U for further details. Thanks!
[2022-07-22] MEDS: ERTAPENEM SODIUM 1 GM in NS 50 ML IV SCH (16:41)
[2022-07-22] MEDS: INSULIN REGULAR, HUMAN 100 UNITS/ML, 3 ML VIAL (humuLIN R) SUBCUT PRN ×2 (16:54→21:03)
[2022-07-22 18:59] VITALS: BP_SYST 139
[2022-07-22 20:45] VITALS: BP_SYST 148
[2022-07-22 20:50] VITALS: BP_SYST 144
[2022-07-22] MEDS: 0.45% NACL 1,000 ML IV SCH (21:27)
[2022-07-23] MEDS: LINEZOLID 300 ML IV SCH ×2 (00:09→12:17)
[2022-07-23 03:54] VITALS: BP_SYST 143
[2022-07-23] MEDS: INSULIN REGULAR, HUMAN 100 UNITS/ML, 3 ML VIAL (humuLIN R) SUBCUT PRN ×3 (06:39→18:37)
--- NOTE | 2022-07-23 06:42 | NUR ---
Closing notes Pt asleep, easily awakens. No s/s distress noted. BS checked 154, 2 units Reg insulin administered. IVF infusing at ordered rate CHRISTIANO midline. Favian feet dressing C/D/I. Call light within reach. To endorse to AM nurse.
[2022-07-23] MEDS: ASCORBIC ACID 500 MG TABLET PO SCH (09:43)
[2022-07-23] MEDS: ENOXAPARIN SODIUM 40 MG/0.4 ML SYRINGE SQ SCH (09:44)
[2022-07-23] MEDS: MULTIVITAMINS TAB 1 TABLET PO SCH (09:44)
[2022-07-23] MEDS: INSULIN GLARGINE 100 UNITS/ML, 10 ML VIAL SUBCUT SCH ×2 (09:51→20:50)
[2022-07-23] MEDS: lisinopriL 20 MG TABLET PO SCH (09:52)
[2022-07-23 11:51] VITALS: BP_SYST 164
[2022-07-23] MEDS: 0.45% NACL 1,000 ML IV SCH (12:10)
[2022-07-23 17:03] VITALS: BP_SYST 164
[2022-07-23] MEDS: ERTAPENEM SODIUM 1 GM in NS 50 ML IV SCH (18:30)
[2022-07-23] MEDS: traMADol HCL HCL 50 MG TABLET (ULTRAM) PO PRN (18:32)
--- NOTE | 2022-07-23 19:50 | NUR ---
PT IS ALERT AND ORIENTED X4. PT IS RESTING IN HIS BED, ROOM AIR, CALM AND COOPERATIVE. PT IS ABLE TO ANSWER QUESTIONS.
[2022-07-23 20:00] VITALS: BP_SYST 124
--- NOTE | 2022-07-23 21:00 | NUR ---
PT BLOOD SUGAR IS SLOW,IT IS 95 . SNACKS IS PROVIDED SUCH JELLO AND SKINNY CRACKER,
--- NOTE | 2022-07-24 | NUR ---
pt is resting on his bed. no acute distress noted.
[2022-07-24 00:16] VITALS: BP_SYST 138
[2022-07-24] MEDS: LINEZOLID 300 ML IV SCH ×3 (01:28→23:16)
--- NOTE | 2022-07-24 04:00 | NUR ---
pt is watching tv on cell phone.
[2022-07-24] MEDS: 0.45% NACL 1,000 ML IV SCH ×3 (06:24→23:16)
[2022-07-24] MEDS: INSULIN REGULAR, HUMAN 100 UNITS/ML, 3 ML VIAL (humuLIN R) SUBCUT PRN ×4 (07:06→20:46)
[2022-07-24 07:15] LABS: CALCIUM 8.7 mg/dL (8.4-11.0); CREATININE 1.13 mg/dL (0.55-1.30)
[2022-07-24 07:20] LABS: BASOPHILS % (AUTO) 0.5 % (0.0-2.0); EOSINOPHILS # (AUTO) 0.5 K/uL (0.0-0.4); HEMATOCRIT 33.7 % (36-54); HEMOGLOBIN 11.6 g/dL (14.0-18.0); LYMPHOCYTES # (AUTO) 1.9 K/uL (1.0-5.5); LYMPHOCYTES % (AUTO) 24.2 % (20.5-51.5); MEAN CORPUSCULAR HEMOGLOBIN 29 pg (27-31); MEAN CORPUSCULAR HGB CONC 34 % (32-36); MEAN CORPUSCULAR VOLUME 83 fL (79.0-98.0); MONOCYTES # (AUTO) 0.7 K/uL (0.0-1.0); MONOCYTES % (AUTO) 9.1 % (1.7-9.3); NEUTROPHILS # (AUTO) 4.7 K/uL (1.8-7.7); NEUTROPHILS % (AUTO) 60.2 % (40.0-70.0); PLATELET COUNT (AUTO) 269 K/uL (130-430); RED BLOOD CELL COUNT(AUTO) 4.06 MIL/uL (4.2-6.2); RED CELL DISTRIBUTION WIDTH 19.6 % (9.0-15.0); WHITE BLOOD COUNT (AUTO) 7.8 K/uL (4.8-10.8)
[2022-07-24 08:29] VITALS: BP_SYST 160
[2022-07-24] MEDS: traMADol HCL HCL 50 MG TABLET (ULTRAM) PO PRN ×2 (09:27→17:34)
[2022-07-24] MEDS: lisinopriL 20 MG TABLET PO SCH (09:27)
[2022-07-24] MEDS: MULTIVITAMINS TAB 1 TABLET PO SCH (09:27)
[2022-07-24] MEDS: ASCORBIC ACID 500 MG TABLET PO SCH (09:27)
[2022-07-24] MEDS: ENOXAPARIN SODIUM 40 MG/0.4 ML SYRINGE SQ SCH (09:28)
[2022-07-24] MEDS: INSULIN GLARGINE 100 UNITS/ML, 10 ML VIAL SUBCUT SCH ×2 (09:29→20:44)
[2022-07-24 11:38] VITALS: BP_SYST 139
--- NOTE | 2022-07-24 14:27 | NUR ---
Left message for [facility] regarding PENG for home health [phone]. [facility] is working with [facility] regarding PENG for Home Health-Alex Thibodeaux [phone]
--- NOTE | 2022-07-24 14:55 | NUR ---
ROUNDS LATE ENTRY DUE TO PATIENT CARE 0800- ASSUMED PT CARE. PT IN BED AAOX4. DENIES PAIN AT THIS TIME. PLAN OF CARE DISCUSSED WITH PATIENT. PT VERBALIZED UNDERSTANDING 1100- WOUND CARE WITH KEEGAN CORCORAN. PT WAS PREMEDICATED WITH ULTRAM PRIOR. PATIENT TOLERATED PROCEDURE WELL
[2022-07-24] MEDS: ERTAPENEM SODIUM 1 GM in NS 50 ML IV SCH (17:24)
[2022-07-24 17:26] VITALS: BP_SYST 143
--- NOTE | 2022-07-24 20:00 | NUR ---
OPENING Patient resting in bed, no distress noted. IV fluids infusing as ordered. Denies pain currently. Dressings to bilateral feet intact, small amount of drainage noted on left dressing. Safety precautions in place.
[2022-07-24 20:05] VITALS: BP_SYST 144
--- NOTE | 2022-07-24 20:05 | NUR ---
CLOSING ALL NEEDS ATTENDED. REPORT GIVEN TO NIGHT NURSE
--- NOTE | 2022-07-24 23:30 | NUR ---
ROUNDS Patient resting in bed, no distress noted. IV fluids infusing. No complaint of pain. Safety precautions in place.
[2022-07-25 00:09] VITALS: BP_SYST 133
--- NOTE | 2022-07-25 04:00 | NUR ---
ROUNDS Patient sleeping in bed, unlabored breathing on room air.
[2022-07-25] MEDS: traMADol HCL HCL 50 MG TABLET (ULTRAM) PO PRN (06:51)
[2022-07-25] MEDS: INSULIN REGULAR, HUMAN 100 UNITS/ML, 3 ML VIAL (humuLIN R) SUBCUT PRN ×3 (06:59→22:05)
--- NOTE | 2022-07-25 07:45 | NUR ---
CLOSING Patient stable through night. Given Tramadol PRN this morning for report of pain to feet. Dressings in place. Ambulates with walker. Given 4 units insulin per sliding scale this morning. IV fluids infusing. Safety precautions in place. Endorsed to oncoming nurse.
[2022-07-25 07:52] VITALS: BP_SYST 147
[2022-07-25] MEDS: lisinopriL 20 MG TABLET PO SCH (09:17)
[2022-07-25] MEDS: ENOXAPARIN SODIUM 40 MG/0.4 ML SYRINGE SQ SCH (09:17)
[2022-07-25] MEDS: MULTIVITAMINS TAB 1 TABLET PO SCH (09:17)
[2022-07-25] MEDS: ASCORBIC ACID 500 MG TABLET PO SCH (09:17)
[2022-07-25] MEDS: INSULIN GLARGINE 100 UNITS/ML, 10 ML VIAL SUBCUT SCH ×2 (09:19→22:04)
[2022-07-25] MEDS: LINEZOLID 300 ML IV SCH ×2 (12:10→23:48)
[2022-07-25 12:37] VITALS: BP_SYST 121
[2022-07-25 15:10] VITALS: BP_SYST 148
[2022-07-25] MEDS: ERTAPENEM SODIUM 1 GM in NS 50 ML IV SCH (17:00)
[2022-07-25 20:00] VITALS: BP_SYST 130
[2022-07-25] MEDS: 0.45% NACL 1,000 ML IV SCH (22:06)
[2022-07-26] MEDS: INSULIN REGULAR, HUMAN 100 UNITS/ML, 3 ML VIAL (humuLIN R) SUBCUT PRN ×4 (06:18→21:31)
--- NOTE | 2022-07-26 07:55 | NUR ---
Initial notes Received patient AAOx4, No c/o pain/SOB respiration even and unlabored no signs of distress. IV infusing left upper midlinex2 lumen patent, Continue to maintain safety precaution, bed in low position, call light w/in reached.
[2022-07-26] MEDS: MULTIVITAMINS TAB 1 TABLET PO SCH (08:29)
[2022-07-26] MEDS: ASCORBIC ACID 500 MG TABLET PO SCH (08:29)
[2022-07-26] MEDS: lisinopriL 20 MG TABLET PO SCH (08:29)
[2022-07-26] MEDS: ENOXAPARIN SODIUM 40 MG/0.4 ML SYRINGE SQ SCH (08:30)
[2022-07-26] MEDS: INSULIN GLARGINE 100 UNITS/ML, 10 ML VIAL SUBCUT SCH ×2 (08:32→21:31)
[2022-07-26 08:44] VITALS: BP_SYST 143
[2022-07-26] MEDS: LINEZOLID 300 ML IV SCH ×2 (11:39→23:29)
[2022-07-26 11:46] VITALS: BP_SYST 139
[2022-07-26] MEDS: 0.45% NACL 1,000 ML IV SCH (11:54)
[2022-07-26] MEDS: ERTAPENEM SODIUM 1 GM in NS 50 ML IV SCH (16:04)
[2022-07-26 16:29] VITALS: BP_SYST 130
--- NOTE | 2022-07-26 18:49 | NUR ---
Patient stable, no signs of distress. No s/s of hypo/hyperglycemia,tolerated meal. Wound dressing change to bilateral diabetic foot ulcer..Maintain safety precaution throughout shift, will continue and endorse.
[2022-07-26 19:45] VITALS: BP_SYST 138
--- NOTE | 2022-07-26 19:45 | NUR ---
INITIAL NOTE AT INITIAL ASSESSMENT, PATIENT IS RESTING IN BED, STABLE, NO SIGNS OF RESPIRATORY DISTRESS. PATIENT VERBALIZES NO PAIN. PLAN OF CARE FOR THE EVENING IS COMMUNICATED WITH THE PATIENT. PATIENT DEMONSTRATES BACK CORRECT USAGE OF CALL LIGHT; CALL LIGHT PLACED WITH HAND'S REACH. FALL, SAFETY, RESPIRATORY, AND ISOLATION PRECAUTIONS WILL BE TAKEN THROUGHOUT THE SHIFT.
[2022-07-26] MEDS: traMADol HCL HCL 50 MG TABLET (ULTRAM) PO PRN (21:27)
--- NOTE | 2022-07-26 23:45 | NUR ---
MIDLINE DRESSING CHANGE MIDLINE DRESSING CHANGE COMPLETED AT THIS TIME USING STERILE PROTOCOL. PATIENT TOLERATED WELL. BOTH PORTS FLUSHING WELL WITHOUT RESISTANCE.
--- NOTE | 2022-07-27 01:30 | NUR ---
ROUNDS PATIENT IS RESTING IN BED WATCHING TV, STABLE, NO SIGNS OF RESPIRATORY DISTRESS. BED IS LOCKED, ALARMED, AND AT THE LOWEST LEVEL.
[2022-07-27 01:43] VITALS: BP_SYST 129
--- NOTE | 2022-07-27 04:20 | NUR ---
ROUNDS PATIENT IS SLEEPING, STABLE, NO SIGNS OF RESPIRATORY DISTRESS. BED IS LOCKED, ALARMED, AND AT THE LOWEST LEVEL.
--- NOTE | 2022-07-27 06:05 | NUR ---
CLOSING NOTE PATIENT SLEPT WELL THROUGHOUT THE NIGHT. AT THIS TIME, PATIENT IS RESTING IN BED, STABLE, NO SIGNS OF RESPIRATORY DISTRESS. CALL LIGHT WITHIN REACH. BED IS LOCKED, ALARMED, AND AT THE LOWEST LEVEL. FALL, SAFETY, AND ISOLATION PRECAUTIONS HAVE BEEN IN PLACE THROUGHOUT THE SHIFT. WILL CONTINUE TO MONITOR UNTIL REPORT IS GIVEN AT BEDSIDE TO AM NURSE.
[2022-07-27] MEDS: 0.45% NACL 1,000 ML IV SCH ×2 (06:33→17:12)
[2022-07-27] MEDS: traMADol HCL HCL 50 MG TABLET (ULTRAM) PO PRN (06:58)
[2022-07-27 08:00] VITALS: BP_SYST 134
[2022-07-27] MEDS: MULTIVITAMINS TAB 1 TABLET PO SCH (08:35)
[2022-07-27] MEDS: ASCORBIC ACID 500 MG TABLET PO SCH (08:35)
[2022-07-27] MEDS: lisinopriL 20 MG TABLET PO SCH (08:36)
[2022-07-27] MEDS: ENOXAPARIN SODIUM 40 MG/0.4 ML SYRINGE SQ SCH (08:36)
[2022-07-27] MEDS: INSULIN GLARGINE 100 UNITS/ML, 10 ML VIAL SUBCUT SCH ×2 (08:38→21:00)
--- NOTE | 2022-07-27 11:49 | NUR ---
Spoke with Jaylyn, supervisor malted milk at [facility]-[phone]-She stated MS Arvin is responsible for PENG with [facility]-she will work on getting the PENG completed and get back to me regarding the authorization for Home Health for wound care for the patient.
[2022-07-27] MEDS: LINEZOLID 300 ML IV SCH ×2 (12:05→23:07)
[2022-07-27 13:29] VITALS: BP_SYST 135
--- NOTE | 2022-07-27 16:00 | NUR ---
WOUND CARE DONE ON WOUNDS, PT TOLERATED WELL.
[2022-07-27] MEDS: ERTAPENEM SODIUM 1 GM in NS 50 ML IV SCH (17:10)
[2022-07-27] MEDS: INSULIN REGULAR, HUMAN 100 UNITS/ML, 3 ML VIAL (humuLIN R) SUBCUT PRN (17:31)
[2022-07-27 19:50] VITALS: BP_SYST 130
[2022-07-28] VITALS: BP_SYST 128
[2022-07-28] MEDS: traMADol HCL HCL 50 MG TABLET (ULTRAM) PO PRN ×2 (05:40→12:12)
[2022-07-28] MEDS: 0.45% NACL 1,000 ML IV SCH ×2 (06:17→21:02)
[2022-07-28 08:45] VITALS: BP_SYST 144
[2022-07-28] MEDS: INSULIN GLARGINE 100 UNITS/ML, 10 ML VIAL SUBCUT SCH ×2 (09:00→20:57)
[2022-07-28] MEDS: MULTIVITAMINS TAB 1 TABLET PO SCH (09:59)
[2022-07-28] MEDS: ENOXAPARIN SODIUM 40 MG/0.4 ML SYRINGE SQ SCH (09:59)
[2022-07-28] MEDS: ASCORBIC ACID 500 MG TABLET PO SCH (09:59)
[2022-07-28] MEDS: lisinopriL 20 MG TABLET PO SCH (09:59)
[2022-07-28 11:26] VITALS: BP_SYST 148
[2022-07-28] MEDS: LINEZOLID 300 ML IV SCH (14:06)
[2022-07-28 15:08] VITALS: BP_SYST 134
--- NOTE | 2022-07-28 17:17 | NUR ---
D/C Patient Patient given medication reconciliation form and D/C instructions. Exit Care provided. Patient verbalized understanding. MD discussed with patient the results and treatment provided. Patient in stable condition, ID band removed. IV catheter removed, intact and dressing applied, no active bleeding. Patient educated on pain management. All belongings sent with patient. Patient left with FWW. Patient left floor via wheelchair to private vehicle in no distress. Addendum: 07/28/22 at 1719 by Fifty Luz Elena Campos RN RN DOCUMENTED ON WRONG PATIENT.
[2022-07-28] MEDS: ERTAPENEM SODIUM 1 GM in NS 50 ML IV SCH (17:23)
[2022-07-28] MEDS: INSULIN REGULAR, HUMAN 100 UNITS/ML, 3 ML VIAL (humuLIN R) SUBCUT PRN (17:31)
[2022-07-28 20:14] VITALS: BP_SYST 134
[2022-07-29] VITALS: BP_SYST 135
[2022-07-29] MEDS: LINEZOLID 300 ML IV SCH ×2 (00:11→12:47)
[2022-07-29] MEDS: traMADol HCL HCL 50 MG TABLET (ULTRAM) PO PRN (01:01)
[2022-07-29 10:01] VITALS: BP_SYST 130
[2022-07-29] MEDS: ENOXAPARIN SODIUM 40 MG/0.4 ML SYRINGE SQ SCH (10:40)
[2022-07-29] MEDS: ASCORBIC ACID 500 MG TABLET PO SCH (10:40)
[2022-07-29] MEDS: lisinopriL 20 MG TABLET PO SCH (10:41)
[2022-07-29] MEDS: MULTIVITAMINS TAB 1 TABLET PO SCH (10:41)
[2022-07-29] MEDS: 0.45% NACL 1,000 ML IV SCH (10:45)
[2022-07-29] MEDS: INSULIN GLARGINE 100 UNITS/ML, 10 ML VIAL SUBCUT SCH ×2 (10:52→21:44)
[2022-07-29 13:52] VITALS: BP_SYST 132
[2022-07-29 16:52] VITALS: BP_SYST 130
--- NOTE | 2022-07-29 16:54 | NUR ---
Nutrition F/U RD reviewed pts current EMR including diet hx, physician notes, nursing notes, pertinent labs/meds/procedures, care trends and care activity. Subjective Information: RD bedside visit deferred d/t high workload. Per EMR review, pt still has active D/C orders for home health; may benefit from snacks between meals d/t decrease in average PO intakes. Current Diet Order/Nutrition Support: CCHO x30 days & Edy BID x38 days % PO intake: 78% average x14 meal records -- slight decrease Last BM: x1 / Estimated Energy Expenditure (kcals/day) 0503-5347 kcal (20-25 kcal/kg CBW d/t BMI overwt) Estimated Protein Required (g/day) 107-134 g (1.2-1.5 g/kg d/t wounds on both feet) Estimated Fluid Required (l/day) 1.8L-2.2L (1 mL/kcal maintenance) Problem/Etiology/Signs/Symptoms * Increased protein needs R/T metabolic demands AEB wounds in both feet & est. needs for wound healing. *Ongoing Expected Outcomes/Goals * Monitor BM regime, wounds in both feet, and Glucose levels. Dietitian Recommendations * Continue CCHO diet * Continue Edy BID * Snacks BID between meals Follow up * Low Risk: F/U to F/U within 7 days
--- NOTE | 2022-07-29 16:57 | NUR ---
Dietitian Recommendations * [facility] * Continue Edy BID * Snacks BID between meals LP, MS, RD Please refer to Nutrition F/U for details.
[2022-07-29] MEDS: ERTAPENEM SODIUM 1 GM in NS 50 ML IV SCH (17:23)
--- NOTE | 2022-07-29 19:49 | NUR ---
RECEIVED REPORT ON PATIENT FROM BASSEM HOLLINGSWORTH, ASSUMED CARE, AND STARTED ASSESSMENT.
[2022-07-29 20:00] VITALS: BP_SYST 127
[2022-07-30] MEDS: LINEZOLID 300 ML IV SCH ×2 (00:30→11:49)
--- NOTE | 2022-07-30 07:40 | NUR ---
REPORT GIVEN TO BASSEM LI, AND CARE WAS TURNED OVER TO HER.
[2022-07-30 08:00] VITALS: BP_SYST 132
[2022-07-30] MEDS: ASCORBIC ACID 500 MG TABLET PO SCH (10:06)
[2022-07-30] MEDS: MULTIVITAMINS TAB 1 TABLET PO SCH (10:06)
[2022-07-30] MEDS: traMADol HCL HCL 50 MG TABLET (ULTRAM) PO PRN (10:07)
[2022-07-30] MEDS: lisinopriL 20 MG TABLET PO SCH (10:07)
[2022-07-30] MEDS: ENOXAPARIN SODIUM 40 MG/0.4 ML SYRINGE SQ SCH (10:08)
[2022-07-30] MEDS: INSULIN GLARGINE 100 UNITS/ML, 10 ML VIAL SUBCUT SCH (10:14)
[2022-07-30 12:00] VITALS: BP_SYST 137
--- NOTE | 2022-07-30 14:53 | NUR ---
Home Health for wound care is set up with [facility] [phone]-they will start care 07/31. [facility] will deliver IV Invanz this evening and send a home health nurse to home tomorrow. [phone]. Patient is to DC on PO zyvox per Dr Camilo.
[2022-07-30] MEDS ORDERED: LINE600T12 PO (15:53)
[2022-07-30] MEDS ORDERED: ERTA1VIA3 IV (15:54)
[2022-07-30 16:00] VITALS: BP_SYST 150
[2022-07-30 16:09] VITALS: BP_SYST 150
[2022-07-30] MEDS: ERTAPENEM SODIUM 1 GM in NS 50 ML IV SCH (17:20)
[2022-07-30] MEDS: INSULIN REGULAR, HUMAN 100 UNITS/ML, 3 ML VIAL (humuLIN R) SUBCUT PRN (17:23)
[2022-07-30 20:26] VITALS: BP_SYST 156
== END 2022-07-30 20:30 | disposition home health service (06) | DRG 314 ==
LOC: SED 11:22 → SMU 15:32
PROVIDERS: ADMIT Family Medicine; ATTEND Family Medicine
PROC: 30233N1 Transfusion of Nonautologous Red Blood Cells into Peripheral Vein, Percutaneous Approach (ICD-10-PCS; 2022-06-18)
PROC: 02HV33Z Insertion of Infusion Device into Superior Vena Cava, Percutaneous Approach (ICD-10-PCS; 2022-06-18)
PROC: B548ZZA Ultrasonography of Superior Vena Cava, Guidance (ICD-10-PCS; 2022-06-18)
PROC: 0JBQ0ZZ Excision of Right Foot Subcutaneous Tissue and Fascia, Open Approach (ICD-10-PCS; 2022-06-27)
PROC: 0Y6R0Z0 Detachment at Right 2nd Toe, Complete, Open Approach (ICD-10-PCS; principal; 2022-06-27 12:50)
PROC: 0HRMXK3 Replacement of Right Foot Skin with Nonautologous Tissue Substitute, Full Thickness, External Approach (ICD-10-PCS; 2022-06-29)
PROC: 0YBM0ZZ Excision of Right Foot, Open Approach (ICD-10-PCS; 2022-06-29)
DX: E11.621 Type 2 diabetes mellitus with foot ulcer (principal); E43 Unspecified severe protein-calorie malnutrition; I96 Gangrene, not elsewhere classified; R78.81 Bacteremia; E11.52 Type 2 diabetes mellitus with diabetic peripheral angiopathy with gangrene; E11.610 Type 2 diabetes mellitus with diabetic neuropathic arthropathy; L03.115 Cellulitis of right lower limb; L97.519 Non-pressure chronic ulcer of other part of right foot with unspecified severity; D64.9 Anemia, unspecified; L03.116 Cellulitis of left lower limb; S91.301A Unspecified open wound, right foot, initial encounter; Z20.822 Contact with and (suspected) exposure to COVID-19; X58.XXXA Exposure to other specified factors, initial encounter; I10 Essential (primary) hypertension; E11.69 Type 2 diabetes mellitus with other specified complication; M86.8X6 Other osteomyelitis, lower leg; Z68.29 Body mass index [BMI] 29.0-29.9, adult; Z88.8 Allergy status to other drugs, medicaments and biological substances; Z79.899 Other long term (current) drug therapy; Z79.4 Long term (current) use of insulin; Y93.89 Activity, other specified; Y92.89 Other specified places as the place of occurrence of the external cause; Y99.8 Other external cause status
CPT/HCPCS: 36415; 71045; 80048; 80053; 80202; 81000; 82607; 82728; 82746; 82962; 83540; 83550; 83605; 83735; 85007; 85025; 85027; 85610-TC; 85651-TC; 85730-TC; 86140; 86886; 86900; 86901; 86920; 87040; 87070-TC; 87081; 87186-TC; 88304; 88311; 93005; 94010; 94760; 96365; 96368; 96375; 97110-GP; 97112-GP; 97116-GP; 97163-GP; 97530-GP; 99285; J0131; J1335; J1650; J1815; J2020; J2250; J2270; J2405; J2543; J2704; J2916; J3010; J3370; J3490; J7030; J7050; P9021

== ENCOUNTER 2022-10-07 17:53 | Inpatient (IN) | payer MEDICAID ==
[~2022-10-07] VITALS: Ht 175.3 cm; Wt 78.9 kg
[~2022-10-07 17:53] MED LIST changes: +ERTA1VIA3 IV; +LINE600T12 PO; -VANC125C10 IV
[2022-10-07 18:16] VITALS: BP_SYST 149
[2022-10-07] MEDS ORDERED: NS 1000 ML IV.SOLN IV ONE (18:30)
[2022-10-07] MEDS ORDERED: VANCOMYCIN HCL 1,000 MG in D5W 250 ML IV ONE (18:30)
[2022-10-07] MEDS ORDERED: PIPERACILLIN/TAZO 3.375 GM in D5W 50 ML IV ONE (18:30)
[2022-10-07] MEDS ORDERED: MORPHINE 4 MG INJ. 4 MG/ML VIAL IVP ONE (19:00)
[2022-10-07 19:08] LABS: BASOPHILS % (AUTO) 0.3 % (0.0-2.0); EOSINOPHILS # (AUTO) 0.1 K/uL (0.0-0.4); EOSINOPHILS % (AUTO) 0.9 % (0.0-4.0); HEMOGLOBIN 9.4 g/dL (14.0-18.0); LYMPHOCYTES # (AUTO) 1.4 K/uL (1.0-5.5); LYMPHOCYTES % (AUTO) 13.7 % (20.5-51.5); MEAN CORPUSCULAR HEMOGLOBIN 29 pg (27-31); MEAN CORPUSCULAR HGB CONC 34 % (32-36); MEAN CORPUSCULAR VOLUME 86 fL (79.0-98.0); MONOCYTES # (AUTO) 0.6 K/uL (0.0-1.0); MONOCYTES % (AUTO) 5.3 % (1.7-9.3); NEUTROPHILS # (AUTO) 8.3 K/uL (1.8-7.7); NEUTROPHILS % (AUTO) 79.8 % (40.0-70.0); PLATELET COUNT (AUTO) 458 K/uL (130-430); RED BLOOD CELL COUNT(AUTO) 3.26 MIL/uL (4.2-6.2); RED CELL DISTRIBUTION WIDTH 14.8 % (9.0-15.0); WHITE BLOOD COUNT (AUTO) 10.4 K/uL (4.8-10.8)
[2022-10-07 19:14] LABS: ANION GAP 7 (5-15); CALCIUM 7.5 mg/dL (8.4-11.0); CHLORIDE 99 mmol/L (98-107); CREATININE 1.15 mg/dL (0.55-1.30); GFR AFRICAN AMERICAN 86 mL/min (>90); GLUCOSE 181 mg/dL (70-99); UREA NITROGEN, BLOOD 16 mg/dL (8-21)
[2022-10-07 19:30] LABS: ALANINE AMINOTRANSFERASE 13 U/L (12-78); ALBUMIN 1.5 g/dL (3.4-4.8); ASPARTATE AMINOTRANSFERASE 15 U/L (10-37); TOTAL BILIRUBIN 0.1 mg/dL (0.0-1.0)
[2022-10-07] MEDS ORDERED: PIPERACILLIN/TAZOBACTAM 3.375 GM/VIAL (ZOSYN) IV ONE ×2 (19:51→21:39)
[2022-10-07] MEDS ORDERED: VANCOMYCIN HCL 1000 MG/VIAL IV ONE (20:37)
[2022-10-07 20:41] LABS: BILIRUBIN,URINE NEGATIVE (NEGATIVE); BLOOD, URINE 3+ (NEGATIVE); CLARITY/URINE CLOUDY (CLEAR); COLOR,URINE YELLOW (YELLOW); GLUCOSE,URINE TRACE (NEGATIVE); KETONES,URINE NEGATIVE (NEGATIVE); LEUKOCYTE ESTERASE ,URINE 2+ (NEGATIVE); NITRITE, URINE NEGATIVE (NEGATIVE); PROTEIN URINE 3+ (NEGATIVE); UROBILINOGEN,URINE 0.2 (0.2-1.0)
[2022-10-07 20:56] LABS: BACTERIA,URINE MANY /HPF (None Seen); MUCUS,URINE None Seen /LPF (None Seen); RBC,URINE 0-3 /HPF (0-3); WBC,URINE >100 /HPF (0-3); YEAST,URINE Few /HPF (None Seen)
[2022-10-07] MEDS ORDERED: DEXTROSE 50% JECT 50 ML DISP.SYRIN IVP PRN (21:00)
[2022-10-07] MEDS ORDERED: ACETAMINOPHEN 325 MG TABLET PO PRN (21:00)
[2022-10-07] MEDS ORDERED: HYDROcodone/ACETAMIN 5-325 MG TAB (NORCO/ VICODIN) PO PRN (21:00)
[2022-10-07] MEDS ORDERED: ONDANSETRON HCL 4 MG/2 ML VIAL IVP PRN (21:00)
[2022-10-07] MEDS ORDERED: NALOXONE HCL 0.4 MG/ML AMP (NARCAN) IVP PRN ×2 (21:00)
[2022-10-07 21:01] LABS: BARBITURATE, URINE NEGATIVE (NEG <=200); BENZODIAZEPINE, URINE NEGATIVE (NEG <=150); CANNABINOID, URINE NEGATIVE (NEG <=50); COCAINE, URINE NEGATIVE (NEG <=150); METHAMPHETAMINES SCREEN,URINE NEGATIVE (NEG <=500); OPIATE, URINE POSITIVE (NEG <=100); PHENCYCLIDINE SCREEN,URINE NEGATIVE (NEG <=25); URINE AMPHETAMINE NEGATIVE (NEG <=500); URINE METHADONE NEGATIVE (NEG <=200); URINE OXYCODONE SCREEN NEGATIVE (NEG <=100); URINE PROPOXYPHENE SCREEN NEGATIVE (NEG <=300)
[2022-10-07 21:02] LABS: UR TRICYCLIC ANTIDEPRESSANTS NEGATIVE (NEG <=300)
[2022-10-07] MEDS ORDERED: IBUPROFEN 600 MG TABLET PO PRN (21:15)
[2022-10-07] MEDS ORDERED: CLINDAMYCIN 600 mg/50mL D5W 100 ML IV ONE (21:35)
[2022-10-07] MEDS: NACL 0.9% 1,000 ML IV SCH (21:43)
[2022-10-07] MEDS: LACTOBACILLUS RHAMNOSUS GG 1 CAP CAPSULE PO SCH (22:39)
[2022-10-07 22:43] VITALS: BP_SYST 158
[2022-10-07] MEDS: CLINDAMYCIN 600 mg/50mL D5W 50 ML IV SCH (23:06)
[2022-10-08 00:57] VITALS: BP_SYST 144
[2022-10-08] MEDS: PIPERACILLIN/TAZO 3.375/DEX-IS 50 ML IV SCH ×2 (01:20→08:35)
[2022-10-08] MEDS: CLINDAMYCIN 600 mg/50mL D5W 50 ML IV SCH (05:12)
[2022-10-08 05:18] LABS: BASOPHILS % (AUTO) 0.3 % (0.0-2.0); EOSINOPHILS % (AUTO) 0.2 % (0.0-4.0); HEMATOCRIT 26.2 % (36-54); HEMOGLOBIN 8.7 g/dL (14.0-18.0); LYMPHOCYTES % (AUTO) 9.6 % (20.5-51.5); MEAN CORPUSCULAR HEMOGLOBIN 29 pg (27-31); MEAN CORPUSCULAR HGB CONC 33 % (32-36); MEAN CORPUSCULAR VOLUME 86 fL (79.0-98.0); MONOCYTES # (AUTO) 0.7 K/uL (0.0-1.0); MONOCYTES % (AUTO) 6.3 % (1.7-9.3); NEUTROPHILS # (AUTO) 8.7 K/uL (1.8-7.7); NEUTROPHILS % (AUTO) 83.6 % (40.0-70.0); PLATELET COUNT (AUTO) 420 K/uL (130-430); RED BLOOD CELL COUNT(AUTO) 3.03 MIL/uL (4.2-6.2); RED CELL DISTRIBUTION WIDTH 14.5 % (9.0-15.0); WHITE BLOOD COUNT (AUTO) 10.5 K/uL (4.8-10.8)
[2022-10-08 05:36] LABS: ALBUMIN 1.3 g/dL (3.4-4.8); CALCIUM 7.2 mg/dL (8.4-11.0); CREATININE 0.96 mg/dL (0.55-1.30); TOTAL BILIRUBIN 0.1 mg/dL (0.0-1.0)
[2022-10-08 08:00] VITALS: BP_SYST 150
[2022-10-08] MEDS: ENOXAPARIN SODIUM 40 MG/0.4 ML SYRINGE SQ SCH (08:26)
[2022-10-08] MEDS: MULTIVITS,CA,MINERALS/IRON/FA 1 TABLET PO SCH (08:26)
[2022-10-08] MEDS: lisinopriL 20 MG TABLET PO SCH (08:26)
[2022-10-08] MEDS: ASCORBIC ACID 500 MG TABLET PO SCH (08:26)
[2022-10-08] MEDS: LACTOBACILLUS RHAMNOSUS GG 1 CAP CAPSULE PO SCH ×2 (08:26→22:09)
[2022-10-08] MEDS: NACL 0.9% 1,000 ML IV SCH ×2 (08:38→17:15)
[2022-10-08] MEDS ORDERED: MULTIVITAMINS TAB 1 TABLET PO SCH (09:00)
[2022-10-08] MEDS ORDERED: *CUBICIN 6 MG/KG Q24H/PHARMACY XX PRN (11:15)
[2022-10-08 12:09] VITALS: BP_SYST 124
[2022-10-08] MEDS: MEROPENEM 1 GM in NS 100 ML IV SCH ×2 (13:57→22:10)
[2022-10-08 16:00] VITALS: BP_SYST 126
[2022-10-08] MEDS ORDERED: POTASSIUM CHLORIDE 20 MEQ TAB.PRT.SR PO ONE (16:30)
[2022-10-08] MEDS: DAPTOmycin 480 MG in NS 50 ML IV SCH (17:27)
[2022-10-08 20:00] VITALS: BP_SYST 132
[2022-10-08] MEDS ORDERED: INSULIN GLARGINE 100 UNITS/ML, 10 ML VIAL SUBCUT SCH ×2 (21:00)
[2022-10-09] VITALS: BP_SYST 125
[2022-10-09 04:00] VITALS: BP_SYST 135
[2022-10-09 04:05] LABS: BASOPHILS % (AUTO) 0.6 % (0.0-2.0); EOSINOPHILS # (AUTO) 0.1 K/uL (0.0-0.4); EOSINOPHILS % (AUTO) 1.5 % (0.0-4.0); HEMATOCRIT 27.6 % (36-54); HEMOGLOBIN 9.1 g/dL (14.0-18.0); LYMPHOCYTES # (AUTO) 1.4 K/uL (1.0-5.5); LYMPHOCYTES % (AUTO) 17.2 % (20.5-51.5); MEAN CORPUSCULAR HEMOGLOBIN 28 pg (27-31); MEAN CORPUSCULAR HGB CONC 33 % (32-36); MEAN CORPUSCULAR VOLUME 86 fL (79.0-98.0); MONOCYTES # (AUTO) 0.4 K/uL (0.0-1.0); MONOCYTES % (AUTO) 5.3 % (1.7-9.3); NEUTROPHILS % (AUTO) 75.4 % (40.0-70.0); PLATELET COUNT (AUTO) 461 K/uL (130-430); RED BLOOD CELL COUNT(AUTO) 3.21 MIL/uL (4.2-6.2); RED CELL DISTRIBUTION WIDTH 14.9 % (9.0-15.0)
[2022-10-09 04:13] LABS: CALCIUM 7.1 mg/dL (8.4-11.0); CREATININE 1.01 mg/dL (0.55-1.30)
[2022-10-09] MEDS: NACL 0.9% 1,000 ML IV SCH ×2 (04:19→12:07)
[2022-10-09 04:25] LABS: TOTAL IRON BIND. CAPACITY 107 ug/dL (250-450)
[2022-10-09] MEDS: MEROPENEM 1 GM in NS 100 ML IV SCH ×3 (04:44→21:17)
[2022-10-09 08:00] VITALS: BP_SYST 136
[2022-10-09] MEDS: MULTIVITS,CA,MINERALS/IRON/FA 1 TABLET PO SCH (09:06)
[2022-10-09] MEDS: ASCORBIC ACID 500 MG TABLET PO SCH (09:08)
[2022-10-09] MEDS: LACTOBACILLUS RHAMNOSUS GG 1 CAP CAPSULE PO SCH ×2 (09:08→21:19)
[2022-10-09] MEDS: ENOXAPARIN SODIUM 40 MG/0.4 ML SYRINGE SQ SCH (09:09)
[2022-10-09] MEDS: lisinopriL 20 MG TABLET PO SCH (09:09)
[2022-10-09] MEDS: MORPHINE 4 MG INJ. 4 MG/ML VIAL IVP PRN ×3 (09:53→21:31)
[2022-10-09] MEDS ORDERED: FLUCONAZOLE 200 mg/ NS 100 ML IV SCH (11:00)
[2022-10-09 11:35] VITALS: BP_SYST 139
[2022-10-09] MEDS: DAPTOmycin 480 MG in NS 50 ML IV SCH (16:39)
[2022-10-09] MEDS: INSULIN REGULAR, HUMAN 100 UNITS/ML, 3 ML VIAL (humuLIN R) SUBCUT PRN ×2 (17:22→21:22)
[2022-10-09] MEDS ORDERED: FLUCONAZOLE 200 MG TABLET (DIFLUCAN) PO ONE (18:00)
[2022-10-09 18:09] VITALS: BP_SYST 134
[2022-10-09 20:00] VITALS: BP_SYST 132
[2022-10-10 01:14] VITALS: BP_SYST 144
[2022-10-10] MEDS: MORPHINE 4 MG INJ. 4 MG/ML VIAL IVP PRN ×4 (03:08→23:02)
[2022-10-10] MEDS: NACL 0.9% 1,000 ML IV SCH ×3 (05:53→21:50)
[2022-10-10 05:54] LABS: BASOPHILS % (AUTO) 0.5 % (0.0-2.0); EOSINOPHILS # (AUTO) 0.2 K/uL (0.0-0.4); EOSINOPHILS % (AUTO) 3.6 % (0.0-4.0); HEMATOCRIT 28.1 % (36-54); HEMOGLOBIN 9.4 g/dL (14.0-18.0); LYMPHOCYTES # (AUTO) 1.9 K/uL (1.0-5.5); LYMPHOCYTES % (AUTO) 32.3 % (20.5-51.5); MEAN CORPUSCULAR HEMOGLOBIN 29 pg (27-31); MEAN CORPUSCULAR HGB CONC 34 % (32-36); MEAN CORPUSCULAR VOLUME 86 fL (79.0-98.0); MONOCYTES # (AUTO) 0.4 K/uL (0.0-1.0); MONOCYTES % (AUTO) 6.5 % (1.7-9.3); NEUTROPHILS # (AUTO) 3.3 K/uL (1.8-7.7); NEUTROPHILS % (AUTO) 57.1 % (40.0-70.0); PLATELET COUNT (AUTO) 497 K/uL (130-430); RED BLOOD CELL COUNT(AUTO) 3.27 MIL/uL (4.2-6.2); WHITE BLOOD COUNT (AUTO) 5.8 K/uL (4.8-10.8)
[2022-10-10] MEDS: MEROPENEM 1 GM in NS 100 ML IV SCH ×3 (05:57→21:51)
[2022-10-10] MEDS: INSULIN REGULAR, HUMAN 100 UNITS/ML, 3 ML VIAL (humuLIN R) SUBCUT PRN ×3 (06:02→23:05)
[2022-10-10 06:26] LABS: ALBUMIN 1.5 g/dL (3.4-4.8); CALCIUM 7.5 mg/dL (8.4-11.0); CREATININE 1.17 mg/dL (0.55-1.30); TOTAL BILIRUBIN 0.1 mg/dL (0.0-1.0)
[2022-10-10 08:00] VITALS: BP_SYST 139
[2022-10-10] MEDS: FLUCONAZOLE 100 MG TABLET (DIFLUCAN) PO SCH (08:54)
[2022-10-10] MEDS: LACTOBACILLUS RHAMNOSUS GG 1 CAP CAPSULE PO SCH ×2 (08:54→21:51)
[2022-10-10] MEDS: ASCORBIC ACID 500 MG TABLET PO SCH (08:54)
[2022-10-10] MEDS: ENOXAPARIN SODIUM 40 MG/0.4 ML SYRINGE SQ SCH (08:54)
[2022-10-10] MEDS: lisinopriL 20 MG TABLET PO SCH (08:55)
[2022-10-10] MEDS: MULTIVITS,CA,MINERALS/IRON/FA 1 TABLET PO SCH (08:55)
[2022-10-10 11:59] VITALS: BP_SYST 117
[2022-10-10 13:07] LABS: FOLATE (FOLIC ACID) 4.1 ng/mL (>3.0)
[2022-10-10 16:59] VITALS: BP_SYST 142
[2022-10-10] MEDS: DAPTOmycin 480 MG in NS 50 ML IV SCH (17:50)
[2022-10-10 19:00] VITALS: BP_SYST 155
[2022-10-10 20:00] VITALS: BP_SYST 155
[2022-10-11 01:49] VITALS: BP_SYST 162
[2022-10-11] MEDS: MORPHINE 4 MG INJ. 4 MG/ML VIAL IVP PRN ×4 (04:45→20:47)
[2022-10-11] MEDS: NACL 0.9% 1,000 ML IV SCH ×2 (05:09→15:52)
[2022-10-11] MEDS: MEROPENEM 1 GM in NS 100 ML IV SCH ×3 (05:10→20:47)
[2022-10-11] MEDS: INSULIN REGULAR, HUMAN 100 UNITS/ML, 3 ML VIAL (humuLIN R) SUBCUT PRN ×3 (05:41→21:17)
[2022-10-11 08:14] VITALS: BP_SYST 139
[2022-10-11] MEDS: MULTIVITS,CA,MINERALS/IRON/FA 1 TABLET PO SCH (08:28)
[2022-10-11] MEDS: FLUCONAZOLE 100 MG TABLET (DIFLUCAN) PO SCH (08:28)
[2022-10-11] MEDS: LACTOBACILLUS RHAMNOSUS GG 1 CAP CAPSULE PO SCH ×2 (08:28→20:47)
[2022-10-11] MEDS: ASCORBIC ACID 500 MG TABLET PO SCH (08:28)
[2022-10-11] MEDS: ENOXAPARIN SODIUM 40 MG/0.4 ML SYRINGE SQ SCH (08:29)
[2022-10-11] MEDS: lisinopriL 20 MG TABLET PO SCH (08:29)
[2022-10-11 11:35] VITALS: BP_SYST 137
[2022-10-11] MEDS: DAPTOmycin 480 MG in NS 50 ML IV SCH (17:05)
[2022-10-11 17:11] VITALS: BP_SYST 159
[2022-10-12] VITALS (8 sets, daily range): BP systolic 125–164
[2022-10-12] MEDS: MORPHINE 4 MG INJ. 4 MG/ML VIAL IVP PRN ×5 (01:57→20:43)
[2022-10-12] MEDS: NACL 0.9% 1,000 ML IV SCH ×3 (05:42→21:20)
[2022-10-12] MEDS: MEROPENEM 1 GM in NS 100 ML IV SCH ×3 (05:50→21:19)
[2022-10-12] MEDS: INSULIN REGULAR, HUMAN 100 UNITS/ML, 3 ML VIAL (humuLIN R) SUBCUT PRN ×3 (05:58→20:21)
[2022-10-12] MEDS: LACTOBACILLUS RHAMNOSUS GG 1 CAP CAPSULE PO SCH ×2 (09:08→20:10)
[2022-10-12] MEDS: MULTIVITS,CA,MINERALS/IRON/FA 1 TABLET PO SCH (09:09)
[2022-10-12] MEDS: ASCORBIC ACID 500 MG TABLET PO SCH (09:09)
[2022-10-12] MEDS: ENOXAPARIN SODIUM 40 MG/0.4 ML SYRINGE SQ SCH (09:09)
[2022-10-12] MEDS: FLUCONAZOLE 100 MG TABLET (DIFLUCAN) PO SCH (09:09)
[2022-10-12] MEDS: lisinopriL 20 MG TABLET PO SCH (09:09)
[2022-10-12] MEDS ORDERED: BALSAM PERU/CASTOR OIL 56.7 GM OINT...G. TP ONE (10:00)
[2022-10-12] MEDS ORDERED: CLINDAMYCIN 600 MG in D5W 50 ML IV SCH (12:00)
[2022-10-12] MEDS: CLINDAMYCIN HCL 150 MG CAPSULE PO SCH ×3 (13:15→20:09)
[2022-10-12] MEDS ORDERED: LACTOBACILLUS RHAMNOSUS GG 1 CAP CAPSULE PO SCH (21:00)
[2022-10-13] MEDS: MORPHINE 4 MG INJ. 4 MG/ML VIAL IVP PRN ×5 (01:09→20:25)
[2022-10-13 02:47] VITALS: BP_SYST 130
[2022-10-13] MEDS: MEROPENEM 1 GM in NS 100 ML IV SCH ×3 (05:25→21:48)
[2022-10-13] MEDS: INSULIN REGULAR, HUMAN 100 UNITS/ML, 3 ML VIAL (humuLIN R) SUBCUT PRN ×4 (06:18→21:43)
[2022-10-13 07:05] LABS: BASOPHILS # (AUTO) 0.1 K/uL (0.0-0.2); BASOPHILS % (AUTO) 1.1 % (0.0-2.0); EOSINOPHILS # (AUTO) 0.2 K/uL (0.0-0.4); EOSINOPHILS % (AUTO) 4.1 % (0.0-4.0); HEMATOCRIT 29.4 % (36-54); HEMOGLOBIN 9.6 g/dL (14.0-18.0); LYMPHOCYTES # (AUTO) 2.2 K/uL (1.0-5.5); LYMPHOCYTES % (AUTO) 39.5 % (20.5-51.5); MEAN CORPUSCULAR HEMOGLOBIN 29 pg (27-31); MEAN CORPUSCULAR HGB CONC 33 % (32-36); MEAN CORPUSCULAR VOLUME 87 fL (79.0-98.0); MONOCYTES # (AUTO) 0.3 K/uL (0.0-1.0); MONOCYTES % (AUTO) 5.8 % (1.7-9.3); NEUTROPHILS # (AUTO) 2.8 K/uL (1.8-7.7); NEUTROPHILS % (AUTO) 49.5 % (40.0-70.0); PLATELET COUNT (AUTO) 484 K/uL (130-430); RED BLOOD CELL COUNT(AUTO) 3.37 MIL/uL (4.2-6.2); RED CELL DISTRIBUTION WIDTH 15.2 % (9.0-15.0); WHITE BLOOD COUNT (AUTO) 5.7 K/uL (4.8-10.8)
[2022-10-13 07:26] LABS: ALBUMIN 1.9 g/dL (3.4-4.8); CALCIUM 8.4 mg/dL (8.4-11.0); CREATININE 0.95 mg/dL (0.55-1.30); TOTAL BILIRUBIN 0.1 mg/dL (0.0-1.0)
[2022-10-13 08:00] VITALS: BP_SYST 133
[2022-10-13] MEDS: lisinopriL 20 MG TABLET PO SCH (09:11)
[2022-10-13] MEDS: LACTOBACILLUS RHAMNOSUS GG 1 CAP CAPSULE PO SCH ×2 (09:11→21:37)
[2022-10-13] MEDS: MULTIVITS,CA,MINERALS/IRON/FA 1 TABLET PO SCH (09:11)
[2022-10-13] MEDS: FLUCONAZOLE 100 MG TABLET (DIFLUCAN) PO SCH (09:11)
[2022-10-13] MEDS: ASCORBIC ACID 500 MG TABLET PO SCH (09:12)
[2022-10-13] MEDS: ENOXAPARIN SODIUM 40 MG/0.4 ML SYRINGE SQ SCH (09:12)
[2022-10-13] MEDS: CLINDAMYCIN HCL 150 MG CAPSULE PO SCH ×4 (09:12→21:37)
[2022-10-13] MEDS: NACL 0.9% 1,000 ML IV SCH (09:13)
[2022-10-13] MEDS: BALSAM PERU/CASTOR OIL 56.7 GM OINT...G. TP SCH (09:13)
[2022-10-13 12:45] VITALS: BP_SYST 132
[2022-10-13 16:32] VITALS: BP_SYST 134
[2022-10-13 20:00] VITALS: BP_SYST 166
[2022-10-14] MEDS ORDERED: D5W 1,000 ML IV PRN (00:15)
[2022-10-14] MEDS ORDERED: GLUCOSE (DEXTROSE) ORAL GEL -Adults PO PRN (00:15)
[2022-10-14 00:37] VITALS: BP_SYST 140
[2022-10-14] MEDS: MORPHINE 4 MG INJ. 4 MG/ML VIAL IVP PRN ×6 (02:33→23:41)
[2022-10-14] MEDS: MEROPENEM 1 GM in NS 100 ML IV SCH ×3 (06:45→23:38)
[2022-10-14] MEDS: INSULIN REGULAR, HUMAN 100 UNITS/ML, 3 ML VIAL (humuLIN R) SUBCUT PRN ×3 (06:54→16:32)
[2022-10-14 06:57] LABS: BASOPHILS # (AUTO) 0.1 K/uL (0.0-0.2); BASOPHILS % (AUTO) 0.9 % (0.0-2.0); EOSINOPHILS # (AUTO) 0.2 K/uL (0.0-0.4); EOSINOPHILS % (AUTO) 2.9 % (0.0-4.0); HEMATOCRIT 29.2 % (36-54); HEMOGLOBIN 9.6 g/dL (14.0-18.0); LYMPHOCYTES # (AUTO) 2.2 K/uL (1.0-5.5); LYMPHOCYTES % (AUTO) 29.9 % (20.5-51.5); MEAN CORPUSCULAR HEMOGLOBIN 29 pg (27-31); MEAN CORPUSCULAR HGB CONC 33 % (32-36); MEAN CORPUSCULAR VOLUME 87 fL (79.0-98.0); MONOCYTES # (AUTO) 0.3 K/uL (0.0-1.0); MONOCYTES % (AUTO) 4.2 % (1.7-9.3); NEUTROPHILS # (AUTO) 4.6 K/uL (1.8-7.7); NEUTROPHILS % (AUTO) 62.1 % (40.0-70.0); PLATELET COUNT (AUTO) 496 K/uL (130-430); RED BLOOD CELL COUNT(AUTO) 3.37 MIL/uL (4.2-6.2); RED CELL DISTRIBUTION WIDTH 15.4 % (9.0-15.0); WHITE BLOOD COUNT (AUTO) 7.3 K/uL (4.8-10.8)
[2022-10-14 07:24] LABS: ALBUMIN 1.9 g/dL (3.4-4.8); CALCIUM 8.2 mg/dL (8.4-11.0); CREATININE 0.94 mg/dL (0.55-1.30); TOTAL BILIRUBIN 0.1 mg/dL (0.0-1.0)
[2022-10-14 07:46] VITALS: BP_SYST 152
[2022-10-14] MEDS: ENOXAPARIN SODIUM 40 MG/0.4 ML SYRINGE SQ SCH (08:53)
[2022-10-14] MEDS: LACTOBACILLUS RHAMNOSUS GG 1 CAP CAPSULE PO SCH ×2 (08:53→23:36)
[2022-10-14] MEDS: MULTIVITS,CA,MINERALS/IRON/FA 1 TABLET PO SCH (08:53)
[2022-10-14] MEDS: CLINDAMYCIN HCL 150 MG CAPSULE PO SCH ×4 (08:53→23:37)
[2022-10-14] MEDS: FLUCONAZOLE 100 MG TABLET (DIFLUCAN) PO SCH (08:53)
[2022-10-14] MEDS: ASCORBIC ACID 500 MG TABLET PO SCH (08:53)
[2022-10-14] MEDS: BALSAM PERU/CASTOR OIL 56.7 GM OINT...G. TP SCH (08:54)
[2022-10-14] MEDS: lisinopriL 20 MG TABLET PO SCH (08:54)
[2022-10-14 11:27] VITALS: BP_SYST 146
[2022-10-14 15:18] VITALS: BP_SYST 134
[2022-10-14] MEDS ORDERED: SODIUM POLYSTYRENE SULFONATE 15 GM/60 ML UDBTL PO ONE (16:30)
[2022-10-14 20:00] VITALS: BP_SYST 92
[2022-10-15] VITALS: BP_SYST 129
[2022-10-15] MEDS: MORPHINE 4 MG INJ. 4 MG/ML VIAL IVP PRN ×5 (04:14→22:40)
[2022-10-15 05:23] LABS: BASOPHILS # (AUTO) 0.1 K/uL (0.0-0.2); EOSINOPHILS # (AUTO) 0.3 K/uL (0.0-0.4); EOSINOPHILS % (AUTO) 4.1 % (0.0-4.0); HEMATOCRIT 28.2 % (36-54); HEMOGLOBIN 9.5 g/dL (14.0-18.0); LYMPHOCYTES # (AUTO) 2.4 K/uL (1.0-5.5); LYMPHOCYTES % (AUTO) 33.9 % (20.5-51.5); MEAN CORPUSCULAR HEMOGLOBIN 29 pg (27-31); MEAN CORPUSCULAR HGB CONC 34 % (32-36); MEAN CORPUSCULAR VOLUME 87 fL (79.0-98.0); MONOCYTES # (AUTO) 0.5 K/uL (0.0-1.0); MONOCYTES % (AUTO) 6.5 % (1.7-9.3); NEUTROPHILS # (AUTO) 3.9 K/uL (1.8-7.7); NEUTROPHILS % (AUTO) 54.5 % (40.0-70.0); PLATELET COUNT (AUTO) 470 K/uL (130-430); RED BLOOD CELL COUNT(AUTO) 3.22 MIL/uL (4.2-6.2); RED CELL DISTRIBUTION WIDTH 15.4 % (9.0-15.0); WHITE BLOOD COUNT (AUTO) 7.1 K/uL (4.8-10.8)
[2022-10-15 05:39] LABS: CALCIUM 8.4 mg/dL (8.4-11.0); CREATININE 1.26 mg/dL (0.55-1.30)
[2022-10-15] MEDS: INSULIN REGULAR, HUMAN 100 UNITS/ML, 3 ML VIAL (humuLIN R) SUBCUT PRN ×2 (05:59→11:23)
[2022-10-15 08:00] VITALS: BP_SYST 129
[2022-10-15] MEDS: CLINDAMYCIN HCL 150 MG CAPSULE PO SCH ×4 (08:19→21:57)
[2022-10-15] MEDS: FLUCONAZOLE 100 MG TABLET (DIFLUCAN) PO SCH (08:19)
[2022-10-15] MEDS: MULTIVITS,CA,MINERALS/IRON/FA 1 TABLET PO SCH (08:19)
[2022-10-15] MEDS: lisinopriL 20 MG TABLET PO SCH (08:19)
[2022-10-15] MEDS: LACTOBACILLUS RHAMNOSUS GG 1 CAP CAPSULE PO SCH ×2 (08:19→21:57)
[2022-10-15] MEDS: ASCORBIC ACID 500 MG TABLET PO SCH (08:19)
[2022-10-15] MEDS: BALSAM PERU/CASTOR OIL 56.7 GM OINT...G. TP SCH (08:20)
[2022-10-15] MEDS: ENOXAPARIN SODIUM 40 MG/0.4 ML SYRINGE SQ SCH (08:20)
[2022-10-15 11:28] VITALS: BP_SYST 130
[2022-10-15] MEDS: MEROPENEM 1 GM in NS 100 ML IV SCH ×2 (13:02→22:17)
[2022-10-15] MEDS ORDERED: INSULIN NPH 100 UNITS/ML 10 ML VIAL SUBCUT ONE ×2 (14:00→14:45)
[2022-10-15] MEDS ORDERED: SODIUM POLYSTYRENE SULFONATE 15 GM/60 ML UDBTL PO ONE (16:15)
[2022-10-15] MEDS ORDERED: NACL 0.9% 1,000 ML IV SCH (16:45)
[2022-10-15 20:00] VITALS: BP_SYST 128
[2022-10-16] MEDS ORDERED: INSULIN NPH 100 UNITS/ML 10 ML VIAL SUBCUT SCH (07:00)
== END 2022-10-16 00:25 | disposition short-term general hospital (02) | DRG 720 ==
LOC: SED 17:53 → STU 20:08 → SMU 10-09 16:24
PROVIDERS: ADMIT Internal Medicine; ATTEND Internal Medicine
DX: A41.9 Sepsis, unspecified organism (principal); M72.6 Necrotizing fasciitis; E43 Unspecified severe protein-calorie malnutrition; E11.40 Type 2 diabetes mellitus with diabetic neuropathy, unspecified; E87.1 Hypo-osmolality and hyponatremia; D63.8 Anemia in other chronic diseases classified elsewhere; S91.302A Unspecified open wound, left foot, initial encounter; E11.51 Type 2 diabetes mellitus with diabetic peripheral angiopathy without gangrene; L03.116 Cellulitis of left lower limb; L03.115 Cellulitis of right lower limb; N39.0 Urinary tract infection, site not specified; Z20.822 Contact with and (suspected) exposure to COVID-19; X58.XXXA Exposure to other specified factors, initial encounter; E11.69 Type 2 diabetes mellitus with other specified complication; M86.8X7 Other osteomyelitis, ankle and foot; E11.621 Type 2 diabetes mellitus with foot ulcer; B88.8 Other specified infestations; I10 Essential (primary) hypertension; E78.5 Hyperlipidemia, unspecified; Z88.8 Allergy status to other drugs, medicaments and biological substances; Z79.899 Other long term (current) drug therapy; Z86.19 Personal history of other infectious and parasitic diseases; Z79.4 Long term (current) use of insulin; Z79.1 Long term (current) use of non-steroidal anti-inflammatories (NSAID); Z59.00 Homelessness unspecified; Y93.89 Activity, other specified; Y92.89 Other specified places as the place of occurrence of the external cause; Y99.8 Other external cause status; Z68.25 Body mass index [BMI] 25.0-25.9, adult
CPT/HCPCS: 36415; 71045; 80048; 80053; 80061; 80307; 81000; 82607; 82746; 82962; 83037; 83540; 83550; 83605; 84484; 85025; 87040; 87070-TC; 87081; 87086; 93005; 93923; 94003; 94760; 96365; 96366; 96367; 96375; 99291; G0378; J0878; J1450; J1650; J1815; J2185; J2270; J2543; J3370; J3490

== ENCOUNTER 2023-09-27 04:31 | Emergency (ER) | payer MEDICAID ==
[~2023-09-27] VITALS: Ht 175.3 cm; Wt 81.6 kg
[~2023-09-27 04:31] MED LIST changes: -INSU100I68 SQ; +INSU100I98 SQ; +OLOP2.5D11 EACH EYE
[2023-09-27 04:39] VITALS: BP_SYST 140; PULSE 103; RESP 16; TEMP 98.4; O2SAT 100
[2023-09-27] MEDS ORDERED: ACETAMINOPHEN 500 MG TABLET PO ONE (05:30)
[2023-09-27] MEDS: KETOROLAC TROMETHAMINE 15 MG VIAL IM ONE (05:42)
[2023-09-27 05:53] LABS: BASOPHILS # (AUTO) 0.1 K/uL (0.0-0.2); BASOPHILS % (AUTO) 0.6 % (0.0-2.0); EOSINOPHILS # (AUTO) 0.2 K/uL (0.0-0.4); EOSINOPHILS % (AUTO) 2.1 % (0.0-4.0); HEMATOCRIT 31.3 % (36-54); HEMOGLOBIN 10.6 g/dL (14.0-18.0); LYMPHOCYTES # (AUTO) 2.2 K/uL (1.0-5.5); LYMPHOCYTES % (AUTO) 22.1 % (20.5-51.5); MEAN CORPUSCULAR HEMOGLOBIN 29 pg (27-31); MEAN CORPUSCULAR HGB CONC 34 % (32-36); MEAN CORPUSCULAR VOLUME 87 fL (79.0-98.0); MONOCYTES # (AUTO) 0.7 K/uL (0.0-1.0); MONOCYTES % (AUTO) 7.1 % (1.7-9.3); NEUTROPHILS # (AUTO) 6.8 K/uL (1.8-7.7); NEUTROPHILS % (AUTO) 68.1 % (40.0-70.0); PLATELET COUNT (AUTO) 382 K/uL (130-430); RED CELL DISTRIBUTION WIDTH 15.2 % (9.0-15.0)
[2023-09-27] MEDS: ACETAMINOPHEN 650 MG/20.3 ML UDC PO ONE (05:53)
[2023-09-27 06:13] LABS: ALBUMIN 2.2 g/dL (3.4-4.8); BILIRUBIN,DIRECT 0.1 mg/dL (0.0-0.3); CALCIUM 8.5 mg/dL (8.4-11.0); CREATININE 1.3 mg/dL (0.55-1.30); POTASSIUM 4.5 mmol/L (3.5-5.1); TOTAL BILIRUBIN 0.2 mg/dL (0.0-1.0); TOTAL PROTEIN, SERUM 7.3 g/dL (6.4-8.3)
[2023-09-27] MEDS ORDERED: ANURH RC (06:28)
[2023-09-27 06:45] VITALS: BP_SYST 167; PULSE 93; RESP 18; TEMP 97.8; O2SAT 99
[2023-09-27] MEDS ORDERED: HYDR-3917 PO (08:33)
== END 2023-09-27 06:53 | disposition home or self-care (01) ==
LOC: SED 04:31
DX: K62.89 Other specified diseases of anus and rectum (principal); E11.9 Type 2 diabetes mellitus without complications; I10 Essential (primary) hypertension; E78.5 Hyperlipidemia, unspecified; Z79.4 Long term (current) use of insulin
CPT/HCPCS: 99283; 80076; 80048; 83690; 85025; 36415; 96372; J1885